=== PATIENT | male | born 1950 | race Caucasian/White ===

== ENCOUNTER 2017-04-09 16:02 | Inpatient (IN) | payer MEDICARE, OTHER, SELFPAY ==
[2017-04-09] VITALS (14 sets, daily range): BP systolic 72–141; BP diastolic 55–97; PULSE 65–137; RESP 14–23; TEMP 36.4–36.8; O2SAT 92–98; BMI 28.5; BMI 28.6; BMI 28.4
--- NOTE | 2017-04-09 16:14 | RAD_ITS ---
STUDY: X-RAY CHEST REASON FOR EXAM: Male, 66 years old. Irregular heart rate and palpitations with shortness of breath. TECHNIQUE: Single AP portable view of the chest. COMPARISON: Prior comparison studies are not available for review at this time. FINDINGS: Cardiac monitoring leads are present. The lungs appear hyperexpanded. There are bilateral perihilar interstitial consolidations and peribronchial cuffing. There is no demonstrated pleural abnormality. There is borderline cardiomegaly. Normal mediastinum and annalise. There is prominence of the pulmonary hilar arteries with peripheral pulmonary vascular congestion. There is atherosclerotic calcification of the aortic arch with tortuosity. There is demineralization of the osseous structures. There is deformity of several bilateral ribs probably related to old rib fractures. There is no demonstrated abnormality of the visualized soft tissue structures of the upper abdomen. RAD/Chest 1 View (Portable) IMPRESSION: Cardiomegaly and mild pulmonary congestion. Electronically Signed: Isabel Admas MD at 16:40 EST , Service support ,
--- NOTE | 2017-04-09 16:14 | EKG12_ITS ---
Test Reason : SOB Blood Pressure : / mmHG Vent. Rate : 136 BPM Atrial Rate : 037 BPM P-R Int : 208 ms QRS Dur : 150 ms QT Int : 374 ms P-R-T Axes : 076 255 065 degrees QTc Int : 562 ms Atrial fibrillation / flutter with aberrancy Right bundle branch block Abnormal ECG Confirmed by JOSE AUGUSTIN, JOSEPH ([id number]), purchasing expeditor ZAC EDWARDS ([id number]) on 04/13/2017 3:18:31 PM Referred By: MISHA Confirmed By:JOSEPH GARCIA MD
[2017-04-09 16:32] LABS: Absolute Lymphocyte Count 2.73 X10^3/ul (0.83-4.51); Absolute Neutrophil Count 4.3 X10^3/uL (2.0-7.7); Basophil# 0.05 X10^3/uL; Basophil% 0.6 % (0-1); Eosinophil# 0.13 X10^3/uL; Eosinophils% 1.6 % (0-5); Hematocrit 44.5 % (40-54); Hemoglobin 15.3 g/dl (13.0-16.5); Lymphocyte # 2.73 X10^3/ul (4.0); Lymphocyte % 34.6 % (19-41); Mean Corp Hgb Conc 34.4 g/gl (32-36); Mean Corpuscular Hgb 31.5 pg (27.0-32.0); Mean Corpuscular Volume 91.8 fL (80-94); Mean Platelet Vol. 10.5 fl (6.2-12.0); Monocyte# 0.72 X10^3/uL; Monocyte% 9.1 % (0-10); Neutrophil # 4.25 X10^3/uL (2.7-7.7); Neutrophil % 53.8 % (47-70); Platelet Count 220 K/mm3 (150-450); RBC Distribution Width CV 14.8 % (11.6-14.6); RBC Distribution Width SD 48.1 fl (35.1-43.9); Red Blood Count 4.85 M/mm3 (4.6-6.2); White Blood Count 7.9 K/mm3 (4.4-11.0)
[2017-04-09 16:36] LABS: POSITIVE COUNT NO; POSITIVE DIFFERENTIAL NO; POSITIVE MORPHOLOGY NO
[2017-04-09 16:45] LABS: International Normalized Ratio 1.3; Prothrombin Time (Protime)PT. 15.2 SECONDS (11.7-14.9)
[2017-04-09 16:51] LABS: Anion Gap 11 (5-15); BUN 29 mg/dL (7-18); BUN/Creat Ratio 21.8 RATIO (10-20); Calcium,Total 9.1 mg/dL (8.5-10.1); Chloride 106 mmol/L (98-107); Creatinine, Serum 1.33 mg/dL (0.70-1.30); EST Glomerular Filtration Rate 57 mL/min (>60); Est Glom Filt Rate - Afr Amer 69 mL/min (>60); Estimated Creatinine Clearance 58.19 ml/min; Glucose 67 mg/dL (70-110); Potassium 4.1 mmol/L (3.5-5.1); Sodium Level 139 mmol/L (136-145)
[2017-04-09] MEDS: dilTIAZem 25 MG/5 ML Vial 10 MG IV BOLUS (16:58)
[2017-04-09] MEDS: 0.9% Normal Saline 1,000 ML 150 ML IV (16:58)
[2017-04-09 17:06] LABS: BNP,B-Type NATRIURETIC PEPTIDE 712.9 pg/mL (0-100)
[2017-04-09] MEDS: Dextrose 50%-Water 25 GM/50 ML DISP.SYRIN IV (17:10)
--- NOTE | 2017-04-09 17:29 | CT_ITS ---
STUDY: CTA CHEST REASON FOR EXAM: Male, 66 years old. Shortness of breath, palpitations and irregular heartbeat. RADIATION DOSAGE (If Supplied By Facility): CTDIvol = ( 22.49 ) mGy, DLP = ( 679.10 ) mGycm TECHNIQUE: The examination was performed with the intravenous administration of 100 ml of Isovue 370 contrast material. Post-processing of the angiographic images was performed, with multiplanar reformation and 3D reconstruction. Individualized dose optimization techniques were used for this CT. COMPARISON: None. FINDINGS: Normal enhancement of the main pulmonary artery and right and left pulmonary arteries. Normal enhancement of the bilateral peripheral pulmonary arteries. There is no demonstrated pulmonary embolism. There is prominence of the main pulmonary arteries and peripheral pulmonary arteries. There is atherosclerotic calcification of the aortic arch with tortuosity. Maximum transverse dimension of ascending thoracic aorta measures approximately 3.8 cm. The aorta is not enhanced enough to exclude dissection. There is cardiomegaly. There is mediastinal lymphadenopathy within the subcarinal, paratracheal and precarinal regions. There are enlarged bilateral hilar lymph nodes. Normal visualized trachea and bronchi. The lungs are hyper expanded, with flattening of the hemidiaphragms. There are multiple lucencies visible within the upper lobes of the possibly related to centrilobular emphysema. There is some thickening of interlobular septa suggesting pulmonary fibrosis. There is heterogeneous groundglass attenuation within the upper lobes that may represent mild airspace disease or atelectasis. There is heterogeneous groundglass attenuation right lower lobe that may represent airspace disease and/or dependent atelectasis. There is a small right-sided pleural effusion. Normal chest wall structures. There is multilevel thoracic spondylosis. There are multilevel degenerative changes of the thoracic spine. There appears to be some reflux of enhanced blood within the liver vasculature suggesting pulmonary congestion. CT/CTA Chest W/WO Contrast IMPRESSION: 1. No CTA demonstrated pulmonary embolism. 2. Mediastinal and hilar lymphadenopathy. 3. Cardiomegaly and mild pulmonary edema with right-sided pleural effusion. 4. Sequela of COPD. 5. Heterogeneous groundglass attenuation in the upper lobes and right lower lobe. This may be the result pulmonary congestion though acute inflammatory or infectious process is possible as well. Electronically Signed: Isabel Adams MD at 18:31 EST , Service support ,
[2017-04-09 17:31] LABS: Bedside Glucose 132 mg/dL (70-110)
--- NOTE | 2017-04-09 17:35 | ED.RN ---
HOLD CARDIZEM AT THIS TIME. HEART RHYTHM BETWEEN AFIB AND NSR
--- NOTE | 2017-04-09 18:34 | EKG12_ITS ---
Test Reason : REPEAT Blood Pressure : / mmHG Vent. Rate : 095 BPM Atrial Rate : 085 BPM P-R Int : 204 ms QRS Dur : 106 ms QT Int : 370 ms P-R-T Axes : 061 044 265 degrees QTc Int : 464 ms Sinus rhythm with frequent and consecutive Premature ventricular complexes ST & T wave abnormality, consider inferolateral ischemia Prolonged QT Abnormal ECG Confirmed by JOSE AUGUSTIN, JOSEPH ([id number]), news assignment editor ZAC EDWARDS ([id number]) on 04/13/2017 3:22:59 PM Referred By: CELIA Confirmed By:JOSEPH GARCIA MD
--- NOTE | 2017-04-09 19:10 | ED.VISSUMM ---
- ER Visit Summary Date of Service: 04/09/17 Chief Complaint: Palpitations, shortness of breath History of Present Illness: The patient is a 66 M sent from the office with progressive shortness of breath for the last 2-3 weeks. He reports feeling occasional palpitations. He denies chest pain. does state that he had somewhat of a cold at the onset of the symptoms. She is noticed his breathing significantly worsened in the last 3-4 days. Patient does report a mild cough with clear sputum. He denies having fever or chills. Past history significant for diabetes, hypertension, high cholesterol. He had a subarachnoid hemorrhage in his brain and 9 years ago. Patient states he had multiple angiograms and no aneurysm was ever found. Patient denies significant cardiac history. He states his last stress test was 5 years ago. Physical Examination: Blood pressure is 141/97, temperature 98.3, heart rate 137, respiratory rate 14, pulse ox 98% on room air. In the room pulse ox was hovering in the low 90s. He was placed on supplemental oxygen. Head and neck examination is unremarkable. Heart is tachycardic and irregular. Lung sounds are grossly clear. There is an occasional crackle in the right base. Patient speaking full sentences without difficulty. Abdomen is soft nontender. Extremity examination reveals no significant edema. Test Results: EKG reveals atrial fibrillation with rate of 136 and a right bundle branch block. Old EKG sent from the clinic from 2013 does not reveal a bundle branch block and was sinus rhythm. Portable chest x-ray reveals mild pulmonary congestion and cardiomegaly. CBC is unremarkable. Chemistry studies reveal glucose of 67, BUN 29, creatinine 1.33. INR is 1.3. Troponin is less than 0.02. BNP is 712. Emergency Department Course and Treatment: Patient was given gentle IV fluids along with 10 mg of IV Cardizem. Heart rate went down to 126 briefly but then back up into the 130s. After a short time heart rate came down to 115 and then progressively down to the low 100s. Patient appears to be trying to convert to sinus rhythm. Patient was given a half amp of D50 for his glucose of 67. I spoke with Dr. Tao, on-call for cardiology. There is certainly concern with anticoagulation secondary to the patient's history of subarachnoid hemorrhage. Dr. Tao requested we get a CTA of the patient's chest to ensure there is no evidence of PE. This is performed and reveals no evidence of PE. There is mediastinal and hilar lymphadenopathy. There is evidence of cardiomegaly. There is mild pulmonary edema. Dr. Tao also asked that we get clearance from either neurology or neurosurgery about anticoagulation. I spoke with Dr. Deleon, on-call for neurology. He advised that with the patient being 9 years out from his insult, there is very little concern if any about anticoagulating him at this time. The patient presently has no headache and no neurologic symptoms. He advised that to be extra cautious a non-contrast head CT could be performed to ensure no evidence of blood at this time. This was ordered, however patient had just undergone CTA of the chest. I was advised that the contrast would remain in the venous system for some time. After speaking with the radiologist, she states that she would not be able to rule out a subarachnoid hemorrhage because of the recent contrast given for the CTA chest. After speaking with him it sounds like without aggressive IV hydration 12 hours would need to be allowed for that contrast to clear before performing a noncontrast head CT. This was discussed again with Dr. Tao. At this point it was felt that if the wait period was 12 hours or less, we would hold the patient's anticoagulation to get this noncontrast head CT. At this time EKG has been repeated. He appears to be fluctuating between sinus rhythm and A. fib. Heart rate on repeat EKG is 95. Patient's findings and course have been discussed with Dr. Mims. Patient will be admitted and plan will be head CT in the morning before starting anticoagulation. Treatment Plan: [] Disposition: Admit Impression: 1. New onset A. fib RVR 2. CHF 3. Mediastinal lymphadenopathy 4. Remote history of subarachnoid hemorrhage This note was generated with [employer] software. It may contain incorrect words, spelling, and punctuation that were not noted in review of the chart prior to signing ED Disposition - Plan for ED Patient: Chief Complaint: Palpitations Referrals: Lindsay Batista MD [Primary Care Provider] -
--- NOTE | 2017-04-09 19:25 | ED.DCSUM_ITS ---
- ER Visit Summary Date of Service: 04/09/17 Duplicate document ED Disposition - Plan for ED Patient: Disposition: Acute Care Hospital [facility] Chief Complaint: Palpitations
[2017-04-09] MEDS: Carvedilol 12.5 MG Tablet PO (20:25)
--- NOTE | 2017-04-09 20:37 | HP.PCM_ITS ---
Problem List (1) Shortness of breath Status: Acute (2) Atrial fibrillation Status: Acute Qualifiers: Atrial fibrillation type: unspecified Qualified Code(s): I48.91 - Unspecified atrial fibrillation History of Present Illness Date of Admission: 04/09/17 Chief Complaint: Shortness of breath, atrial fibrillation The patient is a 66 year old M was seen in the emergency room at [facility] after being sent in for evaluation after going to his physician's office with complaints of shortness of breath. Patient stated that he has not felt well since March when he had a flulike syndrome for 2 weeks. Patient has been short of breath periodically since then but he has noticed that it has increased over the last few days and he sought medical attention. Patient's is in the ER exam room at the time of my examination. Patient denied any chest pain and he denied any edema. EKG was done at the physician's office which showed an irregular rhythm and he was asked to go to the emergency room for evaluation. Patient was noted to be in atrial fibrillation when he reached the emergency room with a pulse of 137, IV Cardizem was given for rate control with lessening of his heart rate. Evaluation included a chest x-ray which showed a megaly and mild pulmonary congestion, CTA of the chest was performed which showed evidence of emphysema, pulmonary fibrosis, and CHF. There was also mediastinal lymphadenopathy noted on the chest CT. Labs were performed were remarkable for a beta natruretic peptide is 712, BUN was 29, creatinine was 1.33, and glucose was 67. EKG showed atrial fibrillation with a right bundle branch block. Cardiology was contacted there was some discussion whether to give the patient anticoagulation but since he had a past history of a subarachnoid hemorrhage, it was recommended that a CT of the brain be obtained before any anticoagulation, patient will get a CT of the brain in the morning since he was given contrast for his CT of his chest. Patient will be admitted to PCU for new onset atrial fib with congestive heart failure, echocardiogram will be obtained, patient will be seen by cardiology, he was placed on Coreg and IV Lasix. Cardiac enzymes will be cycled Past Medical History Allergies bee venom protein (honey bee) Allergy (Verified 04/09/17 16:04) Anaphylaxis Home Medications: Ambulatory Orders Medication Instructions Recorded GlipiZIDE (XL) [Glucotrol Xl] 2.5 mg PO DAILY@0800 04/09/17 Hydrocodone/Acetaminophen [[place] 1 each PO Q4H PRN PRN 04/09/17 5-325 Tablet] Lisinopril/Hydrochlorothiazide 1 each PO DAILY 04/09/17 [Zestoretic 20-12.5 mg Tablet] Metformin HCl [Glucophage] 1,000 mg PO BIDCM 04/09/17 Nabumetone [Relafen] 500 mg PO BID 04/09/17 Surgical History: - - Lithotripsy for kidney stones, lumbar surgery times 2 Psychiatric History: No pertinent psych hx Lives: Spouse/ Significant Other Smoking Status: Current every day smoker Tobacco Use: Cigarettes Alcohol: Rare Drugs: None - *Family History Maternal History Items: Hypertension, Stroke Paternal History Items: Heart Disease Review of Systems Constitutional: Reports: Malaise, Weakness, Fatigue. Denies: Anorexia, Chills, Fever, Night Sweats, Weight Change Eyes: Denies: Blurred vision, Cataracts, Conjunctivae Inflammation, Double vision, Drainage HEENT: Denies: Difficulty Hearing, Difficulty Swallowing, Dysphasia, Ear Pain, Head Aches, Hearing Changes, Nasal bleeding, Nasal Congestion Cardiovascular: Denies: Chest Pain, Claudication, Chest Pressure, Chest Tightness, Edema, Heaviness, Light Headedness, Orthopnea, Palpitations, Paroxysmal Noc. Dyspnea, Syncope Respiratory: Reports: Cough, Shortness of Breath, Shortness of breath upon exertion. Denies: Hemoptysis, Pleuritic Pain, Shortness of breath at rest, Sputum production, Wheezing Gastrointestinal: Denies: Abdominal Pain, Constipation, Diarrhea, Hematemesis, Hematochezia, Nausea, Melena, Vomiting Genitourinary: Denies: Dysuria, Frequency, Hematuria, Hesitancy, Incontinence, Nocturia, Urgency Musculoskeletal: Denies: Back Pain, Foot Pain, Hand Pain, Joint Pain, Joint stiffness, Joint swelling, Joint Tenderness, Leg Pain Skin: Denies: Dryness, Jaundice, Pruritis, Rash Neurological: Denies: Blurred vision, Double vision, Change in Speech, Slurred speech, Difficulty swallowing, Focal weakness, Headaches, Incoordination, Numbness, Tingling Psychiatric: Denies: Anxiety, Depression, Homicidal Ideations, Suicidal Ideations Endocrine: Denies: Change in Body Habitus, Heat/ Cold Intolerance, Polydipsia, Polyuria Hematologic/ Lymphatic: Denies: Adenopathy, Anemia, Easy Bruising, Easy Bleeding , Petechiae, Purpura VTE Information - Inpt Only VTE Present on Admission: No VTE Mechan Device Prophylaxis: None VTE Pharm Prophylaxis ordered?: Yes Patient Problems: Active and Suspected Problems Shortness of breath (Acute) Atrial fibrillation (Acute) - Physical Exam General: Alert, Oriented x3, Cooperative, No apparent distress, Well developed, Well nourished HEENT: Atraumatic, PERRLA, EOMI, Normocephalic Oral: Moist Mucosa Neck: Supple, No JVD, Negative Carotid Bruits, No Nuchal Rigidity, Trachea Midline, Thyroid Normal Size and Texture Lungs: Normal air movement, No rhonchi, No wheeze, No rales - Inspiratory rales over the bases of the lungs Cardiovascular: No murmurs, PMI Normal, Irregular Rate, No rub noted Abdomen: Bowel Sounds Present, Soft, Non Tender, Non-Distended, No hernias noted Extremities: No clubbing, No cyanosis, No edema, Capillary Refill Less than 3 Seconds Skin: No rashes, No breakdown Musculoskeletal: No Tenderness to Palpation of Joints or Extremities Neurological: Cranial nerves II-XII grossly intact, Neuro grossly intact, Muscle tone normal, Sensory exam intact to light touch and pain, Coordination normal Psych/Mental Status: Normal Affect, Appropriate, Alert and oriented to time, place, person, mood and affect Vital Signs Temp Pulse Resp BP Pulse Ox 98.3 F 96 16 108/74 96 04/09/17 19:23 04/09/17 19:23 04/09/17 19:23 04/09/17 19:23 04/09/17 19:23 Assessment/Plan Active and Suspected Problems Shortness of breath (Acute) Atrial fibrillation (Acute) #1 new onset atrial fibrillation with RVR-patient will be admitted to PCU, cardiac enzymes will be cycled, patient will be placed on rate limiting medication, echocardiogram will be performed, he will see cardiology in consultation. #2 congestive heart failure-type unknown-patient will be placed on IV Lasix, echocardiogram will be obtained #3 chronic obstructive pulmonary disease-patient does not have a known diagnosis of COPD, CT of the chest showed evidence of emphysematous changes, patient was cautioned not to smoke #4 pulmonary fibrosis #5 lymphadenopathy in the mediastinum-significance unknown, patient will probably need a contrasted CT of the chest done sometime in the future #6 past history of subarachnoid hemorrhage 1998-between neurology, radiology, and cardiology, it was decided the patient should have a CT of the brain tomorrow morning before starting any full anticoagulation. #7 elevated creatinine-significance unknown, no old creatinine for comparison, patient sees Dr. Batista at the [facility] she probably has old labs, these may need to be obtained #8 type 2 diabetes-patient will be taken off Glucophage, he will he will remain on Glucotrol, NovoLog will be given via sliding scale #9 hypertension-patient will be kept on lisinopril, the lisinopril HCT will be stopped as the patient will be on Lasix #10 degenerative disc disease of the lumbar spine-patient was cautioned not to use any anti-inflammatory should he be placed on full anticoagulation, patient currently takes Relafen, he will not be able to take this medication if he is on full anticoagulation. Code Visit Inpatient E&M: [id number] Init Hosp L3
[2017-04-09] MEDS: Furosemide 40 MG/4 ML Vial IV (21:33)
[2017-04-09] MEDS: Atorvastatin Calcium 20 MG Tablet PO (21:33)
--- NOTE | 2017-04-09 21:35 | PCM.CONS.C ---
Problem List (1) Atrial fibrillation Status: Acute Qualifiers: Atrial fibrillation type: unspecified Qualified Code(s): I48.91 - Unspecified atrial fibrillation (2) CHF (congestive heart failure) Status: Acute Qualifiers: Congestive heart failure type: unspecified Congestive heart failure chronicity: acute Qualified Code(s): I50.9 - Heart failure, unspecified (3) HTN (hypertension) Status: Chronic Qualifiers: Hypertension type: essential hypertension Qualified Code(s): I10 - Essential (primary) hypertension (4) HLD (hyperlipidemia) Status: Chronic Qualifiers: Hyperlipidemia type: unspecified Qualified Code(s): E78.5 - Hyperlipidemia, unspecified (5) Hyperglycemia Status: Chronic (6) Acute spontaneous subarachnoid intracranial hemorrhage Status: Resolved (7) Tobacco abuse Status: Chronic Reason for Consult Date of Consultation: 04/09/17 History of Present Illness: The patient is a 66 year old white male with past medical history which has included hypertension, hyper lipidemia, hyperglycemia, subarachnoid hemorrhage-remote, and tobacco abuse who now presents with concerns of atrial fibrillation and congestive heart failure. He states that for at least the last 2 weeks he has felt as if he may have had a flulike virus . He states he had a cough with sputum production-clear. He does not recall any associated nausea, emesis, or diarrhea. There were no associated myalgias. He notes over the last 3 days he has been progressively short of breath. This is occurred in any position. He states he has felt better sitting up in bed or sitting in a chair as opposed to being supine. He has not demonstrated any obvious lower extremity peripheral pitting edema. There has been no chest discomfort and he denies any near-syncope or syncope. He states he was being evaluated today and subsequently referred to the emergency department based on concerns of a irregular heartbeat . In the emergency department he was evaluated and noted to have what appeared to be atrial fibrillation with rapid ventricular response with occasional PVCs and an underlying right bundle branch block pattern. This was reported as different from a previous ECG available for review from 09/21/2013 which at that time demonstrated normal sinus rhythm with no obvious right bundle branch block pattern. He had a chest x-ray performed which suggested increased pulmonary vascularity. He had a troponin I level performed which was negative. He was treated with IV diltiazem. His ventricular rate slowed and he demonstrated episodes of intermittent sinus rhythm. He was placed in the PCU for further evaluation. He has continued to demonstrate episodes of atrial fibrillation with RVR with intermittent episodes of sinus rhythm. [] Past Medical History Allergies/Adverse Reactions: Allergies bee venom protein (honey bee) Allergy (Verified 04/09/17 16:04) Anaphylaxis Home Medications: Ambulatory Orders Medication Instructions Recorded GlipiZIDE (XL) [Glucotrol Xl] 5 mg PO DAILY@0800 04/09/17 Hydrocodone/Acetaminophen [[place] 1 each PO Q4H PRN PRN 04/09/17 5-325 Tablet] Lisinopril/Hydrochlorothiazide 1 each PO DAILY 04/09/17 [Zestoretic 20-12.5 mg Tablet] Metformin HCl [Glucophage] 500 mg PO BIDCM 04/09/17 Nabumetone [Relafen] 500 mg PO BID 04/09/17 Past Medical History (Chronic Problems): Chronic Problems HTN (hypertension) (Chronic) HLD (hyperlipidemia) (Chronic) Hyperglycemia (Chronic) Tobacco abuse (Chronic) Surgical History: - - Lithotripsy for kidney stones, lumbar surgery times 2 Psychiatric History: No pertinent psych hx - *Family History Maternal History Items: Hypertension, Stroke Paternal History Items: Heart Disease Lives: Spouse/ Significant Other Smoking Status: Current every day smoker Tobacco Use: Cigarettes Alcohol: Rare Drugs: None Review of Systems - Review of Systems General: Denies: Fever, Night Sweats, Fatigue Cardiovascular: Reports: Shortness of Breath, Shortness of Breath at Rest, Orthopnea. Denies: Chest Discomfort, PND, Peripheral Edema, Palpitations, Lightheadedness, Dizziness, Near Syncope, Syncope Respiratory: Reports: Cough, Sputum Production, Shortness of Breath. Denies: Hemoptysis Gastrointestinal: Denies: Hematemesis, Hematochezia, Melena Genitourinary: Denies: Dysuria, Hematuria Skin: Denies: Rash Subjectve: This is a 66-year-old white male who appears to be resting comfortably at the moment in no acute distress. Objective: Vital Signs Temp Pulse Resp BP Pulse Ox 97.8 F 114 H 16 118/70 93 04/09/17 20:46 04/09/17 20:46 04/09/17 20:46 04/09/17 20:51 04/09/17 20:46 Oxygen Flow Rate 2 Oxygen Delivery Method Nasal Cannula Weight: 204 lb 2.369 oz Body Mass Index (BMI) 28.4 General: Awake, Alert, Oriented x 3, Cooperative, No Acute Distress Neck: No JVD Lungs: Rhonchi, Inspiratory Wheezes - Perez, Expiratory Wheezes-Perez Cardiovascular: Regular Rhythm, Premature Ectopic Beats, Normal S1, Normal S2 Vascular: No Carotid Bruits Abdomen: Bowel Sounds Present, Soft, Non Tender Extremities: No Cyanosis, No Clubbing, No edema Neurological: No Focal Motor or Sensory Deficit Rhythm: As noted above EKG: As noted above ECHO: Pending CXR: As noted above Chest CT Scan: Preliminary evaluation: No great vessel or thromboembolic disease reported: Please see official report Assessment/Plan 1. Atrial fibrillation The patient presents with findings compatible with atrial fibrillation with rapid ventricular response. The etiology is uncertain although it could be related to a combination of age, hypertension, undiagnosed cardiovascular disease, pulmonary disease, etc. At the present time the patient has been evaluated. His initial cardiac evaluation with respect to cardiac enzymes were negative. He is pending additional cardiovascular evaluation with a transthoracic echocardiogram to evaluate his atrial size as well as his ventricular size, wall thickness, and systolic function. In the interim he has been treated medically. He was placed on antiplatelet therapy and rate limiting therapy. However he has had intermittent episodes of atrial fibrillation with rapid ventricular response superimposed upon his underlying IVCD pattern. Thus it may be reasonable, as he continues to have episodes of sinus rhythm, to attempt to maintain his rhythm with additional antiarrhythmic therapy. At the moment, without any other knowledge of his cardiovascular disease process, it would be reasonable to consider agent such as IV amiodarone. He is also to be placed on anticoagulant therapy. However this is on hold pending a follow-up brain CT scan to evaluate for any obvious residual events or findings based upon his remote history of subarachnoid hemorrhage. This issue was discussed between Dr. Yu and Dr. Deleon often of neurology while the patient was in the emergency department. 2. Congestive heart failure The patient does have findings compatible with underlying congestive heart failure. Again it is unclear whether this may be secondary to his atrial dysrhythmia or a primary underlying cardiovascular disease that would be contributing to his atrial dysrhythmia. At the present time he will continue to be monitored. His atrial dysrhythmia will be addressed. He will undergo further evaluation of his left ventricular wall motion and systolic function with a transthoracic echocardiogram. Depending upon his clinical course he may need future evaluation care with additional noninvasive and/or invasive studies. In the interim his medical therapy will include agents such as nitrates, beta-blockers, diuretics, and afterload reducing agents as tolerated. 3. Hypertension The patient will continue antihypertensive therapy peer 4. Hyperlipidemia The patient states that he was diagnosed with hyperlipidemia. He states he was due to start lipid-lowering therapy. Lipids will be evaluated. His medications will be adjusted. 5. Hyperglycemia He will continue evaluation care per internal medicine. 6. Subarachnoid hemorrhage: Remote The patient states he was evaluated at [facility]. He states there is no definitive etiology for his subarachnoid hemorrhage. He did not require invasive evaluation or care. He states he had follow-up and then over time required no further follow-up. His believes he was told not to take aspirin therapy in the future. The patient should be considered for not only his upcoming brain CT scan but further input from neurology or neurosurgery with respect to what agents he may or may not be able to tolerate in the future with respect to antiplatelet therapy, anticoagulant therapy, etc. 7. Tobacco abuse The patient states he has been smoking cigarettes, approximately 1 pack per day, for 40 years. He has been counseled on the need to stop his tobacco intake. Comment: The above was discussed with the patient, his spouse, Dr. Yu of the [facility] emergency department staff, and Dr. Mims of the [facility] staff. This note was generated with [employer] Dictation software. Every effort was made to ensure accuracy, however, computerized bag loader mistakes may persist.
--- NOTE | 2017-04-09 21:48 | CON.PCM_ITS ---
Problem List (1) Atrial fibrillation Status: Acute Qualifiers: Atrial fibrillation type: unspecified Qualified Code(s): I48.91 - Unspecified atrial fibrillation (2) CHF (congestive heart failure) Status: Acute Qualifiers: Congestive heart failure type: unspecified Congestive heart failure chronicity: acute Qualified Code(s): I50.9 - Heart failure, unspecified (3) HTN (hypertension) Status: Chronic Qualifiers: Hypertension type: essential hypertension Qualified Code(s): I10 - Essential (primary) hypertension (4) HLD (hyperlipidemia) Status: Chronic Qualifiers: Hyperlipidemia type: unspecified Qualified Code(s): E78.5 - Hyperlipidemia , unspecified (5) Hyperglycemia Status: Chronic (6) Acute spontaneous subarachnoid intracranial hemorrhage Status: Resolved (7) Tobacco abuse Status: Chronic Reason for Consult Date of Consultation: 04/09/17 History of Present Illness: The patient is a 66 year old white male with past medical history which has included hypertension, hyper lipidemia, hyperglycemia, subarachnoid hemorrhage- remote, and tobacco abuse who now presents with concerns of atrial fibrillation and congestive heart failure. He states that for at least the last 2 weeks he has felt as if he may have had a flulike virus . He states he had a cough with sputum production-clear. He does not recall any associated nausea, emesis , or diarrhea. There were no associated myalgias. He notes over the last 3 days he has been progressively short of breath. This is occurred in any position. He states he has felt better sitting up in bed or sitting in a chair as opposed to being supine. He has not demonstrated any obvious lower extremity peripheral pitting edema. There has been no chest discomfort and he denies any near-syncope or syncope. He states he was being evaluated today and subsequently referred to the emergency department based on concerns of a irregular heartbeat . In the emergency department he was evaluated and noted to have what appeared to be atrial fibrillation with rapid ventricular response with occasional PVCs and an underlying right bundle branch block pattern. This was reported as different from a previous ECG available for review from 2013 which at that time demonstrated normal sinus rhythm with no obvious right bundle branch block pattern. He had a chest x-ray performed which suggested increased pulmonary vascularity. He had a troponin I level performed which was negative. He was treated with IV diltiazem. His ventricular rate slowed and he demonstrated episodes of intermittent sinus rhythm. He was placed in the PCU for further evaluation. He has continued to demonstrate episodes of atrial fibrillation with RVR with intermittent episodes of sinus rhythm. [] Past Medical History Allergies/Adverse Reactions: Allergies bee venom protein (honey bee) Allergy (Verified 04/09/17 16:04) Anaphylaxis Home Medications: Ambulatory Orders Medication Instructions Recorded GlipiZIDE (XL) [Glucotrol Xl] 5 mg PO DAILY@0800 04/09/17 Hydrocodone/Acetaminophen [[place] 1 each PO Q4H PRN PRN 04/09/17 5-325 Tablet] Lisinopril/Hydrochlorothiazide 1 each PO DAILY 04/09/17 [Zestoretic 20-12.5 mg Tablet] Metformin HCl [Glucophage] 500 mg PO BIDCM 04/09/17 Nabumetone [Relafen] 500 mg PO BID 04/09/17 Past Medical History (Chronic Problems): Chronic Problems HTN (hypertension) (Chronic) HLD (hyperlipidemia) (Chronic) Hyperglycemia (Chronic) Tobacco abuse (Chronic) Surgical History: - - Lithotripsy for kidney stones, lumbar surgery times 2 Psychiatric History: No pertinent psych hx - *Family History Maternal History Items: Hypertension, Stroke Paternal History Items: Heart Disease Lives: Spouse/ Significant Other Smoking Status: Current every day smoker Tobacco Use: Cigarettes Alcohol: Rare Drugs: None Review of Systems - Review of Systems General: Denies: Fever, Night Sweats, Fatigue Cardiovascular: Reports: Shortness of Breath, Shortness of Breath at Rest, Orthopnea. Denies: Chest Discomfort, PND, Peripheral Edema, Palpitations, Lightheadedness, Dizziness, Near Syncope, Syncope Respiratory: Reports: Cough, Sputum Production, Shortness of Breath. Denies: Hemoptysis Gastrointestinal: Denies: Hematemesis, Hematochezia, Melena Genitourinary: Denies: Dysuria, Hematuria Skin: Denies: Rash Subjectve: This is a 66-year-old white male who appears to be resting comfortably at the moment in no acute distress. Objective: Vital Signs Temp Pulse Resp BP Pulse Ox 97.8 F 114 H 16 118/70 93 04/09/17 20:46 04/09/17 20:46 04/09/17 20:46 04/09/17 20:51 04/09/17 20:46 Oxygen Flow Rate 2 Oxygen Delivery Method Nasal Cannula Weight: 204 lb 2.369 oz Body Mass Index (BMI) 28.4 General: Awake, Alert, Oriented x 3, Cooperative, No Acute Distress Neck: No JVD Lungs: Rhonchi, Inspiratory Wheezes - Perez, Expiratory Wheezes-Perez Cardiovascular: Regular Rhythm, Premature Ectopic Beats, Normal S1, Normal S2 Vascular: No Carotid Bruits Abdomen: Bowel Sounds Present, Soft, Non Tender Extremities: No Cyanosis, No Clubbing, No edema Neurological: No Focal Motor or Sensory Deficit Rhythm: As noted above EKG: As noted above ECHO: Pending CXR: As noted above Chest CT Scan: Preliminary evaluation: No great vessel or thromboembolic disease reported: Please see official report Assessment/Plan 1. Atrial fibrillation The patient presents with findings compatible with atrial fibrillation with rapid ventricular response. The etiology is uncertain although it could be related to a combination of age, hypertension, undiagnosed cardiovascular disease, pulmonary disease, etc. At the present time the patient has been evaluated. His initial cardiac evaluation with respect to cardiac enzymes were negative. He is pending additional cardiovascular evaluation with a transthoracic echocardiogram to evaluate his atrial size as well as his ventricular size, wall thickness, and systolic function. In the interim he has been treated medically. He was placed on antiplatelet therapy and rate limiting therapy. However he has had intermittent episodes of atrial fibrillation with rapid ventricular response superimposed upon his underlying IVCD pattern. Thus it may be reasonable, as he continues to have episodes of sinus rhythm, to attempt to maintain his rhythm with additional antiarrhythmic therapy. At the moment, without any other knowledge of his cardiovascular disease process, it would be reasonable to consider agent such as IV amiodarone. He is also to be placed on anticoagulant therapy. However this is on hold pending a follow-up brain CT scan to evaluate for any obvious residual events or findings based upon his remote history of subarachnoid hemorrhage. This issue was discussed between Dr. Yu and Dr. Deleon often of neurology while the patient was in the emergency department. 2. Congestive heart failure The patient does have findings compatible with underlying congestive heart failure. Again it is unclear whether this may be secondary to his atrial dysrhythmia or a primary underlying cardiovascular disease that would be contributing to his atrial dysrhythmia. At the present time he will continue to be monitored. His atrial dysrhythmia will be addressed. He will undergo further evaluation of his left ventricular wall motion and systolic function with a transthoracic echocardiogram. Depending upon his clinical course he may need future evaluation care with additional noninvasive and/or invasive studies. In the interim his medical therapy will include agents such as nitrates, beta- blockers, diuretics, and afterload reducing agents as tolerated. 3. Hypertension The patient will continue antihypertensive therapy peer 4. Hyperlipidemia The patient states that he was diagnosed with hyperlipidemia. He states he was due to start lipid-lowering therapy. Lipids will be evaluated. His medications will be adjusted. 5. Hyperglycemia He will continue evaluation care per internal medicine. 6. Subarachnoid hemorrhage: Remote The patient states he was evaluated at [facility]. He states there is no definitive etiology for his subarachnoid hemorrhage. He did not require invasive evaluation or care. He states he had follow-up and then over time required no further follow-up. His believes he was told not to take aspirin therapy in the future. The patient should be considered for not only his upcoming brain CT scan but further input from neurology or neurosurgery with respect to what agents he may or may not be able to tolerate in the future with respect to antiplatelet therapy, anticoagulant therapy, etc. 7. Tobacco abuse The patient states he has been smoking cigarettes, approximately 1 pack per day , for 40 years. He has been counseled on the need to stop his tobacco intake. Comment: The above was discussed with the patient, his spouse, Dr. Yu of the [facility] emergency department staff, and Dr. Mims of the [facility] staff. This note was generated with [employer] Dictation software. Every effort was made to ensure accuracy, however, computerized handstitching machine armhole feller mistakes may persist.
[2017-04-09 22:26] LABS: Bedside Glucose 110 mg/dL (70-110)
[2017-04-09] MEDS: 0.9% NaCl Peripheral Flush Adult/Peds IV (22:31)
--- NOTE | 2017-04-09 23:05 | NURSING ---
This RN gave verbal report and handed off care to Nathaniel King RN at this time.
[2017-04-10] VITALS (43 sets, daily range): BP systolic 61–159; BP diastolic 46–135; PULSE 56–97; RESP 13–26; TEMP 35.7–36.9; O2SAT 23–100
--- NOTE | 2017-04-10 05:55 | EKG12_ITS ---
Test Reason : AM EKG Blood Pressure : / mmHG Vent. Rate : 059 BPM Atrial Rate : 059 BPM P-R Int : 216 ms QRS Dur : 106 ms QT Int : 466 ms P-R-T Axes : 010 079 249 degrees QTc Int : 461 ms Sinus bradycardia with 1st degree A-V block T wave abnormality, consider inferolateral ischemia Prolonged QT Abnormal ECG Confirmed by SWAPNA AUGUSTIN, JAMES ([id number]), international editorial producer ZAC EDWARDS ([id number] on 04/15/2017 3:05:49 PM Referred By: SWAPNA Confirmed By:JAMES BARCENAS MD
--- NOTE | 2017-04-10 05:55 | CT_ITS ---
STUDY: CT BRAIN WITHOUT CONTRAST REASON FOR EXAM: Male, 66 years old. Onset of atrial fibrillation. History of prior subarachnoid hemorrhage. RADIATION DOSAGE (If Supplied By Facility): CTDIvol = ( 44.99 ) mGy, DLP = ( 829.85 ) mGycm TECHNIQUE: Transaxial CT imaging of the brain was performed without administration of intravenous contrast material. Individualized dose optimization techniques were used for this CT. COMPARISON: None. FINDINGS: Normal soft tissue structures. Normal calvarium. Normal size ventricles and extra-axial spaces for the patient's age. Normal white matter tracts of the cerebral hemispheres. Normal basal ganglia and thalami. Normal brainstem. Normal cerebellum. There is no intracranial hemorrhage. There are no findings of an acute ischemic infarction. Normal visualized paranasal sinuses. CT/Brain/Head without Contrast IMPRESSION: Normal unenhanced CT scan of the brain. No intracranial hemorrhage. Electronically Signed: Audi Baeza MD at 6:12 EST , Service support ,
--- NOTE | 2017-04-10 05:55 | ECHOD_ITS ---
Version 2 Reason For Study: AFIB Procedure This was a 2D Doppler, Color Flow transthoracic echocardiogram. Contrast injection was performed. Exam performed portable in patient room. Left Ventricle Mildly dilated left ventricle. Severe global left ventricular systolic dysfunction. The estimated ejection fraction is 20 %. There is moderate to severe global hypokinesis of the left ventricle. Right Ventricle Moderately dilated right ventricle. Mild to moderate global right ventricular systolic dysfunction. Atria The left atrium is mildly enlarged. Normal right atrium. Mitral Valve Normal mitral valve. Moderate (2+) eccentric mitral valve insufficiency. Tricuspid Valve Normal tricuspid valve. Mild to moderate (1-2+) tricuspid valve insufficiency. Pulmonary artery systolic pressure is 38 mmHg. Aortic Valve Trisinus/trileaflet aortic valve. Pulmonic Valve Normal pulmonic valve. Mild (1+) pulmonic valve insufficiency. Great Vessels Normal aortic root. The pulmonary artery is normal size. Normal inferior vena cava. Pericardium/Pleural No pericardial effusion. Medication Diluted definity 5ml given slow IV push to enhance endocardial definition. MMode/2D Measurements & Calculations LVIDd: 5.9 cm IVSd: 0.75 cm LVOT diam: 2.0 cm LVIDs: 5.0 cm LVPWd: 0.82 cm LVOT area: 3.2 cm2 RVDd: 4.6 cm FS: 15.4 % Ao root diam: 3.9 cm LAV(MOD-bp): 75.2 ml LA dimension: 4.2 cm LAV(MOD-bp) Indexed: 35.4 ml/m2 LA A4 area: 20.8 cm2 LAV(MOD-sp2): 97.1 ml LAV(MOD-sp4): 57.5 ml RA A4 area: 18.1 cm2 Doppler Measurements & Calculations MV E max madison: 78.2 cm/sec Ao V2 max: 73.1 cm/sec LV V1 max: 57.7 cm/sec Ao max P.1 mmHg LV V1 max P.3 mmHg JACEK(V,D): 2.6 cm2 PA V2 max: 49.0 cm/sec PI end-d madison: 113.2 cm/sec TR max mad[place]: 287.1 cm/sec TR max P.2 mmHg RVSP(TR): 48.2 mmHg Interpretation Summary Mildly dilated left ventricle. Severe global left ventricular systolic dysfunction. There is moderate to severe global hypokinesis of the left ventricle. Moderate (2+) eccentric mitral valve insufficiency. Pulmonary artery systolic pressure is 38 mmHg. The estimated ejection fraction is 20 %. Ordering Physician: Dominic Mims Referring Physician: Lindsay Batista M.D. Performed By: Anca Rodriguez, RDCS, RVT
[2017-04-10 07:00] LABS: Bedside Glucose 184 mg/dL (70-110)
[2017-04-10 08:11] LABS: Anion Gap 8 (5-15); BUN 33 mg/dL (7-18); BUN/Creat Ratio 22.1 RATIO (10-20); Calcium,Total 8.3 mg/dL (8.5-10.1); Chloride 105 mmol/L (98-107); Cholesterol 125 mg/dL (200); Creatinine, Serum 1.49 mg/dL (0.70-1.30); EST Glomerular Filtration Rate 50 mL/min (>60); Est Glom Filt Rate - Afr Amer 61 mL/min (>60); Estimated Creatinine Clearance 51.94 ml/min; Glucose 188 mg/dL (70-110); High Density Lipoprotein 26 mg/dL; Sodium Level 136 mmol/L (136-145); Triglycerides 151 mg/dL; Very Low Density Lipoprotein 30 mg/dL (5-40)
--- NOTE | 2017-04-10 08:41 | PCM.PN.CARD ---
Subjectve: The patient states that he has had no new acute symptoms or events since his admission to the hospital. Objective: Vital Signs Temp Pulse Resp BP Pulse Ox 98.5 F 62 18 84/69 L 96 04/10/17 08:00 04/10/17 08:00 04/10/17 08:00 04/10/17 08:00 04/10/17 08:00 Oxygen Flow Rate 2 Oxygen Delivery Method Nasal Cannula Weight: 204 lb 2.369 oz Body Mass Index (BMI) 28.4 Intake and Output for Last 24 Hours 04/08/17 04/09/17 04/10/17 23:59 23:59 23:59 Intake Total 476 / 476 Output Total 350 / 350 Balance 126 / 126 General: Awake, Alert, Oriented x 3, Cooperative, No Acute Distress Neck: No JVD Lungs: Rhonchi, Inspiratory Wheezes - Perez, Expiratory Wheezes-Perez Cardiovascular: Regular Rhythm, Normal S1, Normal S2 Abdomen: Bowel Sounds Present, Soft, Non Tender Extremities: No edema 04/09/17 21:47: Troponin I < 0.02 04/10/17 00:57: Troponin I < 0.02 04/10/17 06:50: Sodium 136, Potassium 5.0, Chloride 105, Carbon Dioxide 23.0, Anion Gap 8, BUN 33 H, Creatinine 1.49 H, Est GFR (MDRD) Af Amer 61, Est GFR (MDRD) Non-Af 50 L, BUN/Creatinine Ratio 22.1 H, Glucose 188 H, Calcium 8.3 L, Troponin I < 0.02, Triglycerides 151, Cholesterol 125, LDL Cholesterol 69, VLDL Cholesterol 30, HDL Cholesterol 26 L Rhythm: Sinus rhythm EKG: Sinus rhythm; low voltage QRS in the limb leads; T-wave abnormality potentially compatible with inferolateral myocardial ischemia ECHO: Pending Head / Brain CT Scan: Preliminary report: Unremarkable: Please see official report Assessment/Plan 1. Atrial fibrillation The patient presents with findings compatible with atrial fibrillation with rapid ventricular response. The etiology is uncertain although it could be related to a combination of age, hypertension, undiagnosed cardiovascular disease, pulmonary disease, etc. At the present time the patient has been evaluated. His cardiac enzymes have been negative. His ECG is as noted above. He has been treated with a combination of rate control therapy and antiarrhythmic therapy. His rate control therapy with respect to beta-timothy was placed on hold secondary to his hypotension. He has continued his antiarrhythmic therapy with IV amiodarone. His antiplatelet therapy and anticoagulant therapy were placed on hold pending his Brain CT scan. Based upon his previous history, previous comments of not being able to take aspirin therapy, and the potential need for additional cardiovascular care with antiplatelet therapy as well as anticoagulants, it would be reasonable to request neurology input on what medications he may or may not be able to take respect to his history of subarachnoid hemorrhage. 2. Congestive heart failure The patient does have findings compatible with underlying congestive heart failure. Again it is unclear whether this may be secondary to his atrial dysrhythmia or a primary underlying cardiovascular disease that would be contributing to his atrial dysrhythmia. His cardiac enzymes have remained negative. His echocardiogram is pending. 3. Hypertension The patient will continue antihypertensive therapy which may need to be adjusted based upon his blood pressure response. 4. Hyperlipidemia The patient states that he was diagnosed with hyperlipidemia. He states he was due to start lipid-lowering therapy. Lipids will be evaluated. His medications will be adjusted. 5. Hyperglycemia He will continue evaluation care per internal medicine. 6. Subarachnoid hemorrhage: Remote The patient states he was evaluated at [facility]. He states there is no definitive etiology for his subarachnoid hemorrhage. He did not require invasive evaluation or care. He states he had follow-up and then over time required no further follow-up. His believes he was told not to take aspirin therapy in the future. 7. Tobacco abuse The patient states he has been smoking cigarettes, approximately 1 pack per day, for 40 years. He has been counseled on the need to stop his tobacco intake. Overall, there is some concern as to the exact etiology of his cardiopulmonary issues and whether or not above and beyond his dysrhythmia does he have underlying cardiovascular disease such as LV systolic dysfunction contributing to his symptoms and findings as well as the extent of underlying pulmonary disease secondary to his previous tobacco history also contributing to his symptoms and findings. Thus he will continue his evaluation from a cardiac standpoint with a transthoracic echocardiogram. He may need additional noninvasive or invasive diagnostic studies. In the interim it would be reasonable to obtain neurology input with respect to what medications such as antiplatelets and anticoagulants he may or may not be able to take based on his history of subarachnoid hemorrhage. Comment: The above was discussed with the patient and Dr. Mims and he noted that he would consult neurology for further input. This note was generated with [email or web address] Dictation software. Every effort was made to ensure accuracy, however, computerized big data analytics lead mistakes may persist.
--- NOTE | 2017-04-10 08:48 | PN.CARD_ITS ---
Subjectve: The patient states that he has had no new acute symptoms or events since his admission to the hospital. Objective: Vital Signs Temp Pulse Resp BP Pulse Ox 98.5 F 62 18 84/69 L 96 04/10/17 08:00 04/10/17 08:00 04/10/17 08:00 04/10/17 08:00 04/10/17 08:00 Oxygen Flow Rate 2 Oxygen Delivery Method Nasal Cannula Weight: 204 lb 2.369 oz Body Mass Index (BMI) 28.4 Intake and Output for Last 24 Hours 04/08/17 04/09/17 04/10/17 23:59 23:59 23:59 Intake Total 476 / 476 Output Total 350 / 350 Balance 126 / 126 General: Awake, Alert, Oriented x 3, Cooperative, No Acute Distress Neck: No JVD Lungs: Rhonchi, Inspiratory Wheezes - Perez, Expiratory Wheezes-Perez Cardiovascular: Regular Rhythm, Normal S1, Normal S2 Abdomen: Bowel Sounds Present, Soft, Non Tender Extremities: No edema 04/09/17 21:47: Troponin I < 0.02 04/10/17 00:57: Troponin I < 0.02 04/10/17 06:50: Sodium 136, Potassium 5.0, Chloride 105, Carbon Dioxide 23.0, Anion Gap 8, BUN 33 H, Creatinine 1.49 H, Est GFR (MDRD) Af Amer 61, Est GFR ( MDRD) Non-Af 50 L, BUN/Creatinine Ratio 22.1 H, Glucose 188 H, Calcium 8.3 L, Troponin I < 0.02, Triglycerides 151, Cholesterol 125, LDL Cholesterol 69, VLDL Cholesterol 30, HDL Cholesterol 26 L Rhythm: Sinus rhythm EKG: Sinus rhythm; low voltage QRS in the limb leads; T-wave abnormality potentially compatible with inferolateral myocardial ischemia ECHO: Pending Head / Brain CT Scan: Preliminary report: Unremarkable: Please see official report Assessment/Plan 1. Atrial fibrillation The patient presents with findings compatible with atrial fibrillation with rapid ventricular response. The etiology is uncertain although it could be related to a combination of age, hypertension, undiagnosed cardiovascular disease, pulmonary disease, etc. At the present time the patient has been evaluated. His cardiac enzymes have been negative. His ECG is as noted above. He has been treated with a combination of rate control therapy and antiarrhythmic therapy. His rate control therapy with respect to beta-timothy was placed on hold secondary to his hypotension. He has continued his antiarrhythmic therapy with IV amiodarone. His antiplatelet therapy and anticoagulant therapy were placed on hold pending his Brain CT scan. Based upon his previous history, previous comments of not being able to take aspirin therapy, and the potential need for additional cardiovascular care with antiplatelet therapy as well as anticoagulants, it would be reasonable to request neurology input on what medications he may or may not be able to take respect to his history of subarachnoid hemorrhage. 2. Congestive heart failure The patient does have findings compatible with underlying congestive heart failure. Again it is unclear whether this may be secondary to his atrial dysrhythmia or a primary underlying cardiovascular disease that would be contributing to his atrial dysrhythmia. His cardiac enzymes have remained negative. His echocardiogram is pending. 3. Hypertension The patient will continue antihypertensive therapy which may need to be adjusted based upon his blood pressure response. 4. Hyperlipidemia The patient states that he was diagnosed with hyperlipidemia. He states he was due to start lipid-lowering therapy. Lipids will be evaluated. His medications will be adjusted. 5. Hyperglycemia He will continue evaluation care per internal medicine. 6. Subarachnoid hemorrhage: Remote The patient states he was evaluated at [facility]. He states there is no definitive etiology for his subarachnoid hemorrhage. He did not require invasive evaluation or care. He states he had follow-up and then over time required no further follow-up. His believes he was told not to take aspirin therapy in the future. 7. Tobacco abuse The patient states he has been smoking cigarettes, approximately 1 pack per day , for 40 years. He has been counseled on the need to stop his tobacco intake. Overall, there is some concern as to the exact etiology of his cardiopulmonary issues and whether or not above and beyond his dysrhythmia does he have underlying cardiovascular disease such as LV systolic dysfunction contributing to his symptoms and findings as well as the extent of underlying pulmonary disease secondary to his previous tobacco history also contributing to his symptoms and findings. Thus he will continue his evaluation from a cardiac standpoint with a transthoracic echocardiogram. He may need additional noninvasive or invasive diagnostic studies. In the interim it would be reasonable to obtain neurology input with respect to what medications such as antiplatelets and anticoagulants he may or may not be able to take based on his history of subarachnoid hemorrhage. Comment: The above was discussed with the patient and Dr. Mims and he noted that he would consult neurology for further input. This note was generated with [employer] Dictation software. Every effort was made to ensure accuracy, however, computerized provider engagement executive mistakes may persist.
--- NOTE | 2017-04-10 09:12 | MRI_ITS ---
STUDY: MRI BRAIN WITHOUT CONTRAST REASON FOR EXAM: Male, 66 years old. Atrial fibrillation. TECHNIQUE: Standardized multiplanar fat and water weighted pulse sequences were obtained. COMPARISON: CT of the head dated April 10, 2017. FINDINGS: There is mild cerebral atrophy with widening of the extra-axial spaces and ventricular dilatation. There are multiple white matter hyperintensities, distributed throughout the deep white matter tracts of the cerebral hemispheres, consistent with moderate chronic white matter ischemic changes. There is apparent restricted diffusion within bilateral basal ganglia. This is somewhat atypical in configuration for an acute infarct and may be the result of artifact. There is no other evidence to suggest acute infarct. Normal T2* images of the brain without demonstrated susceptibility artifact. There is no demonstrated hemosiderin stain. Normal bilateral basal ganglia. Normal thalami. There is no extra-axial fluid accumulation. Normal flow voids within the major intracranial circulation suggesting patency by spin echo criteria. Normal sella turcica, pituitary gland, infundibular stalk, optic chiasm and hypothalamus. Normal tectal plate and pineal gland. There are chronic white matter ischemic changes of the neftali. The midbrain and medulla are otherwise normal. There is a focal area of encephalomalacia in the right cerebellum probably related to old infarct. Cerebellum has a grossly normal appearance otherwise. There are large basal cisterns. Normal bilateral temporal bones. Normal bilateral internal auditory canals. No demonstrated orbital abnormality, within the constraints of a routine brain study. There is mucoperiosteal inflammatory disease of the paranasal sinuses consistent with mild chronic sinusitis. Normal calvarium and skull base. Normal visualized soft tissue structures. There are degenerative changes of the anterior atlantoaxial articulation. MRI/Brain without Contrast IMPRESSION: 1. Involutional changes of the brain, as described above. 2. No MR evidence for acute infarct. Electronically Signed: Isabel Adams MD at 11:54 EST , Service support ,
[2017-04-10 12:11] LABS: Bedside Glucose 177 mg/dL (70-110)
--- NOTE | 2017-04-10 12:50 | PCM.PROGNOTE ---
Patient Problems: Active and Suspected Problems Shortness of breath (Acute) Atrial fibrillation (Acute) CHF (congestive heart failure) (Acute) Subjective: Patient is a 66-year-old male with a past medical history of diabetes mellitus type 2, nephrolithiasis, tobacco dependence for back pain with a history of 2 lumbar surgeries and hypertension who presented to the emergency department at [facility] on 04/09/2017 from his physician's office with complaints of shortness of breath. He denied any chest pain and also denied any peripheral edema. EKG from his PCPs office showed an irregular rhythm. In the ER the EKG showed fibrillation with a heart rate of 137. He denied any history of atrial fibrillation. Chest x-ray showed cardiomegaly with pulmonary vascular congestion. A CTA of the chest showed emphysema, pulmonary fibrosis and evidence of congestive heart failure. There was no demonstrated pulmonary embolism. There was a small right-sided pleural effusion. There is hilar and mediastinal adenopathy present. He has been hypotensive since 1031 04/09/2017. Current blood pressure is 84/69. Respiratory rate is 18 and he is 96% saturated on a 2 L nasal cannula. Creatinine was 1.33 at admission and today is 1.49. Serial cardiac enzymes are negative. Total cholesterol is 125 with triglycerides of 151. LDL is 69 and the HDL is low at 26. He has been seen in consultation by Dr. Tao. Cardizem and Coreg have been discontinued and he is now on amiodarone. He was seen by Dr. Deleon today who gives his okay to start anticoagulation. Patient has a history of a subarachnoid hemorrhage in the . Brain MRI today shows involutional changes with no MR evidence of acute infarct. Lab was personally reviewed. Potassium is 5.0 today. Echocardiogram shows a mildly dilated left ventricle with severe global left ventricular systolic dysfunction. There is moderately dilated right ventricle mild to moderate global right ventricular systolic dysfunction. There is 2+ MR and 1-2+ TR. The left atrium is mildly enlarged and the right atrium is normal. Telemetry today shows sinus bradycardia with frequent PVCs and an 11 beat run of ventricular tachycardia. He denies chest pain, shortness of breath, palpitations or lightheadedness. He is a smoker and admits to 1 pack per day. There is a family history of heart disease in both his parents and in 2 of his brothers. - Physical Exam General: Alert, Oriented x3, Cooperative, No apparent distress - when lying in bed HEENT: Atraumatic, PERRLA, EOMI, Normocephalic Neck: Supple, Trachea Midline Lungs: No rales, Diminished - Right base especially, Wheezes Cardiovascular: Regular rate, Regular Rhythm, Normal S1, Normal S2, No murmurs, No Gallop Abdomen: Bowel Sounds Present, Soft, Non Tender, Non-Distended Extremities: No edema Skin: No rashes, No breakdown Neurological: Cranial nerves II-XII grossly intact, Neuro grossly intact Psych/Mental Status: Flat Affect Vital Signs Temp Pulse Resp BP Pulse Ox 98.5 F 63 18 84/69 L 96 04/10/17 08:00 04/10/17 12:05 04/10/17 08:00 04/10/17 08:00 04/10/17 08:00 Oxygen Flow Rate 2 Oxygen Delivery Method Nasal Cannula Weight: 204 lb 2.369 oz Body Mass Index (BMI) 28.4 Intake and Output for Last 24 Hours 04/08/17 04/09/17 04/10/17 23:59 23:59 23:59 Intake Total 476 / 476 Output Total 350 / 350 Balance 126 / 126 Laboratory Tests Past 24 Hrs 04/09/17 04/10/17 04/10/17 21:47 00:57 06:50 Sodium 136 Potassium 5.0 Chloride 105 Carbon Dioxide 23.0 Anion Gap 8 BUN 33 H Creatinine 1.49 H Estim Creat Clear Calc 51.94 Est GFR (MDRD) Af Amer 61 Est GFR (MDRD) Non-Af 50 L BUN/Creatinine Ratio 22.1 H Glucose 188 H Calcium 8.3 L Troponin I < 0.02 < 0.02 < 0.02 Triglycerides 151 Cholesterol 125 LDL Cholesterol 69 VLDL Cholesterol 30 HDL Cholesterol 26 L POC Glucose 04/10/17 04/10/17 04/09/17 11:55 06:46 21:37 POC Glucose 177 H 184 H 110 Assessment/Plan Active and Suspected Problems Shortness of breath (Acute) Atrial fibrillation (Acute) CHF (congestive heart failure) (Acute) Impressions 1. New onset atrial fibrillation with rapid ventricular response 2. 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 3. Multiple risk factors for coronary artery disease including smoking history, positive family history of CVD in multiple family members including mother, father and 2 brothers, hypertension 4. Hyperlipidemia 5. Hyperglycemia with no history of diabetes mellitus 6. Remote history of subarachnoid hemorrhage 7. Nicotine dependence 8. Nonsustained ventricular tachycardia 9. PRICILA? will need to get the records from Dr. Batista 10. strong FH of CAD - mother, father, 2 brothers. Start Heparin drip. check a MAG and TSH and HGBA1C Add a potassium restriction to his diet. Will discuss with Dr. Tao - may need a cath to R/O triple vessel disease as contributor to severe CM Recheck the lab in the AM Code Visit Inpatient E&M: [id number] Subs Hosp L3
[2017-04-10 13:43] LABS: Magnesium 2.1 mg/dL (1.6-2.6); Phosphorus 4.5 mg/dL (2.5-4.9)
[2017-04-10 13:45] LABS: Hemoglobin A1c 7.1 % (4.2-6.3)
--- NOTE | 2017-04-10 14:52 | PCM.CONS.GEN ---
Problem List (1) SAH (subarachnoid hemorrhage) Status: Chronic Reason for Consult Date of Consultation: 04/10/17 Reason for Consultation: Anticoagulation clearance for Afib, in patient with remote history of SAH History of Present Illness: The patient is a 66 year old CM with PMH HTN, DM, remote h/o SAH, tobacco abuse, h/o back surgery admitted with SOB, found to have Afib and CHF. Neurology consulted for anticoagulation clearance due to the remote history of SAH. Per patient he had SAH in 1998, per patient the reason was not clear but it was not due to aneurysm. He denies any neurological deficits or symptoms at present. CT head done on admission reported to be normal. MRI brain does not show any acute changes. GRE sequence does not show any cortical microbleeds. [id number] VASc was atleast 4. [] Past Medical History Past Medical History (Chronic Problems): Chronic Problems HTN (hypertension) (Chronic) HLD (hyperlipidemia) (Chronic) Hyperglycemia (Chronic) Tobacco abuse (Chronic) SAH (subarachnoid hemorrhage) (Chronic) Allergies bee venom protein (honey bee) Allergy (Verified 04/09/17 16:04) Anaphylaxis Home Medications: Ambulatory Orders Medication Instructions Recorded GlipiZIDE (XL) [Glucotrol Xl] 5 mg PO DAILY@0800 04/09/17 Hydrocodone/Acetaminophen [Vowinckel 1 each PO Q4H PRN PRN 04/09/17 5-325 Tablet] Lisinopril/Hydrochlorothiazide 1 each PO DAILY 04/09/17 [Zestoretic 20-12.5 mg Tablet] Metformin HCl [Glucophage] 500 mg PO BIDCM 04/09/17 Nabumetone [Relafen] 500 mg PO BID 04/09/17 Surgical History: - - Lithotripsy for kidney stones, lumbar surgery times 2 Psychiatric History: No pertinent psych hx Lives: Spouse/ Significant Other Smoking Status: Current every day smoker Tobacco Use: Cigarettes Alcohol: Rare Drugs: None - *Family History Maternal History Items: Hypertension, Stroke Paternal History Items: Heart Disease Patient Problems: Active and Suspected Problems Shortness of breath (Acute) Atrial fibrillation (Acute) CHF (congestive heart failure) (Acute) - Physical Exam Vital Signs Temp Pulse Resp BP Pulse Ox 98.5 F 63 18 84/69 L 96 04/10/17 08:00 04/10/17 12:05 04/10/17 08:00 04/10/17 08:00 04/10/17 08:00 Oxygen Flow Rate 2 Oxygen Delivery Method Nasal Cannula Weight: 92.6 kg Body Mass Index (BMI) 28.4 Intake and Output for Last 24 Hours 04/08/17 04/09/17 04/10/17 23:59 23:59 23:59 Intake Total 476 / 476 Output Total 350 / 350 Balance 126 / 126 Laboratory Tests Past 24 Hrs 04/09/17 04/10/17 04/10/17 21:47 00:57 06:50 Sodium 136 Potassium 5.0 Chloride 105 Carbon Dioxide 23.0 Anion Gap 8 BUN 33 H Creatinine 1.49 H Estim Creat Clear Calc 51.94 Est GFR (MDRD) Af Amer 61 Est GFR (MDRD) Non-Af 50 L BUN/Creatinine Ratio 22.1 H Glucose 188 H Hemoglobin A1c Calcium 8.3 L Phosphorus Magnesium Troponin I < 0.02 < 0.02 < 0.02 Triglycerides 151 Cholesterol 125 LDL Cholesterol 69 VLDL Cholesterol 30 HDL Cholesterol 26 L TSH 04/10/17 04/10/17 06:50 06:50 Sodium Potassium Chloride Carbon Dioxide Anion Gap BUN Creatinine Estim Creat Clear Calc Est GFR (MDRD) Af Amer Est GFR (MDRD) Non-Af BUN/Creatinine Ratio Glucose Hemoglobin A1c 7.1 H Calcium Phosphorus 4.5 Magnesium 2.1 Troponin I Triglycerides Cholesterol LDL Cholesterol VLDL Cholesterol HDL Cholesterol TSH 2.30 POC Glucose 04/10/17 04/10/17 04/09/17 11:55 06:46 21:37 POC Glucose 177 H 184 H 110 Assessment/Plan Active and Suspected Problems Shortness of breath (Acute) Atrial fibrillation (Acute) CHF (congestive heart failure) (Acute) The patient is a 66 year old CM with PMH HTN, DM, remote h/o SAH, tobacco abuse, h/o back surgery admitted with SOB, found to have Afib and CHF. Neurology consulted for anticoagulation clearance due to the remote history of SAH. Per patient he had SAH in 1998, per patient the reason was not clear but it was not due to aneurysm. He denies any neurological deficits or symptoms at present. CT head done on admission reported to be normal. MRI brain does not show any acute changes. GRE sequence does not show any cortical microbleeds. [id number] VASc was atleast 4. Impression New onset Afib Plan -CT head and MRI brain reviewed. -Patient found to have new onset Afib. [id number] VASc score is atleast 4. Cardiology wants patient to be anticoagulated due to Afib but is requesting neurology clearance for the same since patient has remote history of SAH. Patient is cleared from Neurology stand point at present for AC, given the new onset Afib and increased risk of thromboembolism. SAH was in 1998, following which patient did not have any further episodes and MRI brain does not show any cortical microbleeds at present. Bleeding risks with AC discussed in detail with the patient and family, he understands the same. At present benefit outweighs the risk for AC. -Further medical management per primary team and Cardiology. -GI/DVT prophylaxis -Fall precautions -Please call with questions if any -Thank you for allowing us to participate in patients care and management I spent 60 minutes taking history, doing physical examination, reviewing medical records, coordinating care and counseling the patient and family. Code Visit Inpatient E&M: [id number] Init Hosp L3
--- NOTE | 2017-04-10 14:54 | CASEMGMT ---
Face to Face with patient for initial transition planning/care coordination assessment. [place] DE LEON introduced self and role at [facility], pt voices understanding and consents to assessment at this time. Pt sitting up in bed in no distress at this time. Pt A/O x4 at this time and answers all questions appropriately at this time. Care providers, pharmacy, and demographics verified. See attached link. Pt voices no further concerns/needs at this time. Advised pt to ask for CM if any further questions/concerns/needs arise, voices understanding. PLAN: [place]
--- NOTE | 2017-04-10 15:07 | CON.PCM_ITS ---
Problem List (1) SAH (subarachnoid hemorrhage) Status: Chronic Reason for Consult Date of Consultation: 04/10/17 Reason for Consultation: Anticoagulation clearance for Afib, in patient with remote history of SAH History of Present Illness: The patient is a 66 year old CM with PMH HTN, DM, remote h/o SAH, tobacco abuse , h/o back surgery admitted with SOB, found to have Afib and CHF. Neurology consulted for anticoagulation clearance due to the remote history of SAH. Per patient he had SAH in 1998, per patient the reason was not clear but it was not due to aneurysm. He denies any neurological deficits or symptoms at present. CT head done on admission reported to be normal. MRI brain does not show any acute changes. GRE sequence does not show any cortical microbleeds. [id number] VASc was atleast 4. [] Past Medical History Past Medical History (Chronic Problems): Chronic Problems HTN (hypertension) (Chronic) HLD (hyperlipidemia) (Chronic) Hyperglycemia (Chronic) Tobacco abuse (Chronic) SAH (subarachnoid hemorrhage) (Chronic) Allergies bee venom protein (honey bee) Allergy (Verified 04/09/17 16:04) Anaphylaxis Home Medications: Ambulatory Orders Medication Instructions Recorded GlipiZIDE (XL) [Glucotrol Xl] 5 mg PO DAILY@0800 04/09/17 Hydrocodone/Acetaminophen [[place] 1 each PO Q4H PRN PRN 04/09/17 5-325 Tablet] Lisinopril/Hydrochlorothiazide 1 each PO DAILY 04/09/17 [Zestoretic 20-12.5 mg Tablet] Metformin HCl [Glucophage] 500 mg PO BIDCM 04/09/17 Nabumetone [Relafen] 500 mg PO BID 04/09/17 Surgical History: - - Lithotripsy for kidney stones, lumbar surgery times 2 Psychiatric History: No pertinent psych hx Lives: Spouse/ Significant Other Smoking Status: Current every day smoker Tobacco Use: Cigarettes Alcohol: Rare Drugs: None - *Family History Maternal History Items: Hypertension, Stroke Paternal History Items: Heart Disease Patient Problems: Active and Suspected Problems Shortness of breath (Acute) Atrial fibrillation (Acute) CHF (congestive heart failure) (Acute) - Physical Exam Vital Signs Temp Pulse Resp BP Pulse Ox 98.5 F 63 18 84/69 L 96 04/10/17 08:00 04/10/17 12:05 04/10/17 08:00 04/10/17 08:00 04/10/17 08:00 Oxygen Flow Rate 2 Oxygen Delivery Method Nasal Cannula Weight: 92.6 kg Body Mass Index (BMI) 28.4 Intake and Output for Last 24 Hours 04/08/17 04/09/17 04/10/17 23:59 23:59 23:59 Intake Total 476 / 476 Output Total 350 / 350 Balance 126 / 126 Laboratory Tests Past 24 Hrs 04/09/17 04/10/17 04/10/17 21:47 00:57 06:50 Sodium 136 Potassium 5.0 Chloride 105 Carbon Dioxide 23.0 Anion Gap 8 BUN 33 H Creatinine 1.49 H Estim Creat Clear Calc 51.94 Est GFR (MDRD) Af Amer 61 Est GFR (MDRD) Non-Af 50 L BUN/Creatinine Ratio 22.1 H Glucose 188 H Hemoglobin A1c Calcium 8.3 L Phosphorus Magnesium Troponin I < 0.02 < 0.02 < 0.02 Triglycerides 151 Cholesterol 125 LDL Cholesterol 69 VLDL Cholesterol 30 HDL Cholesterol 26 L TSH 04/10/17 04/10/17 06:50 06:50 Sodium Potassium Chloride Carbon Dioxide Anion Gap BUN Creatinine Estim Creat Clear Calc Est GFR (MDRD) Af Amer Est GFR (MDRD) Non-Af BUN/Creatinine Ratio Glucose Hemoglobin A1c 7.1 H Calcium Phosphorus 4.5 Magnesium 2.1 Troponin I Triglycerides Cholesterol LDL Cholesterol VLDL Cholesterol HDL Cholesterol TSH 2.30 POC Glucose 04/10/17 04/10/17 04/09/17 11:55 06:46 21:37 POC Glucose 177 H 184 H 110 Assessment/Plan Active and Suspected Problems Shortness of breath (Acute) Atrial fibrillation (Acute) CHF (congestive heart failure) (Acute) The patient is a 66 year old CM with PMH HTN, DM, remote h/o SAH, tobacco abuse , h/o back surgery admitted with SOB, found to have Afib and CHF. Neurology consulted for anticoagulation clearance due to the remote history of SAH. Per patient he had SAH in 1998, per patient the reason was not clear but it was not due to aneurysm. He denies any neurological deficits or symptoms at present. CT head done on admission reported to be normal. MRI brain does not show any acute changes. GRE sequence does not show any cortical microbleeds. [id number] VASc was atleast 4. Impression New onset Afib Plan -CT head and MRI brain reviewed. -Patient found to have new onset Afib. [id number] VASc score is atleast 4. Cardiology wants patient to be anticoagulated due to Afib but is requesting neurology clearance for the same since patient has remote history of SAH. Patient is cleared from Neurology stand point at present for AC, given the new onset Afib and increased risk of thromboembolism. SAH was in 1998, following which patient did not have any further episodes and MRI brain does not show any cortical microbleeds at present. Bleeding risks with AC discussed in detail with the patient and family, he understands the same. At present benefit outweighs the risk for AC. -Further medical management per primary team and Cardiology. -GI/DVT prophylaxis -Fall precautions -Please call with questions if any -Thank you for allowing us to participate in patients care and management I spent 60 minutes taking history, doing physical examination, reviewing medical records, coordinating care and counseling the patient and family. Code Visit Inpatient E&M: 19430 Init Hosp L3
[2017-04-10 17:11] LABS: ACT Activated Clotting Time 279 sec (74-137)
[2017-04-10 17:11] LABS: ACT Activated Clotting Time 274 sec (74-137)
--- NOTE | 2017-04-10 17:15 | EKG12_ITS ---
Test Reason : Blood Pressure : / mmHG Vent. Rate : 069 BPM Atrial Rate : 069 BPM P-R Int : 206 ms QRS Dur : 108 ms QT Int : 420 ms P-R-T Axes : 037 088 -56 degrees QTc Int : 450 ms Sinus rhythm with occasional Premature ventricular complexes and Fusion complexes Nonspecific T wave abnormality Poor R wave progression Abnormal ECG Confirmed by SWAPNA AUGUSTIN, JAMES ([id number]), visual effects editor ZAC EDWARDS ([id number]) on 04/15/2017 3:17:40 PM Referred By: TG Confirmed By:JAMES BARCENAS MD
--- NOTE | 2017-04-10 17:23 | CL.I_ITS ---
Patient Name: SANTOS CAMARENA Study Date: 04/10/2017 Performing: Leandro Wise MD Ht: 71 inches 180 cm : 1950 Wt: 205.3 lbs 93 kg Age: 66 Gender: male BSA: 2.13 PROCEDURE(S) PERFORMED [id number] W OR WO PTCA, SINGLE CORONARY ARTERY [id number] W OR WO PTCA, SINGLE CORONARY ARTERY [id number], CORONARY OR GRAFT, INITIAL VESSEL [id number], CORONARY OR GRAFT, EACH ADD'L VESSEL CLINICAL PROFILE AND CO-MORBIDITIES INDICATIONS: Congestive Heart Failure, New onset with suspected CAD CONCLUSIONS 80% Prox LAD 90% Mid RCA, 70% distal RCA Successful TRESSA Prox LAD using Resolute Integrity 3.5x22 mm, stent post-dilated proximally using 4.0 m m balloon Successful TRESSA Mid RCA using Resolute Integrity 3.0x34 mm, post-dilated using 3.5 mm balloon Post IVUS LAD and RCA showed excellent stent apposition Successful TRESSA distal RCA using Resolute Integrity 3.0x15 mm Post IVUS LAD and RCA showed excellent stent apposition RECOMMENDATIONS ASA Indefinitlejocelyn Brilinta for at least 12 months Follow up with Dr. Tao CORONARY ANGIOGRAPHY DOMINANCE: Right Dominant LEFT HEART ASSESSMENT Left Ventricular Ejection Fraction: Not assessed LVEDP: 33 mmHg LEFT MAIN: No angiographically significant disease LEFT ANTERIOR DECENDING ARTERY: 80% proximal CIRCUMFLEX ARTERY: No angiographically significant disease RAMUS: No angiographically significant disease RIGHT CORONARY ARTERY: 90% Mid, 70% distal INTERVENTION INFORMATION LESION SITE: LAD (Proximal) Lesion Complexity: High/C Pre Stenosis: 80 % Pre intervention MELISSA flow: 3 PROCEDURE: Drug Eluting Stent with post dilatation, IVUS for post stent evaluation Post Stenosis: 0 % Post intervention MELISSA flow: 3 Lesion Devices: Cordis 6 Fr XB3.0 100cm Guide Catheter Medtronic Resolute RX TRESSA 3.5x22 Fernando Sci [place] EMERGE MR 4.00x08 BALLOON Terumo .014 Runthrough Extra Floppy 180cm straight LESION SITE: RCA (Mid) Lesion Complexity: High/C Pre Stenosis: 90 % Pre intervention MELISSA flow: 3 PROCEDURE: Drug Eluting Stent with post dilatation IVUS for post stent evaluation Post Stenosis: 0 % Post intervention MELISSA flow: 3 Lesion Devices: [place] Coronary IVUS Catheter Medtronic 6 Fr JR4.0 100cm Guide Catheter Medtronic Resolute RX TRESSA 3.0x34 Fernando Sci [place] EMERGE MR 3.50x20 BALLOON Terumo .014 Runthrough Extra Floppy 180cm straight LESION SITE: RCA (Distal) Lesion Complexity: Non-High/Non-C Pre Stenosis: 70 % Pre intervention MELISSA flow: 3 0 % Post intervention MELISSA flow: 3 Lesion Devices: [place] Coronary IVUS Catheter Medtronic 6 Fr JR4.0 100cm Guide Catheter Medtronic Resolute RX TRESSA 3.0x15 Fernando Sci [place] EMERGE MR 3.00x15 BALLO[place] Terumo .014 Runthrough Extra Floppy 180cm straight COMPLICATIONS No Complications PROCEDURE MEDICATIONS Fentanyl 50 mcg IV Versed 2 mg IV Oxygen: 2 L/min via nasal cannula Aspirin (325mg) 325 Tabs PO 04/10/2017 15:10:27 Brilinta 180 mg PO 04/10/2017 15:36:55 Angiomax 33.3 ml's/hr infusing 04/10/2017 15:48:09 Angiomax Bolus 14.3 ml's @ 04/10/2017 17:05:32 Heparin given IA 04/10/2017 15:23:34 Nitro 50 mcg IC 04/10/2017 15:56:03 Nitro 200 mcg IC 04/10/2017 16:31:15 Verapamil 2.5mg, Ntg 100mcgs, 2000 units of Heparin given IA 04/10/2017 15:23:34 SUMMARY OF HEMODYNAMIC DATA Time AIR REST ECG 15:10:13 AO 92/60 (72) SA 15:47:20 LV 106/15, 32 16:11:23 LVp 117/10, 27 16:11:35 AOp 111/72 (85) 16:11:40 Signed By Leandro Wise MD On 04/10/2017 17:23:13 Leandro Wise MD
[2017-04-10] MEDS: 0.9% Normal Saline 1,000 ML 75 ML IV (17:30)
[2017-04-10 19:06] LABS: Bedside Glucose 159 mg/dL (70-110)
[2017-04-10] MEDS: Furosemide 40 MG/4 ML Vial IV (21:07)
[2017-04-10] MEDS: Carvedilol 3.125 MG TABLET PO (21:08)
[2017-04-10] MEDS: TICAGRELOR 90 MG TABLET PO (21:08)
[2017-04-10 21:11] LABS: Bedside Glucose 188 mg/dL (70-110)
[2017-04-10] MEDS: Amiodarone 200 MG Tablet PO (21:11)
[2017-04-10] MEDS: Atorvastatin Calcium 20 MG Tablet PO (21:11)
[2017-04-11] VITALS (24 sets, daily range): BP systolic 103–139; BP diastolic 52–95; PULSE 49–92; RESP 11–22; TEMP 35.4–37; O2SAT 90–97
[2017-04-11 01:50] LABS: Hemoglobin 14.2 g/dl (13.0-16.5); Mean Corpuscular Hgb 30.5 pg (27.0-32.0); Mean Corpuscular Volume 92.5 fL (80-94); Mean Platelet Vol. 10.2 fl (6.2-12.0); Platelet Count 189 K/mm3 (150-450); RBC Distribution Width CV 14.8 % (11.6-14.6); RBC Distribution Width SD 49.9 fl (35.1-43.9); Red Blood Count 4.65 M/mm3 (4.6-6.2); White Blood Count 10.9 K/mm3 (4.4-11.0)
[2017-04-11 01:53] LABS: Scan Indicated on CBC? Y/N NO
[2017-04-11 02:01] LABS: Anion Gap 10 (5-15); BUN 41 mg/dL (7-18); BUN/Creat Ratio 25.5 RATIO (10-20); Calcium,Total 8.2 mg/dL (8.5-10.1); Chloride 104 mmol/L (98-107); Creatinine, Serum 1.61 mg/dL (0.70-1.30); EST Glomerular Filtration Rate 46 mL/min (>60); Est Glom Filt Rate - Afr Amer 55 mL/min (>60); Estimated Creatinine Clearance 48.07 ml/min; Glucose 181 mg/dL (74-106); Potassium 4.3 mmol/L (3.5-5.1); Sodium Level 136 mmol/L (136-145)
--- NOTE | 2017-04-11 05:55 | EKG12_ITS ---
Test Reason : AM EKG Blood Pressure : / mmHG Vent. Rate : 074 BPM Atrial Rate : 074 BPM P-R Int : 214 ms QRS Dur : 110 ms QT Int : 424 ms P-R-T Axes : 049 071 -67 degrees QTc Int : 470 ms Sinus rhythm with 1st degree A-V block with frequent and consecutive Premature ventricular complexes Incomplete left bundle branch block ST & T wave abnormality, consider inferolateral ischemia Prolonged QT Abnormal ECG Confirmed by SWAPNA AUGUSTIN, JAMES ([id number]), scientific editor ZAC EDWARDS ([id number]) on 04/15/2017 3:12:55 PM Referred By: CHARITO Confirmed By:JAMES BARCENAS MD
[2017-04-11] MEDS: Amiodarone 200 MG Tablet PO ×3 (06:15→21:20)
[2017-04-11 06:56] LABS: Bedside Glucose 168 mg/dL (70-110)
--- NOTE | 2017-04-11 07:53 | PN_ITS ---
Patient Problems: Active and Suspected Problems Shortness of breath (Acute) Atrial fibrillation (Acute) CHF (congestive heart failure) (Acute) Subjective: Patient is a 66-year-old male who was taken for emergent cardiac catheterization yesterday afternoon due to new onset of severe left ventricular dysfunction. Cardiac catheterization revealed an 80% proximal LAD lesion, 90% mid RCA, 70% distal RCA lesions. Drug-eluting stents were placed in the proximal LAD, mid RCA and distal RCA. He was transferred to the cardiac care unit postprocedure. He has been afebrile since admission. Attempted dropped to 95.8 at midnight however it is currently 97.4. Blood pressure has improved significantly since cardiac intervention. Blood pressure currently ranging from 106/74-120 8/80 over the preceding 3 hours. He is 94-96% saturated on a 2 L nasal cannula. All lab was personally reviewed. Creatinine is up to 1.61 from 1.33 at admission, likely secondary to prolonged hypotension on 04/09/2017. Hemoglobin A1c is 7.1 and magnesium and phosphorus were normal on 04/10/17. TSH was normal at 2.3. LDL is 69 with an HDL of 26. Pressure is much improved today and is currently 139/84. He denies chest pain or palpitations. He also denies lightheadedness. He continues to complain of fatigue and also shortness of breath. He had to sleep with his bed propped up last night. Ejection fraction was not given on either the cardiac catheterization or the echo report. Review of the telemetry shows no nonsustained ventricular tachycardia but very frequent PVCs and couplets. He was observed having apneic episodes last night and does desaturate sleeping. - Physical Exam General: Alert, Oriented x3, Cooperative HEENT: Atraumatic, Normocephalic Oral: Dry Mucosa Neck: No JVD, Trachea Midline Lungs: Rales - only in the right base Cardiovascular: Regular rate, Normal S1, Normal S2, No murmurs, No Gallop, - - He is having very frequent PVC's and couplets. No recurrence of the NSVT since cath. Abdomen: Bowel Sounds Present, Soft, Non Tender, Non-Distended Extremities: No edema Neurological: Cranial nerves II-XII grossly intact, Neuro grossly intact Psych/Mental Status: Normal Affect, Appropriate Vital Signs Temp Pulse Resp BP Pulse Ox 97.4 F L 90 22 H 106/74 94 04/11/17 04:00 04/11/17 07:00 04/11/17 07:00 04/11/17 07:00 04/11/17 07:34 Oxygen Flow Rate 2 Oxygen Delivery Method Nasal Cannula Weight: 203 lb 11.314 oz Body Mass Index (BMI) 28.4 Intake and Output for Last 24 Hours 04/09/17 04/10/17 04/11/17 23:59 23:59 23:59 Intake Total 1388 / 1388 480 / 480 Output Total 2049 / 2049 400 / 400 Balance -662 / -662 80 / 80 Laboratory Tests Past 24 Hrs 04/10/17 04/10/17 04/10/17 06:50 06:50 06:50 WBC RBC Hgb Hct MCV MCH MCHC RDW RDW Differential Plt Count MPV Activated Clotting Time Sodium 136 Potassium 5.0 Chloride 105 Carbon Dioxide 23.0 Anion Gap 8 BUN 33 H Creatinine 1.49 H Estim Creat Clear Calc 51.94 Est GFR (MDRD) Af Amer 61 Est GFR (MDRD) Non-Af 50 L BUN/Creatinine Ratio 22.1 H Glucose 188 H Hemoglobin A1c 7.1 H Calcium 8.3 L Phosphorus 4.5 Magnesium 2.1 Troponin I < 0.02 Triglycerides 151 Cholesterol 125 LDL Cholesterol 69 VLDL Cholesterol 30 HDL Cholesterol 26 L TSH 2.30 04/10/17 04/10/17 04/11/17 16:15 16:44 01:35 WBC 10.9 RBC 4.65 Hgb 14.2 Hct 43.0 MCV 92.5 MCH 30.5 MCHC 33.0 RDW 14.8 H RDW Differential 49.9 H Plt Count 189 MPV 10.2 Activated Clotting Time 274 H 279 H Sodium Potassium Chloride Carbon Dioxide Anion Gap BUN Creatinine Estim Creat Clear Calc Est GFR (MDRD) Af Amer Est GFR (MDRD) Non-Af BUN/Creatinine Ratio Glucose Hemoglobin A1c Calcium Phosphorus Magnesium Troponin I Triglycerides Cholesterol LDL Cholesterol VLDL Cholesterol HDL Cholesterol TSH 04/11/17 01:35 WBC RBC Hgb Hct MCV MCH MCHC RDW RDW Differential Plt Count MPV Activated Clotting Time Sodium 136 Potassium 4.3 Chloride 104 Carbon Dioxide 22.0 Anion Gap 10 BUN 41 H Creatinine 1.61 H Estim Creat Clear Calc 48.07 Est GFR (MDRD) Af Amer 55 L Est GFR (MDRD) Non-Af 46 L BUN/Creatinine Ratio 25.5 H Glucose 181 H Hemoglobin A1c Calcium 8.2 L Phosphorus Magnesium Troponin I Triglycerides Cholesterol LDL Cholesterol VLDL Cholesterol HDL Cholesterol TSH POC Glucose 04/11/17 04/10/17 04/10/17 06:53 21:05 19:00 POC Glucose 168 H 188 H 159 H 04/10/17 11:55 POC Glucose 177 H Assessment/Plan Active and Suspected Problems Shortness of breath (Acute) Atrial fibrillation (Acute) CHF (congestive heart failure) (Acute) Impressions 1. New onset atrial fibrillation with rapid ventricular response - has converted to NSR with frequent ventricular ectopy 2. 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 Multiple risk factors for coronary artery disease including smoking history , positive family history of CVD in multiple family members including mother, father and 2 brothers, hypertension, DM II, HLD 4. Hyperlipidemia 5. Hyperglycemia with no history of diabetes mellitus 6. Remote history of subarachnoid hemorrhage 7. Nicotine dependence 8. Nonsustained ventricular tachycardia, frequent ventricular ectopy 9. PRICILA 1.33 at admission and currently 1.69 - likely due to hypotension prior to the catheterization 10. strong FH of CAD - mother, father, 2 brothers. 11. CAD with PCI/TRESSA to the LAD and to the mid and distal RCA 12. acute systolic CHF Transfer to TCU P.o. amiodarone started by Dr. Crowder Continue aspirin and Brilinta, also on lisinopril 2.5 mg daily, atorvastatin 20 mg nightly and carvedilol 3.125 mg twice daily Lasix 40 mg now...has rales in the R base still Recheck BMP in the a.m. If the creat continues to climb will get a nephrology consult. activity as tolerated EF is 20% - if no improvement in the next 6 weeks he may need and AICD DC Glucotrol in light of acute kidney injury and start Amaryl Overnight trending pulse ox tonight PSG as an outpatient..... May need O2 at discharge Code Visit Inpatient E&M: 40269 Subs Hosp L3
[2017-04-11] MEDS: Aspirin E.C. 81 MG Tablet PO (08:16)
[2017-04-11 08:21] LABS: Bedside Glucose 142 mg/dL (70-110)
[2017-04-11 08:25] LABS: AST(SGOT) 139 U/L (15-37); Alanine Aminotransfer ALT/SGPT 139 U/L (16-61); Albumin, Serum 3.6 g/dL (3.2-5.0); Alkaline Phosphatase 87 U/L (45-117); Bilirubin, Direct 0.22 mg/dL (0.00-0.30); Globulin 3.9 g/dL (2.2-4.2); Protein, Total 7.5 g/dL (6.4-8.2)
--- NOTE | 2017-04-11 09:02 | PN.CARD_ITS ---
Subjectve: Patient seen and evaluated. Doing well Objective: Vital Signs Temp Pulse Resp BP Pulse Ox 98.0 F 90 17 139/84 H 95 04/11/17 08:00 04/11/17 08:00 04/11/17 08:00 04/11/17 08:00 04/11/17 08:00 Oxygen Flow Rate 2 Oxygen Delivery Method Nasal Cannula Weight: 203 lb 11.314 oz Body Mass Index (BMI) 28.4 Intake and Output for Last 24 Hours 04/09/17 04/10/17 04/11/17 23:59 23:59 23:59 Intake Total 1388 / 1388 480 / 480 Output Total 2049 / 2049 400 / 400 Balance -662 / -662 80 / 80 General: Awake, Alert, Oriented x 3 HEENT: PERRL, EOMI, Sclera Non Icteric Neck: Supple, Good ROM, No Lymph Node Enlargement Lungs: Clear to auscultation Cardiovascular: Regular Rhythm, Normal S1, Normal S2, No Murmurs, No Rubs, No Gallops Abdomen: Bowel Sounds Present, Soft, Non Tender, No HSM, No Organomegaly Extremities: No Cyanosis, No Clubbing, No edema Neurological: No Focal Motor or Sensory Deficit 04/10/17 06:50: Phosphorus 4.5, Magnesium 2.1 04/10/17 06:50: Hemoglobin A1c 7.1 H 04/11/17 01:35: WBC 10.9, RBC 4.65, Hgb 14.2, Hct 43.0, MCV 92.5, MCH 30.5, MCHC 33.0, RDW 14.8 H, RDW Differential 49.9 H, Plt Count 189, MPV 10.2 04/11/17 01:35: Sodium 136, Potassium 4.3, Chloride 104, Carbon Dioxide 22.0, Anion Gap 10, BUN 41 H, Creatinine 1.61 H, Est GFR (MDRD) Af Amer 55 L, Est GFR (MDRD) Non-Af 46 L, BUN/Creatinine Ratio 25.5 H, Glucose 181 H, Calcium 8.2 L 04/11/17 01:35: Total Bilirubin 0.60, Direct Bilirubin 0.22 Rhythm: NSR with PVCs EKG: ECHO:Global EF of 20 % Assessment/Plan 1. Atrial fibrillation The patient presents with findings compatible with atrial fibrillation with rapid ventricular response. Appears to be in NSR with PVCs. The etiology is uncertain although it could be related to a combination of age, hypertension, undiagnosed cardiovascular disease, pulmonary disease, etc. He has been treated with a combination of rate control therapy and antiarrhythmic therapy. His rate control therapy with respect to beta-timothy was placed on hold secondary to his hypotension. He has continued his antiarrhythmic therapy with po amiodarone. Would hold off on anticoagulation for now 2. Congestive heart failure The patient does have findings compatible with underlying congestive heart failure. Again it is unclear whether this may be secondary to his atrial dysrhythmia or a primary underlying cardiovascular disease that would be contributing to his atrial dysrhythmia. He does have significant left ventricular systolic dysfunction and he will be continued on his beta-timothy and his MICHELL inhibitor. 3. Hypertension The patient will continue antihypertensive therapy which may need to be adjusted based upon his blood pressure response. 4. Hyperlipidemia The patient states that he was diagnosed with hyperlipidemia. He states he was due to start lipid-lowering therapy. Lipids will be evaluated. His medications will be adjusted. 5. Tobacco abuse The patient states he has been smoking cigarettes, approximately 1 pack per day , for 40 years. He has been counseled on the need to stop his tobacco intake. 6. CAD He underwent cardiac cath which demonstrated an 80 percent LAD stenosis and 90 percent RCA and a 70 percent distal RCA. He subsequently underwent angioplasty and drug-eluting stenting to the proximal left anterior descending artery with a drug-eluting stent, the mid right coronary artery with a drug- eluting stent in the distal right coronary artery with a drug-eluting stent. This morning he is feeling much better. His hemoglobin has remained stable. His creatinine is increased slightly but less than 0.3 g. This will be rechecked in the morning. Will be cautiously hydrated for a few hours. He can be transferred to the progressive care unit.
[2017-04-11] MEDS: Carvedilol 3.125 MG TABLET PO ×2 (09:48→21:20)
[2017-04-11] MEDS: Lisinopril 2.5 MG Tablet PO (09:48)
[2017-04-11] MEDS: TICAGRELOR 90 MG TABLET PO ×2 (09:48→21:20)
[2017-04-11] MEDS: 0.9% Normal Saline 1,000 ML 60 ML IV (09:48)
[2017-04-11] MEDS: Furosemide 40 MG Tablet PO (11:38)
[2017-04-11 13:06] LABS: Bedside Glucose 163 mg/dL (70-110)
[2017-04-11 16:31] LABS: Bedside Glucose 115 mg/dL (70-110)
[2017-04-11] MEDS: Atorvastatin Calcium 20 MG Tablet PO (21:21)
[2017-04-11 21:30] LABS: Bedside Glucose 125 mg/dL (70-110)
[2017-04-12] VITALS (9 sets, daily range): BP systolic 105–117; BP diastolic 55–86; PULSE 54–91; RESP 12–18; TEMP 36.4–36.7; O2SAT 92–97
--- NOTE | 2017-04-12 04:00 | CPS ---
per RN, pt placed back on 2L oxygen due to low sats and V-TACH
[2017-04-12] MEDS: Amiodarone 200 MG Tablet PO (05:40)
--- NOTE | 2017-04-12 05:55 | EKG12_ITS ---
Test Reason : MORNING EKG Blood Pressure : / mmHG Vent. Rate : 080 BPM Atrial Rate : 070 BPM P-R Int : 216 ms QRS Dur : 114 ms QT Int : 450 ms P-R-T Axes : 044 048 230 degrees QTc Int : 519 ms Sinus rhythm with 1st degree A-V block with frequent and consecutive Premature ventricular complexes Incomplete left bundle branch block ST & T wave abnormality, consider inferolateral ischemia Prolonged QT Abnormal ECG Confirmed by SWAPNA AUGUSTIN, JAMES ([id number]), greeting card editor ZAC EDWARDS ([id number]) on 04/15/2017 3:03:05 PM Referred By: CHARITO Confirmed By:JAMES BARCENAS MD
[2017-04-12 06:02] LABS: Anion Gap 11 (5-15); BUN 37 mg/dL (7-18); BUN/Creat Ratio 29.6 RATIO (10-20); Calcium,Total 8.4 mg/dL (8.5-10.1); Chloride 103 mmol/L (98-107); Creatinine, Serum 1.25 mg/dL (0.70-1.30); EST Glomerular Filtration Rate 61 mL/min (>60); Est Glom Filt Rate - Afr Amer 74 mL/min (>60); Estimated Creatinine Clearance 61.91 ml/min; Glucose 134 mg/dL (74-106); Sodium Level 138 mmol/L (136-145)
[2017-04-12 06:46] LABS: Bedside Glucose 125 mg/dL (70-110)
[2017-04-12] MEDS: Aspirin E.C. 81 MG Tablet PO (09:26)
[2017-04-12] MEDS: TICAGRELOR 90 MG TABLET PO (09:26)
[2017-04-12] MEDS: Lisinopril 2.5 MG Tablet PO (09:27)
[2017-04-12] MEDS: Carvedilol 3.125 MG TABLET PO (09:27)
[2017-04-12] MEDS: Glimepiride 1 MG Tablet PO (09:40)
--- NOTE | 2017-04-12 10:00 | PCM.PN.CARD ---
Subjectve: Patient seen and evaluated and appears to be doing quite well. Objective: Vital Signs Temp Pulse Resp BP Pulse Ox 97.5 F L 88 12 105/74 92 04/12/17 09:21 04/12/17 09:21 04/12/17 09:21 04/12/17 09:21 04/12/17 09:21 Oxygen Flow Rate 2 Oxygen Delivery Method Room Air Weight: 201 lb 15.095 oz Body Mass Index (BMI) 28.4 Intake and Output for Last 24 Hours 04/10/17 04/11/17 04/12/17 23:59 23:59 23:59 Intake Total 1388 / 1388 1581 / 1581 Output Total 2049 / 2049 2525 / 2525 300 / 300 Balance -662 / -662 -944 / -944 -300 / -300 General: Awake, Alert, Oriented x 3 HEENT: PERRL, EOMI, Sclera Non Icteric Neck: Supple, Good ROM, No Lymph Node Enlargement Lungs: Clear to auscultation Cardiovascular: Regular Rhythm, Normal S1, Normal S2, No Murmurs, No Rubs, No Gallops Vascular: No Carotid Bruits, Normal Femoral Pulses, Normal Radial Pulses, Normal Dorsalis Pedal Pulse, Normal Posterior Tibial Pulses Abdomen: Bowel Sounds Present, Soft, Non Tender, No HSM, No Organomegaly Extremities: No Cyanosis, No Clubbing, No edema Neurological: No Focal Motor or Sensory Deficit 04/12/17 04:33: Sodium 138, Potassium 4.0, Chloride 103, Carbon Dioxide 24.0, Anion Gap 11, BUN 37 H, Creatinine 1.25, Est GFR (MDRD) Af Amer 74, Est GFR (MDRD) Non-Af 61, BUN/Creatinine Ratio 29.6 H, Glucose 134 H, Calcium 8.4 L, Magnesium 2.0 04/12/17 04:33: Magnesium Cancelled Rhythm: EKG: ECHO: Stress Test: Cardiac Cath: PCI: CT Surgery: Holter monitor: EPS: PPM: CXR: Chest CT Scan: Assessment/Plan 1. Atrial fibrillation And had initially presented with atrial fibrillation with rapid ventricular response rate and aberrancy. It appears that he has converted back to sinus rhythm and is maintaining sinus rhythm. The plan will be to continue him on anti-rhythmic therapy with amiodarone 200 mg twice daily for 2 weeks then 200 mg daily. 2. Congestive heart failure The patient does have findings compatible with underlying congestive heart failure. Did have evidence of left ventricular systolic dysfunction with an estimated EF of 20%. I suspect this may improve over time. The etiology was likely a combination of atrial fibrillation as well as coronary artery disease. 3. Hypertension The patient will continue antihypertensive therapy which may need to be adjusted based upon his blood pressure response. 4. Hyperlipidemia The patient states that he was diagnosed with hyperlipidemia. He states he was due to start lipid-lowering therapy. Lipids will be evaluated. His medications will be adjusted. 5. Tobacco abuse The patient states he has been smoking cigarettes, approximately 1 pack per day, for 40 years. He has been counseled on the need to stop his tobacco intake. 6. CAD He underwent cardiac cath which demonstrated an 80 percent LAD stenosis and 90 percent RCA and a 70 percent distal RCA. He subsequently underwent angioplasty and drug-eluting stenting to the proximal left anterior descending artery with a drug-eluting stent, the mid right coronary artery with a drug-eluting stent in the distal right coronary artery with a drug-eluting stent. He is doing much better with a stable hemoglobin with no evidence of fall and his creatinine is actually better than on admission. Can be discharged on his current medications and followed up as an outpatient.
--- NOTE | 2017-04-12 10:06 | PN.CARD_ITS ---
Subjectve: Patient seen and evaluated and appears to be doing quite well. Objective: Vital Signs Temp Pulse Resp BP Pulse Ox 97.5 F L 88 12 105/74 92 04/12/17 09:21 04/12/17 09:21 04/12/17 09:21 04/12/17 09:21 04/12/17 09:21 Oxygen Flow Rate 2 Oxygen Delivery Method Room Air Weight: 201 lb 15.095 oz Body Mass Index (BMI) 28.4 Intake and Output for Last 24 Hours 04/10/17 04/11/17 04/12/17 23:59 23:59 23:59 Intake Total 1388 / 1388 1581 / 1581 Output Total 2049 / 2049 2525 / 2525 300 / 300 Balance -662 / -662 -944 / -944 -300 / -300 General: Awake, Alert, Oriented x 3 HEENT: PERRL, EOMI, Sclera Non Icteric Neck: Supple, Good ROM, No Lymph Node Enlargement Lungs: Clear to auscultation Cardiovascular: Regular Rhythm, Normal S1, Normal S2, No Murmurs, No Rubs, No Gallops Vascular: No Carotid Bruits, Normal Femoral Pulses, Normal Radial Pulses, Normal Dorsalis Pedal Pulse, Normal Posterior Tibial Pulses Abdomen: Bowel Sounds Present, Soft, Non Tender, No HSM, No Organomegaly Extremities: No Cyanosis, No Clubbing, No edema Neurological: No Focal Motor or Sensory Deficit 04/12/17 04:33: Sodium 138, Potassium 4.0, Chloride 103, Carbon Dioxide 24.0, Anion Gap 11, BUN 37 H, Creatinine 1.25, Est GFR (MDRD) Af Amer 74, Est GFR ( MDRD) Non-Af 61, BUN/Creatinine Ratio 29.6 H, Glucose 134 H, Calcium 8.4 L, Magnesium 2.0 04/12/17 04:33: Magnesium Cancelled Rhythm: EKG: ECHO: Stress Test: Cardiac Cath: PCI: CT Surgery: Holter monitor: EPS: PPM: CXR: Chest CT Scan: Assessment/Plan 1. Atrial fibrillation And had initially presented with atrial fibrillation with rapid ventricular response rate and aberrancy. It appears that he has converted back to sinus rhythm and is maintaining sinus rhythm. The plan will be to continue him on anti-rhythmic therapy with amiodarone 200 mg twice daily for 2 weeks then 200 mg daily. 2. Congestive heart failure The patient does have findings compatible with underlying congestive heart failure. Did have evidence of left ventricular systolic dysfunction with an estimated EF of 20%. I suspect this may improve over time. The etiology was likely a combination of atrial fibrillation as well as coronary artery disease. 3. Hypertension The patient will continue antihypertensive therapy which may need to be adjusted based upon his blood pressure response. 4. Hyperlipidemia The patient states that he was diagnosed with hyperlipidemia. He states he was due to start lipid-lowering therapy. Lipids will be evaluated. His medications will be adjusted. 5. Tobacco abuse The patient states he has been smoking cigarettes, approximately 1 pack per day , for 40 years. He has been counseled on the need to stop his tobacco intake. 6. CAD He underwent cardiac cath which demonstrated an 80 percent LAD stenosis and 90 percent RCA and a 70 percent distal RCA. He subsequently underwent angioplasty and drug-eluting stenting to the proximal left anterior descending artery with a drug-eluting stent, the mid right coronary artery with a drug- eluting stent in the distal right coronary artery with a drug-eluting stent. He is doing much better with a stable hemoglobin with no evidence of fall and his creatinine is actually better than on admission. Can be discharged on his current medications and followed up as an outpatient.
[2017-04-12 11:46] LABS: Bedside Glucose 204 mg/dL (70-110)
--- NOTE | 2017-04-12 14:08 | PCM.DC ---
- Discharge Diagnoses Current Active Problems: Current Active and Chronic Problems Shortness of breath (Acute) Atrial fibrillation (Acute) CHF (congestive heart failure) (Acute) HTN (hypertension) (Chronic) HLD (hyperlipidemia) (Chronic) Hyperglycemia (Chronic) Tobacco abuse (Chronic) SAH (subarachnoid hemorrhage) (Chronic) You will use the following diet at home:: Calorie/Carbohydrate Controlled (specify 1200, 1400, etc) - 1800 calorie, Cardiac, Fluid restricted (specify 2000 mls, 1500 mls) - no more than 1800 cc daily Your food should be the consistency of: Regular Your liquids should be the consistency of: Regular/Thin Discharge Activity: - - Start a waling program. No hills, only on flat ground. Work up to 30 minutes a day. You will get short of breath and tired more easily than you used to. If you get tired or short of breath sit down. You may need to start with 5 minutes twice a day. May shower in (days): 1 May resume sexual activity in: 10-14 days Call your doctor if your incision/area has: Continuous Slow Oozing, Increased Pain/ Swelling, Increased Redness, Foul Smelling Discharge Call your doctor if you observe: Fever of 101 or Higher, Shortness of breath, Dizziness, Fainting spells, Swelling in the ankles, Chest pain, - - stomach pain, nausea and vomiting, any black tarry stool Instructions: MyPlate Worksheet: 1,800 Calories, Eating Heart-Healthy Food: Using the DASH Plan, What Is Dilated Cardiomyopathy?, Living with Cardiomyopathy, Medications for Cardiomyopathy Additional Instructions: 1. Get a good scale and weigh yourself every morning after urinating and keep a record of it. If your weight increases by more than 5 lbs in a week you are either drinking too much ro eating too much salt. Try taking an extra Lasix in the afternoon until the weight is back to baseline and cut back on salt and water. You should keep your salt intake to 1500 mg a day. This is very hard to do, nida if you go out to eat. Get in the habit of reading lables. You should follow up with Dr. Tao in 2-6 weeks so call the office on Thursday to schedule an appt. Do not be surprised if you experience erectile dysfunction. Your heart is weak and not able to pump the same amount of blood. Do NOT stop your medications if this happens. Discuss this with Dr. Tao because there is treatment for erectile dysfunction and he will let you know when it is safe to resume intercourse. I am pretty sure you have sleep apnea. You will need a sleep study to confirm this BUT, I have watched you sleep and you definitely stop breathing. the oxygen level drops when you sleep and this contributes to all the early beats you have on the heart monitor. I am going to have you follow up with the pulmonary dept in 2 weeks to arrange a sleep study.....you will see Dr. Kapoor. Wear the oxygen anytime you are sleeping, even naps. Allergies/Adverse Reactions: Allergies bee venom protein (honey bee) Allergy (Verified 04/09/17 16:04) Anaphylaxis Medications to take at Discharge Hydrocodone/Acetaminophen [[place] 5-325 Tablet] 1 each PO Q4H PRN PRN 04/09/17 Amiodarone HCl [Cordarone] 200 mg PO BID #60 tab 04/12/17 Aspirin E.C. [Ecotrin] 81 mg PO DAILY@0800 #90 tab 04/12/17 Atorvastatin Calcium [Lipitor] 20 mg PO QHS #30 tab 04/12/17 Carvedilol [Coreg (Beta Romero)] 3.125 mg PO BID #60 tab 04/12/17 Furosemide [Lasix] 40 mg PO DAILY #30 tab 04/12/17 Glimepiride [Amaryl] 2 mg PO DAILY #30 tab 04/12/17 Lisinopril [Zestril] 2.5 mg PO DAILY #30 tab 04/12/17 Oxygen, Home [Home Oxygen] 2 lpm NASAL UD #1 unit 04/12/17 Ticagrelor [Brilinta] 90 mg PO BID #30 tab 04/12/17 The following prescriptions were given: Aspirin E.C. [Ecotrin] 81 mg PO DAILY@0800 #90 tab Atorvastatin Calcium [Lipitor] 20 mg PO QHS #30 tab Furosemide [Lasix] 40 mg PO DAILY #30 tab Glimepiride [Amaryl] 2 mg PO DAILY #30 tab Lisinopril [Zestril] 2.5 mg PO DAILY #30 tab Oxygen, Home [Home Oxygen] 2 lpm NASAL UD #1 unit Amiodarone HCl [Cordarone] 200 mg PO BID #60 tab Carvedilol [Coreg (Beta Romero)] 3.125 mg PO BID #60 tab Ticagrelor [Brilinta] 90 mg PO BID #30 tab Primary Care Physician: Lindsay Batista MD [Primary Care Provider] - Please follow up with your Primary Care Physician in: 1-2 weeks Please Follow Up With: Isaiah Tao MD When: 2-6 weeks Please Follow Up With: Olvin Kapoor DO When: 2 weeks for sleep disordered breathing and nocturnal hypoxemia Proposed Discharge Date: 04/12/17
--- NOTE | 2017-04-12 14:24 | DCINST_ITS ---
- Discharge Diagnoses Current Active Problems: Current Active and Chronic Problems Shortness of breath (Acute) Atrial fibrillation (Acute) CHF (congestive heart failure) (Acute) HTN (hypertension) (Chronic) HLD (hyperlipidemia) (Chronic) Hyperglycemia (Chronic) Tobacco abuse (Chronic) SAH (subarachnoid hemorrhage) (Chronic) You will use the following diet at home:: Calorie/Carbohydrate Controlled ( specify 1200, 1400, etc) - 1800 calorie, Cardiac, Fluid restricted (specify 2000 mls, 1500 mls) - no more than 1800 cc daily Your food should be the consistency of: Regular Your liquids should be the consistency of: Regular/Thin Discharge Activity: - - Start a waling program. No hills, only on flat ground. Work up to 30 minutes a day. You will get short of breath and tired more easily than you used to. If you get tired or short of breath sit down. You may need to start with 5 minutes twice a day. May shower in (days): 1 May resume sexual activity in: 10-14 days Call your doctor if your incision/area has: Continuous Slow Oozing, Increased Pain/ Swelling, Increased Redness, Foul Smelling Discharge Call your doctor if you observe: Fever of 101 or Higher, Shortness of breath, Dizziness, Fainting spells, Swelling in the ankles, Chest pain, - - stomach pain , nausea and vomiting, any black tarry stool Instructions: MyPlate Worksheet: 1,800 Calories, Eating Heart-Healthy Food: Using the DASH Plan, What Is Dilated Cardiomyopathy?, Living with Cardiomyopathy , Medications for Cardiomyopathy Additional Instructions: 1. Get a good scale and weigh yourself every morning after urinating and keep a record of it. If your weight increases by more than 5 lbs in a week you are either drinking too much ro eating too much salt. Try taking an extra Lasix in the afternoon until the weight is back to baseline and cut back on salt and water. You should keep your salt intake to 1500 mg a day. This is very hard to do, nida if you go out to eat. Get in the habit of reading lables. You should follow up with Dr. Tao in 2-6 weeks so call the office on Thursday to schedule an appt. Do not be surprised if you experience erectile dysfunction. Your heart is weak and not able to pump the same amount of blood. Do NOT stop your medications if this happens. Discuss this with Dr. Tao because there is treatment for erectile dysfunction and he will let you know when it is safe to resume intercourse. I am pretty sure you have sleep apnea. You will need a sleep study to confirm this BUT, I have watched you sleep and you definitely stop breathing. the oxygen level drops when you sleep and this contributes to all the early beats you have on the heart monitor. I am going to have you follow up with the pulmonary dept in 2 weeks to arrange a sleep study.....you will see Dr. Kapoor. Wear the oxygen anytime you are sleeping, even naps. Allergies/Adverse Reactions: Allergies bee venom protein (honey bee) Allergy (Verified 04/09/17 16:04) Anaphylaxis Medications to take at Discharge Hydrocodone/Acetaminophen [[place] 5-325 Tablet] 1 each PO Q4H PRN PRN 04/09/17 Amiodarone HCl [Cordarone] 200 mg PO BID #60 tab 04/12/17 Aspirin E.C. [Ecotrin] 81 mg PO DAILY@0800 #90 tab 04/12/17 Atorvastatin Calcium [Lipitor] 20 mg PO QHS #30 tab 04/12/17 Carvedilol [Coreg (Beta Romero)] 3.125 mg PO BID #60 tab 04/12/17 Furosemide [Lasix] 40 mg PO DAILY #30 tab 04/12/17 Glimepiride [Amaryl] 2 mg PO DAILY #30 tab 04/12/17 Lisinopril [Zestril] 2.5 mg PO DAILY #30 tab 04/12/17 Oxygen, Home [Home Oxygen] 2 lpm NASAL UD #1 unit 04/12/17 Ticagrelor [Brilinta] 90 mg PO BID #30 tab 04/12/17 The following prescriptions were given: Aspirin E.C. [Ecotrin] 81 mg PO DAILY@0800 #90 tab Atorvastatin Calcium [Lipitor] 20 mg PO QHS #30 tab Furosemide [Lasix] 40 mg PO DAILY #30 tab Glimepiride [Amaryl] 2 mg PO DAILY #30 tab Lisinopril [Zestril] 2.5 mg PO DAILY #30 tab Oxygen, Home [Home Oxygen] 2 lpm NASAL UD #1 unit Amiodarone HCl [Cordarone] 200 mg PO BID #60 tab Carvedilol [Coreg (Beta Romero)] 3.125 mg PO BID #60 tab Ticagrelor [Brilinta] 90 mg PO BID #30 tab Primary Care Physician: Lindsay Batista MD [Primary Care Provider] - Please follow up with your Primary Care Physician in: 1-2 weeks Please Follow Up With: Isaiah Tao MD When: 2-6 weeks Please Follow Up With: Olvin Kapoor DO When: 2 weeks for sleep disordered breathing and nocturnal hypoxemia Proposed Discharge Date: 04/12/17
--- NOTE | 2017-04-12 15:05 | PCM.DC.SUM ---
Discharge Date and Diagnosis Date of Admission: 04/09/17 Date of Discharge: 04/12/17 - Primary Discharge Diagnosis Active and Suspected Problems Atrial fibrillation with RVR (Acute) converted to NSR Coronary artery disease (Acute) Systolic CHF (congestive heart failure) (Acute) Status post percutaneous transluminal coronary angioplasty (Acute) 2 stents to the RCA and 1 stent LAD Severe cardiomyopathy with a 20% ejection fraction Nocturnal hypoxemia (Acute) Sleep disordered breathing - Secondary Discharge Diagnosis Chronic Problems Sleep-disordered breathing (Chronic) HTN (hypertension) (Chronic) HLD (hyperlipidemia) (Chronic) Tobacco abuse (Chronic) Strong family history of cardiovascular disease in multiple family members Hospital Course and Treatment Imaging Results: Clinical Impression(s) from Imaging Studies Chest X-Ray 04/09/17 16:14 IMPRESSION: Cardiomegaly and mild pulmonary congestion. Electronically Signed: Isabel Adams MD at 16:40 EST , Service support , Chest CTA 04/09/17 17:29 IMPRESSION: 1. No CTA demonstrated pulmonary embolism. 2. Mediastinal and hilar lymphadenopathy. 3. Cardiomegaly and mild pulmonary edema with right-sided pleural effusion. 4. Sequela of COPD. 5. Heterogeneous groundglass attenuation in the upper lobes and right lower lobe. This may be the result pulmonary congestion though acute inflammatory or infectious process is possible as well. Electronically Signed: Isabel Adams MD at 18:31 EST , Service support , Brain CT 04/10/17 05:55 IMPRESSION: Normal unenhanced CT scan of the brain. No intracranial hemorrhage. Electronically Signed: Audi Baeza MD at 6:12 EST , Service support , Brain MRI 04/10/17 09:12 IMPRESSION: 1. Involutional changes of the brain, as described above. 2. No MR evidence for acute infarct. Electronically Signed: Isabel Adams MD at 11:54 EST , Service support , Dr. Isaiah Tao-[facility] Dr. Wise-compensation expert Operations: None Procedures: 2-D Echocardiogram - Severe global left ventricular systolic dysfunction with an estimated EF of 20% Moderate eccentric mitral valve insufficiency Mild pulmonary hypertension with a PA systolic estimated at 38-possibly secondary to acute systolic congestive heart failure, Cardiac catheterization - Cardiac catheterization 04/10/17 with 80% proximal LAD lesion, 90% mid RCA lesion and 70% distal RCA lesion. Successful drug-eluting stents to proximal LAD, mid RCA and distal RCA. Summary of Care Provided: Patient is a 66-year-old male with a past medical history of diabetes mellitus type 2, nephrolithiasis, tobacco dependence, chronic back pain with a history of 2 lumbar surgeries and hypertension who presented to the emergency department at [facility] on 04/09/2017 from his physician's office with complaints of shortness of breath. He denied any chest pain and also denied any peripheral edema. EKG from his PCPs office showed an irregular rhythm. In the ER the EKG showed fibrillation with a heart rate of 137. He denied any history of atrial fibrillation. Chest x-ray showed cardiomegaly with pulmonary vascular congestion. A CTA of the chest showed emphysema, pulmonary fibrosis and evidence of congestive heart failure. There was no demonstrated pulmonary embolism. There was a small right-sided pleural effusion. There was hilar and mediastinal adenopathy present. He was treated with Cardizem and a beta romero and then became hypotensive with systolic BP in the 70's and low 80's. He was seen in consultation by dr. Tao and the Cardizem and beta romero were stopped and he was started on Amiodarone. He converted to NSR with frequent ventricular ectopy including couplets and NSVT. The ECHO showed severe global LV function with a 20% EF. He was taken to the microbiology laboratory manager by Dr. Wise and had PCI with TRESSA to the LAD and 2 stents to the RCA. He was transferred to the cardiac ICU post procedure and the BP improved significantly. He was started on Coreg and Lisinopril and tolerated the medication without any recurrence of hypotension. He was transferred to PCU on 04/11/17. He continued to have frequent ventricular ectopy but no recurrence of NSVT. On 04/12 he was stable for DC. Orthopnea had improved somewhat with Lasix added to his drug regimen. He was discharged on Coreg, Lisinopril, ASA, Brilinta, Amiodarone, atorvastatin and Lasix. Metformin was discontinued to the increased risk for lactic acidosis in patients with severe CM. Glipizide was discontinued due to increased Cret in a pt with very poor CO and the risk for prolonged duration of activity and hypoglycemia in pt with poor renal function. He was discharged on Amaryl which is excreted through the liver and not the kidneys. He is going to follow up with Dr. Batista in 5-[address] Tao in 2-6 weeks. He was given a coupon for Brilinta at the time of DC. the etiology of the severe CM is still unclear at the time of DC. It is likely multifactorial and due to AF with RVR and a tachycardia induced CM, severe CAD requiring stents to the LAD and the RCA and possibly due to recent viral infection with a viral induced cardiomyopathy. Going forward he will need follow up ECHO after 6-8 weeks to look at the LV function now that the coronary arteries have been stented. He was not discharged on an anti-coagulant because he had converted to NSR and he was on 2 antiplatelet agents. If the EF remains at 20 % for the next 3 months he will likely need an AICD. Discharge Activity: - - Start a waling program. No hills, only on flat ground. Work up to 30 minutes a day. You will get short of breath and tired more easily than you used to. If you get tired or short of breath sit down. You may need to start with 5 minutes twice a day. May shower in (days): 1 May resume sexual activity in: 10-14 days Call your doctor if your incision/area has: Continuous Slow Oozing, Increased Pain/ Swelling, Increased Redness, Foul Smelling Discharge Call your doctor if you observe: Fever of 101 or Higher, Shortness of breath, Dizziness, Fainting spells, Swelling in the ankles, Chest pain, - - stomach pain, nausea and vomiting, any black tarry stool Home Medications: Medications to take at Discharge Hydrocodone/Acetaminophen [[place] 5-325 Tablet] 1 each PO Q4H PRN PRN 04/09/17 Amiodarone HCl [Cordarone] 200 mg PO BID #60 tab 04/12/17 Aspirin E.C. [Ecotrin] 81 mg PO DAILY@0800 #90 tab 04/12/17 Atorvastatin Calcium [Lipitor] 20 mg PO QHS #30 tab 04/12/17 Carvedilol [Coreg (Beta Romero)] 3.125 mg PO BID #60 tab 04/12/17 Furosemide [Lasix] 40 mg PO DAILY #30 tab 04/12/17 Glimepiride [Amaryl] 2 mg PO DAILY #30 tab 04/12/17 Lisinopril [Zestril] 2.5 mg PO DAILY #30 tab 04/12/17 Oxygen, Home [Home Oxygen] 2 lpm NASAL UD #1 unit 04/12/17 Ticagrelor [Brilinta] 90 mg PO BID #30 tab 04/12/17 Following Prescrptions Were Given to Patient: Aspirin E.C. [Ecotrin] 81 mg PO DAILY@0800 #90 tab Atorvastatin Calcium [Lipitor] 20 mg PO QHS #30 tab Furosemide [Lasix] 40 mg PO DAILY #30 tab Glimepiride [Amaryl] 2 mg PO DAILY #30 tab Lisinopril [Zestril] 2.5 mg PO DAILY #30 tab Oxygen, Home [Home Oxygen] 2 lpm NASAL UD #1 unit Amiodarone HCl [Cordarone] 200 mg PO BID #60 tab Carvedilol [Coreg (Beta Romero)] 3.125 mg PO BID #60 tab Ticagrelor [Brilinta] 90 mg PO BID #30 tab Primary Care Physician: Lindsay Batista MD [Primary Care Provider] - Please follow up with your Primary Care Physician in: 1-2 weeks Please Follow Up With: Isaiah Tao MD When: 2-6 weeks Please Follow Up With: Olvin Kapoor DO When: 2 weeks for sleep disordered breathing and nocturnal hypoxemia Patient Instructions: What Is Dilated Cardiomyopathy?, Living with Cardiomyopathy, Medications for Cardiomyopathy, Eating Heart-Healthy Food: Using the DASH Plan, MyPlate Worksheet: 1,800 Calories Disposition: Home Minutes spent on discharge:: 40 Patient Condition:: Stable Meaningful Use Info Meaningful Use Diagnoses (Choose all that apply): CHF - CHF MICHELL/ARB ordered at discharge?: Yes Documented LVEF (%): 20 Code Visit Inpatient E&M: 84380 Disch Hosp
--- NOTE | 2017-04-12 15:11 | DS.PCM_ITS ---
Discharge Date and Diagnosis Date of Admission: 04/09/17 Date of Discharge: 04/12/17 - Primary Discharge Diagnosis Active and Suspected Problems Atrial fibrillation with RVR (Acute) converted to NSR Coronary artery disease (Acute) Systolic CHF (congestive heart failure) (Acute) Status post percutaneous transluminal coronary angioplasty (Acute) 2 stents to the RCA and 1 stent LAD Severe cardiomyopathy with a 20% ejection fraction Nocturnal hypoxemia (Acute) Sleep disordered breathing - Secondary Discharge Diagnosis Chronic Problems Sleep-disordered breathing (Chronic) HTN (hypertension) (Chronic) HLD (hyperlipidemia) (Chronic) Tobacco abuse (Chronic) Strong family history of cardiovascular disease in multiple family members Hospital Course and Treatment Imaging Results: Clinical Impression(s) from Imaging Studies Chest X-Ray 04/09/17 16:14 IMPRESSION: Cardiomegaly and mild pulmonary congestion. Electronically Signed: Isabel Adams MD at 16:40 EST , Service support , Chest CTA 04/09/17 17:29 IMPRESSION: 1. No CTA demonstrated pulmonary embolism. 2. Mediastinal and hilar lymphadenopathy. 3. Cardiomegaly and mild pulmonary edema with right-sided pleural effusion. 4. Sequela of COPD. 5. Heterogeneous groundglass attenuation in the upper lobes and right lower lobe. This may be the result pulmonary congestion though acute inflammatory or infectious process is possible as well. Electronically Signed: Isabel Adams MD at 18:31 EST , Service support , Brain CT 04/10/17 05:55 IMPRESSION: Normal unenhanced CT scan of the brain. No intracranial hemorrhage. Electronically Signed: Audi Baeza MD at 6:12 EST , Service support , Brain MRI 04/10/17 09:12 IMPRESSION: 1. Involutional changes of the brain, as described above. 2. No MR evidence for acute infarct. Electronically Signed: Isabel Adams MD at 11:54 EST , Service support , Dr. Isaiah Tao-[facility] Dr. Wise-plum packer Operations: None Procedures: 2-D Echocardiogram - Severe global left ventricular systolic dysfunction with an estimated EF of 20% Moderate eccentric mitral valve insufficiency Mild pulmonary hypertension with a PA systolic estimated at 38- possibly secondary to acute systolic congestive heart failure, Cardiac catheterization - Cardiac catheterization 04/10/17 with 80% proximal LAD lesion, 90% mid RCA lesion and 70% distal RCA lesion. Successful drug-eluting stents to proximal LAD, mid RCA and distal RCA. Summary of Care Provided: Patient is a 66-year-old male with a past medical history of diabetes mellitus type 2, nephrolithiasis, tobacco dependence, chronic back pain with a history of 2 lumbar surgeries and hypertension who presented to the emergency department at [facility] on 04/09/2017 from his physician's office with complaints of shortness of breath. He denied any chest pain and also denied any peripheral edema. EKG from his PCPs office showed an irregular rhythm. In the ER the EKG showed fibrillation with a heart rate of 137. He denied any history of atrial fibrillation. Chest x-ray showed cardiomegaly with pulmonary vascular congestion. A CTA of the chest showed emphysema, pulmonary fibrosis and evidence of congestive heart failure. There was no demonstrated pulmonary embolism. There was a small right-sided pleural effusion. There was hilar and mediastinal adenopathy present. He was treated with Cardizem and a beta romero and then became hypotensive with systolic BP in the 70's and low 80's. He was seen in consultation by dr. Tao and the Cardizem and beta romero were stopped and he was started on Amiodarone. He converted to NSR with frequent ventricular ectopy including couplets and NSVT. The ECHO showed severe global LV function with a 20% EF. He was taken to the photofinishing laboratory worker by Dr. Wise and had PCI with TRESSA to the LAD and 2 stents to the RCA. He was transferred to the cardiac ICU post procedure and the BP improved significantly. He was started on Coreg and Lisinopril and tolerated the medication without any recurrence of hypotension. He was transferred to PCU on 04/11/17. He continued to have frequent ventricular ectopy but no recurrence of NSVT. On 04/12 he was stable for DC. Orthopnea had improved somewhat with Lasix added to his drug regimen. He was discharged on Coreg, Lisinopril, ASA, Brilinta, Amiodarone, atorvastatin and Lasix. Metformin was discontinued to the increased risk for lactic acidosis in patients with severe CM. Glipizide was discontinued due to increased Cret in a pt with very poor CO and the risk for prolonged duration of activity and hypoglycemia in pt with poor renal function. He was discharged on Amaryl which is excreted through the liver and not the kidneys. He is going to follow up with Dr. Batista in 5-[address] Tao in 2-6 weeks. He was given a coupon for Brilinta at the time of DC. the etiology of the severe CM is still unclear at the time of DC. It is likely multifactorial and due to AF with RVR and a tachycardia induced CM, severe CAD requiring stents to the LAD and the RCA and possibly due to recent viral infection with a viral induced cardiomyopathy. Going forward he will need follow up ECHO after 6-8 weeks to look at the LV function now that the coronary arteries have been stented. He was not discharged on an anti-coagulant because he had converted to NSR and he was on 2 antiplatelet agents. If the EF remains at 20 % for the next 3 months he will likely need an AICD. Discharge Activity: - - Start a waling program. No hills, only on flat ground. Work up to 30 minutes a day. You will get short of breath and tired more easily than you used to. If you get tired or short of breath sit down. You may need to start with 5 minutes twice a day. May shower in (days): 1 May resume sexual activity in: 10-14 days Call your doctor if your incision/area has: Continuous Slow Oozing, Increased Pain/ Swelling, Increased Redness, Foul Smelling Discharge Call your doctor if you observe: Fever of 101 or Higher, Shortness of breath, Dizziness, Fainting spells, Swelling in the ankles, Chest pain, - - stomach pain , nausea and vomiting, any black tarry stool Home Medications: Medications to take at Discharge Hydrocodone/Acetaminophen [[place] 5-325 Tablet] 1 each PO Q4H PRN PRN 04/09/17 Amiodarone HCl [Cordarone] 200 mg PO BID #60 tab 04/12/17 Aspirin E.C. [Ecotrin] 81 mg PO DAILY@0800 #90 tab 04/12/17 Atorvastatin Calcium [Lipitor] 20 mg PO QHS #30 tab 04/12/17 Carvedilol [Coreg (Beta Romero)] 3.125 mg PO BID #60 tab 04/12/17 Furosemide [Lasix] 40 mg PO DAILY #30 tab 04/12/17 Glimepiride [Amaryl] 2 mg PO DAILY #30 tab 04/12/17 Lisinopril [Zestril] 2.5 mg PO DAILY #30 tab 04/12/17 Oxygen, Home [Home Oxygen] 2 lpm NASAL UD #1 unit 04/12/17 Ticagrelor [Brilinta] 90 mg PO BID #30 tab 04/12/17 Following Prescrptions Were Given to Patient: Aspirin E.C. [Ecotrin] 81 mg PO DAILY@0800 #90 tab Atorvastatin Calcium [Lipitor] 20 mg PO QHS #30 tab Furosemide [Lasix] 40 mg PO DAILY #30 tab Glimepiride [Amaryl] 2 mg PO DAILY #30 tab Lisinopril [Zestril] 2.5 mg PO DAILY #30 tab Oxygen, Home [Home Oxygen] 2 lpm NASAL UD #1 unit Amiodarone HCl [Cordarone] 200 mg PO BID #60 tab Carvedilol [Coreg (Beta Romero)] 3.125 mg PO BID #60 tab Ticagrelor [Brilinta] 90 mg PO BID #30 tab Primary Care Physician: Lindsay Batista MD [Primary Care Provider] - Please follow up with your Primary Care Physician in: 1-2 weeks Please Follow Up With: Isaiah Tao MD When: 2-6 weeks Please Follow Up With: Olvin Kapoor DO When: 2 weeks for sleep disordered breathing and nocturnal hypoxemia Patient Instructions: What Is Dilated Cardiomyopathy?, Living with Cardiomyopathy, Medications for Cardiomyopathy, Eating Heart-Healthy Food: Using the DASH Plan, MyPlate Worksheet: 1,800 Calories Disposition: Home Minutes spent on discharge:: 40 Patient Condition:: Stable Meaningful Use Info Meaningful Use Diagnoses (Choose all that apply): CHF - CHF MICHELL/ARB ordered at discharge?: Yes Documented LVEF (%): 20 Code Visit Inpatient E&M: [id number] Disch Hosp
--- NOTE | 2017-04-13 08:46 | CRPHASE1 ---
Patient Data/Charges Phase II Referral:: [facility] Start Phase II:: FOLLOWING OFFICE VISIT WITH IVF EMBRYOLOGIST Risk Factors/Lifestyle Smoking Status: Current every day smoker Packs Smoked per Day: 1 Hx Hypertension: Yes FBS:: 188 Hx Metabolic Disorders: Yes Hx Dyslipidemia: Yes Height: 5 ft 11 in - WT 205# Stress: Home/Family ETOH: Yes Risk Factor for Sedentary Lifestyle: Highest Risk Past Cardiac Illness: Arrhythmias, CHF, Coronary Artery Disease - PATIENT DISCHARGED. CR BOOKLET WITH RISK FACTOR IDENTIFICATION MAILED TO PT. Laboratory Values: Cardiac Rehab Phase I Labs Hemoglobin A1c 7.1 % (4.2-6.3) H 04/10/17 06:50 Triglycerides 151 mg/dL (-199) 04/10/17 06:50 Cholesterol 125 mg/dL (200) 04/10/17 06:50 LDL Cholesterol 69 mg/dL (0-130) 04/10/17 06:50 HDL Cholesterol 26 mg/dL (40-) L 04/10/17 06:50 Medical/Surgical History [place]:: No CAD:: Yes Hypertension:: Yes Dyslipidemia:: Yes Arrhythmias:: Yes - ATRIAL FIB Discharge/Home/Social Eval Discharge Disposition: Home
--- NOTE | 2017-04-13 08:51 | CRPHASE1_ITS ---
Patient Data/Charges Phase II Referral:: [facility] Start Phase II:: FOLLOWING OFFICE VISIT WITH ANTIQUE CLOCKS REPAIRER Risk Factors/Lifestyle Smoking Status: Current every day smoker Packs Smoked per Day: 1 Hx Hypertension: Yes FBS:: 188 Hx Metabolic Disorders: Yes Hx Dyslipidemia: Yes Height: 5 ft 11 in - WT 205# Stress: Home/Family ETOH: Yes Risk Factor for Sedentary Lifestyle: Highest Risk Past Cardiac Illness: Arrhythmias, CHF, Coronary Artery Disease - PATIENT DISCHARGED. CR BOOKLET WITH RISK FACTOR IDENTIFICATION MAILED TO PT. Laboratory Values: Cardiac Rehab Phase I Labs Hemoglobin A1c 7.1 % (4.2-6.3) H 04/10/17 06:50 Triglycerides 151 mg/dL (-199) 04/10/17 06:50 Cholesterol 125 mg/dL (200) 04/10/17 06:50 LDL Cholesterol 69 mg/dL (0-130) 04/10/17 06:50 HDL Cholesterol 26 mg/dL (40-) L 04/10/17 06:50 Medical/Surgical History [place]:: No CAD:: Yes Hypertension:: Yes Dyslipidemia:: Yes Arrhythmias:: Yes - ATRIAL FIB Discharge/Home/Social Eval Discharge Disposition: Home
--- NOTE | 2017-04-13 08:54 | CRPH1.INST_ITS ---
General Education CAD and cardiac anatomy and function:: Not instructed Explanation of diagnoses and procedures:: Not instructed Sign/Symptoms of HI:: Not instructed Antiplatelet therapy: Not instructed Proper use of NTG-SL: Not instructed Emergency procedures and activation of EMS: Not instructed Compliance of all prescribed medications: Not instructed - PT DISCHARGED. CR BOOKLET WITH RISK FACTOR IDENTIFICATION WAS MAILED TO PT. Smoking Patient Nicotine/Smoking Risk Factors Are:: Cigarettes Recommendations Include:: Participation in a smoking cessation program Nicotine/Smoking Response Code:: Not instructed Dyslipidemia Recommendations Include:: Lipid profile provided Dyslipidemia Response Code:: Not instructed Overweight/Obesity Patient Overweight/Obesity Risk Factors Are:: Overweight = 26-29 Recommendations Include:: Weight loss of 5-10%, Reduced calorie diet, Exercise 5 -7 times/week Overweight/Obesity:: Not instructed Hypertension Recommendations Include:: BP <130/80 if diabetic, DASH dietary guidelines, Decrease/maintain normal body weight, Moderation of ETOH Hypertension:: Not instructed Heart Disease Heart Disease Response Code:: Not instructed Diabetes Patient Diabetes Risk Factors Are:: Elevated blood sugars Recommendations Include:: Maintain fasting blood sugars 70-110 md/dL, Maintain HgbA1c of 6% or less, Monitor blood sugar as prescribed, Diabetic dietary guidelines, Decrease/maintain body weight Diabetes:: Not instructed Metabolic Syndrome Patient Metabolic Syndrome Risk Factors Are [3 of 5]:: Fasting blood sugar > 100 mg/dL, Hypertension, Low HDL <40 [male] or < 50 [female] Recommendations Include:: Reinforce compliance to risk factor modifications, Encouraged follow-up with Primary Care Physician Metabolic Syndrome Response Code:: Not instructed Sedentary Patient Sedentary Risk Factors Are:: Lack of regular exercise Recommendations Include:: Aerobic exercise 5-7 times/week for 20-30 minutes continuously, Benefits of regular exercise, Discussed home walking program, Monitored Outpatient Cardiac Rehab Sedentary Response Code:: Not instructed Stress Recommendations Include:: Identification of stressors, and assessment of coping skills, Stress management techniques Stress Response Code:: Not instructed
== END 2017-04-12 15:51 | disposition home or self-care (01) | DRG 246 ==
LOC: ED 17:39 → PCU 20:22 → ICU 04-14 10:05 → PCU 04-14 10:05
PROVIDERS: Internal Medicine Cardiovascular Disease; Admitting Provider Internal Medicine; Emergency Provider Emergency Medicine; Family Provider Internal Medicine; PCP Internal Medicine; Visit Provider Internal Medicine
DX: I48.91 Unspecified atrial fibrillation (principal); I50.21 Acute systolic (congestive) heart failure; I47.2 Ventricular tachycardia; N17.9 Acute kidney failure, unspecified; I11.0 Hypertensive heart disease with heart failure; E78.5 Hyperlipidemia, unspecified; F17.210 Nicotine dependence, cigarettes, uncomplicated; Z86.79 Personal history of other diseases of the circulatory system; Z82.49 Family history of ischemic heart disease and other diseases of the circulatory system; I25.10 Atherosclerotic heart disease of native coronary artery without angina pectoris; I42.9 Cardiomyopathy, unspecified; Z87.442 Personal history of urinary calculi; G89.29 Other chronic pain; M54.9 Dorsalgia, unspecified; G47.30 Sleep apnea, unspecified; R09.02 Hypoxemia; E11.9 Type 2 diabetes mellitus without complications; Z79.84 Long term (current) use of oral hypoglycemic drugs
CPT/HCPCS: 36415; 70450; 70551; 71045; 71275; 80048; 80061; 80076; 82962; 83036; 83735; 83880; 84100; 84443; 84484; 85025; 85027; 85347; 85610; 85730; 92928; 92978; 92979; 93005; 93306; 93454; 99152; 99153; 99285; 99406; J7030; J7050; Q9957; Q9967; A4216; C1725; C1753; C1769; C1874; C1887; C1894; C8929; C9600; J0583; J1940; J2310

== ENCOUNTER → 2017-04-20 15:16 | Outpatient (CLI) | payer MEDICARE, OTHER, SELFPAY ==
[2017-04-20 18:41] LABS: BUN 19 mg/dL (7-18); Calcium,Total 8.2 mg/dL (8.5-10.1); Chloride 100 mmol/L (98-107); Creatinine, Serum 1.27 mg/dL (0.70-1.30); EST Glomerular Filtration Rate 60 mL/min (>60); Est Glom Filt Rate - Afr Amer 73 mL/min (>60); Glucose 165 mg/dL (74-106); Potassium 3.9 mmol/L (3.5-5.1); Sodium Level 138 mmol/L (136-145)
[2017-04-20 18:42] LABS: Anion Gap 8 (5-15)
[2017-04-20 19:02] LABS: BNP,B-Type NATRIURETIC PEPTIDE 455.8 pg/mL (0-100)
== END ==
PROVIDERS: Family Provider Internal Medicine; PCP Internal Medicine; Visit Provider Internal Medicine
DX: E83.42 Hypomagnesemia (principal); Z79.899 Other long term (current) drug therapy; I42.9 Cardiomyopathy, unspecified; I50.9 Heart failure, unspecified; N17.9 Acute kidney failure, unspecified
CPT/HCPCS: 36415; 80048; 83735; 83880

== ENCOUNTER → 2017-04-24 13:02 | Outpatient (CLI) | payer MEDICARE, OTHER, SELFPAY ==
[2017-04-09 20:53] VITALS: BMI 28.4
[2017-04-11 10:00] VITALS: BP 114/66
[2017-04-12 13:06] VITALS: BP 111/86
--- NOTE | 2017-04-24 13:05 | PCM.CR.HP2 ---
CR - History & Physical - General Arrival date:: 04/24/17 Arrival time:: 13:06 Referring Physician: Dr. Isaiah Tao Primary Diagnosis: Z98.61 04/10/2017 - History of Present Cardiac Event Onset Date: Enter Onset Date of cardiac illnesses in Comment field below Type of Symptoms:: SOB Interventions with present event:: Z.61 - Medications Home Medications: Ambulatory Orders Medication Instructions Recorded Hydrocodone/Acetaminophen [[place] 1 ea PO Q4H PRN PRN 04/09/17 5-325 Tablet] Amiodarone HCl [Cordarone] 200 mg PO BID #60 tab 04/12/17 Aspirin E.C. [Ecotrin] 81 mg PO DAILY@0800 #90 tab 04/12/17 Atorvastatin Calcium [Lipitor] 20 mg PO QHS #30 tab 04/12/17 Carvedilol [Coreg (Beta Romero)] 3.125 mg PO BID #60 tab 04/12/17 Furosemide [Lasix] 40 mg PO DAILY #30 tab 04/12/17 Glimepiride [Amaryl] 2 mg PO DAILY #30 tab 04/12/17 Lisinopril [Zestril] 2.5 mg PO DAILY #30 tab 04/12/17 Oxygen, Home [Home Oxygen] 2 lpm NASAL UD #1 unit 04/12/17 ticagrelor 90 mg tablet 90 mg PO BID #60 tab 04/23/17 - Allergies Allergies/Adverse Reactions: Allergies bee venom protein (honey bee) Allergy (Verified 04/09/17 16:04) Anaphylaxis - Sleep Disorder Evaluation Hx of Sleep Apnea: No Do you snore loudly (louder than talking or can be heard through closed doors)?: Yes Do you often feel tired/ fatigued/ sleepy during daytime?: Yes Has anyone observed you stop breathing during sleep?: Yes History of Hypertension (for STOP score): Yes STOP Results: Positive, sheduled Advanced Directives - Advanced Directives Power of Geotechnical Department Manager: No Living Will: No Advance Directives Information Provided: Yes Advance Directives on File: No DNR Order?:: No Past Medical History - Problems and Co-Morbidities Problems & Co-Morbidities: Smoking - stopped 2 weeks ago, Dyslipidemia, Diabetes, Hypertension, Sedentary Lifestyle - Past Medical Illness Past Medical Illness: Lung or Breathing Problems - Past Cardiac Illness Past Cardiac Illness: Arrhythmias - A-Fib, CHF, Other - COPD, pulmonary fibrosis, stroke - Other Other: Vision/Eye Problems - glasses - Cardiology Procedures/Interventions Cardiology Procedures/Interventions: PCI w/Stenting, Heart Catheterization - Past Surgical History Surgical History: - - Lithotripsy for kidney stones, lumbar surgery times 2 - Family History Summary Family History: Stroke: Maternal, Hypertension: Maternal Review of Systems - Review of Systems Hints: Right click = Denies (Slash). Left click = Reports (Robinson) Review of Present Symptoms: Reports: Shortness of Breath at Rest, Shortness of Breath with Exertion, Fatigue, Heart Arrhythmia/Irregularities, Appetite - Normal. Denies: PVD, Operative Discomfort, Angina, Wound Healing, Dizziness/Lightheadedness, Appetite - Special Diet, Sleep - Normal, Sexual Changes Risk Factor Assessment - Chief Complaint Chief Complaint: SOB - Pulse Pulse Rate: 93 Pulse Rhythm: Regular - Hypertension Blood Pressure Sitting - Right Arm: 120/72 - Diabetes Diabetic History: Type II Nutrition Referral for Diabetes: No - Obesity Weight:: 92.079 kg Weight in Pounds: 203.0 lbs Nutritional Referral for Obesity: No - Physical Inactivity Physical Inactivity: None - walking - Risk Stratification Risk Guidelines: Moderate Risk: Risk Factor for Dyslipidemia, Risk Factor for Obesity, Risk Factor for Sedentary Lifestyle, Risk Factor for Depression, Highest Risk: Risk Factor for Smoking, Risk Factor for Diabetes, Risk Factor for Hypertension - For Smoking Smoking Risk Guidelines: Smoking Low Risk: None or quit greater than 6 months ago. Smoking Moderate Risk: Smoker or quit 6 months or less ago. Smoking High Risk: Smoker - For Dyslipidemia Dyslipidemia Risk Guidelines: Low Risk: Moderate Risk: High Risk: 15-25% fat 25.1-29% fat >/= 30% fat. <7% sat fat 7-9% sat fat >9% sat fat. <150 mg chol 150-299 mg chol >/= 300 mg chol. LDL <100 LDL 100-129 LDL >/= 130. Chol/HDL ratio <5.0 Chol/HDL ratio 5.0-6.0 Chol/HDL ratio >6.0. Triglycerides <100 Triglycerides 100-149 Triglycerides >/= 150 - For Diabetes Mellitus Diabetes Risk Guidelines: Diabetes Low Risk: HgA1c <6.5% and/or FBG <120. Diabetes Moderate Risk: HgA1c 6.6-7.9% and/or FBG 120-180. Diabetes High Risk: HgA1c >/= 8% and/or FBG >180 - For Obesity/Overweight Obesity/Overweight Risk Guidelines: Obesity Low Risk: BMI <25.0. Obesity Moderate Risk: BMI 25-29.9. Obesity High Risk: BMI >/= 30.0 - For Hypertension Hypertension Risk Guidelines: Hypertension Low Risk: Systolic <120 and Diastolic <80. Hypertension Moderate Risk: Systolic 120-139 and Diastolic 80-89. Hypertension High Risk: Systolic >/= 140 and Diastolic >/= 90 - For Sedentary Lifestyle Sedentary Lifestyle Risk Guidelines: Sedentary Lifestyle Low Risk: >/= 1,500 kcal/week. Sedentary Lifestyle Moderate Risk: 700-1,499 kcal/week. Sedentary Lifestyle High Risk: < 700 kcal/week - For Depression Depression Risk Guidelines: Depression Low Risk: Not clinically depressed. Depression Moderate Risk: Mildly depressed. Depression High Risk: Clinically depressed - Family History Family History: Family History (Last Updated 04/16/17 @ 14:26 by Gladys Benitez) Father Heart disease Myocardial infarction Enlarged heart Hypertension Mother CVA (cerebral vascular accident) Hypertension Brother Myocardial infarction Hypertension Sister Diabetes Hypertension Social History - Smoking History Smoking Status: Former smoker - stopped 2 weeks ago Years Smokin Packs Smoked per Day: 1 Hx Tobacco Use: Yes Hx Smoking Exposure: Yes - Alcohol Use Alcohol Usage: No - Substance Abuse Hx Substance Use: No - - Occupation Occupation (List type of work in comments):: Retired - Hobbies, Recreation, Social Activities Hobbies: Walking Recreational Activities: I am able to engage in most, but not all activities Marital Status - Status Marital Status: - Current Living Arrangements Living Environment:: Spouse - Children How many children do you have?: 3 Do any of your children live nearby?: Yes - Safety Do you feel safe in your surroundings?: Yes - Assistance Do you need any assistance at home?: none
--- NOTE | 2017-04-24 13:16 | CR.HP_ITS ---
CR - History & Physical - General Arrival date:: 04/24/17 Arrival time:: 13:06 Referring Physician: Dr. Isaiah Tao Primary Diagnosis: Z98.61 04/10/2017 - History of Present Cardiac Event Onset Date: Enter Onset Date of cardiac illnesses in Comment field below Type of Symptoms:: SOB Interventions with present event:: Z.61 - Medications Home Medications: Ambulatory Orders Medication Instructions Recorded Hydrocodone/Acetaminophen [[place] 1 ea PO Q4H PRN PRN 04/09/17 5-325 Tablet] Amiodarone HCl [Cordarone] 200 mg PO BID #60 tab 04/12/17 Aspirin E.C. [Ecotrin] 81 mg PO DAILY@0800 #90 tab 04/12/17 Atorvastatin Calcium [Lipitor] 20 mg PO QHS #30 tab 04/12/17 Carvedilol [Coreg (Beta Romero)] 3.125 mg PO BID #60 tab 04/12/17 Furosemide [Lasix] 40 mg PO DAILY #30 tab 04/12/17 Glimepiride [Amaryl] 2 mg PO DAILY #30 tab 04/12/17 Lisinopril [Zestril] 2.5 mg PO DAILY #30 tab 04/12/17 Oxygen, Home [Home Oxygen] 2 lpm NASAL UD #1 unit 04/12/17 ticagrelor 90 mg tablet 90 mg PO BID #60 tab 04/23/17 - Allergies Allergies/Adverse Reactions: Allergies bee venom protein (honey bee) Allergy (Verified 04/09/17 16:04) Anaphylaxis - Sleep Disorder Evaluation Hx of Sleep Apnea: No Do you snore loudly (louder than talking or can be heard through closed doors)? : Yes Do you often feel tired/ fatigued/ sleepy during daytime?: Yes Has anyone observed you stop breathing during sleep?: Yes History of Hypertension (for STOP score): Yes STOP Results: Positive, sheduled Advanced Directives - Advanced Directives Power of Sleeping Car Service Attendant: No Living Will: No Advance Directives Information Provided: Yes Advance Directives on File: No DNR Order?:: No Past Medical History - Problems and Co-Morbidities Problems & Co-Morbidities: Smoking - stopped 2 weeks ago, Dyslipidemia, Diabetes , Hypertension, Sedentary Lifestyle - Past Medical Illness Past Medical Illness: Lung or Breathing Problems - Past Cardiac Illness Past Cardiac Illness: Arrhythmias - A-Fib, CHF, Other - COPD, pulmonary fibrosis , stroke - Other Other: Vision/Eye Problems - glasses - Cardiology Procedures/Interventions Cardiology Procedures/Interventions: PCI w/Stenting, Heart Catheterization - Past Surgical History Surgical History: - - Lithotripsy for kidney stones, lumbar surgery times 2 - Family History Summary Family History: Stroke: Maternal, Hypertension: Maternal Review of Systems - Review of Systems Hints: Right click = Denies ([place]ash). Left click = Reports ([place]) Review of Present Symptoms: Reports: Shortness of Breath at Rest, Shortness of Breath with Exertion, Fatigue, Heart Arrhythmia/Irregularities, Appetite - Normal. Denies: PVD, Operative Discomfort, Angina, Wound Healing, Dizziness/ Lightheadedness, Appetite - Special Diet, Sleep - Normal, Sexual Changes Risk Factor Assessment - Chief Complaint Chief Complaint: SOB - Pulse Pulse Rate: 93 Pulse Rhythm: Regular - Hypertension Blood Pressure Sitting - Right Arm: 120/72 - Diabetes Diabetic History: Type II Nutrition Referral for Diabetes: No - Obesity Weight:: 92.079 kg Weight in Pounds: 203.0 lbs Nutritional Referral for Obesity: No - Physical Inactivity Physical Inactivity: None - walking - Risk Stratification Risk Guidelines: Moderate Risk: Risk Factor for Dyslipidemia, Risk Factor for Obesity, Risk Factor for Sedentary Lifestyle, Risk Factor for Depression, Highest Risk: Risk Factor for Smoking, Risk Factor for Diabetes, Risk Factor for Hypertension - For Smoking Smoking Risk Guidelines: Smoking Low Risk: None or quit greater than 6 months ago. Smoking Moderate Risk: Smoker or quit 6 months or less ago. Smoking High Risk: Smoker - For Dyslipidemia Dyslipidemia Risk Guidelines: Low Risk: Moderate Risk: High Risk: 15-25% fat 25.1-29% fat >/= 30% fat. <7% sat fat 7-9% sat fat >9% sat fat. <150 mg chol 150-299 mg chol >/= 300 mg chol. LDL <100 LDL 100-129 LDL >/= 130. Chol/HDL ratio <5.0 Chol/HDL ratio 5.0-6.0 Chol/HDL ratio >6.0. Triglycerides <100 Triglycerides 100-149 Triglycerides >/= 150 - For Diabetes Mellitus Diabetes Risk Guidelines: Diabetes Low Risk: HgA1c <6.5% and/or FBG <120. Diabetes Moderate Risk: HgA1c 6.6-7.9% and/or FBG 120-180. Diabetes High Risk: HgA1c >/= 8% and/or FBG >180 - For Obesity/Overweight Obesity/Overweight Risk Guidelines: Obesity Low Risk: BMI <25.0. Obesity Moderate Risk: BMI 25-29.9. Obesity High Risk: BMI >/= 30.0 - For Hypertension Hypertension Risk Guidelines: Hypertension Low Risk: Systolic <120 and Diastolic <80. Hypertension Moderate Risk: Systolic 120-139 and Diastolic 80-89. Hypertension High Risk: Systolic >/= 140 and Diastolic >/= 90 - For Sedentary Lifestyle Sedentary Lifestyle Risk Guidelines: Sedentary Lifestyle Low Risk: >/= 1 ,500 kcal/week. Sedentary Lifestyle Moderate Risk: 700-1,499 kcal/week. Sedentary Lifestyle High Risk: < 700 kcal/week - For Depression Depression Risk Guidelines: Depression Low Risk: Not clinically depressed. Depression Moderate Risk: Mildly depressed. Depression High Risk: Clinically depressed - Family History Family History: Family History (Last Updated 04/16/17 @ 14:26 by Gladys Benitez) Father Heart disease Myocardial infarction Enlarged heart Hypertension Mother CVA (cerebral vascular accident) Hypertension Brother Myocardial infarction Hypertension Sister Diabetes Hypertension Social History - Smoking History Smoking Status: Former smoker - stopped 2 weeks ago Years Smokin Packs Smoked per Day: 1 Hx Tobacco Use: Yes Hx Smoking Exposure: Yes - Alcohol Use Alcohol Usage: No - Substance Abuse Hx Substance Use: No - - Occupation Occupation (List type of work in comments):: Retired - Hobbies, Recreation, Social Activities Hobbies: Walking Recreational Activities: I am able to engage in most, but not all activities Marital Status - Status Marital Status: - Current Living Arrangements Living Environment:: Spouse - Children How many children do you have?: 3 Do any of your children live nearby?: Yes - Safety Do you feel safe in your surroundings?: Yes - Assistance Do you need any assistance at home?: none
--- NOTE | 2017-04-24 13:21 | CR.ITP_ITS ---
Exercise - Initial Assessment - Visit Date of Eval: 04/24/17 - Stages of Change Stages of Change:: Contemplate - Exercise Prescription Mode:: Treadmill, Biodyne, Rower, Airdyne, NuStep, Arm Ergometer Angina with exercise?: No - Hypertension Do any of the following apply?: Yes Resting Blood Pressure:: 120/72 - Intervention Home Exercise/Activity Goal:: Sitting Time <3 hrs/day - Education Goals:: Warm-up, RPE YANIQUE Scale, S/S, Safe Exercise, Self-Monitoring - Exercise Program Goals Exercise Program Goals: Aerobic Activity >30 min, B/P <140/90 Nutrition - Initial Assessment - Program Goals Nutrition Program Goals: LDL <70. Total Cholesterol <200. HDL >45. Triglycerides <150. HgbA1C <7%. BMI <25 - Visit Date of Assessment:: 04/24/17 - Stages of Change Stages of Change:: Contemplate - Diabetes Diabetes:: Yes - Weight Management Weight:: 92.079 kg Total Score:: 3 - Intervention Referral to dietitian:: No Referral to Diabetic Clinic:: No Will attend diet classes:: Yes - Education Gave educational materials for:: Signs & symptoms of hypoglycemia, Signs & symptoms of hyperglycemia, Relate diabetes to coronary artery disease, Healthy eating Nutrition - 30-Day Assessment - Program Goals Nutrition Program Goals: LDL <70. Total Cholesterol <200. HDL >45. Triglycerides <150. HgbA1C <7%. BMI <25 - Diabetes Diabetes:: No Nutrition - 60-Day Assessment - Program Goals Nutrition Program Goals: LDL <70. Total Cholesterol <200. HDL >45. Triglycerides <150. HgbA1C <7%. BMI <25 - Diabetes Diabetes:: No Nutrition - 90-Day Assessment - Program Goals Nutrition Program Goals: LDL <70. Total Cholesterol <200. HDL >45. Triglycerides <150. HgbA1C <7%. BMI <25 - Diabetes Diabetes:: No Nutrition - Final Assessment - Program Goals Nutrition Program Goals: LDL <70. Total Cholesterol <200. HDL >45. Triglycerides <150. HgbA1C <7%. BMI <25 - Diabetes Diabetes:: No Tobacco - Initial Assessment - Program Goals Tobacco Program Goals: Complete smoking cessation. Attend education classes. Improve Knowledge Test score - Stage of Change Stages of Change:: Contemplate - Learning Barriers Total Score:: 9 - Family Support Do you have family support?: Yes - Tobacco Use Tobacco Use: Non-smoker How long ago did you quit using tobacco products?: Less than 6 months ago Do you use smokeless tobacco?: No - Intervention Smoking Cessation Referral:: No Individual Education/Counseling:: No Education Schedule Given:: Yes - Education Gave educational material for:: Tobacco triggers, Coronary artery disease, Risk factors, Sexuality, Medical compliance, Cardiac A&P, Angina signs & symptoms Psychosocial - Initial Assess - Target Goals Target Goals: Assess presence or absence of depression. Using a valid screening tool, maximizes coping skills. Positive support system - Stages of Change Stages of Change:: Contemplate - Psychosocial Test Tool Used:: HANDS Depression Questionnaire Tests Completed: SF - 36 survey completed, Mood Scale Test Total Mood Screening Score:: 2 Self-Efficacy Score:: 8 - Intervention PS - Interventions: Yes Attend Stress Management Classes, Yes Uses Stress Management Skills, No Referral to Mental Health, No Referral to [facility] Case Management, No Referral to Physician - Education Gave educational materials for:: Coping techniques, Signs & symptoms of depression, Stress management, Relaxation techniques - Assistive Devices Assistive Devices:: None Fall Risk Assessed:: Yes Patient Health Questionnaire Initial Assessment 1. Little interest or pleasure in doing things: Not at all 2. Feeling down, depressed, or hopeless: Not at all 3. Trouble falling or staying asleep, or sleeping too much: Not at all 4. Feeling tired or having little energy: More than half the days 5. Poor appetite or overeating: Not at all 6. Feeling bad about yourself -- or that you are a failure or have let yourself or your family down: Not at all 7. Trouble concentrating on things, such as reading the newspaper or watching television: Not at all 8. Moving or speaking so slowly that other people could have noticed. Or the opposite - being so fidgety or restless that you have been moving around a lot more than usual: Not at all 9. Thoughts that you would be better off , or of hurting yourself in some way: Not at all How difficult have these problems made it for you to do your work, take care of things at home, or get along with other people?: Not difficult at all Total Score: 2 Knowledge Test - Check your knowledge Initial The #1 cause of in the [place] each year is:: Heart disease Which of the following is a common treatment for heart disease?: All of the above The arteries that feed the heart are called:: Coronary arteries HDL cholesterol is known as the good cholesterol.: True What disease increases your risk for heart disease?: Diabetes What food product raises blood cholesterol level the most?: Saturated fat The bad cholesterol in the blood is called:: LDL Hypertension is another word for:: High blood pressure A blood pressure reading of 148/88 is considered normal.: True Exercise will only benefit your health when your heart rate reaches a target level.: False Total Score:: 9 Self-Efficacy Initial Assessment We would like to know how confident you are in doing certain activities. Please select your confidence level for:: Select your confidence level for the following using the scale 1-10 where 1 is not at all confident and 10 is totally confident. Your score is the average of all 6 responses. Fatigue: How confident are you that you can keep the fatigue caused by your disease from interfering with the things you want to do? Select Number: 9 Physical Discomfort or Pain: How confident are you that you can keep the physical discomfort or pain of your disease from interfering with the things you want to do? Select Number: 8 Emotional Distress: How confident are you that you can keep the emotional distress caused by your disease from interfering with the things you want to do? Select Number: 9 Other Symptoms or Health Problems: How confident are you that you can keep other symptoms or health problems from interfering with the things you want to do? Select Number: 9 Different Tasks and Activities: How confident are you that you can do the different tasks and activities needed to manage your health condition so as to reduce your need to see a doctor? Select Number: 9 Medication: How confident are you that you can do things other than just taking medication to reduce how much your illness affects your everyday life? Select Number: 8 Total Score:: 8 Nutrition Survey - Nutrition Survey Instructions Scoring Instructions: Scoring is as follows: Yes = 1 points. No = 0 point. Patient score that is >/=12 is considered to be at potential nutritional risk and could benefit from a referral to a registered dietitian. - Nutrition Survey Initial Have you lost >10 lbs over the past 2 months without trying?: No Are you following a special diet at home for diabetes, low fat, or low salt?: Yes Are you interested in meeting with a dietitian for help understanding your diet? : No Do you eat less than 3 meals a day?: Yes Do you eat fatty meats (mello, sausage, ribs, etc), fried foods, desserts, large amounts of salad dressings, margarine, butter, or cheese most days?: No Do you have food allergies? [Enter types in comment field]: No Do you eat in restaurants more than 3 times a week?: No Do you season food with salt, seasoning salt, or garlic salt?: No Do you used canned, boxed, frozen meals, or soups, seasoning packets?: Yes Total Score:: 3 Cardiac Rehabilitation Goals - Cardiac Rehab Goals Cardiac Rehabilitation Goals: 1. Maintain the individual as the primary focus of care. 2. To improve the patient's quality of life. 3. Identification of cardiac risk factors and provide cardiac risk factor management. 4. Enhance the psychosocial status of the patient. 5. Reconditioning enough to allow the patient to resume customary activities. 6. Control symptoms of cardiac disease - Scale Scale for measuring improvement of personal goals: Enter appropriate number in Comments. 2 = Unchanged. 3 = Slightly Better. 4 = Moderate Improvement. 5 = Met my Goal Initial Assessment Personal Goals: 30-day Re-assessment: Improve muscle strength and endurance, Control risk factors (learn risk factor modification)
[2017-04-24 14:05] VITALS: BP 120/72; PULSE 93
== END ==
PROVIDERS: Family Provider Internal Medicine; PCP Internal Medicine; Visit Provider Internal Medicine Cardiovascular Disease
DX: Z98.61 Coronary angioplasty status (principal); R06.00 Dyspnea, unspecified; E78.5 Hyperlipidemia, unspecified; E11.9 Type 2 diabetes mellitus without complications; I10 Essential (primary) hypertension; I48.91 Unspecified atrial fibrillation; I50.9 Heart failure, unspecified; J44.9 Chronic obstructive pulmonary disease, unspecified; J84.10 Pulmonary fibrosis, unspecified; Z86.73 Personal history of transient ischemic attack (TIA), and cerebral infarction without residual deficits; Z87.442 Personal history of urinary calculi; Z87.891 Personal history of nicotine dependence; Z79.82 Long term (current) use of aspirin; Z79.84 Long term (current) use of oral hypoglycemic drugs; Z79.899 Other long term (current) drug therapy

== ENCOUNTER → 2017-04-30 12:23 | Outpatient (CLI) | payer MEDICARE, OTHER, SELFPAY ==
[2017-04-11 10:00] VITALS: BP 114/66
[2017-04-12 13:06] VITALS: BP 111/86
[2017-04-16 14:30] VITALS: BMI 28.4
[2017-04-30 12:35] VITALS: PULSE 100; PULSE 101; PULSE 109; PULSE 77; PULSE 80; PULSE 92; PULSE 97; PULSE 98; O2SAT 87; O2SAT 89; O2SAT 91; O2SAT 92; O2SAT 93
--- NOTE | 2017-04-30 12:35 | CPS ---
PT CURRENTLY WEARS 2L HS AND USES [employer] HIS DME. DURING PTS SIMPLE EXERCISE TEST AT MINUTE 4 HIS SPO2 WAS 87% ON ROOM AIR. PT DECLINED WANTING TO USE OXYGEN DURING THE DAY/ALL THE TIME. PT STATES HE DOESN'T WANT TO BE SADDLED DOWN AND FEELS FINE. EXPLAINED IMPORTANCE TO PT IN WHICH HE CONTINUES TO DECLINE AT THIS TIME.
--- NOTE | 2017-04-30 15:53 | PCM.PSN.6M ---
PSN 6 Minute Walk Test - 6 Minute Walk Test 6 Minute Walk Test: 6 Minute Walk Test PSN:6-Minute Walk Test Start: 04/30/17 12:57 Freq: Status: Active Protocol: [id number] Document 04/30/17 12:35 [facility] (Rec: 04/30/17 13:09 [facility] [id number]) 6 Minute Walk Test Date Performed 04/30/17 Time Performed 12:35 Height 5 ft 11 in Weight: 92.986 kg Weight in Pounds 205.[address]: Olvin Kapoor Assistive device used: None Pre-test Oxygen Delivery Method Room Air Pulse Ox (%) 92 Pulse Rate (60-100 beats/min) 77 Dyspnea Tawnya Scale (0-10) 0 Exertion Tawnya Scale (6-20) 6 1st minute Oxygen Delivery Method Room Air Pulse Ox (%) 91 Pulse Rate (60-100 beats/min) 92 Number of Rests Taken 0 2nd minute Oxygen Delivery Method Room Air Pulse Ox (%) 92 Pulse Rate (60-100 beats/min) 98 Number of Rests Taken 0 3rd minute Oxygen Delivery Method Room Air Pulse Ox (%) 89 Pulse Rate (60-100 beats/min) 101 H Number of Rests Taken 0 4th minute Oxygen Delivery Method Room Air Pulse Ox (%) 87 Pulse Rate (60-100 beats/min) 109 H Number of Rests Taken 0 5th minute Oxygen Delivery Method Room Air Pulse Ox (%) 93 Pulse Rate (60-100 beats/min) 97 Number of Rests Taken 0 6th minute Oxygen Delivery Method Room Air Pulse Ox (%) 91 Pulse Rate (60-100 beats/min) 100 Number of Rests Taken 0 Post-test Oxygen Delivery Method Room Air Pulse Ox (%) 93 Pulse Rate (60-100 beats/min) 80 Dyspnea Tawnya Scale (0-10) 2 Exertion Tawnya Scale (6-20) 12 Number of Rests Taken 0 Full Laps Walked 17 Partial Lap, Number of Tiles Walked 40 Total Distance Walked (ft) 1043 04/30/17 12:35 (created 04/30/17 13:01) Cardiopulmonary Services by Beckie Hernandez PT CURRENTLY WEARS 2L HS AND USES [employer] HIS DME. DURING PTS SIMPLE EXERCISE TEST AT MINUTE 4 HIS SPO2 WAS 87% ON ROOM AIR. PT DECLINED WANTING TO USE OXYGEN DURING THE DAY/ALL THE TIME. PT STATES HE DOESN'T WANT TO BE SADDLED DOWN AND FEELS FINE. EXPLAINED IMPORTANCE TO PT IN WHICH HE CONTINUES TO DECLINE AT THIS TIME. Initialized on 04/30/17 13:01 - END OF NOTE - Interpretation Interpretation: Patient was able to ambulate 1043 feet over the course of 6 minutes on room air with no assistive devices and one break. Patient did desaturate to 87% in the fourth minute, but refused supplemental oxygen. Reflexive tachycardia was noted. These findings are consistent with a respiratory limitation to exercise tolerance. - Recommendations Recommendations: No supplemental oxygen is indicated at rest. However, patient should be using 2 L nasal cannula with exertion.
== END ==
PROVIDERS: Family Provider Internal Medicine; PCP Internal Medicine; Visit Provider Internal Medicine Critical Care Medicine
DX: R06.02 Shortness of breath (principal); F17.201 Nicotine dependence, unspecified, in remission
CPT/HCPCS: 94618

== ENCOUNTER → 2017-05-04 20:00 | Outpatient (CLI) | payer MEDICARE, OTHER, SELFPAY ==
[2017-04-11 10:00] VITALS: BP 114/66
[2017-04-12 13:06] VITALS: BP 111/86
[2017-04-16 14:30] VITALS: BMI 28.4
== END ==
PROVIDERS: Family Provider Internal Medicine; PCP Internal Medicine; Visit Provider Internal Medicine Critical Care Medicine
DX: I25.10 Atherosclerotic heart disease of native coronary artery without angina pectoris (principal); Z98.61 Coronary angioplasty status; G47.34 Idiopathic sleep related nonobstructive alveolar hypoventilation
CPT/HCPCS: 93798; 95810

== ENCOUNTER 2017-05-06 09:15 | Outpatient (RCR) | payer MEDICARE, OTHER, SELFPAY ==
[2017-05-05 08:52] VITALS: BP 110/80; BP 120/82
--- NOTE | 2017-05-05 08:52 | CR.ITP_ITS ---
Exercise - Initial Assessment - Stages of Change Stages of Change:: Contemplate - Exercise Prescription Mode:: Treadmill, Biodyne, Rower, Airdyne, NuStep, Arm Ergometer Angina with exercise?: No - Hypertension Do any of the following apply?: Yes - Intervention Home Exercise/Activity Goal:: Sitting Time <3 hrs/day - Education Goals:: Warm-up, RPE YANIQUE Scale, S/S, Safe Exercise, Self-Monitoring - Exercise Program Goals Exercise Program Goals: Aerobic Activity >30 min, B/P <140/90 Exercise - 30-day Assessment - Visit Date of Eval: 05/05/17 Session #:: 3 - Stages of Change Stages of Change:: Action - Exercise Prescription Mode:: Treadmill, Rower, Airdyne, NuStep Frequency (x/week): 3 Duration:: 30 METs - Progression: 0.5-1 MET as tolerated: 2.5 Target Heart Rate:: 107-115 w/ max HR 106 - Hypertension Resting Blood Pressure:: 110/80 Peak Exercise Blood Pressure:: 120/82 Medication Changes:: No - Intervention Home Exercise/Activity Goal:: Sitting Time <3 hrs/day - Education Goals:: Warm-up, RPE YANIQUE Scale, S/S, Safe Exercise, Self-Monitoring - Exercise Program Goals Exercise Program Goals: Aerobic Activity >30 min Exercise - Final/Discharge - Hypertension Do any of the following apply?: Yes Nutrition - Initial Assessment - Program Goals Nutrition Program Goals: LDL <70. Total Cholesterol <200. HDL >45. Triglycerides <150. HgbA1C <7%. BMI <25 - Stages of Change Stages of Change:: Contemplate - Diabetes Diabetes:: No - Weight Management Total Score:: 3 - Intervention Referral to dietitian:: No Referral to Diabetic Clinic:: No Will attend diet classes:: Yes - Education Gave educational materials for:: Signs & symptoms of hypoglycemia, Signs & symptoms of hyperglycemia, Relate diabetes to coronary artery disease, Healthy eating Nutrition - 30-Day Assessment - Program Goals Nutrition Program Goals: LDL <70. Total Cholesterol <200. HDL >45. Triglycerides <150. HgbA1C <7%. BMI <25 - Visit Date of Eval: 05/05/17 - Stages of Change Stages of Change:: Action - Lipids Has the patient seen the dietitian?: No - Diabetes Diabetes:: No - Weight Management Weight:: 92.986 kg - Intervention Referral to dietitian:: No Referral to Diabetic Clinic:: No Will attend diet classes:: Yes - Education Attended class for:: Signs & symptoms of hypoglycemia, Signs & symptoms of hyperglycemia, Relate diabetes to coronary artery disease, Healthy eating Nutrition - 60-Day Assessment - Program Goals Nutrition Program Goals: LDL <70. Total Cholesterol <200. HDL >45. Triglycerides <150. HgbA1C <7%. BMI <25 - Diabetes Diabetes:: No - Intervention Referral to dietitian:: No Referral to Diabetic Clinic:: No Will attend diet classes:: Yes - Education Attended class for:: Signs & symptoms of hypoglycemia, Signs & symptoms of hyperglycemia, Relate diabetes to coronary artery disease, Healthy eating Nutrition - 90-Day Assessment - Program Goals Nutrition Program Goals: LDL <70. Total Cholesterol <200. HDL >45. Triglycerides <150. HgbA1C <7%. BMI <25 - Diabetes Diabetes:: No - Intervention Referral to dietitian:: No Referral to Diabetic Clinic:: No Will attend diet classes:: Yes - Education Attended class for:: Signs & symptoms of hypoglycemia, Signs & symptoms of hyperglycemia, Relate diabetes to coronary artery disease, Healthy eating Nutrition - Final Assessment - Program Goals Nutrition Program Goals: LDL <70. Total Cholesterol <200. HDL >45. Triglycerides <150. HgbA1C <7%. BMI <25 - Diabetes Diabetes:: No - Weight Management Total Score:: 3 - Intervention Referral to dietitian:: No Referral to Diabetic Clinic:: No Will attend diet classes:: Yes Tobacco - Initial Assessment - Program Goals Tobacco Program Goals: Complete smoking cessation. Attend education classes. Improve Knowledge Test score - Stage of Change Stages of Change:: Contemplate - Learning Barriers Total Score:: 9 - Family Support Do you have family support?: Yes - Tobacco Use Tobacco Use: Non-smoker How long ago did you quit using tobacco products?: Less than 6 months ago Do you use smokeless tobacco?: No - Intervention Smoking Cessation Referral:: No Individual Education/Counseling:: No Education Schedule Given:: Yes - Education Gave educational material for:: Tobacco triggers, Coronary artery disease, Risk factors, Sexuality, Medical compliance, Cardiac A&P, Angina signs & symptoms Tobacco - 30-Day Assessment - Program Goals Tobacco Program Goals: Complete smoking cessation. Attend education classes. Improve Knowledge Test score - Stage of Change Stages of Change:: Action - Learning Barriers Learning Barriers: Participates in education - Family Support Do you have family support?: Yes - Tobacco Use Tobacco Use: Non-smoker Do you use smokeless tobacco?: No - Intervention Smoking Cessation Referral:: No Individual Education/Counseling:: No Education Schedule Given:: Yes - Education Attended class for:: Tobacco triggers, Coronary artery disease, Risk factors, Sexuality, Medical compliance, Cardiac A&P, Angina signs & symptoms Tobacco - 60-Day Assessment - Program Goals Tobacco Program Goals: Complete smoking cessation. Attend education classes. Improve Knowledge Test score - Family Support Do you have family support?: Yes - Tobacco Use Do you use smokeless tobacco?: No - Intervention Smoking Cessation Referral:: No Individual Education/Counseling:: No Education Schedule Given:: Yes - Education Attended class for:: Tobacco triggers, Coronary artery disease, Risk factors, Sexuality, Medical compliance, Cardiac A&P, Angina signs & symptoms Tobacco - 90-Day Assessment - Program Goals Tobacco Program Goals: Complete smoking cessation. Attend education classes. Improve Knowledge Test score - Family Support Do you have family support?: Yes - Tobacco Use Do you use smokeless tobacco?: No - Intervention Smoking Cessation Referral:: No Individual Education/Counseling:: No Education Schedule Given:: Yes - Education Attended class for:: Tobacco triggers, Coronary artery disease, Risk factors, Sexuality, Medical compliance, Cardiac A&P, Angina signs & symptoms Tobacco - Final Assessment - Program Goals Tobacco Program Goals: Complete smoking cessation. Attend education classes. Improve Knowledge Test score - Learning Barriers Cardiac Knowledge Test Score:: 9 - Family Support Do you have family support?: Yes - Tobacco Use Do you use smokeless tobacco?: No - Intervention Smoking Cessation Referral:: No Individual Education/Counseling:: No Education Schedule Given:: Yes Psychosocial - Initial Assess - Target Goals Target Goals: Assess presence or absence of depression. Using a valid screening tool, maximizes coping skills. Positive support system - Stages of Change Stages of Change:: Contemplate - Psychosocial Test Tool Used:: HANDS Depression Questionnaire Tests Completed: SF - 36 survey completed, Mood Scale Test Total Mood Screening Score:: 2 Self-Efficacy Score:: 8 - Intervention PS - Interventions: Yes Attend Stress Management Classes, Yes Uses Stress Management Skills, No Referral to Mental Health, No Referral to [facility] Case Management, No Referral to Physician - Education Gave educational materials for:: Coping techniques, Signs & symptoms of depression, Stress management, Relaxation techniques - Assistive Devices Assistive Devices:: None Fall Risk Assessed:: Yes Psychosocial - 30-Day Assess - Target Goals Target Goals: Assess presence or absence of depression. Using a valid screening tool, maximizes coping skills. Positive support system - Stages of Change Stages of Change:: Action - Psychosocial Test Tool Used:: HANDS Depression Questionnaire Total Mood Screening Score:: 2 Self-Efficacy Score:: 8 - Intervention PS - Interventions: Yes Attend Stress Management Classes, Yes Uses Stress Management Skills, No Referral to Mental Health, No Referral to [facility] Case Management, No Referral to Physician - Education Attended classes for:: Coping techniques, Signs & symptoms of depression, Stress management, Relaxation techniques - Patient/Program Goal Preventative Medication(s):: Aspirin, Clopidogrel - Assistive Devices Assistive Devices:: None Fall Risk Assessed:: Yes Psychosocial - 60-Day Assess - Target Goals Target Goals: Assess presence or absence of depression. Using a valid screening tool, maximizes coping skills. Positive support system - Psychosocial Test Tool Used:: HANDS Depression Questionnaire Total Mood Screening Score:: 2 Self-Efficacy Score:: 8 - Education Attended classes for:: Coping techniques, Signs & symptoms of depression, Stress management, Relaxation techniques - Assistive Devices Assistive Devices:: None Fall Risk Assessed:: Yes Psychosocial - 90-Day Assess - Target Goals Target Goals: Assess presence or absence of depression. Using a valid screening tool, maximizes coping skills. Positive support system - Psychosocial Test Tool Used:: HANDS Depression Questionnaire Total Mood Screening Score:: 2 Self-Efficacy Score:: 8 - Education Attended classes for:: Coping techniques, Signs & symptoms of depression, Stress management, Relaxation techniques - Assistive Devices Assistive Devices:: None Fall Risk Assessed:: Yes Psychosocial - Final Assessmen - Target Goals Target Goals: Assess presence or absence of depression. Using a valid screening tool, maximizes coping skills. Positive support system - Psychosocial Test Tool Used:: HANDS Depression Questionnaire Tests Completed: SF - 36 survey completed, Mood Scale Test Total Mood Screening Score:: 2 Self-Efficacy Score:: 8 - Assistive Devices Assistive Devices:: None Fall Risk Assessed:: Yes Patient Health Questionnaire 30-Day Re-eval Assessment 1. Little interest or pleasure in doing things: Not at all 2. Feeling down, depressed, or hopeless: Not at all 3. Trouble falling or staying asleep, or sleeping too much: Not at all 4. Feeling tired or having little energy: More than half the days 5. Poor appetite or overeating: Not at all 6. Feeling bad about yourself -- or that you are a failure or have let yourself or your family down: Not at all 7. Trouble concentrating on things, such as reading the newspaper or watching television: Not at all 8. Moving or speaking so slowly that other people could have noticed. Or the opposite - being so fidgety or restless that you have been moving around a lot more than usual: Not at all 9. Thoughts that you would be better off , or of hurting yourself in some way: Not at all Total Score: 2 Self-Efficacy 30-Day Re-eval Assessment We would like to know how confident you are in doing certain activities. Please select your confidence level for:: Select your confidence level for the following using the scale 1-10 where 1 is not at all confident and 10 is totally confident. Your score is the average of all 6 responses. Fatigue: How confident are you that you can keep the fatigue caused by your disease from interfering with the things you want to do? Select Number: 9 Physical Discomfort or Pain: How confident are you that you can keep the physical discomfort or pain of your disease from interfering with the things you want to do? Select Number: 8 Emotional Distress: How confident are you that you can keep the emotional distress caused by your disease from interfering with the things you want to do? Select Number: 9 Other Symptoms or Health Problems: How confident are you that you can keep other symptoms or health problems from interfering with the things you want to do? Select Number: 9 Different Tasks and Activities: How confident are you that you can do the different tasks and activities needed to manage your health condition so as to reduce your need to see a doctor? Select Number: 9 Medication: How confident are you that you can do things other than just taking medication to reduce how much your illness affects your everyday life? Select Number: 8 Total Score:: 8
== END 2017-05-06 23:59 ==
LOC: CR 09:15
PROVIDERS: Family Provider Internal Medicine; PCP Internal Medicine; Visit Provider Internal Medicine Cardiovascular Disease
DX: I25.10 Atherosclerotic heart disease of native coronary artery without angina pectoris (principal); Z98.61 Coronary angioplasty status
CPT/HCPCS: 93798

== ENCOUNTER → 2017-05-18 20:37 | Outpatient (CLI) | payer MEDICARE, OTHER, SELFPAY ==
[2017-04-11 10:00] VITALS: BP 114/66
[2017-04-12 13:06] VITALS: BP 111/86
[2017-04-16 14:30] VITALS: BMI 28.4
== END ==
PROVIDERS: Family Provider Internal Medicine; PCP Internal Medicine; Visit Provider Internal Medicine Critical Care Medicine
DX: G47.33 Obstructive sleep apnea (adult) (pediatric) (principal)
CPT/HCPCS: 95811

== ENCOUNTER → 2017-05-19 12:25 | Outpatient (CLI) | payer MEDICARE, OTHER, SELFPAY ==
[2017-05-19 12:35] VITALS: PULSE 101; PULSE 66; PULSE 68; PULSE 76; PULSE 80; PULSE 87; PULSE 97; PULSE 99; O2SAT 86; O2SAT 88; O2SAT 89; O2SAT 90; O2SAT 91; O2SAT 92; O2SAT 98
--- NOTE | 2017-05-20 08:40 | WT_ITS ---
PSN 6 Minute Walk Test - 6 Minute Walk Test 6 Minute Walk Test: 6 Minute Walk Test PSN:6-Minute Walk Test Start: 05/19/17 13: 04 Freq: Status: Active Protocol: [id number] Document 05/19/17 12:35 [facility] [place] (Rec: 05/19/17 13:10 [facility] [place] [id number]) 6 Minute Walk Test Date Performed 05/19/17 Time Performed 12:35 Height 5 ft 11 in Weight: 204 lb 3.274 oz Weight in Pounds 204.[address]: Sarthak Esparza Assistive device used: None Pre-test Oxygen Delivery Method Room Air Pulse Ox (%) 90 Pulse Rate (60-100 beats/min) 66 Dyspnea Tawnya Scale (0-10) 0 Exertion Tawnya Scale (6-20) 6 1st minute Oxygen Delivery Method Room Air Pulse Ox (%) 89 Pulse Rate (60-100 beats/min) 76 Number of Rests Taken 0 2nd minute Oxygen Delivery Method Room Air Pulse Ox (%) 86 Pulse Rate (60-100 beats/min) 80 Number of Rests Taken 0 Reported Symptoms Increased Work of Breathing 3rd minute Oxygen Flow Rate (L/min) (L/min) 2 Oxygen Delivery Method Nasal Cannula Pulse Ox (%) 92 Pulse Rate (60-100 beats/min) 87 Number of Rests Taken 0 Reported Symptoms Increased Work of Breathing 4th minute Oxygen Flow Rate (L/min) (L/min) 2 Oxygen Delivery Method Nasal Cannula Pulse Ox (%) 90 Pulse Rate (60-100 beats/min) 99 Number of Rests Taken 0 5th minute Oxygen Flow Rate (L/min) (L/min) 3 Oxygen Delivery Method Nasal Cannula Pulse Ox (%) 88 Pulse Rate (60-100 beats/min) 97 Number of Rests Taken 0 Reported Symptoms Increased Work of Breathing 6th minute Oxygen Flow Rate (L/min) (L/min) 3 Oxygen Delivery Method Nasal Cannula Pulse Ox (%) 91 Pulse Rate (60-100 beats/min) 101 H Number of Rests Taken 0 Reported Symptoms Increased Work of Breathing Post-test Oxygen Flow Rate (L/min) (L/min) 3 Oxygen Delivery Method Nasal Cannula Pulse Ox (%) 98 Pulse Rate (60-100 beats/min) 68 Dyspnea Tawnya Scale (0-10) 5 Exertion Tawnya Scale (6-20) 12 Full Laps Walked 19 Partial Lap, Number of Tiles Walked 22 Total Distance Walked (ft) 1143 - Interpretation Interpretation: The patient ambulated 1143 feet over the course of 6 minutes beginning on room air without assistive devices or breaks. Pretesting oxygen saturation was noted to be 90% on room air. With ambulation, the patient had desaturated to 86 % by minute 2 of testing. 2 L of oxygen was applied. The test was continued. However, the patient again desaturated to 88% at minute 5. The supplemental oxygen flow rate was increased to 3 L/min. The patient was able to complete the remainder of the test while maintaining oxygen saturations at or above 88%. This test did represent significant exertional oxygen desaturation. - Recommendations Recommendations: 3 L/min of supplemental oxygen should be utilized with exertion.
== END ==
PROVIDERS: Family Provider Internal Medicine; PCP Internal Medicine; Visit Provider Internal Medicine Critical Care Medicine
DX: R06.02 Shortness of breath (principal)
CPT/HCPCS: 94618

== ENCOUNTER → 2017-05-22 12:56 | Outpatient (CLI) | payer MEDICARE, OTHER, SELFPAY ==
[2017-04-11 10:00] VITALS: BP 114/66
[2017-04-12 13:06] VITALS: BP 111/86
[2017-04-16 14:30] VITALS: BMI 28.4
--- NOTE | 2017-05-23 08:53 | PFT ---
INTRODUCTION: The patient is a 66-year-old male currently under the care of myself the presents for pulmonary function testing secondary to a diagnosis of dyspnea. Respiratory therapy reports good patient effort reports no other concerns. Bronchodilators were used during testing. INTERPRETATION: Forced expiration spirometry demonstrates the presence of a mild large airways obstructive ventilatory defect. There was no significant response to aerosolized bronchodilators. Spirograms are of good quality and do not plateau indicating slow emptying of the lungs. Body plethysmography was performed and reveals a decreased TLC to 5.76 L, 85% of predicted, indicative of a mild restrictive ventilatory defect. The remainder of the lung volumes are symmetrically reduced. Diffusing capacity by single breath CO is moderately reduced at 46% of predicted. 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 There are no previous pulmonary function studies available for comparison.
== END ==
PROVIDERS: Family Provider Internal Medicine; PCP Internal Medicine; Visit Provider Internal Medicine Critical Care Medicine
DX: F17.201 Nicotine dependence, unspecified, in remission (principal); R06.02 Shortness of breath
CPT/HCPCS: 94060; 94726; 94729

== ENCOUNTER 2017-06-05 09:15 | Outpatient (RCR) | payer MEDICARE, OTHER, SELFPAY ==
[2017-05-07 01:12] VITALS: BP 110/80; BP 120/82
--- NOTE | 2017-06-01 13:57 | PCM.CR.ITP ---
Exercise - Initial Assessment - Stages of Change Stages of Change:: Contemplate - Exercise Prescription Mode:: Treadmill, Biodyne, Rower, Airdyne, NuStep, Arm Ergometer Angina with exercise?: No - Hypertension Do any of the following apply?: Yes - Intervention Home Exercise/Activity Goal:: Sitting Time <3 hrs/day - Education Goals:: Warm-up, RPE YANIQUE Scale, S/S, Safe Exercise, Self-Monitoring - Exercise Program Goals Exercise Program Goals: Aerobic Activity >30 min, B/P <140/90 Exercise - 30-day Assessment - Visit Date of Eval: 05/05/17 - Stages of Change Stages of Change:: Action - Exercise Prescription Mode:: Treadmill, Rower, Airdyne, NuStep Frequency (x/week): 3 Duration:: 30 METs - Progression: 0.5-1 MET as tolerated: 2.5 Target Heart Rate:: 107-115 w/ max HR 106 - Intervention Home Exercise/Activity Goal:: Sitting Time <3 hrs/day - Education Goals:: Warm-up, RPE YANIQUE Scale, S/S, Safe Exercise, Self-Monitoring - Exercise Program Goals Exercise Program Goals: Aerobic Activity >30 min Exercise - 60-Day Assessment - Visit Date of Eval: 06/01/17 - 05/04/2017-05/29/2017 Session #:: 14 - Stages of Change Stages of Change:: Action - Exercise Prescription Mode:: Treadmill, Airdyne, NuStep Frequency (x/week): 3 Duration:: 30 METs: 3 Target Heart Rate:: 107-115 - Hypertension Resting Blood Pressure:: 100/74 Peak Exercise Blood Pressure:: 180/82 Medication Changes:: Yes - increased Coreg to 6.[address] Crowder - Intervention Home Exercise/Activity Goal:: Sitting Time <3 hrs/day - Education Goals:: Warm-up, RPE YANIQUE Scale, S/S, Safe Exercise, Self-Monitoring - Exercise Program Goals Exercise Program Goals: Aerobic Activity >30 min, B/P <140/90 Exercise - Final/Discharge - Hypertension Do any of the following apply?: Yes Nutrition - Initial Assessment - Program Goals Nutrition Program Goals: LDL <70. Total Cholesterol <200. HDL >45. Triglycerides <150. HgbA1C <7%. BMI <25 - Stages of Change Stages of Change:: Contemplate - Diabetes Diabetes:: No - Weight Management Total Score:: 3 - Intervention Referral to dietitian:: No Referral to Diabetic Clinic:: No Will attend diet classes:: Yes - Education Gave educational materials for:: Signs & symptoms of hypoglycemia, Signs & symptoms of hyperglycemia, Relate diabetes to coronary artery disease, Healthy eating Nutrition - 30-Day Assessment - Program Goals Nutrition Program Goals: LDL <70. Total Cholesterol <200. HDL >45. Triglycerides <150. HgbA1C <7%. BMI <25 - Stages of Change Stages of Change:: Action - Lipids Has the patient seen the dietitian?: No - Diabetes Diabetes:: No - Intervention Referral to dietitian:: No Referral to Diabetic Clinic:: No Will attend diet classes:: Yes - Education Attended class for:: Signs & symptoms of hypoglycemia, Signs & symptoms of hyperglycemia, Relate diabetes to coronary artery disease, Healthy eating Nutrition - 60-Day Assessment - Program Goals Nutrition Program Goals: LDL <70. Total Cholesterol <200. HDL >45. Triglycerides <150. HgbA1C <7%. BMI <25 - Visit Date of Eval: 06/01/17 - 05/04/2017-05/29/2017 - Stages of Change Stages of Change:: Action - Lipids Has the patient seen the dietitian?: No - Diabetes Diabetes:: No - Weight Management Weight:: 94.574 kg - Intervention Referral to dietitian:: No Referral to Diabetic Clinic:: No Will attend diet classes:: Yes - Education Attended class for:: Signs & symptoms of hypoglycemia, Signs & symptoms of hyperglycemia, Relate diabetes to coronary artery disease, Healthy eating Nutrition - 90-Day Assessment - Program Goals Nutrition Program Goals: LDL <70. Total Cholesterol <200. HDL >45. Triglycerides <150. HgbA1C <7%. BMI <25 - Lipids Has the patient seen the dietitian?: No - Diabetes Diabetes:: No - Intervention Referral to dietitian:: No Referral to Diabetic Clinic:: No Will attend diet classes:: Yes - Education Attended class for:: Signs & symptoms of hypoglycemia, Signs & symptoms of hyperglycemia, Relate diabetes to coronary artery disease, Healthy eating Nutrition - Final Assessment - Program Goals Nutrition Program Goals: LDL <70. Total Cholesterol <200. HDL >45. Triglycerides <150. HgbA1C <7%. BMI <25 - Diabetes Diabetes:: No - Weight Management Total Score:: 3 - Intervention Referral to dietitian:: No Referral to Diabetic Clinic:: No Will attend diet classes:: Yes Tobacco - Initial Assessment - Program Goals Tobacco Program Goals: Complete smoking cessation. Attend education classes. Improve Knowledge Test score - Stage of Change Stages of Change:: Contemplate - Learning Barriers Total Score:: 9 - Family Support Do you have family support?: Yes - Tobacco Use Tobacco Use: Non-smoker How long ago did you quit using tobacco products?: Less than 6 months ago Do you use smokeless tobacco?: No - Intervention Smoking Cessation Referral:: No Individual Education/Counseling:: No Education Schedule Given:: Yes - Education Gave educational material for:: Tobacco triggers, Coronary artery disease, Risk factors, Sexuality, Medical compliance, Cardiac A&P, Angina signs & symptoms Tobacco - 30-Day Assessment - Program Goals Tobacco Program Goals: Complete smoking cessation. Attend education classes. Improve Knowledge Test score - Stage of Change Stages of Change:: Action - Learning Barriers Learning Barriers: Participates in education - Family Support Do you have family support?: Yes - Tobacco Use Tobacco Use: Non-smoker Do you use smokeless tobacco?: No - Intervention Smoking Cessation Referral:: No Individual Education/Counseling:: No Education Schedule Given:: Yes - Education Attended class for:: Tobacco triggers, Coronary artery disease, Risk factors, Sexuality, Medical compliance, Cardiac A&P, Angina signs & symptoms Tobacco - 60-Day Assessment - Program Goals Tobacco Program Goals: Complete smoking cessation. Attend education classes. Improve Knowledge Test score - Stage of Change Stages of Change:: Action - Learning Barriers Learning Barriers: Participates in education - Family Support Do you have family support?: Yes - Tobacco Use Tobacco Use: Non-smoker Do you use smokeless tobacco?: No - Intervention Smoking Cessation Referral:: No Individual Education/Counseling:: No Education Schedule Given:: Yes - Education Attended class for:: Tobacco triggers, Coronary artery disease, Risk factors, Sexuality, Medical compliance, Cardiac A&P, Angina signs & symptoms Tobacco - 90-Day Assessment - Program Goals Tobacco Program Goals: Complete smoking cessation. Attend education classes. Improve Knowledge Test score - Family Support Do you have family support?: Yes - Tobacco Use Tobacco Use: Non-smoker Do you use smokeless tobacco?: No - Intervention Smoking Cessation Referral:: No Individual Education/Counseling:: No Education Schedule Given:: Yes - Education Attended class for:: Tobacco triggers, Coronary artery disease, Risk factors, Sexuality, Medical compliance, Cardiac A&P, Angina signs & symptoms Tobacco - Final Assessment - Program Goals Tobacco Program Goals: Complete smoking cessation. Attend education classes. Improve Knowledge Test score - Learning Barriers Cardiac Knowledge Test Score:: 9 - Family Support Do you have family support?: Yes - Tobacco Use Tobacco Use: Non-smoker Do you use smokeless tobacco?: No - Intervention Smoking Cessation Referral:: No Individual Education/Counseling:: No Education Schedule Given:: Yes Psychosocial - Initial Assess - Target Goals Target Goals: Assess presence or absence of depression. Using a valid screening tool, maximizes coping skills. Positive support system - Stages of Change Stages of Change:: Contemplate - Psychosocial Test Tool Used:: HANDS Depression Questionnaire Tests Completed: SF - 36 survey completed, Mood Scale Test Total Mood Screening Score:: 2 Self-Efficacy Score:: 8 - Education Gave educational materials for:: Coping techniques, Signs & symptoms of depression, Stress management, Relaxation techniques - Patient/Program Goal Preventative Medication(s):: Aspirin, Clopidogrel - Assistive Devices Assistive Devices:: None Fall Risk Assessed:: Yes Psychosocial - 30-Day Assess - Target Goals Target Goals: Assess presence or absence of depression. Using a valid screening tool, maximizes coping skills. Positive support system - Stages of Change Stages of Change:: Action - Psychosocial Test Tool Used:: HANDS Depression Questionnaire Total Mood Screening Score:: 2 Self-Efficacy Score:: 8 - Patient/Program Goal Preventative Medication(s):: Aspirin, Clopidogrel - Assistive Devices Assistive Devices:: None Fall Risk Assessed:: Yes Psychosocial - 60-Day Assess - Target Goals Target Goals: Assess presence or absence of depression. Using a valid screening tool, maximizes coping skills. Positive support system - Stages of Change Stages of Change:: Action - Psychosocial Test Tool Used:: HANDS Depression Questionnaire Total Mood Screening Score:: 2 Self-Efficacy Score:: 8 - Intervention PS - Interventions: Yes Attend Stress Management Classes, Yes Uses Stress Management Skills, No Referral to Mental Health, No Referral to [facility] Case Management, No Referral to Physician - Education Attended classes for:: Coping techniques, Signs & symptoms of depression, Stress management, Relaxation techniques - Patient/Program Goal Preventative Medication(s):: Aspirin, Clopidogrel - Assistive Devices Assistive Devices:: None Fall Risk Assessed:: Yes Psychosocial - 90-Day Assess - Target Goals Target Goals: Assess presence or absence of depression. Using a valid screening tool, maximizes coping skills. Positive support system - Psychosocial Test Tool Used:: HANDS Depression Questionnaire Total Mood Screening Score:: 2 Self-Efficacy Score:: 8 - Education Attended classes for:: Coping techniques, Signs & symptoms of depression, Stress management, Relaxation techniques - Patient/Program Goal Preventative Medication(s):: Aspirin, Clopidogrel - Assistive Devices Assistive Devices:: None Fall Risk Assessed:: Yes Psychosocial - Final Assessmen - Target Goals Target Goals: Assess presence or absence of depression. Using a valid screening tool, maximizes coping skills. Positive support system - Psychosocial Test Tool Used:: HANDS Depression Questionnaire Tests Completed: SF - 36 survey completed, Mood Scale Test Total Mood Screening Score:: 2 Self-Efficacy Score:: 8 - Patient/Program Goal Preventative Medication(s):: Aspirin, Clopidogrel - Assistive Devices Assistive Devices:: None Fall Risk Assessed:: Yes Patient Health Questionnaire 60-Day Re-eval Assessment 1. Little interest or pleasure in doing things: Not at all 2. Feeling down, depressed, or hopeless: Not at all 3. Trouble falling or staying asleep, or sleeping too much: Not at all 4. Feeling tired or having little energy: Several days 5. Poor appetite or overeating: Not at all 6. Feeling bad about yourself -- or that you are a failure or have let yourself or your family down: Not at all 7. Trouble concentrating on things, such as reading the newspaper or watching television: Not at all 8. Moving or speaking so slowly that other people could have noticed. Or the opposite - being so fidgety or restless that you have been moving around a lot more than usual: Not at all 9. Thoughts that you would be better off , or of hurting yourself in some way: Not at all How difficult have these problems made it for you to do your work, take care of things at home, or get along with other people?: Not difficult at all Total Score: 1 Self-Efficacy 60-Day Re-eval Assessment We would like to know how confident you are in doing certain activities. Please select your confidence level for:: Select your confidence level for the following using the scale 1-10 where 1 is not at all confident and 10 is totally confident. Your score is the average of all 6 responses. Fatigue: How confident are you that you can keep the fatigue caused by your disease from interfering with the things you want to do? Select Number: 9 Physical Discomfort or Pain: How confident are you that you can keep the physical discomfort or pain of your disease from interfering with the things you want to do? Select Number: 9 Emotional Distress: How confident are you that you can keep the emotional distress caused by your disease from interfering with the things you want to do? Select Number: 9 Other Symptoms or Health Problems: How confident are you that you can keep other symptoms or health problems from interfering with the things you want to do? Select Number: 9 Different Tasks and Activities: How confident are you that you can do the different tasks and activities needed to manage your health condition so as to reduce your need to see a doctor? Select Number: 9 Medication: How confident are you that you can do things other than just taking medication to reduce how much your illness affects your everyday life? Select Number: 9 Total Score:: 9 Cardiac Rehabilitation Goals - Cardiac Rehab Goals Cardiac Rehabilitation Goals: 1. Maintain the individual as the primary focus of care. 2. To improve the patient's quality of life. 3. Identification of cardiac risk factors and provide cardiac risk factor management. 4. Enhance the psychosocial status of the patient. 5. Reconditioning enough to allow the patient to resume customary activities. 6. Control symptoms of cardiac disease - Scale Scale for measuring improvement of personal goals: Enter appropriate number in Comments. 2 = Unchanged. 3 = Slightly Better. 4 = Moderate Improvement. 5 = Met my Goal 60-Day Re-eval Assessment Personal Goals: Discharge Reassessment: Improve energy level, Participate in home exercise program, Control risk factors (learn risk factor modification)
[2017-06-01 14:01] VITALS: BP 100/74; BP 180/82
== END 2017-06-06 23:59 ==
LOC: CR 09:15
PROVIDERS: Family Provider Internal Medicine; PCP Internal Medicine; Visit Provider Internal Medicine Cardiovascular Disease
DX: I25.10 Atherosclerotic heart disease of native coronary artery without angina pectoris (principal); Z98.61 Coronary angioplasty status; G47.33 Obstructive sleep apnea (adult) (pediatric)
CPT/HCPCS: 93798; 95811

== ENCOUNTER 2017-07-06 09:15 | Outpatient (RCR) | payer MEDICARE, OTHER, SELFPAY ==
[2017-06-07 00:59] VITALS: BP 100/74; BP 180/82
[2017-06-29 09:04] VITALS: BP 104/68; BP 190/90
--- NOTE | 2017-06-29 09:05 | CR.ITP_ITS ---
General Information - General Information Admitting Diagnosis: PTCA w coronary stenting - Education/Goals Barriers to Learning: Vision Impairment Individual Counselin-Day Assessment: High Blood Pressure, Overweight/ Obesity, Diabetes Cardiac Rehabilitation Goals: 1. Maintain the individual as the primary focus of care. 2. To improve the patient's quality of life. 3. Identification of cardiac risk factors and provide cardiac risk factor management. 4. Enhance the psychosocial status of the patient. 5. Reconditioning enough to allow the patient to resume customary activities. 6. Control symptoms of cardiac disease Scale for measuring improvement of personal goals: Enter appropriate number in Comments. 2 = Unchanged. 3 = Slightly Better. 4 = Moderate Improvement. 5 = Met my Goal Personal Goals: 60-day Re-assessment: Improve energy level, Participate in home exercise program, Improve knowledge of cardiac disease, Improve muscle strength and endurance Exercise - 60-Day Assessment - Stages of Change Stages of Change:: Action - Exercise Prescription Mode:: Treadmill, Airdyne, NuStep Frequency (x/week): 3 Duration:: 30 Target Heart Rate:: 107-115 - Hypertension Resting Blood Pressure:: 104/68 Peak Exercise Blood Pressure:: 190/90 Medication Changes:: No - Intervention Home Exercise/Activity Goal:: Sitting Time <3 hrs/day - Education Goals:: Warm-up, RPE YANIQUE Scale, S/S, Safe Exercise, Self-Monitoring - Exercise Program Goals Exercise Program Goals: Aerobic Activity >30 min, B/P <140/90 Exercise - 90-Day Assessment - Visit Date of Karie: 06/29/17 Session #:: 26 - Stages of Change Stages of Change:: Action - Exercise Prescription Mode:: Treadmill, Airdyne, NuStep Frequency (x/week): 3 Duration:: 30 METs: 4.5 Target Heart Rate:: 107-116 - Hypertension Resting Blood Pressure:: 104/68 Peak Exercise Blood Pressure:: 190/90 Medication Changes:: No - Intervention Home Exercise/Activity Goal:: Sitting Time <3 hrs/day - Education Goals:: Warm-up, RPE YANIQUE Scale, S/S, Safe Exercise, Self-Monitoring - Exercise Program Goals Exercise Program Goals: Aerobic Activity >30 min, B/P <140/90 Nutrition - 90-Day Assessment - Program Goals Nutrition Program Goals: LDL <70. Total Cholesterol <200. HDL >45. Triglycerides <150. HgbA1C <7%. BMI <25 - Visit Date of Eval: 06/29/17 - Stages of Change Stages of Change:: Action - Lipids Has the patient seen the dietitian?: No - Diabetes Diabetes:: Yes - Weight Management Weight:: 209 kg - Intervention Referral to dietitian:: No Referral to Diabetic Clinic:: No Will attend diet classes:: Yes - Education Attended class for:: Signs & symptoms of hypoglycemia, Signs & symptoms of hyperglycemia, Relate diabetes to coronary artery disease, Healthy eating Tobacco - 90-Day Assessment - Program Goals Tobacco Program Goals: Complete smoking cessation. Attend education classes. Improve Knowledge Test score - Stage of Change Stages of Change:: Action - Learning Barriers Learning Barriers: Participates in education, Declined education, Change in behavior - Family Support Do you have family support?: Yes - Tobacco Use Tobacco Use: Non-smoker Do you use smokeless tobacco?: No - Intervention Smoking Cessation Referral:: No Individual Education/Counseling:: No Education Schedule Given:: Yes - Education Attended class for:: Tobacco triggers, Coronary artery disease, Risk factors, Sexuality, Medical compliance, Cardiac A&P, Angina signs & symptoms Psychosocial - Initial Assess - Target Goals Target Goals: Assess presence or absence of depression. Using a valid screening tool, maximizes coping skills. Positive support system - Psychosocial Test Tool Used:: HANDS Depression Questionnaire - Assistive Devices Fall Risk Assessed:: Yes Psychosocial - 90-Day Assess - Target Goals Target Goals: Assess presence or absence of depression. Using a valid screening tool, maximizes coping skills. Positive support system - Stages of Change Stages of Change:: Action - Psychosocial Test Tool Used:: HANDS Depression Questionnaire - Intervention PS - Interventions: Yes Attend Stress Management Classes, Yes Uses Stress Management Skills, No Referral to Mental Health, No Referral to [facility] Case Management, No Referral to Physician - Education Attended classes for:: Coping techniques, Signs & symptoms of depression, Stress management, Relaxation techniques - Assistive Devices Assistive Devices:: None Fall Risk Assessed:: Yes Patient Health Questionnaire 90-Day Re-eval Assessment 1. Little interest or pleasure in doing things: Not at all 2. Feeling down, depressed, or hopeless: Not at all 3. Trouble falling or staying asleep, or sleeping too much: Not at all 4. Feeling tired or having little energy: Several days 5. Poor appetite or overeating: Not at all 6. Feeling bad about yourself -- or that you are a failure or have let yourself or your family down: Not at all 7. Trouble concentrating on things, such as reading the newspaper or watching television: Not at all 8. Moving or speaking so slowly that other people could have noticed. Or the opposite - being so fidgety or restless that you have been moving around a lot more than usual: Not at all 9. Thoughts that you would be better off , or of hurting yourself in some way: Not at all How difficult have these problems made it for you to do your work, take care of things at home, or get along with other people?: Not difficult at all Total Score: 1 Self-Efficacy 90-Day Re-eval Assessment We would like to know how confident you are in doing certain activities. Please select your confidence level for:: Select your confidence level for the following using the scale 1-10 where 1 is not at all confident and 10 is totally confident. Your score is the average of all 6 responses. Fatigue: How confident are you that you can keep the fatigue caused by your disease from interfering with the things you want to do? Select Number: 8 Physical Discomfort or Pain: How confident are you that you can keep the physical discomfort or pain of your disease from interfering with the things you want to do? Select Number: 8 Emotional Distress: How confident are you that you can keep the emotional distress caused by your disease from interfering with the things you want to do? Select Number: 8 Other Symptoms or Health Problems: How confident are you that you can keep other symptoms or health problems from interfering with the things you want to do? Select Number: 8 Different Tasks and Activities: How confident are you that you can do the different tasks and activities needed to manage your health condition so as to reduce your need to see a doctor? Select Number: 8 Medication: How confident are you that you can do things other than just taking medication to reduce how much your illness affects your everyday life? Select Number: 8 Total Score:: 8
== END 2017-07-06 23:59 ==
LOC: CR 09:15
PROVIDERS: Family Provider Internal Medicine; PCP Internal Medicine; Visit Provider Internal Medicine Cardiovascular Disease
DX: I25.10 Atherosclerotic heart disease of native coronary artery without angina pectoris (principal); Z98.61 Coronary angioplasty status; G47.33 Obstructive sleep apnea (adult) (pediatric)
CPT/HCPCS: 93798

== ENCOUNTER 2017-07-20 09:15 | Outpatient (RCR) | payer MEDICARE, OTHER, SELFPAY ==
[2017-07-07 00:48] VITALS: BP 104/68; BP 190/90
--- NOTE | 2017-07-30 11:57 | PCM.CR.ITP ---
Exercise - Final/Discharge - Visit Date of Eval: 07/30/17 - Graduated 07/22/2017 Session #:: 36 - completed CR - Exercise Prescription Mode:: Treadmill, Airdyne, NuStep Frequency (x/week): 3 Duration:: 30 METs: 5.2 increased 108% over 12 week program Target Heart Rate:: 107-115 max HR 112 w/exer - Hypertension Do any of the following apply?: Yes, Medication Resting Blood Pressure:: 144/80 - slightly above optimal B/P control 130/80 Peak Exercise Blood Pressure:: 168/90 - Intervention Home Exercise/Activity Goal:: Moderate Exercise 30 min/day x 5 days/wk - Education Goal Progress: Goal Met - Exercise Program Goals Exercise Program Goals: Aerobic Activity >30 min Nutrition - Final Assessment - Program Goals Nutrition Program Goals: LDL <70. Total Cholesterol <200. HDL >45. Triglycerides <150. HgbA1C <7%. BMI <25 - Visit Date of Eval: 07/30/17 - Stages of Change Stages of Change:: Action - Diabetes Diabetes:: No - Weight Management Height: 5 ft 10 in Weight:: 224 lb - Education Education Goal Reached?: Yes Tobacco - Final Assessment - Program Goals Tobacco Program Goals: Complete smoking cessation. Attend education classes. Improve Knowledge Test score - Stage of Change Stages of Change:: Action - Family Support Do you have family support?: Yes - Tobacco Use Do you use smokeless tobacco?: No - Education Education Goal Reached?: Yes Psychosocial - Final Assessmen - Target Goals Target Goals: Assess presence or absence of depression. Using a valid screening tool, maximizes coping skills. Positive support system - Stages of Change Stages of Change:: Action - Psychosocial Test Tool Used:: HANDS Depression Questionnaire - Intervention PS - Interventions: Yes Attend Stress Management Classes, Yes Uses Stress Management Skills, No Referral to Mental Health, No Referral to [facility] Case Management, No Referral to Physician - Education Education Goal Reached?: Yes - Patient/Program Goal Preventative Medication(s):: Aspirin, Clopidogrel, Beta timothy, Statin/lipid - Assistive Devices Assistive Devices:: None Fall Risk Assessed:: Yes Patient Health Questionnaire Discharge Assessment 1. Little interest or pleasure in doing things: Not at all 2. Feeling down, depressed, or hopeless: Not at all 3. Trouble falling or staying asleep, or sleeping too much: Not at all 4. Feeling tired or having little energy: Not at all 5. Poor appetite or overeating: Not at all 6. Feeling bad about yourself -- or that you are a failure or have let yourself or your family down: Not at all 7. Trouble concentrating on things, such as reading the newspaper or watching television: Not at all 8. Moving or speaking so slowly that other people could have noticed. Or the opposite - being so fidgety or restless that you have been moving around a lot more than usual: Not at all 9. Thoughts that you would be better off , or of hurting yourself in some way: Not at all How difficult have these problems made it for you to do your work, take care of things at home, or get along with other people?: Not difficult at all Total Score: 0 LORI-Q SV Test - Statements CAD is a disease of the arteries in the heart: False Examples of risk factors for heart disease: True Angina is chest pain or discomfort: True The benefits of resistance training include: True Eating more meat and dairy products: False Anti-platelet medications such as aspirin are important: True The only effective way to manage stress: False An exercise warm-up slowly increases heart rate: True Prepared, processed foods usually have high sodium: True Depression is common after a heart attack: True The statin medications lower cholesterol: False To control blood pressure, lower the amount of sodium: True If someone gets chest discomfort during walking: False Transfats are partially hydrogenated vegetable oils: True Sleep apnea that is not treated increases the risk: False To control cholesterol, one should become a vegetarian: False Someone knows if he/she is exercising at the right level: True Diabetes cannot be prevented with exercise & health eating: False Stress is a large risk for heart attack: True A diet that can help lower blood pressure is rich in: True - Total Score Total Correct Responses: 19 Self-Efficacy Discharge Assessment We would like to know how confident you are in doing certain activities. Please select your confidence level for:: Select your confidence level for the following using the scale 1-10 where 1 is not at all confident and 10 is totally confident. Your score is the average of all 6 responses. Fatigue: How confident are you that you can keep the fatigue caused by your disease from interfering with the things you want to do? Select Number: 10 Physical Discomfort or Pain: How confident are you that you can keep the physical discomfort or pain of your disease from interfering with the things you want to do? Select Number: 10 Emotional Distress: How confident are you that you can keep the emotional distress caused by your disease from interfering with the things you want to do? Select Number: 10 Other Symptoms or Health Problems: How confident are you that you can keep other symptoms or health problems from interfering with the things you want to do? Select Number: 10 Different Tasks and Activities: How confident are you that you can do the different tasks and activities needed to manage your health condition so as to reduce your need to see a doctor? Select Number: 10 Medication: How confident are you that you can do things other than just taking medication to reduce how much your illness affects your everyday life? Select Number: 10 Total Score:: 10 Nutrition Survey - Nutrition Survey Instructions Scoring Instructions: Scoring is as follows: Yes = 1 points. No = 0 point. Patient score that is >/=12 is considered to be at potential nutritional risk and could benefit from a referral to a registered dietitian. - Nutrition Survey Discharge Have you lost >10 lbs over the past 2 months without trying?: No Are you following a special diet at home for diabetes, low fat, or low salt?: Yes - cardiac diet; low fat, low sodium Are you interested in meeting with a dietitian for help understanding your diet?: No Do you eat less than 3 meals a day?: No Do you eat fatty meats (mello, sausage, ribs, etc), fried foods, desserts, large amounts of salad dressings, margarine, butter, or cheese most days?: No Do you have food allergies? [Enter types in comment field]: No Do you eat in restaurants more than 3 times a week?: No Do you season food with salt, seasoning salt, or garlic salt?: No Do you used canned, boxed, frozen meals, or soups, seasoning packets?: No Total Score:: 1
[2017-07-30 12:03] VITALS: BP 144/80; BP 168/90
== END 2017-07-22 11:00 | disposition home or self-care (01) ==
LOC: CR 09:15
PROVIDERS: Family Provider Internal Medicine; PCP Internal Medicine; Visit Provider Internal Medicine Cardiovascular Disease
DX: I25.10 Atherosclerotic heart disease of native coronary artery without angina pectoris (principal); Z98.61 Coronary angioplasty status; G47.33 Obstructive sleep apnea (adult) (pediatric)
CPT/HCPCS: 93798

== ENCOUNTER → 2017-07-28 09:25 | Outpatient (CLI) | payer MEDICARE, OTHER, SELFPAY ==
--- NOTE | 2017-07-28 09:27 | ECHOCS_ITS ---
Reason For Study: CAD/ASHD Procedure This was a 2D Doppler, Color Flow transthoracic echocardiogram. The study was technically difficult. Contrast injection was performed. Exam performed in department. Left Ventricle Mildly dilated left ventricle. Severe global left ventricular systolic dysfunction. The estimated ejection fraction is 20 %. Unable to assess diastolic dysfunction. Right Ventricle Mildly dilated right ventricle. Mild global right ventricular systolic dysfunction. Atria The left atrium is mildly enlarged. Normal right atrium. No doppler evidence for ASD. Mitral Valve There is no mitral annular calcification. Normal mitral valve. Trivial mitral valve insufficiency. Tricuspid Valve Normal tricuspid valve. Trivial tricuspid valve insufficiency. Unable to estimate RV systolic pressure/pulmonary artery pressure due to technically difficult study. Aortic Valve Trisinus/trileaflet aortic valve. Mild focal aortic valve thickening. Pulmonic Valve The pulmonic valve is not well visualized. Great Vessels Normal sized aortic root. Pericardium/Pleural No pericardial effusion. Medication 22 gauge I.V. with prn adaptor inserted into right arm. Diluted definity 4.0ml given slow IV push to enhance endocardial definition. MMode/2D Measurements & Calculations LVIDd: 5.4 cm IVSd: 1.1 cm Ao root diam: 3.4 cm LVIDs: 4.3 cm LVPWd: 1.1 cm LA dimension: 4.3 cm RVDd: 4.2 cm FS: 20.0 % LAV(MOD-bp): 64.3 ml LA A4 area: 20.6 cm2 RA A4 area: 14.5 cm2 LAV(MOD-bp) Indexed: 29.7 ml/m2 LAV(MOD-sp2): 62.6 ml LAV(MOD-sp4): 59.6 ml Doppler Measurements & Calculations MV E max [place]: 37.2 cm/sec Ao V2 max: 114.6 cm/sec LV V1 max: 75.9 cm/sec MV A max [place]: 101.7 cm/sec Ao max P.3 mmHg LV V1 max P.3 mmHg MV E/A: 0.37 PA V2 max: 67.9 cm/sec Interpretation Summary The study was technically difficult. Contrast injection was performed. Mildly dilated left ventricle. Severe global left ventricular systolic dysfunction. The estimated ejection fraction is 20 %. Mildly dilated right ventricle. Mild global right ventricular systolic dysfunction. The left atrium is mildly enlarged. Trivial mitral valve insufficiency. Trivial tricuspid valve insufficiency. Mild focal aortic valve thickening. Unable to estimate RV systolic pressure/pulmonary artery pressure due to technically difficult study. Unable to assess diastolic dysfunction. Ordering Physician: Alistair Wyman Referring Physician: Lindsay Batista M.D. Performed By: Leanna Pena RDCS, RVT
== END ==
PROVIDERS: Family Provider Internal Medicine; PCP Internal Medicine; Visit Provider Nurse Practitioner Family
DX: I25.10 Atherosclerotic heart disease of native coronary artery without angina pectoris (principal)
CPT/HCPCS: 93306; Q9957; A4216; C8929

== ENCOUNTER → 2017-07-29 11:38 | Outpatient (CLI) | payer MEDICARE, OTHER, SELFPAY ==
[2017-07-29 14:03] LABS: Anion Gap 7 (5-15); BUN 32 mg/dL (7-18); BUN/Creat Ratio 20.5 RATIO (10-20); Calcium,Total 9.2 mg/dL (8.5-10.1); Chloride 97 mmol/L (98-107); Creatinine, Serum 1.56 mg/dL (0.70-1.30); EST Glomerular Filtration Rate 47 mL/min (>60); Est Glom Filt Rate - Afr Amer 57 mL/min (>60); Glucose 251 mg/dL (74-106); Potassium 3.8 mmol/L (3.5-5.1); Sodium Level 133 mmol/L (136-145)
== END ==
PROVIDERS: Family Provider Internal Medicine; PCP Internal Medicine; Visit Provider Nurse Practitioner Family
DX: I25.5 Ischemic cardiomyopathy (principal); I50.9 Heart failure, unspecified
CPT/HCPCS: 36415; 80048

== ENCOUNTER → 2017-08-04 10:45 | Outpatient (CLI) | payer MEDICARE, OTHER, SELFPAY | PROVIDERS: Family Provider Internal Medicine; PCP Internal Medicine; Visit Provider Internal Medicine Cardiovascular Disease | DX: I25.10 Atherosclerotic heart disease of native coronary artery without angina pectoris (principal); I25.5 Ischemic cardiomyopathy; Z95.5 Presence of coronary angioplasty implant and graft; I48.0 Paroxysmal atrial fibrillation | CPT/HCPCS: 93225; 93226 ==

== ENCOUNTER → 2017-08-14 09:00 | Outpatient (CLI) | payer MEDICARE, OTHER, SELFPAY ==
--- NOTE | 2017-08-14 09:00 | DT_ITS ---
This patient was seen during an EMR downtime August 10, 2017 - August 17, 2017. This patient may have a combination of paper and electronic documentation or all paper documentation. All documentation is viewable within the e-chart portion of [facility] for each patient visit.
== END ==
PROVIDERS: Family Provider Internal Medicine; PCP Internal Medicine; Visit Provider Internal Medicine Critical Care Medicine
DX: G47.33 Obstructive sleep apnea (adult) (pediatric) (principal)
CPT/HCPCS: 98960; G0463

== ENCOUNTER → 2017-08-20 08:43 | Outpatient (CLI) | payer MEDICARE, OTHER, SELFPAY ==
[2017-08-20 09:25] LABS: Anion Gap 10 (5-15); BUN 23 mg/dL (7-18); BUN/Creat Ratio 16.1 RATIO (10-20); Chloride 102 mmol/L (98-107); Creatinine, Serum 1.43 mg/dL (0.70-1.30); EST Glomerular Filtration Rate 52 mL/min (>60); Est Glom Filt Rate - Afr Amer 64 mL/min (>60); Glucose 184 mg/dL (74-106); Sodium Level 141 mmol/L (136-145)
== END ==
PROVIDERS: Physician Assistant Medical; Family Provider Internal Medicine; PCP Internal Medicine; Visit Provider Internal Medicine Cardiovascular Disease
DX: I50.9 Heart failure, unspecified (principal); I25.5 Ischemic cardiomyopathy
CPT/HCPCS: 36415; 80048

== ENCOUNTER → 2017-09-01 11:00 | Outpatient (CLI) | payer MEDICARE, OTHER, SELFPAY ==
--- NOTE | 2017-09-02 11:41 | LEAS ---
Arterial Study - Arterial Study Arterial Study: Date of scan 09/01/[address] Mchugh History: Patient with claudication Interpretation: Right lower extremity peers pulsatile flow but an abnormal waveform or poor waveform from the low thigh to the calf ankle but maintained out through the digits PVRs shows depressed throughout with 0.7 to the low thigh down to 0.6 of the PT 0.51 at the DP and 0.37 in the digit. Moderate monophasic flow is noted at the ankle. Left lower extremity improved waveform but from the thigh down to the calf ankle out through the digits but peaked waveforms noted throughout. Duplex shows triphasic flow of both vessels at the ankle with an FRANCISCO 1.12 the PT was 0.97 of the DP 0.77 of the digit. Next Impression: 1. 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 This is suggestive of iliofemoral occlusive disease. Further evaluation as clinically warranted. 2. No evidence of significant arterial occlusive disease at rest on the left lower extremity with an FRANCISCO 1.12.
== END ==
PROVIDERS: Family Provider Internal Medicine; PCP Internal Medicine; Visit Provider Nurse Practitioner Family
DX: I73.9 Peripheral vascular disease, unspecified (principal); I25.10 Atherosclerotic heart disease of native coronary artery without angina pectoris; I25.5 Ischemic cardiomyopathy; F17.210 Nicotine dependence, cigarettes, uncomplicated; I10 Essential (primary) hypertension; E78.5 Hyperlipidemia, unspecified
CPT/HCPCS: 93923

== ENCOUNTER 2017-10-01 09:00 | Day surgery (SDC) | payer MEDICARE, OTHER, SELFPAY ==
--- NOTE | 2017-09-24 15:11 | RAD_ITS ---
STUDY: X-RAY CHEST REASON FOR EXAM: Male, 66 years old. ICD implant TECHNIQUE: PA and lateral views of the chest. COMPARISON: Previous study of April 09, 2017 FINDINGS: There is a fine interstitial pattern of the lungs. There is no demonstrated pleural abnormality. Normal size heart. Normal mediastinum and annalise. Normal visualized pulmonary arteries. Normal visualized aortic arch and descending thoracic aorta. Normal visualized thoracic spine. Normal visualized ribs, clavicles, and shoulders. There is no demonstrated abnormality of the visualized soft tissue structures of the upper abdomen. RAD/Chest PA and Lateral IMPRESSION: Fine interstitial pattern of the lungs. There has been slight interval improvement from the previous study. No acute cardiopulmonary disease process is seen. Electronically Signed: Jag Higginbotham MD at 19:57 EDT , Service support ,
[2017-09-24 15:16] LABS: Bacteria 0 SEEN /hpf (None Seen); White Blood Cells 0 SEEN /hpf (0-5)
[2017-09-24 15:49] LABS: Color, Urine Yellow (Yellow); Glucose, Dipstick Normal (Normal); Ketone-Dipstick Negative (Negative); Leukocyte Esterase-Dipstick Negative /ul (Negative); Nitrite-Dipstick Negative (Negative); Occult Blood-Urine 10 /ul (Negative); Protein-Dipstick 30 mg/dl (Negative); Urine Bilirubin Dipstick Negative (Negative); Urine Clarity Sl. Cloudy (Clear); Urine Urobilinogen Normal (Normal)
[2017-09-24 15:50] LABS: Hematocrit 41.8 % (40-54); Hemoglobin 14.2 g/dl (13.0-16.5); Mean Corpuscular Hgb 31.2 pg (27.0-32.0); Mean Corpuscular Volume 91.9 fL (80-94); Mean Platelet Vol. 9.7 fl (6.2-12.0); Platelet Count 219 K/mm3 (150-450); RBC Distribution Width CV 13.6 % (11.6-14.6); RBC Distribution Width SD 44.2 fl (35.1-43.9); Red Blood Count 4.55 M/mm3 (4.6-6.2); Scan Indicated on CBC? Y/N NO; White Blood Count 8.6 K/mm3 (4.4-11.0)
[2017-09-24 15:53] LABS: International Normalized Ratio 1.1; Prothrombin Time (Protime)PT. 13.9 SECONDS (11.7-14.9)
[2017-09-24 15:56] LABS: Mucous, Urine 1+ /hpf (<or=2+); Red Blood Cells-Urine 0-5 SEEN /hpf (0-5); Squamous Epithelial Cells - UA 0-5 SEEN /hpf (0-5)
[2017-09-24 16:24] LABS: Anion Gap 9 (5-15); BUN 27 mg/dL (7-18); BUN/Creat Ratio 18.1 RATIO (10-20); Calcium,Total 8.8 mg/dL (8.5-10.1); Chloride 101 mmol/L (98-107); Creatinine, Serum 1.49 mg/dL (0.70-1.30); EST Glomerular Filtration Rate 50 mL/min (>60); Est Glom Filt Rate - Afr Amer 61 mL/min (>60); Glucose 248 mg/dL (74-106); Sodium Level 138 mmol/L (136-145)
[2017-09-30 08:48] VITALS: BMI 31.8
[2017-09-30 12:00] VITALS: BP 121/80; PULSE 59; RESP 16; O2SAT 96
[2017-10-01] VITALS (13 sets, daily range): BP systolic 112–154; BP diastolic 56–86; PULSE 58–68; RESP 16–18; TEMP 36.6; O2SAT 95–98
--- NOTE | 2017-10-01 11:52 | PCM.OP.BLANK ---
Operative Report Date of Procedure: 10/01/17 Preoperative diagnosis implantation of single chamber ICD as primary prevention; Ischemic CM EF 20% NYHA Class III Postoperative diagnosis same as above After informed consent and IV antibiotics the patient was brought to the [facility] catheterization laboratory. The left side of the chest was prepped and draped in the usual sterile manner. The patient was sedated with intermittent boluses of IV Versed fentanyl and propofol as well as subcutaneous 1% lidocaine. An incision was made inferior to the clavicle to accommodate the size of the hardware device. The pocket was created using blunt and Bovie dissection. Hemostasis was obtained. Using the Seldinger technique the axillary vein was cannulated once and a guidewire was advanced under fluoroscopic guidance. Over the guidewire a sheath was advanced. Through this sheath, the electrode was positioned under fluoroscopic guidance into the right ventricle and was actively fixated. Once actively fixated, the lead was tested to check for proper sensing, capture threshold, impedance and to exclude diaphragmatic stimulation. Once the lead was implanted and all electrical parameters were confirmed to be functioning normally with appropriate values, the leads was then sutured to the pectoralis muscle with 2-0 silk on the Silastic collar ?2. The sponge and needle count were correct. Hemostasis was obtained. Antibiotic solution was used to flush the pocket. The new device was brought to the field. The lead was placed in the appropriate position of the header of the device and were secured by the setscrews and confirmed by the tug test. The device and the leads were then placed in the pocket. Pocket was closed with a deep layer of running 2-0 Vicryl, superficial layer of running 4-0 Vicryl and skin with Steri-Strips that were covered with a rolled 4 x 4's and Tegaderm. The patient left the lab with the device programmed to chronic parameters. There were no complications. Lead and device serial and model numbers are available in the chart documents provided by the device company liability claims representative procedure summary.
--- NOTE | 2017-10-01 12:05 | OP.PCM_ITS ---
Operative Report Date of Procedure: 10/01/17 Preoperative diagnosis implantation of single chamber ICD as primary prevention ; Ischemic CM EF 20% NYHA Class III Postoperative diagnosis same as above After informed consent and IV antibiotics the patient was brought to the [facility] catheterization laboratory. The left side of the chest was prepped and draped in the usual sterile manner. The patient was sedated with intermittent boluses of IV Versed fentanyl and propofol as well as subcutaneous 1% lidocaine. An incision was made inferior to the clavicle to accommodate the size of the hardware device. The pocket was created using blunt and Bovie dissection. Hemostasis was obtained. Using the Seldinger technique the axillary vein was cannulated once and a guidewire was advanced under fluoroscopic guidance. Over the guidewire a sheath was advanced. Through this sheath, the electrode was positioned under fluoroscopic guidance into the right ventricle and was actively fixated. Once actively fixated, the lead was tested to check for proper sensing, capture threshold, impedance and to exclude diaphragmatic stimulation. Once the lead was implanted and all electrical parameters were confirmed to be functioning normally with appropriate values, the leads was then sutured to the pectoralis muscle with 2-0 silk on the Silastic collar ?2. The sponge and needle count were correct. Hemostasis was obtained. Antibiotic solution was used to flush the pocket. The new device was brought to the field. The lead was placed in the appropriate position of the header of the device and were secured by the setscrews and confirmed by the tug test. The device and the leads were then placed in the pocket. Pocket was closed with a deep layer of running 2-0 Vicryl, superficial layer of running 4-0 Vicryl and skin with Steri- Strips that were covered with a rolled 4 x 4's and Tegaderm. The patient left the lab with the device programmed to chronic parameters. There were no complications. Lead and device serial and model numbers are available in the chart documents provided by the device company healthcare representative procedure summary.
--- NOTE | 2017-10-01 13:55 | RAD_ITS ---
STUDY: X-RAY CHEST REASON FOR EXAM: Male, 66 years old. ICD placement TECHNIQUE: Single AP portable view of the chest. COMPARISON: 09/24/2017 FINDINGS: Since the previous study, there has been placement of a left subclavian ICD. Lead is in satisfactory position Lungs are expanded, development of interstitial edema since the previous study. No organized infiltrate or effusion. Normal size heart. Normal mediastinum and annalise. Normal visualized pulmonary arteries. Normal visualized aortic arch and descending thoracic aorta. There are diffuse degenerative changes of the visualized thoracic spine. Normal visualized ribs, clavicles, and shoulders. There is no demonstrated abnormality of the visualized soft tissue structures of the upper abdomen. RAD/Chest 1 View (Portable) IMPRESSION: Left subclavian ICD is in place, leads in good position, no pneumothorax or complication noted. Diffuse interstitial edema, follow-up recommended to assure resolution Electronically Signed: Merlin Villafuerte MD at 14:17 EDT , Service support ,
[2017-10-01] MEDS: HYDROcodone Bitartrate/Apap 5/325 Tablet PO (18:32)
[2017-10-01] MEDS: Carvedilol 12.5 MG Tablet PO (21:01)
[2017-10-01] MEDS: TICAGRELOR 90 MG TABLET PO (21:01)
[2017-10-01] MEDS: Atorvastatin Calcium 20 MG Tablet PO (21:01)
[2017-10-01] MEDS: Acetaminophen 325 MG Tablet PO (21:01)
[2017-10-01] MEDS: Zolpidem Tartrate 5 MG Tablet PO (21:01)
[2017-10-02 00:20] VITALS: BP 126/76; PULSE 61; RESP 16; TEMP 36.6; O2SAT 98
[2017-10-02 03:00] VITALS: PULSE 59
[2017-10-02 05:03] VITALS: BP 142/86; PULSE 63; RESP 16; TEMP 36.5; O2SAT 98
[2017-10-02 06:23] LABS: Hematocrit 40.6 % (40-54); Hemoglobin 13.8 g/dl (13.0-16.5)
--- NOTE | 2017-10-02 06:30 | RAD_ITS ---
STUDY: X-RAY CHEST REASON FOR EXAM: Male, 67 years old. Recent ICD surgery, exclude pneumothorax TECHNIQUE: Frontal and lateral views of the chest. COMPARISON: 10/01/2017 FINDINGS: Single lead defibrillator on the left. Improving pulmonary edema. No pneumothorax is seen. There is no demonstrated pleural abnormality. Normal size heart. Normal mediastinum and annalise. Normal visualized pulmonary arteries. Normal visualized aortic arch and descending thoracic aorta. Normal visualized thoracic spine. Remote right rib trauma. There is no demonstrated abnormality of the visualized soft tissue structures of the upper abdomen. RAD/Chest PA and Lateral IMPRESSION: Improving pulmonary edema. No pneumothorax is seen. Electronically Signed: Esdras Reyna MD at 7:05 EDT Tel , Service support ,
[2017-10-02 06:45] LABS: Anion Gap 8 (5-15); BUN 23 mg/dL (7-18); BUN/Creat Ratio 19.7 RATIO (10-20); Calcium,Total 8.7 mg/dL (8.5-10.1); Chloride 106 mmol/L (98-107); Creatinine, Serum 1.17 mg/dL (0.70-1.30); EST Glomerular Filtration Rate 66 mL/min (>60); Est Glom Filt Rate - Afr Amer 80 mL/min (>60); Estimated Creatinine Clearance 65.25 ml/min; Glucose 214 mg/dL (74-106); Potassium 4.4 mmol/L (3.5-5.1); Sodium Level 141 mmol/L (136-145)
[2017-10-02 07:17] VITALS: PULSE 57
[2017-10-02 07:36] VITALS: BP 144/78; PULSE 60; RESP 18; TEMP 37.2; O2SAT 95
[2017-10-02] MEDS: Furosemide 20 MG Tablet PO (08:55)
[2017-10-02] MEDS: Aspirin E.C. 81 MG Tablet PO (08:55)
[2017-10-02] MEDS: TICAGRELOR 90 MG TABLET PO (08:55)
[2017-10-02] MEDS: Glimepiride 4 MG Tablet PO (08:55)
[2017-10-02] MEDS: Lisinopril 2.5 MG Tablet PO (08:56)
[2017-10-02] MEDS: Carvedilol 12.5 MG Tablet PO (08:56)
[2017-10-02] MEDS: Amiodarone 200 MG Tablet PO (08:56)
--- NOTE | 2017-10-02 08:57 | PCM.PN.CARD ---
Subjectve: The patient is status post primary prevention ICD placement. He has no post procedure adverse events. Objective: Vital Signs Temp Pulse Resp BP Pulse Ox 98.9 F 60 18 144/78 H 95 10/02/17 07:36 10/02/17 07:36 10/02/17 07:36 10/02/17 07:36 10/02/17 07:36 Oxygen Flow Rate (L/min) 3 Oxygen Delivery Method Nasal Cannula Weight: 228 lb Body Mass Index (BMI) 31.8 Finger Stick Blood Glucose 132 Intake and Output for Last 24 Hours 09/30/17 10/01/17 10/02/17 23:59 23:59 23:59 Intake Total 480 / 480 240 / 240 Balance 480 / 480 240 / 240 General: Healthy Appearing, Awake, Alert, Oriented x 3, Cooperative, No Acute Distress HEENT: Atraumatic, Normocephalic, PERRL, EOMI, Sclera Non Icteric Oral: Moist Mucosa Neck: Supple, Good ROM, No JVD Chest Wall: Left Pectoral Incision - Surgical dressing: Clean and dry Lungs: Clear to auscultation Cardiovascular: Regular Rhythm, Normal S1, Normal S2 Vascular: No Carotid Bruits Abdomen: Bowel Sounds Present, Soft, Non Tender Extremities: No edema Neurological: No Focal Motor or Sensory Deficit Psych/Mental Status: Appropriate, Normal Affect 10/02/17 05:25: Hgb 13.8, Hct 40.6 10/02/17 05:25: Sodium 141, Potassium 4.4, Chloride 106, Carbon Dioxide 27.0, Anion Gap 8, BUN 23 H, Creatinine 1.17, Est GFR (MDRD) Af Amer 80, Est GFR (MDRD) Non-Af 66, BUN/Creatinine Ratio 19.7, Glucose 214 H, Calcium 8.7 Rhythm: Sinus rhythm ICD: Preliminary interrogation report: ICD functioning appropriately CXR: Per radiology: No postoperative adverse events-pneumothorax Medical Necessity - Tobacco Use Smoking Status: Former smoker Assessment/Plan 1. Primary prevention ICD placement The patient has undergone primary prevention ICD placement based upon a history of an underlying CAD status post PCI ischemic mediated cardiomyopathy. At the present time the patient appears to be doing well with no post procedure related complications. The tentative plan will be for the patient to be released home for continued outpatient cardiovascular follow-up. 2. CAD status post PCI (LAD and RCA) with ischemic mediated cardiomyopathy The patient will need to continue appropriate medical management for his underlying CAD and ischemic mediated cardiomyopathy. He will need continued outpatient cardiovascular follow-up. 3. Paroxysmal atrial fibrillation The patient remains in sinus rhythm at the present time. He will continue his antiplatelet therapy and his rate control therapy and his antiarrhythmic therapy. With respect to his antiarrhythmic therapy consideration will be given, per Dr. Gonzales's mentation, to decrease his amiodarone to 100 mg per day and continue to follow the patient. With respect to anticoagulant therapy, as he is in sinus rhythm at this time, and on dual antiplatelet therapy, this will be continued. Over time, depending upon his rate and rhythm and when he is able to not be on dual platelet therapy he can be changed to single antiplatelet therapy with low-dose aspirin and started on anticoagulant therapy. 4. Hyperlipidemia The patient will continue lipid-lowering therapy. 5. Hypertension The patient will continue antihypertensive therapy as deemed appropriate. This note was generated with [employer] software. It may contain incorrect words, spelling, and punctuation that were not noted in checking the note before signing.
[2017-10-02 10:05] VITALS: BP 161/89; PULSE 70; RESP 18; TEMP 36.6; O2SAT 93
== END 2017-10-02 08:56 | disposition home or self-care (01) ==
LOC: CLSP 09:01 → PCU 12:10
PROVIDERS: Internal Medicine Cardiovascular Disease; Family Provider Internal Medicine; PCP Internal Medicine; Visit Provider Internal Medicine Cardiovascular Disease
DX: I25.10 Atherosclerotic heart disease of native coronary artery without angina pectoris (principal); I25.5 Ischemic cardiomyopathy; I48.0 Paroxysmal atrial fibrillation; I11.0 Hypertensive heart disease with heart failure; I50.22 Chronic systolic (congestive) heart failure; G47.33 Obstructive sleep apnea (adult) (pediatric); I73.9 Peripheral vascular disease, unspecified; E11.9 Type 2 diabetes mellitus without complications; M54.9 Dorsalgia, unspecified; G89.29 Other chronic pain; I27.21 Secondary pulmonary arterial hypertension; E78.5 Hyperlipidemia, unspecified; Z87.448 Personal history of other diseases of urinary system; Z95.5 Presence of coronary angioplasty implant and graft; Z79.84 Long term (current) use of oral hypoglycemic drugs; Z79.82 Long term (current) use of aspirin; Z79.899 Other long term (current) drug therapy; F17.200 Nicotine dependence, unspecified, uncomplicated; Z00.6 Encounter for examination for normal comparison and control in clinical research program
CPT/HCPCS: 33249; 36415; 71045; 71046; 80048; 81001; 85014; 85018; 85027; 85610; 93641; 99152; 99153; J7040; J7050; C1894

== ENCOUNTER 2017-10-06 06:00 | Outpatient (RCR) | payer MEDICARE, OTHER, SELFPAY | END 2017-10-06 23:59 | LOC: CR 06:00 | PROVIDERS: Family Provider Internal Medicine; PCP Internal Medicine; Visit Provider Internal Medicine Cardiovascular Disease | DX: Z00.00 Encounter for general adult medical examination without abnormal findings (principal) ==

== ENCOUNTER 2017-10-25 10:00 | Emergency (ER) | payer MEDICARE, OTHER, SELFPAY ==
[2017-10-25 10:01] VITALS: BP 165/91; PULSE 72; RESP 18; TEMP 36.4; O2SAT 96; BMI 31.1
[2017-10-25 10:38] LABS: Absolute Lymphocyte Count 2.81 X10^3/ul (0.83-4.51); Absolute Neutrophil Count 6.1 X10^3/uL (2.0-7.7); Basophil# 0.06 X10^3/uL; Basophil% 0.6 % (0-1); Eosinophil# 0.33 X10^3/uL; Eosinophils% 3.3 % (0-5); Hematocrit 41.6 % (40-54); Hemoglobin 14.2 g/dl (13.0-16.5); Lymphocyte # 2.81 X10^3/ul (4.0); Lymphocyte % 27.8 % (19-41); Mean Corp Hgb Conc 34.1 g/gl (32-36); Mean Corpuscular Hgb 30.9 pg (27.0-32.0); Mean Corpuscular Volume 90.4 fL (80-94); Mean Platelet Vol. 9.8 fl (6.2-12.0); Monocyte% 7.9 % (0-10); Neutrophil # 6.09 X10^3/uL (2.7-7.7); Neutrophil % 60.2 % (47-70); POSITIVE COUNT NO; POSITIVE DIFFERENTIAL NO; POSITIVE MORPHOLOGY NO; Platelet Count 193 K/mm3 (150-450); RBC Distribution Width CV 13.5 % (11.6-14.6); RBC Distribution Width SD 44.3 fl (35.1-43.9); White Blood Count 10.1 K/mm3 (4.4-11.0)
[2017-10-25 10:44] LABS: Anion Gap 8 (5-15); BUN 20 mg/dL (7-18); BUN/Creat Ratio 14.9 RATIO (10-20); Calcium,Total 8.8 mg/dL (8.5-10.1); Chloride 104 mmol/L (98-107); Creatinine, Serum 1.34 mg/dL (0.70-1.30); EST Glomerular Filtration Rate 57 mL/min (>60); Est Glom Filt Rate - Afr Amer 68 mL/min (>60); Estimated Creatinine Clearance 56.97 ml/min; Glucose 295 mg/dL (74-106); Potassium 4.2 mmol/L (3.5-5.1); Sodium Level 137 mmol/L (136-145)
--- NOTE | 2017-10-25 10:45 | ED.VISSUMM ---
- ER Visit Summary Date of Service: 10/25/17 Chief Complaint: Left foot pain History of Present Illness: The patient is a 67 M presenting with left foot pain. Patient states this started 2 days ago. He has pain to the left foot around the left great toe. He denies injury. He has not had these symptoms in the past. He denies fever. Denies history of gout. He did eat red meat more than usual this week. Denies chest pain or shortness of breath. Denies other complaints. Physical Examination: Vitals are stable. Patient is afebrile. Alert no acute distress. HEENT exam is unremarkable. Lungs are clear and equal bilaterally. Heart is regular rate and rhythm. Abdomen is soft nontender nondistended. Extremities erythema, tenderness 1st MTP, normal pulse Skin is warm and dry. No focal neurologic deficit. Remainder of exam is unremarkable. Emergency Department Course and Treatment: CBC shows a normal white count. Chemistries show BUN 20, creatinine 1.34, glucose 295. X-ray left foot shows no acute fracture or dislocation. Degenerative change with spur at the first metatarsophalangeal joint with some subjacent soft tissue swelling. Patient's physical exam is suggestive of gout. He is given prednisone and short course of Dickey. He is advised to follow-up with his primary care physician. He is advised to return to ED for any worsening complaints. Disposition: Discharge home Impression: Gouty arthritis, left foot This note was generated with [employer] dictation software. It may contain incorrect words, spelling, and punctuation that were not noted in review of the chart prior to signing ED Disposition - Plan for ED Patient: Chief Complaint: Lower Extremity Injury Instructions: ED Arthritis Gout Prescriptions: Hydrocodone Bitart/Apap 5-325 [Dickey 5MG-325MG] 1 tablet PO Q6H PRN PRN 3 Days #10 tablet PRN Reason: Pain Prednisone 20 mg PO DAILY #5 tablet Referrals: Lindsay Batista MD [Primary Care Provider] -
--- NOTE | 2017-10-25 11:19 | ED.DEP ---
ED Disposition - Plan for ED Patient: Chief Complaint: Lower Extremity Injury Instructions: ED Arthritis Gout Prescriptions: Hydrocodone Bitart/Apap 5-325 [[place] 5MG-325MG] 1 tablet PO Q6H PRN PRN 3 Days #10 tablet PRN Reason: Pain Prednisone 20 mg PO DAILY #5 tablet Referrals: Lindsay Batista MD [Primary Care Provider] -
[2017-10-25] MEDS: HYDROcodone Bitartrate/Apap 5/325 Tablet PO (12:00)
[2017-10-25] MEDS: predniSONE 20 MG Tablet PO (12:00)
[2017-10-25 12:06] VITALS: BP 143/83; PULSE 59; RESP 16; O2SAT 97
== END 2017-10-25 12:07 | disposition home or self-care (01) ==
LOC: ED 11:27
PROVIDERS: Emergency Provider Emergency Medicine; Family Provider Internal Medicine; PCP Internal Medicine
DX: M10.9 Gout, unspecified (principal); I25.10 Atherosclerotic heart disease of native coronary artery without angina pectoris; I25.2 Old myocardial infarction; E11.9 Type 2 diabetes mellitus without complications; I10 Essential (primary) hypertension; E78.00 Pure hypercholesterolemia, unspecified; Z79.82 Long term (current) use of aspirin; Z79.84 Long term (current) use of oral hypoglycemic drugs; Z79.899 Other long term (current) drug therapy; Z87.891 Personal history of nicotine dependence
CPT/HCPCS: 73630; 80048; 85025; 99283; A4216

== ENCOUNTER 2017-10-27 06:00 | Outpatient (RCR) | payer MEDICARE, OTHER, SELFPAY | END 2017-11-06 23:59 | LOC: CR 06:00 | PROVIDERS: Family Provider Internal Medicine; PCP Internal Medicine; Visit Provider Internal Medicine Cardiovascular Disease | DX: Z00.00 Encounter for general adult medical examination without abnormal findings (principal) ==

== ENCOUNTER → 2017-11-11 07:43 | Outpatient (CLI) | payer MEDICARE, OTHER, SELFPAY | PROVIDERS: Family Provider Internal Medicine; PCP Internal Medicine; Visit Provider Surgery Vascular Surgery | DX: I70.90 Unspecified atherosclerosis (principal); I73.9 Peripheral vascular disease, unspecified | CPT/HCPCS: 75635; Q9967 ==

== ENCOUNTER 2018-01-07 07:28 | Outpatient (RCR) | payer MEDICARE, OTHER, SELFPAY | END 2018-02-05 23:59 | LOC: CR 07:28 | PROVIDERS: Family Provider Internal Medicine; PCP Internal Medicine; Visit Provider Internal Medicine Cardiovascular Disease | DX: Z00.00 Encounter for general adult medical examination without abnormal findings (principal) ==

== ENCOUNTER 2018-02-09 06:49 | Outpatient (RCR) | payer SELFPAY ==
[2018-02-06 00:12] VITALS: BMI 28.4
== END 2018-03-08 23:59 ==
LOC: CR 06:49
PROVIDERS: Family Provider Internal Medicine; PCP Internal Medicine; Referring Provider Internal Medicine Cardiovascular Disease; Visit Provider Internal Medicine Cardiovascular Disease
DX: Z00.00 Encounter for general adult medical examination without abnormal findings (principal)

== ENCOUNTER → 2018-03-08 10:44 | Outpatient (CLI) | payer MEDICARE, OTHER, SELFPAY ==
[2018-03-08 09:26] VITALS: BMI 32.2
[2018-03-08 12:01] LABS: Microalbumin,Random Urine 7.1 mg/L (NO RANGE EST.); Microalbumin:Creatinine Ratio 29.8 mg/g CRE (<30 mg/g CRE)
[2018-03-08 12:13] LABS: ALB/GLOB Ratio 0.9 RATIO (0.9-2.4); AST(SGOT) 27 U/L (15-37); Alanine Aminotransfer ALT/SGPT 54 U/L (16-61); Albumin, Serum 3.7 g/dL (3.2-5.0); Alkaline Phosphatase 63 U/L (45-117); Anion Gap 13 (5-15); BUN 17 mg/dL (7-18); BUN/Creat Ratio 13.9 RATIO (10-20); Calcium,Total 8.5 mg/dL (8.5-10.1); Chloride 98 mmol/L (98-107); Cholesterol 123 mg/dL (200); Creatinine, Serum 1.22 mg/dL (0.70-1.30); EST Glomerular Filtration Rate 63 mL/min (>60); Est Glom Filt Rate - Afr Amer 76 mL/min (>60); Globulin 4.1 g/dL (2.2-4.2); Glucose 311 mg/dL (74-106); High Density Lipoprotein 38 mg/dL; Potassium 3.7 mmol/L (3.5-5.1); Protein, Total 7.8 g/dL (6.4-8.2); Sodium Level 134 mmol/L (136-145); Triglycerides 453 mg/dL
[2018-03-08 12:26] LABS: AST(SGOT) 28 U/L (15-37); Alanine Aminotransfer ALT/SGPT 53 U/L (16-61); Albumin, Serum 3.9 g/dL (3.2-5.0); Alkaline Phosphatase 65 U/L (45-117); Bilirubin, Direct 0.18 mg/dL (0.00-0.30); Protein, Total 7.9 g/dL (6.4-8.2); T4 Free Direct 1.24 ng/dL (0.76-1.46); Thyroid Stim Hormone (TSH) 2.95 uIU/mL (0.358-3.74)
== END ==
PROVIDERS: Nurse Practitioner Family; Family Provider Internal Medicine; PCP Internal Medicine; Referring Provider Nurse Practitioner; Visit Provider Nurse Practitioner
DX: E11.65 Type 2 diabetes mellitus with hyperglycemia (principal); E78.5 Hyperlipidemia, unspecified; Z79.899 Other long term (current) drug therapy
CPT/HCPCS: 36415; 80053; 80061; 80076; 82043; 82570; 83036; 84439; 84443

== ENCOUNTER 2018-03-11 07:20 | Outpatient (RCR) | payer SELFPAY ==
[2018-03-09 00:23] VITALS: BMI 28.4
== END 2018-04-08 23:59 ==
LOC: CR 07:20
PROVIDERS: Family Provider Internal Medicine; PCP Internal Medicine; Referring Provider Internal Medicine Cardiovascular Disease; Visit Provider Internal Medicine Cardiovascular Disease
DX: Z00.00 Encounter for general adult medical examination without abnormal findings (principal)

== ENCOUNTER 2018-05-15 10:39 | Emergency (ER) | payer MEDICARE, OTHER, SELFPAY ==
[2018-03-22 16:32] VITALS: BMI 32.2
[2018-05-15 10:39] VITALS: BP 149/89; PULSE 55; RESP 20; TEMP 36.6; O2SAT 97; BMI 28.5
--- NOTE | 2018-05-15 11:06 | RAD_ITS ---
STUDY: X-RAY - LEFT FOOT CLINICAL: Male, 67 years old. Injury of the left foot, pain TECHNIQUE: 3 view(s) of the foot. COMPARISON: 10/25/2017 FINDINGS: There is a plantar calcaneal spur. Normal visualized subtalar, talonavicular, calcaneocuboid, tarsal and tarsometatarsal articulations. Normal metatarsi. There is degenerative arthrosis of the metatarsophalangeal joint of the hallux . Normal tibial and fibular sesamoid bones. Normal interphalangeal joint of the great toe. Normal phalanges of the great toe. Normal second through fifth metatarsophalangeal joints. Normal interphalangeal joints and phalanges of the lesser toes. The soft tissue structures are unremarkable. RAD/Foot min 3 Views IMPRESSION: No acute fracture. Stable exam. Chronic changes, as above. Electronically Signed: Jarvis Cleary MD at 11:36 EST , Service support ,
--- NOTE | 2018-05-15 11:08 | ED.VISSUMM ---
- ER Visit Summary Date of Service: 05/15/18 Chief Complaint: Foot pain History of Present Illness: The patient is a 67 M increasing left foot pain after working the yard 4 days ago. States there were a lot of holes in the yard there is no acute event causing injury. Similar symptoms 10 years ago diagnosed with a fracture in his foot non-surgical intervention. Followed orthopedist in [place] with Dr. Vale. Has hydrocodone that he takes, took one this morning. No other injuries. No paresthesias. Physical Examination: General: Alert and oriented ?3, no acute distress HEENT: Normocephalic, atraumatic. Moist mucosa membranes Neck: supple, nontender. Cardiovascular: Regular rate and rhythm, no murmurs Respiratory: Normal breath sounds, symmetric, no distress Abdomen: Soft, nontender, nondistended Extremities: Left lower extremity no ankle tenderness, foot tenderness at the proximal fifth base. No midfoot tenderness. Skin intact. No deformities. No edema, pulses intact ?4. Neuro: no focal neurological deficits. Test Results: Left foot x-ray: No acute fracture Emergency Department Course and Treatment: Declining additional medications. X-ray negative. Postop shoe provided. Denies history of gastric ulcers or kidney injury. Discussed with his hydrocodone can add NSAIDs short-term. Follow-up with his PCP. All questions were answered. Treatment Plan: [] Disposition: Discharge Impression: Left foot sprain This note was generated with [employer] dictation software. It may contain incorrect words, spelling, and punctuation that were not noted in review of the chart prior to signing ED Disposition - Plan for ED Patient: Disposition: Home or Assisted Living Diagnosis: Sprain of left foot Instructions: ED Sprain Foot Referrals: Lindsay Batista MD [Primary Care Provider] - 5-7 Days
[2018-05-15 12:29] VITALS: BP 141/78; PULSE 62; RESP 17; O2SAT 92
== END 2018-05-15 12:35 | disposition home or self-care (01) ==
PROVIDERS: Emergency Provider Emergency Medicine; Family Provider Internal Medicine; PCP Internal Medicine
DX: S93.602A Unspecified sprain of left foot, initial encounter (principal); I25.2 Old myocardial infarction; I10 Essential (primary) hypertension; E78.00 Pure hypercholesterolemia, unspecified; Z87.891 Personal history of nicotine dependence; Z79.82 Long term (current) use of aspirin; Z79.891 Long term (current) use of opiate analgesic; Z79.4 Long term (current) use of insulin; Z99.81 Dependence on supplemental oxygen; Z79.52 Long term (current) use of systemic steroids; Z79.899 Other long term (current) drug therapy; X58.XXXA Exposure to other specified factors, initial encounter; Y93.01 Activity, walking, marching and hiking; Y92.007 Garden or yard of unspecified non-institutional (private) residence as the place of occurrence of the external cause; Y99.8 Other external cause status
CPT/HCPCS: 73630; 99283

== ENCOUNTER → 2018-05-21 09:48 | Outpatient (CLI) | payer MEDICARE, OTHER, SELFPAY ==
[2018-03-22 16:32] VITALS: BMI 32.2
[2018-05-15 10:39] VITALS: BMI 28.5
--- NOTE | 2018-05-21 09:53 | ART_ITS ---
Reason For Study: Atherosclerosis Procedure A bilateral lower extremity continuous wave Doppler with analog waveform analysis and ankle brachial indexes. Left Segmental Pressures Left brachial= 132mmHg. Left posterior tibial artery = 135mmHg. Left dorsalis pedis artery = 155mmHg. Left digit = 78 mmHg. Right Segmental Pressures Right brachial= 119mmHg. Right posterior tibial artery = 97mmHg. Right dorsalis pedis artery = 100mmHg. Right digit = 50 mmHg. Indices The right ankle brachial index by the posterior tibial artery is 0.73. The right ankle brachial index by the dorsalis pedis is 0.76. The right digital-brachial index is 0.38. The left ankle brachial index by the posterior tibial artery is 1.02. The left ankle brachial index by the dorsalis pedis is 1.17. The left digital-brachial index is 0.59. Interpretation Summary 1. right with moderate occlussive disease and monophasic flow and gómez 0.76 2. Left wiht triphasic flow nd gómez 1.17 3. Bilateral small vessel disease with dbi 0.38/0.59. Ordering Physician: Pierre Mchugh Referring Physician: Pierre Mchugh Performed By: Kerri Wyman RDCS/RVT
== END ==
PROVIDERS: Family Provider Internal Medicine; PCP Internal Medicine; Referring Provider Surgery Vascular Surgery; Visit Provider Surgery Vascular Surgery
DX: I70.213 Atherosclerosis of native arteries of extremities with intermittent claudication, bilateral legs (principal); I10 Essential (primary) hypertension; M10.9 Gout, unspecified; E78.00 Pure hypercholesterolemia, unspecified; I51.9 Heart disease, unspecified; Z95.810 Presence of automatic (implantable) cardiac defibrillator; Z99.81 Dependence on supplemental oxygen; Z87.891 Personal history of nicotine dependence
CPT/HCPCS: 93922

== ENCOUNTER → 2018-06-18 08:14 | Outpatient (CLI) | payer MEDICARE, OTHER, SELFPAY ==
[2018-06-09 09:50] VITALS: BMI 28.5
--- NOTE | 2018-06-18 08:16 | CT_ITS ---
STUDY: CT CHEST WITH CONTRAST REASON FOR EXAM: Male, 67 years old. RADIATION DOSAGE (If Supplied By Facility): CTDIvol = ( 0835 ) mGy, DLP = ( 687.72 ) mGycm TECHNIQUE: Transaxial imaging was performed following intravenous administration of 100 IV Isovue 300. Multiplanar coronal and sagittal images were reformatted. Individualized dose optimization techniques were used for this CT. COMPARISON: April 09, 2017 CT scan chest FINDINGS: There is a pattern of emphysematous change and areas of fibrosis within the lungs especially the upper lung zones. Within the right middle lobe there is a 4.3 mm nodular density stable since prior study image #62. There is a stable nodular density within the right lung base measuring 4.4 mm image #76. There is no demonstrated pleural abnormality. There is a visualized left anterior coronary artery stent. There is a atypical appearing lymph node measuring 3.6 x 1.8 cm, in the precarinal space. There is a left-sided pacemaker redemonstrated with leads overlying the heart. There is a right side precarinal lymph node measuring 1.5 cm. There are multiple borderline atypical AP window lymph nodes measuring 1.3 x 1.2 and an 1.7 x 1.0 these are smaller than prior study when they measured 2.2 x 1.7 cm and 1.4 x 1.3 cm. There is a thickened appearance of the right hilum. There is a right hilar lymph node measuring 1.4 cm on prior study it measured 2.2 cm. There is a right hilar lymph node measuring 1.5 cm when on prior study it measured 2.1 cm. Normal enhanced pulmonary arteries. There is atherosclerotic tortuosity of the aortic arch and descending thoracic aorta. There are multi-level degenerative changes of the thoracic spine. The liver is enlarged and fatty infiltrated. Partially visualized moderate stool in the colon. There are one or 2 nonspecific lymph nodes in the upper abdomen near the lesser curvature of the stomach. CT/Chest WITH Contrast IMPRESSION: There is a pattern of pulmonary emphysema and areas of fibrosis especially within the upper lung zones. The lymph nodes are similar if not slightly smaller than the prior study although remaining atypical in appearance. Stable small benign-appearing pulmonary nodules. Recommend continued follow-up in 6-12 months to ensure stability and/or consider follow-up PET scan. Coronary artery stent Hepatic steatosis Electronically Signed: Emy Adams MD at 17:07 EDT Tel , Service support ,
[2018-06-18 08:46] LABS: CREATININE FINGERSTICK 1.7 mg/dL (0.70-1.30)
== END ==
PROVIDERS: Family Provider Internal Medicine; PCP Internal Medicine; Referring Provider Internal Medicine Critical Care Medicine; Visit Provider Internal Medicine Critical Care Medicine
DX: R59.0 Localized enlarged lymph nodes (principal); F17.211 Nicotine dependence, cigarettes, in remission
CPT/HCPCS: 71260; Q9967

== ENCOUNTER → 2018-06-28 10:43 | Outpatient (CLI) | payer MEDICARE, OTHER, SELFPAY ==
[2018-06-24 10:23] VITALS: BMI 32.2
--- NOTE | 2018-06-28 11:15 | PET_ITS ---
EXAMINATION: FDG PET CT INDICATIONS: A 67-year-old male with reported history of pulmonary nodularity. COMPARISON EXAMINATION: CT of the chest report dated 06/18/18. TECHNIQUE: Following the intravenous administration of 17.57 mCi of F-18 deoxyglucose via the left wrist, multiplanar image acquisitions of the neck, chest, abdomen and pelvis to level of mid thigh, obtained at one hour post radiopharmaceutical administration contemporaneously interpreted with the current CT of the neck, chest, abdomen and pelvis to level of mid thigh, dated 06/28/[address] of the chest report dated 06/18/18 reveal: SERUM GLUCOSE LEVEL: 186 mg/dl. HEIGHT: 71 inches. WEIGHT: 230 lbs. FINDINGS: 1. There is no quantitative scintigraphic evidence of abnormal increased glucose metabolism on meticulous review of the bilateral hemithorax pulmonary parenchyma to correlate with structural changes noted on review of CT of the thorax dated 06/28/18. 2. Normal physiologic distribution of the radiopharmaceutical is apparent in the hepatic and splenic parenchyma, both renal units, bladder and visualized intestinal tract. There is uniform distribution of the radiopharmaceutical concentration defined in the visualized cerebellar hemispheres and cerebral cortical structures.? Diffuse intestinal tract activity is noted throughout all four quadrants of the abdominal-pelvic retroperitoneum, mesentery consistent with normal physiologic distribution of the radiopharmaceutical. Prominent skeletal muscle distribution of radiopharmaceutical is defined, relatively symmetric in presentation. Pertinent CT findings are as follows. CHEST: Interstitial changes defined in the bilateral upper lung zones demonstrate no evidence of quantitatively significant increased glucose metabolism. Emphysematous change is noted in the right-left upper lung ley. Ventricular pacemaker placement is noted. Atherosclerotic calcification is defined in the thoracic aorta without evidence of dilatation, aneurysm formation. Coronary arterial calcification is observed. Right-left axillary and scattered mediastinal soft tissue is non-glucose avid. ABDOMEN AND PELVIS: There is fatty metamorphosis involving the hepatic parenchyma. Atherosclerotic calcification is defined in the abdominal aorta without evidence of dilatation, aneurysm formation. Abdominal-pelvic arterial calcification is observed. Calculus formation is noted in the bilateral kidneys. Fat-containing right-left inguinal hernias are noted. Right-left inguinal soft tissue densities with fatty hilus formation are non-glucose avid. Dystrophic calcification is manifest within the prostate gland. SKELETAL: Degenerative changes defined in the cervical, thoracic and lumbar spine demonstrate no evidence for glucose hypermetabolism. PET/PET/CT Tumor Base -Thigh Init IMPRESSION: 1. NEGATIVE EXAMINATION. There is no quantitative scintigraphic evidence of abnormal increased glucose metabolism on meticulous review of the bilateral hemithorax pulmonary parenchyma to correlate with structural changes noted on review of CT of the thorax dated 06/28/18. 2. Anatomic stability may be ensured in the bilateral hemithorax pulmonary parenchyma with repeat CT of the thorax in three months. (Florencia, Seminars in Thoracic and Cardiovascular Surgery 14:292, 2002). Electronic Signature Jose Escoto D.O. Electronically Signed: Jose Escoto DO at 22:44 EDT Tel , Service support ,
== END ==
PROVIDERS: Family Provider Internal Medicine; PCP Internal Medicine; Referring Provider Internal Medicine Critical Care Medicine; Visit Provider Internal Medicine Critical Care Medicine
DX: R91.1 Solitary pulmonary nodule (principal)
CPT/HCPCS: 78815; A9552

== ENCOUNTER → 2018-06-29 | Outpatient (CLI) | payer MEDICARE, OTHER, SELFPAY ==
[2018-06-09 09:50] VITALS: BMI 28.5
[2018-06-24 10:23] VITALS: BMI 32.2
--- NOTE | 2018-06-30 10:04 | PFT ---
INTRODUCTION: The patient is a 67-year-old male that presents for pulmonary function studies secondary to a diagnosis of high risk medication use. Respiratory therapy reports good patient effort. Bronchodilators were used during testing. Forced expiration spirometry INTERPRETATION: Forced expiration spirometry demonstrates the presence of a mild large airways obstructive ventilatory defect. There was no significant response to aerosolized bronchodilators. Spirograms are of good quality and do not plateau indicating slow emptying of the lungs. Body plethysmography was performed and reveals a decreased TLC to 5.5 L, 82% of predicted, indicative of a mild restrictive ventilatory defect. The remainder of the lung volumes are symmetrically reduced. Diffusing capacity by single breath CO is moderately reduced at 45% of predicted. When compared to previous pulmonary function studies dated May 2017, there has been an 11% reduction in FEV1. IMPRESSION: Irreversible mild mixed ventilatory defect with asymmetric reduction in diffusing capacity.
== END | disposition home or self-care (01) ==
LOC: PSN 09:57
PROVIDERS: Family Provider Internal Medicine; PCP Internal Medicine; Referring Provider Internal Medicine Critical Care Medicine; Visit Provider Internal Medicine Critical Care Medicine
DX: J98.4 Other disorders of lung (principal); F17.211 Nicotine dependence, cigarettes, in remission
CPT/HCPCS: 94060; 94726; 94729

== ENCOUNTER → 2018-10-01 | Outpatient (CLI) | payer MEDICARE, OTHER, SELFPAY ==
[2018-09-15 09:37] VITALS: BMI 32.8
--- NOTE | 2018-10-01 10:56 | ECHOD_ITS ---
Reason For Study: DYSPNEA Procedure This was a 2D Doppler, Color Flow transthoracic echocardiogram. The study was technically difficult. Contrast injection was performed. Exam performed in department. Left Ventricle Normal LV size. Concentric left ventricular hypertrophy. The estimated ejection fraction is 35-40 %. Stage 1 diastolic dysfunction. There is moderate global hypokinesis of the left ventricle. Right Ventricle Normal RV size. Pacemaker/ AICD wire seen in RV and RA. Normal systolic function. Atria Normal left atrium. Normal right atrium. No doppler evidence for ASD. Mitral Valve There is no mitral valve stenosis. No mitral valve insufficiency. Tricuspid Valve There is no tricuspid stenosis. Unable to estimate RV systolic pressure due to insufficient tricuspid regurgitant envelope. Trivial eccentric tricuspid valve insufficiency. Aortic Valve Trisinus/trileaflet aortic valve. There is no aortic stenosis. No aortic valve insufficiency. Pulmonic Valve There is no pulmonic valvular stenosis. No pulmonic valve insufficiency. Great Vessels Normal aortic root. Pericardium/Pleural No pericardial effusion. Medication 22 gauge I.V. with prn adaptor inserted into right arm. Diluted definity 4ml given slow IV push to enhance endocardial definition. MMode/2D Measurements & Calculations LVIDd: 5.7 cm IVSd: 1.2 cm Ao root diam: 3.7 cm LVIDs: 4.6 cm LVPWd: 1.3 cm RVDd: 3.7 cm FS: 19.8 % LAV(MOD-bp): 63.7 ml EDV(MOD-sp4): 166.2 ml EDV(MOD-sp2): 154.0 ml LAV(MOD-bp) Indexed: 28.4 ml/m2 ESV(MOD-sp4): 100.0 ml EF(MOD-sp2): 48.0 % LAV(MOD-sp2): 59.8 ml EF(MOD-sp4): 39.8 % LAV(MOD-sp4): 68.8 ml SV(MOD-sp4): 66.1 ml SV(MOD-sp2): 73.9 ml LA A4 area: 21.6 cm2 LA dimension(2D): 3.7 cm RA A4 area: 18.8 cm2 Time Measurements MV dec time: 0.29 sec Doppler Measurements & Calculations MV E max mejia: 35.9 cm/sec Lat Peak E' Mejia: 3.6 cm/sec Med Peak E' Mejia: 3.2 cm/sec MV A max mejia: 87.6 cm/sec E/E' lat: 9.9 E/E' med: 11.1 MV E/A: 0.41 PA V2 max: 72.3 cm/sec TR max mejia: 229.5 cm/sec TR max P.1 mmHg Interpretation Summary The study was technically difficult. Diluted definity 4ml given slow IV push to enhance endocardial definition. The estimated ejection fraction is 35-40 %. Stage 1 diastolic dysfunction. The study was technically difficult. Ordering Physician: Olvin Kapoor Referring Physician: IMAN CORREIA Performed By: Anca Rodriguez, SENAIT, RVT
== END | disposition home or self-care (01) ==
LOC: CVS 10:56
PROVIDERS: Family Provider Internal Medicine; PCP Internal Medicine; Referring Provider Internal Medicine Critical Care Medicine; Visit Provider Internal Medicine Critical Care Medicine
DX: R06.02 Shortness of breath (principal); J96.11 Chronic respiratory failure with hypoxia
CPT/HCPCS: 93306; Q9957; A4216; C8929

== ENCOUNTER → 2018-10-29 | Outpatient (CLI) | payer MEDICARE, OTHER, SELFPAY ==
[2018-09-15 09:37] VITALS: BMI 32.8
[2018-10-29 12:50] VITALS: PULSE 103; PULSE 68; PULSE 72; PULSE 78; PULSE 91; PULSE 94; PULSE 95; O2SAT 89; O2SAT 90; O2SAT 94; O2SAT 95; O2SAT 96
--- NOTE | 2018-10-29 12:53 | CPS ---
Patient came in on own Inogene machine at 3lpm. SpO2 88% on room air. Did testing on patient's own device at 3 lpm O2.
--- NOTE | 2018-10-29 14:17 | PCM.PSN.6M ---
PSN 6 Minute Walk Test - 6 Minute Walk Test 6 Minute Walk Test: 6 Minute Walk Test PSN:6-Minute Walk Test Start: 10/29/18 12:49 Freq: Status: Active Protocol: RESP.6MINW Document 10/29/18 12:50 OWENCHRIS (Rec: 10/29/18 12:54 OWENON [id number]) 6 Minute Walk Test Date Performed 10/29/18 Time Performed 12:30 Height 5 ft 11 in Weight: 105.233 kg Weight in Pounds 232.[address]: Olvin Kapoor Assistive device used: None Pre-test Oxygen Flow Rate (L/min) (L/min) 3 Oxygen Delivery Method Nasal Cannula Pulse Ox (%) 95 Pulse Rate (60-100 beats/min) 68 Dyspnea Tawnya Scale (0-10) 0 Exertion Tawnya Scale (6-20) 6 1st minute Oxygen Flow Rate (L/min) (L/min) 3 Oxygen Delivery Method Nasal Cannula Pulse Ox (%) 94 Pulse Rate (60-100 beats/min) 78 2nd minute Oxygen Flow Rate (L/min) (L/min) 3 Oxygen Delivery Method Nasal Cannula Pulse Ox (%) 89 Pulse Rate (60-100 beats/min) 91 3rd minute Oxygen Flow Rate (L/min) (L/min) 3 Oxygen Delivery Method Nasal Cannula Pulse Ox (%) 90 Pulse Rate (60-100 beats/min) 94 4th minute Oxygen Flow Rate (L/min) (L/min) 3 Oxygen Delivery Method Nasal Cannula Pulse Ox (%) 90 Pulse Rate (60-100 beats/min) 94 Number of Rests Taken 1 5th minute Oxygen Flow Rate (L/min) (L/min) 3 Oxygen Delivery Method Nasal Cannula Pulse Ox (%) 90 Pulse Rate (60-100 beats/min) 95 6th minute Oxygen Flow Rate (L/min) (L/min) 3 Oxygen Delivery Method Nasal Cannula Pulse Ox (%) 89 Pulse Rate (60-100 beats/min) 103 H Dyspnea Tawnya Scale (0-10) 3 Exertion Tawnya Scale (6-20) 14 Post-test Oxygen Flow Rate (L/min) (L/min) 3 Oxygen Delivery Method Nasal Cannula Pulse Ox (%) 96 Pulse Rate (60-100 beats/min) 72 Full Laps Walked 13 Partial Lap, Number of Tiles Walked 15 Total Distance Walked (ft) 782 08/23/19 12:53 Cardiopulmonary Services by Zee Hilton Patient came in on own Inogene machine at 3lpm. SpO2 88% on room air. Did testing on patient's own device at 3 lpm O2. Initialized on 10/29/18 12:53 - END OF NOTE - Interpretation Interpretation: The patient was noted to be 80% on room air. The patient was then placed on 3 L nasal cannula with improvement to saturations to 95%. The patient then ambulated 782 feet over the course of 6 minutes with one break and no assistive devices. The patient did desaturate as low as 89%, but experienced no significant tachycardia. These finds are consistent with a respiratory limitation to exercise tolerance. - Recommendations Recommendations: 3 L nasal cannula oxygen should be worn at all times.
== END | disposition home or self-care (01) ==
LOC: PSN 12:22
PROVIDERS: Family Provider Internal Medicine; PCP Internal Medicine; Referring Provider Internal Medicine Critical Care Medicine; Visit Provider Internal Medicine Critical Care Medicine
DX: J96.11 Chronic respiratory failure with hypoxia (principal)
CPT/HCPCS: 94618

== ENCOUNTER → 2019-09-23 10:22 | Outpatient (CLI) | payer MEDICARE, OTHER, SELFPAY ==
[2018-12-23 10:42] VITALS: BMI 33.5
[2019-09-16 10:58] VITALS: BMI 32.3
--- NOTE | 2019-09-23 10:22 | CT_ITS ---
STUDY: LOW DOSE CT LUNG CANCER SCREENING REASON FOR EXAM: Male, 68 years old. TOBACCO DEPENDENCY/45YR 1PPD SMOKER/QUIT 2 YR AGO. Hx of defibrillator, diabetes and HTN-both rx controlled. RADIATION DOSAGE (If Supplied By Facility): CTDIvol = ( 3.40 ) mGy, DLP = ( 114.43 ) mGycm TECHNIQUE: No contrast was administered. Low dose technique was utilized (average mAS-38 and kVp 120). 1.25 mm axial source images with a slice interval of 1.25-mm were reconstructed in lung windows. 2.5 mm axial source images with a slice interval of 2.5-mm were reconstructed in lung windows. 5.0 mm axial source images with a slice interval of 5.0-mm were reconstructed in soft tissue windows. Nodule measured using lung windows on PACS and/or independent workstation with automated measurement of minimum and maximum diameter. Nodule measurement reported as average diameter rounded to the nearest whole number. Growth is defined as an increase ins size of greater than 1.5 mm. COMPARISON: Comparison is made with prior study dated June 18, 2018. A left-sided dual-chamber pacemaker is seen. NODULES: Stable 4.5 mm nodule in the anterior right middle lobe as seen on axial image number 1:15. Emphysema: Diffuse mild emphysematous changes in both lungs. This is worse in the upper lobes where small blebs are seen. Aorta: Atherosclerotic calcification. Coronary arteries: Coronary artery calcification and stenting. Mediastinal nodes: 2.7 mm lymph node in the precarinal space. Stable mediastinal lymph nodes. Other chest and abdominal findings: Degenerative changes of the thoracic vertebrae. CT/Low Dose CT Lung Screening IMPRESSION: Lung-RADS category 2 - Continue annual screening with LDCT in 12 months. IMPORTANT NOTES FOR USE: ACR Lung-RADS Version 1.0 Assessment Categories Release Date: July 04, 2013 Category: Coded 0-4 bases on nodule(s) with highest degree of suspicion. Negative screen is defined as categories 1 and 2; a positive screen is defined as categories 3 and 4. Category 3 and 4A nodules that are unchanged on interval CT should be coded as category 2, and individuals returned to screening in 12 months. Category 4X: Category 3 or 4 nodules with additional imaging findings that increase the suspicion of lung cancer, such as spiculation, GGN that doubles in size in 1 year, enlarged lymph notes, etc. Category Modifiers: S (significant finding unrelated to lung cancer) and C (prior history of treated lung cancer) may be added to the 0-4 Lung-RADS Electronically Signed: Everette Medina, at 12:40 EDT , Service support ,
--- NOTE | 2019-09-23 10:38 | ECHOCS_ITS ---
Reason For Study: CHF Procedure This was a 2D Doppler, Color Flow transthoracic echocardiogram. The study was technically difficult. Contrast injection was performed. Exam performed in department. Left Ventricle Based upon the 2D echocardiographic and contrast enhanced images obtained there appears to be normal left ventricular size with moderate global left ventricular systolic dysfunction. The estimated ejection fraction is 35 %. Diastolic function is indeterminate. Right Ventricle Normal RV size. ICD or pacer leads identified within the right ventricle. Normal systolic function. Atria Normal left atrium. Normal right atrium. ICD or pacer leads identified within the right atrium. No doppler evidence for ASD. Mitral Valve There is mild mitral annular calcification. Normal mitral valve. Tricuspid Valve Normal tricuspid valve. Trivial tricuspid valve insufficiency. Unable to estimate RV systolic pressure/pulmonary artery pressure due to technically difficult study. Aortic Valve Trisinus/trileaflet aortic valve. Normal aortic valve. Pulmonic Valve The pulmonic valve is not well visualized. Great Vessels The aortic root is not well visualized. Pericardium/Pleural No pericardial effusion. Medication 22 gauge I.V. with prn adaptor inserted into right arm. Diluted definity 2ml given slow IV push to enhance endocardial definition. MMode/2D Measurements & Calculations LVIDd: 5.5 cm IVSd: 1.1 cm LA dimension: 3.4 cm LVIDs: 4.0 cm LVPWd: 1.3 cm FS: 27.6 % LAV(MOD-bp): 43.1 ml LVAd ap4: 38.7 cm2 SV(MOD-sp4): 45.4 ml LAV(MOD-bp) Indexed: 19.2 ml/m2 EDV(MOD-sp4): 136.6 ml LAV(MOD-sp2): 41.7 ml EDV(sp4-el): 138.7 ml LAV(MOD-sp4): 39.3 ml LVAs ap4: 30.0 cm2 ESV(MOD-sp4): 91.2 ml ESV(sp4-el): 92.9 ml EF(MOD-sp4): 33.2 % EF(sp4-el): 33.0 % SV(sp4-el): 45.9 ml LA A4 area: 16.0 cm2 RA A4 area: 10.6 cm2 Time Measurements MV dec time: 0.29 sec Doppler Measurements & Calculations MV E max mejia: 41.1 cm/sec Lat Peak E' Mejia: 6.7 cm/sec Med Peak E' Mejia: 3.5 cm/sec MV A max mejia: 75.1 cm/sec E/E' lat: 6.1 E/E' med: 11.8 MV E/A: 0.55 MV V2 max: 76.6 cm/sec MV P1/2t max mejia: 31.3 cm/sec Ao V2 max: 98.4 cm/sec MV max P.3 mmHg MV P1/2t: 127.8 msec Ao max P.9 mmHg MV V2 mean: 34.9 cm/sec MV mean P.62 mmHg MV dec slope: 71.7 cm/sec2 MV V2 VTI: 16.6 cm MVA(P1/2t): 1.7 cm2 LV V1 max: 78.9 cm/sec PA V2 max: 70.3 cm/sec LV V1 max P.5 mmHg Interpretation Summary The study was technically difficult. Contrast injection was performed. Based upon the 2D echocardiographic and contrast enhanced images obtained there appears to be normal left ventricular size with moderate global left ventricular systolic dysfunction. The estimated ejection fraction is 35 %. Trivial tricuspid valve insufficiency. Unable to estimate RV systolic pressure/pulmonary artery pressure due to technically difficult study. Diastolic function is indeterminate. ICD or pacer leads identified within the right atrium ICD or pacer leads identified within the right ventricle. Ordering Physician: Isaiah Tao Referring Physician: Lindsay Batista M.D. Performed By: Damon Grijalva RCS
[2019-09-23 11:28] LABS: AST(SGOT) 37 U/L (15-37); Alanine Aminotransfer ALT/SGPT 51 U/L (16-61); Albumin, Serum 3.8 g/dL (3.2-5.0); Alkaline Phosphatase 74 U/L (45-117); Bilirubin, Direct 0.15 mg/dL (0.00-0.30); Cholesterol 115 mg/dL (200); Globulin 4.3 g/dL (2.2-4.2); High Density Lipoprotein 28 mg/dL; Protein, Total 8.1 g/dL (6.4-8.2); T4 Free Direct 1.19 ng/dL (0.76-1.46); Thyroid Stim Hormone (TSH) 2.87 uIU/mL (0.358-3.74); Triglycerides 289 mg/dL; Very Low Density Lipoprotein 58 mg/dL (5-40)
== END ==
PROVIDERS: Internal Medicine Cardiovascular Disease; PCP Internal Medicine; Referring Provider Internal Medicine Critical Care Medicine; Visit Provider Internal Medicine Critical Care Medicine
DX: E78.00 Pure hypercholesterolemia, unspecified (principal); I25.10 Atherosclerotic heart disease of native coronary artery without angina pectoris; I25.5 Ischemic cardiomyopathy; I48.0 Paroxysmal atrial fibrillation; E78.5 Hyperlipidemia, unspecified; I10 Essential (primary) hypertension; I27.21 Secondary pulmonary arterial hypertension; J96.11 Chronic respiratory failure with hypoxia; F17.211 Nicotine dependence, cigarettes, in remission; Z95.810 Presence of automatic (implantable) cardiac defibrillator
CPT/HCPCS: 36415; 80061; 80076; 84439; 84443; 93306; G0297; Q9957; A4216; C8929

== ENCOUNTER → 2020-01-03 11:11 | Outpatient (CLI) | payer MEDICARE, OTHER, SELFPAY ==
[2019-12-21 12:40] VITALS: BMI 32.8
[2020-01-03 11:15] VITALS: PULSE 103; PULSE 76; PULSE 84; PULSE 88; PULSE 92; PULSE 96; PULSE 98; O2SAT 88; O2SAT 89; O2SAT 91; O2SAT 92; O2SAT 93; O2SAT 96
--- NOTE | 2020-01-03 11:46 | CPS ---
Pt was placed on his 3 lpm continuous at the 3min. time check.
--- NOTE | 2020-01-03 15:09 | WT_ITS ---
PSN 6 Minute Walk Test - 6 Minute Walk Test 6 Minute Walk Test: 6 Minute Walk Test PSN:6-Minute Walk Test Start: 01/03/20 11:40 Freq: Status: Active Protocol: RESP.6MINW Document 01/03/20 11:15 AE (Rec: 01/03/20 11:[address] [facility] [id number]) 6 Minute Walk Test Date Performed 01/03/20 Time Performed 11:15 Height 5 ft 10 in Weight: 103.419 kg Weight in Pounds 228.[address]: Dr Kapoor Assistive device used: None Pre-test Oxygen Delivery Method Room Air Pulse Ox (%) 96 Pulse Rate (60-100 beats/min) 76 Dyspnea Tawnya Scale (0-10) 0 Exertion Tawnya Scale (6-20) 6 1st minute Oxygen Delivery Method Room Air Pulse Ox (%) 92 Pulse Rate (60-100 beats/min) 88 2nd minute Oxygen Delivery Method Room Air Pulse Ox (%) 89 Pulse Rate (60-100 beats/min) 96 3rd minute Oxygen Delivery Method Room Air Pulse Ox (%) 88 Pulse Rate (60-100 beats/min) 98 Dyspnea Tawnya Scale (0-10) 3 Exertion Tawnya Scale (6-20) 11 4th minute Oxygen Flow Rate (L/min) (L/min) 3 Oxygen Delivery Method Nasal Cannula Pulse Ox (%) 93 Pulse Rate (60-100 beats/min) 92 5th minute Oxygen Flow Rate (L/min) (L/min) 3 Oxygen Delivery Method Nasal Cannula Pulse Ox (%) 92 Pulse Rate (60-100 beats/min) 96 6th minute Oxygen Flow Rate (L/min) (L/min) 3 Oxygen Delivery Method Nasal Cannula Pulse Ox (%) 91 Pulse Rate (60-100 beats/min) 103 H Dyspnea Tawnya Scale (0-10) 5 Exertion Tawnya Scale (6-20) 13 Post-test Oxygen Flow Rate (L/min) (L/min) 3 Oxygen Delivery Method Nasal Cannula Pulse Ox (%) 96 Pulse Rate (60-100 beats/min) 84 Full Laps Walked 13 Partial Lap, Number of Tiles Walked 16 Total Distance Walked (ft) 783 01/03/20 11:46 Cardiopulmonary Services by Teresita Bridges Pt was placed on his 3 lpm continuous at the 3min. time check. Initialized on 01/03/20 11:46 - END OF NOTE - Interpretation Interpretation: The patient was noted to be 96% on room air at rest. The patient was able to ambulate 783 feet over the course of 6 minutes. The patient did desaturate to 88% in the third minute and was placed on 3 L nasal cannula with improvement to 93%. These findings are consistent with a respiratory limitation exercise tolerance. - Recommendations Recommendations: The patient requires no supplemental oxygen at rest, but should be using 3 L nasal cannula with any exertion.
== END ==
PROVIDERS: PCP Internal Medicine; Referring Provider Internal Medicine Critical Care Medicine; Visit Provider Internal Medicine Critical Care Medicine
DX: J96.11 Chronic respiratory failure with hypoxia (principal)
CPT/HCPCS: 94618

== ENCOUNTER → 2020-10-18 14:24 | Outpatient (CLI) | payer MEDICARE, OTHER, SELFPAY ==
[2020-06-19 12:38] VITALS: BMI 33.0
--- NOTE | 2020-10-18 14:37 | CT_ITS ---
STUDY: CT CHEST WITHOUT CONTRAST REASON FOR EXAM: Male, 70 years old. Lung Nodule RADIATION DOSAGE (If Supplied By Facility): CTDIvol = ( 17.95 ) mGy, DLP = ( 668.27 ) mGycm TECHNIQUE: Transaxial imaging was performed without the administration of intravenous contrast material. Multiplanar coronal and sagittal images were reformatted. Individualized dose optimization techniques were used for this CT. COMPARISON: Comparison is made with prior study dated 09/23/2019. FINDINGS: Stable 4.5 mm noncalcified nodule in the anterior aspect of the right middle lobe as seen on axial image #63. Stable diffuse increased interstitial markings in both lungs suggestive of a chronic interstitial fibrosis. There is no demonstrated pleural abnormality. A left-sided dual-chamber pacemaker is seen. Normal mediastinum. Normal hilar regions. Normal unenhanced pulmonary arteries. There is atherosclerotic calcification of the aortic arch with tortuosity and elongation of the aortic arch and descending thoracic aorta. There are multi-level degenerative changes of the thoracic spine. There is no demonstrated abnormality of the visualized upper abdomen. CT/Chest without Contrast IMPRESSION: Stable examination. Electronically Signed: Everette Medina MD at 19:57 EDT , Service support ,
== END ==
PROVIDERS: PCP Internal Medicine; Referring Provider Internal Medicine Critical Care Medicine; Visit Provider Internal Medicine Critical Care Medicine
DX: R91.1 Solitary pulmonary nodule (principal)
CPT/HCPCS: 71250

== ENCOUNTER → 2020-11-23 14:19 | Outpatient (CLI) | payer MEDICARE, OTHER, SELFPAY ==
--- NOTE | 2020-11-23 14:25 | RAD_ITS ---
STUDY: X-RAY CHEST REASON FOR EXAM: Male, 70 years old. amiodarone therapy TECHNIQUE: Frontal and lateral views of the chest. COMPARISON: 10/18/2020 FINDINGS: Pacemaker is seen on the left side. Stable diffuse increased interstitial markings in both lungs suggestive of a chronic interstitial fibrosis. There is no demonstrated pleural abnormality. Normal size heart. Normal mediastinum and annalise. Normal visualized pulmonary arteries. Normal visualized aortic arch and descending thoracic aorta. Normal visualized thoracic spine. There is degenerative osteoarthritis of the bilateral shoulders. There is no demonstrated abnormality of the visualized soft tissue structures of the upper abdomen. RAD/Chest PA and Lateral IMPRESSION: Stable diffuse increased interstitial markings in both lungs suggestive of a chronic interstitial fibrosis. Electronically Signed: Ilene Kaur MD at 4:56 EDT Tel , Service support ,
== END ==
PROVIDERS: PCP Internal Medicine; Visit Provider Internal Medicine Cardiovascular Disease
DX: I25.10 Atherosclerotic heart disease of native coronary artery without angina pectoris (principal); I25.5 Ischemic cardiomyopathy; I48.0 Paroxysmal atrial fibrillation; Z79.899 Other long term (current) drug therapy; Z95.5 Presence of coronary angioplasty implant and graft; Z95.810 Presence of automatic (implantable) cardiac defibrillator
CPT/HCPCS: 71046

== ENCOUNTER → 2021-01-23 | Outpatient (CLI) | payer MEDICARE, OTHER, SELFPAY | END | disposition home or self-care (01) | LOC: LABSPEC 11:14 | PROVIDERS: PCP Internal Medicine; Referring Provider Physician Assistant; Visit Provider Physician Assistant | DX: U07.1 COVID-19 (principal) | CPT/HCPCS: 87635; U0005; U0003 ==

== ENCOUNTER 2021-01-24 17:09 | Inpatient (IN) | payer MEDICARE, OTHER, SELFPAY ==
[2021-01-24] VITALS (7 sets, daily range): BP systolic 95–113; BP diastolic 52–60; PULSE 18–64; RESP 15–24; TEMP 36.7–38.8; O2SAT 89–95; BMI 32.8; BMI 31.7
--- NOTE | 2021-01-24 17:40 | CT_ITS ---
STUDY: CT BRAIN WITHOUT CONTRAST REASON FOR EXAM: Male, 70 years old. Altered mental status RADIATION DOSAGE (If Supplied By Facility): CTDIvol = ( 44.99 ) mGy, DLP = ( 2894.51 ) mGycm TECHNIQUE: Transaxial CT imaging of the brain was performed without administration of intravenous contrast material. Individualized dose optimization techniques were used for this CT. COMPARISON: Head CT dated April 10, 2017 FINDINGS: Normal soft tissue structures. Normal calvarium. There is mild cerebral atrophy with widening of the extra-axial spaces and ventricular dilatation. There are areas of decreased attenuation within the white matter tracts of the supratentorial brain, consistent with microvascular disease changes. Normal basal ganglia and thalami. Normal brainstem. Normal cerebellum. There is no intracranial hemorrhage. There are no findings of an acute ischemic infarction. Normal visualized paranasal sinuses. CT/Brain/Head without Contrast IMPRESSION: Chronic involutional changes of the brain. Electronically Signed: Kevyn Schmidt MD at 18:51 EST , Service support ,
--- NOTE | 2021-01-24 17:42 | EKG12_ITS ---
Test Reason : ALT LOC Blood Pressure : / mmHG Vent. Rate : 063 BPM Atrial Rate : 063 BPM P-R Int : 248 ms QRS Dur : 112 ms QT Int : 410 ms P-R-T Axes : 029 005 013 degrees QTc Int : 419 ms Sinus rhythm with 1st degree A-V block Incomplete left bundle branch block Borderline ECG Confirmed by WM AUGUSTIN, ROSAMARIA ([id number]), photo editor JACK CHILDS ([id number]) on 01/25/2021 1:59:06 P M Referred By: ROSY Confirmed By:MILENA BURK MD
[2021-01-24] MEDS: Acetaminophen 500 MG Tablet 1000 MG PO (17:49)
--- NOTE | 2021-01-24 18:14 | RAD_ITS ---
STUDY: X-RAY CHEST REASON FOR EXAM: Male, 70 years old. cough TECHNIQUE: Single AP portable view of the chest. COMPARISON: November 23, 2020 FINDINGS: Stable left chest cardiac device and lead. Mild mild patchy infiltrates are seen in the left upper and lower lobes. Cystic emphysematous changes reidentified as well as interstitial scarring in the right lung. There is no demonstrated pleural abnormality. Normal size heart. Normal mediastinum and annalise. Normal visualized pulmonary arteries. Normal visualized aortic arch and descending thoracic aorta. There are diffuse degenerative changes of the visualized thoracic spine. Normal visualized ribs, clavicles, and shoulders. There is no demonstrated abnormality of the visualized soft tissue structures of the upper abdomen. RAD/Chest 1 View (Portable) IMPRESSION: 1. Mild mild patchy infiltrates are seen in the left upper and lower lobes. 2. Cystic emphysematous changes reidentified as well as interstitial scarring in the right lung. Electronically Signed: Kevyn Schmidt MD at 18:49 EST , Service support ,
[2021-01-24 18:37] LABS: Alcohol, Blood (Medical)-Serum < 3.0 mg/dL
--- NOTE | 2021-01-24 18:51 | EX.ED.DYSGE1 ---
HPI History of Present Illness Chief Complaint: Alt LOC Narrative Narrative: Patient is a 70-year-old male with history of COPD who wears 3 L of nasal cannula oxygen 29/09. EMS was called secondary to a low pulse ox at home and change in mental status. EMS states when they arrived he was satting in the mid to high 80s. They state he was awake but confused and therefore brought him in for evaluation. The patient's is the one who called EMS. Upon arrival to the ER the patient is awake alert and oriented to person place and time. There is no focal neurologic deficit. He is slightly slow to respond but otherwise has a normal neurologic exam and patient has no complaints at this time [facility] Medical History Acute kidney injury Acute spontaneous subarachnoid intracranial hemorrhage Atherosclerotic heart disease of [place] coronary artery without angina pectoris Chronic respiratory failure with hypoxia Chronic systolic (congestive) heart failure Claudication Coronary artery disease Essential hypertension Family history of cardiovascular disease HLD (hyperlipidemia) Ischemic cardiomyopathy Mediastinal lymphadenopathy Mixed obstructive and restrictive ventilatory defect Nicotine dependence Nicotine dependence, cigarettes, in remission Nocturnal hypoxemia On amiodarone therapy BIANCA (obstructive sleep apnea) Paroxysmal atrial fibrillation Pulmonary nodule seen on imaging study Restless legs syndrome (RLS) Secondary pulmonary arterial hypertension Sleep-disordered breathing Tobacco abuse Tobacco dependence in remission Type 2 diabetes mellitus without complication Uncontrolled type 2 diabetes mellitus, without long-term current use of insulin Home Medications aspirin 81 mg PO DAILY@0800 #90 tab 04/12/17 [Rx Last Taken Unknown] Oxygen, Home [Home Oxygen] 3 l INHALATION DIRECTED unit 09/24/17 [History Last Taken Unknown] hydrocodone-acetaminophen 1 tab PO Q6H PRN PRN 3 Days #10 tab 10/25/17 [Rx Last Taken Unknown] glimepiride 4 mg tablet 4 mg PO BID #180 tab 03/29/18 [Rx Last Taken Unknown] prednisone 20 mg PO DAILY PRN 05/15/18 [History Last Taken Unknown] Accu-Chek Guide test strips #100 ea NS 05/17/18 [Rx Last Taken Unknown] azelastine 137 mcg (0.1 %) nasal spray aerosol 1 spray INTRANASAL BID 09/15/18 [History Last Taken Unknown] albuterol sulfate 90 mcg/actuation aerosol inhaler 2 puff INHALATION Q4H PRN #1 device 10/11/18 [Rx Last Taken Unknown] lisinopril 2.5 mg tablet 2.5 mg PO DAILY #90 tab 05/09/19 [Rx Last Taken Unknown] fluticasone propionate 50 mcg/actuation nasal spray,suspension 2 spray INTRANASAL DAILY 06/08/19 [History Last Taken Unknown] dulaglutide 1.5 mg/0.5 mL subcutaneous pen injector 1.5 mg SC QWEEK 09/16/19 [History Last Taken Unknown] loratadine 10 mg tablet 10 mg PO DAILY 09/16/19 [History Last Taken Unknown] allopurinol 100 mg tablet 100 mg PO BID tab 12/21/19 [History Last Taken Unknown] clopidogrel 75 mg tablet 75 mg PO DAILY #90 tab 04/13/20 [Rx Last Taken Unknown] empagliflozin 25 mg tablet 25 mg PO DAILY 04/16/20 [History Last Taken Unknown] furosemide 40 mg tablet See Rx Instructions .ROUTE .COMPLEX #90 tab 08/01/20 [Rx Last Taken Unknown] amiodarone 200 mg tablet 100 mg PO QDAY #45 tab 08/13/20 [Rx Last Taken Unknown] atorvastatin 10 mg tablet 10 mg PO QHS #90 tab 09/12/20 [Rx Last Taken Unknown] carvedilol 25 mg tablet 25 mg PO BID #180 tab 09/12/20 [Rx Last Taken Unknown] insulin glargine 100 unit/mL (3 mL) subcutaneous pen 44 unit SC BID ml 11/23/20 [History Last Taken Unknown] magnesium 250 mg tablet 250 mg PO BID tab 11/23/20 [History Last Taken Unknown] Allergy/AdvReac Type Severity Reaction Status Date / Time bee venom protein (honey bee) Allergy Anaphylaxis Verified 01/24/21 17:13 Family History (Reviewed 12/19/20 @ 14:06 by Minerva France [employer]OMOTIVE ACCESSORY INSTALLER, AUTOMOTIVE ACCESSORY INSTALLER-C) Father Heart disease Myocardial infarction Enlarged heart Hypertension Mother CVA (cerebral vascular accident) Hypertension Brother Myocardial infarction One at 65, other brother still living, early CA at 60 Hypertension Sister Diabetes Hypertension Surgical History (Reviewed 12/19/20 @ 14:06 by Minerva France AUTOMOTIVE ACCESSORY INSTALLER, AUTOMOTIVE ACCESSORY INSTALLER-C) History of back surgery Presence of implantable cardioverter-defibrillator (ICD) Presence of stent in coronary artery (~04/10/17) Social History (Reviewed 12/19/20 @ 14:06 by Minerva France AUTOMOTIVE ACCESSORY INSTALLER, AUTOMOTIVE ACCESSORY INSTALLER-C) Smoking Status: Unknown if ever smoked how long ago did patient quit smokin second hand exposure: No alcohol intake: never substance use type: does not use caffeine: Yes Type: coffee Number of servings: 5 what type of physical activity do you participate in: none seatbelt use: always do you feel safe at home: Yes ROS ROS ED Constitutional Constitutional ED: Denies chills or fever(s) ENT ENT ED: Denies sore throat Cardiovascular Cardiovascular: Denies chest pain Respiratory/Chest Respiratory/Chest: Denies cough or dyspnea Gastrointestinal Gastrointestinal: Denies abdominal pain, diarrhea, nausea or vomiting Genitourinary Genitourinary ED: Denies dysuria Musculoskeletal Musculoskeletal: Denies myalgias Integumentary Denies rash Neurologic Neurologic: Denies headache(s) Hematologic/Lymphatic Hematologic/Lymphatic: Reports easy bleeding and easy bruising EXAM Physical Exam Const Vital Signs: 01/24/21 17:10 01/24/21 18:55 01/24/21 19:52 Temperature 101.9 F H 99.8 F H Temperature Source Oral Temporal Pulse Rate 64 61 60 Respiratory Rate 23 H 15 23 H Blood Pressure 101/55 L 95/54 L 102/55 L Blood Pressure Mean 70 67 70 Pulse Ox 89 91 93 Oxygen Delivery Method Nasal Cannula Room Air Nasal Cannula Oxygen Flow Rate (L/min) 6 4 Positive well nourished, well developed and obese General Appearance ED: well developed Nutritional Appearance: obese HEENT Reports moist mucous membranes HEENT Narrative: No tongue or lip swelling no oral lesions no airway edema or compromise Eyes PERRL and EOMs intact bilaterally Neck supple Neck Narrative: No meningeal signs Resp normal respiratory effort Resp Narrative: Breath sounds are diminished throughout with diffuse expiratory wheeze but no signs of respiratory distress Cardio regular rate and regular rhythm Rate: other Other Details: Radial pulses are plus 2 out of 4 bilaterally are equal and symmetric GI normal to inspection, nondistended, normoactive bowel sounds, non-tender and non-distended GI Narrative: There is a large ventral hernia noted that is reducible in nature without voluntary guarding rigidity or pulsatile mass Auscultation: normoactive bowel sounds Palpation: soft Extremity normal to inspection Neuro oriented x3 and CN's II-XII intact bilaterally Neuro Narrative: Cranial nerves II through XII are grossly intact there are no focal neurologic deficits. NIH stroke scale score of 0 and GCS of 15. Sensorium / Orientation: alert Motor Exam: strength 5/5 throughout Psych mental status grossly normal Skin no rashes or lesions noted MDM MDM MDM Narrative Medical decision making narrative: Patient presented to the ER awake alert and oriented x3 without any obvious focal neurologic deficit. He reported that he tested positive for Covid yesterday and did develop a fever today of 102 on arrival. I do feel that his reported change in mental status at home was secondary to the fever and Covid. A basic work-up was obtained which showed no clinically significant findings to the labs and his head CT was without any acute finding either. Chest x-ray showed pneumonia consistent with fever and his mild increased need for supplemental oxygen. At this time his blood pressure has been soft and with his fever reported change in mental status per EMS and his increased need for oxygen I do not feel it is safe for discharge and he will be admitted to the hospital for further care Lab Data Attestation: I reviewed the patient's lab results. Labs: Laboratory Results - last 24 hr 01/24/21 01/24/21 01/24/21 17:30 17:30 17:30 WBC RBC Hgb Hct MCV MCH MCHC RDW Std Deviation RDW Coeff of Dayne Plt Count MPV Immature Gran % (Auto) Neut % (Auto) Lymph % (Auto) Lee % (Auto) Eos % (Auto) Baso % (Auto) Absolute Neuts (auto) Absolute Lymphs (auto) Nucleated RBC % PT 13.7 INR 1.1 APTT 42.2 H Sodium 133 L Potassium 4.4 Chloride 101 Carbon Dioxide 25.0 Anion Gap 7 BUN 24 H Creatinine 1.49 H Estim Creat Clear Calc 49.13 Est GFR (MDRD) Af Amer 60 Est GFR (MDRD) Non-Af 50 L BUN/Creatinine Ratio 16.1 Glucose 130 H Lactic Acid 1.4 Calcium 7.3 L Total Bilirubin 0.40 Direct Bilirubin 0.20 AST 63 H ALT 50 Alkaline Phosphatase 51 Ammonia Troponin I High Sens 38 Total Protein 6.9 Albumin 2.8 L Globulin 4.1 Ethyl Alcohol 01/24/21 01/24/21 01/24/21 17:45 18:15 18:50 WBC 5.4 RBC 4.69 Hgb 13.6 Hct 41.4 MCV 88.3 MCH 29.0 MCHC 32.9 RDW Std Deviation 50.4 H RDW Coeff of Dayne 15.6 H Plt Count 109 L MPV 9.6 Immature Gran % (Auto) 0.400 Neut % (Auto) 82.5 H Lymph % (Auto) 11.5 L Lee % (Auto) 5.0 Eos % (Auto) 0.2 Baso % (Auto) 0.4 Absolute Neuts (auto) 4.5 Absolute Lymphs (auto) 0.62 L Nucleated RBC % 0 PT INR APTT Sodium Potassium Chloride Carbon Dioxide Anion Gap BUN Creatinine Estim Creat Clear Calc Est GFR (MDRD) Af Amer Est GFR (MDRD) Non-Af BUN/Creatinine Ratio Glucose Lactic Acid Calcium Total Bilirubin Direct Bilirubin AST ALT Alkaline Phosphatase Ammonia < 10.0 L Troponin I High Sens Total Protein Albumin Globulin Ethyl Alcohol < 3.0 Radiography Diagnostic Testing: Clinical Impression(s) from Imaging Studies Brain CT 01/24/21 17:40 IMPRESSION: Chronic involutional changes of the brain. Electronically Signed: Kevyn Schmidt MD at 18:51 EST , Service support , Chest X-Ray 01/24/21 18:14 IMPRESSION: 1. Mild mild patchy infiltrates are seen in the left upper and lower lobes. 2. Cystic emphysematous changes reidentified as well as interstitial scarring in the right lung. Electronically Signed: Kevyn Schmidt MD at 18:49 EST , Service support , Discharge Plan Triage Chief Complaint: Alt LOC ED Provider: Dakota Young Dx/Rx/DC Orders Clinical Impression: Pneumonia due to 2019 novel coronavirus, Pyrexia Prescriptions: No Action allopurinol 100 mg tablet 100 mg PO BID RF: 0 Oxygen, Home [Home Oxygen] 3 l INHALATION DIRECTED RF: 0 magnesium 250 mg tablet 250 mg PO BID RF: 0 azelastine 137 mcg (0.1 %) aerosol,spray 1 spray INTRANASAL BID RF: 0 dulaglutide 1.5 mg/0.5 mL pen injector 1.5 mg SC QWEEK RF: 0 loratadine 10 mg tablet 10 mg PO DAILY RF: 0 fluticasone propionate [Allergy Relief (fluticasone)] 50 mcg/actuation spray,suspension 2 spray INTRANASAL DAILY RF: 0 Jardiance 25 mg tablet 25 mg PO DAILY RF: 0 aspirin 81 MG tablet 81 mg PO DAILY@0800 Qty: 90 RF: 0 hydrocodone-acetaminophen 1 TABLET tablet 1 tab PO Q6H PRN PRN (Reason: Pain) 3 Days Qty: 10 RF: 0 prednisone 20 MG tablet 20 mg PO DAILY PRN (Reason: GOUT) RF: 0 insulin glargine 100 unit/mL (3 mL) insulin pen 44 unit SC BID RF: 0 glimepiride 4 mg tablet 4 mg PO BID Qty: 180 RF: 3 (DME) Accu-Chek Guide test strips strip See Dose Instructions .ROUTE .MEDSUPPLY Qty: 100 RF: 11 albuterol sulfate 90 mcg/actuation HFA aerosol inhaler 2 puff Inhalation Q4H PRN (Reason: shortness of breath or wheezing) Qty: 1 RF: 3 lisinopril 2.5 mg tablet 2.5 mg PO DAILY Qty: 90 RF: 4 clopidogrel [Plavix] 75 mg tablet 75 mg PO DAILY Qty: 90 RF: 3 furosemide 40 mg tablet See Rx Instructions .ROUTE .COMPLEX Qty: 90 RF: 4 amiodarone 200 mg tablet 100 mg PO QDAY Qty: 45 RF: 3 atorvastatin 10 mg tablet 10 mg PO QHS Qty: 90 RF: 3 carvedilol 25 mg tablet 25 mg PO BID Qty: 180 RF: 3 Primary Care Provider: Lindsay Batista Referrals: Lindsay Batista MD [Primary Care Provider] - Disposition Disposition: Acute Care Hospital [facility]
[2021-01-24 18:52] LABS: Ammonia < 10.0 umol/L (11-32)
[2021-01-24 18:57] LABS: Absolute Lymphocyte Count 0.62 X10^3/uL (0.83-4.51); Absolute Neutrophil Count 4.5 X10^3/uL (2.0-7.7); Basophil# 0.02 X10^3/uL; Basophil% 0.4 % (0-1); Eosinophil# 0.01 X10^3/uL; Eosinophils% 0.2 % (0-5); Hematocrit 41.4 % (40-54); Hemoglobin 13.6 g/dL (13.0-16.5); Lymphocyte # 0.62 X10^3/ul (0.83-4.51); Lymphocyte % 11.5 % (19-41); Mean Corp Hgb Conc 32.9 g/dL (32-36); Mean Corpuscular Volume 88.3 fL (80-94); Mean Platelet Vol. 9.6 fl (6.2-12.0); Monocyte# 0.27 X10^3/uL; NRBC Flagged by Analyzer 0 % (0-5); Neutrophil # 4.46 X10^3/uL (2.7-7.7); Neutrophil % 82.5 % (47-70); Platelet Count 109 K/mm3 (150-450); RBC Distribution Width CV 15.6 % (11.6-14.6); RBC Distribution Width SD 50.4 fl (35.1-43.9); Red Blood Count 4.69 M/mm3 (4.6-6.2); White Blood Count 5.4 K/mm3 (4.4-11.0)
[2021-01-24 19:03] LABS: International Normalized Ratio 1.1; Prothrombin Time (Protime)PT. 13.7 SECONDS (11.7-14.9)
[2021-01-24 19:04] LABS: Partial Thromboplast Time 42.2 Seconds (24.1-36.2)
[2021-01-24 19:07] LABS: AST(SGOT) 63 U/L (15-37); Alanine Aminotransfer ALT/SGPT 50 U/L (16-61); Albumin, Serum 2.8 g/dL (3.2-5.0); Alkaline Phosphatase 51 U/L (45-117); Anion Gap 7 (5-15); BUN 24 mg/dL (7-18); BUN/Creat Ratio 16.1 RATIO (10-20); Calcium,Total 7.3 mg/dL (8.5-10.1); Chloride 101 mmol/L (98-107); Creatinine, Serum 1.49 mg/dL (0.70-1.30); EST Glomerular Filtration Rate 50 mL/min (>60); Est Glom Filt Rate - Afr Amer 60 mL/min (>60); Estimated Creatinine Clearance 49.13 ml/min; Globulin 4.1 g/dL (2.2-4.2); Glucose 130 mg/dL (74-106); Potassium 4.4 mmol/L (3.5-5.1); Protein, Total 6.9 g/dL (6.4-8.2); Sodium Level 133 mmol/L (136-145); Troponin-I HS 38 pg/mL (3.0-78.0)
[2021-01-24 19:08] LABS: Lactic Acid 1.4 mmol/L (0.4-1.9)
[2021-01-24] MEDS: 0.9% Normal Saline 1,000 ML 999 ML IV (19:46)
[2021-01-24] MEDS: dexAMETHasone 10 MG/ML Vial IV (19:50)
--- NOTE | 2021-01-24 20:06 | HP.PCM.HOS_ITS ---
HPI - General General Date of Admission: 01/24/21 Date of Service: 01/24/21 Chief Complaint: COVID positive, worsening symptoms. HPI Narrative The patient is a 70 y/o M w/ PMHx: Chronic COPD w/ Chronic Hypoxic Respiratory Failure (3L NC) following w/ Dr. Kapoor, PAF, Former tobacco use, HTN, HLD, BIANCA on CPAP q HS, CAD s/p PCI LAD and RCA, Ischemic cardiomyopathy, CKD stage III unclear subtype, Diabetes mellitus type II who presents to the [facility] ED on 01/24/21 with history of onset of Covid type symptoms over the last 3 to 4 days with fever, chills, frontal headache, decreased and altered sense of taste and smell, diarrhea as well as cough and dyspnea progressively worsening with planned monoclonal antibody administration on day of ED presentation however he had worsened hypoxia above his baseline requiring an increase in his suppl ementation up to 4 L from his baseline 3 L, worsening dyspnea especially with exertion prompting ED evaluation. Patient noted that both him and his tested positive the day prior to current presentation. Patient's is also ill however she is not requiring oxygen and he noted was currently getting her monoclonal antibody treatment. Both he and his did get Covid vaccination, specifically J&J vaccine which was the only thing offered to them at the time. He denies having any recent booster. Work-up in the ED included T101.9, heart rate 64, BP 101/55 however it did decrease to 95/54 while in the ED, respiratory rate 23, initially 89% on 6 L however following ED interventions did improve to 93% on 4 L nasal cannula, CBC with WBCs 5.4, hemoglobin 13.6, platelet 109 with lymphopenia, coags with PTT 42.2 otherwise not marked appearing, CMP with sodium 133, BUN/creatinine 24/1.49, glucose 130, lactic acid 1.4, AST/ALT 63/50, ammonia less than 10, troponin 38, unremarkable hepatic profile otherwise, confirmatory rapid Covid positive testing in the ED, chest x-ray with mild pat adrianna infiltrates in the left upper and lower lobes, cystic emphysematous changes as well as interstitial scarring right lung, CT brain with chronic involutional changes. [facility] Medical History Acute kidney injury Acute spontaneous subarachnoid intracranial hemorrhage Atherosclerotic heart disease of [place] coronary artery without angina pectoris Chronic respiratory failure with hypoxia Chronic systolic (congestive) heart failure Claudication Coronary artery disease Essential hypertension Family history of cardiovascular disease HLD (hyperlipidemia) Ischemic cardiomyopathy Mediastinal lymphadenopathy Mixed obstructive and restrictive ventilatory defect Nicotine dependence Nicotine dependence, cigarettes, in remission Nocturnal hypoxemia On amiodarone therapy BIANCA (obstructive sleep apnea) Paroxysmal atrial fibrillation Pulmonary nodule seen on imaging study Restless legs syndrome (RLS) Secondary pulmonary arterial hypertension Sleep-disordered breathing Tobacco abuse Tobacco dependence in remission Type 2 diabetes mellitus without complication Uncontrolled type 2 diabetes mellitus, without long-term current use of insulin Home Medications hydrocodone-acetaminophen 1 tab PO Q6H PRN PRN 3 Days #10 tab 10/25/17 [Rx Last Taken Unknown] azelastine 137 mcg (0.1 %) nasal spray aerosol 1 spray INTRANASAL BID 09/15/18 [History Last Taken 01/24/21] albuterol sulfate 90 mcg/actuation aerosol inhaler 2 puff INHALATION Q4H PRN #1 device 10/11/18 [Rx Last Taken 01/23/21] fluticasone propionate 50 mcg/actuation nasal spray,suspension 2 spray INTRANASAL DAILY 06/08/19 [History Last Taken 01/24/21] dulaglutide 1.5 mg/0.5 mL subcutaneous pen injector 1.5 mg SC MO 09/16/19 [History Last Taken 01/22/21] loratadine 10 mg tablet 10 mg PO DAILY 09/16/19 [History Last Taken 01/24/21] allopurinol 100 mg tablet 100 mg PO BID tab 12/21/19 [History Last Taken 01/24/21 \] empagliflozin 25 mg tablet 25 mg PO DAILY 04/16/20 [History Last Taken 01/24/21] insulin glargine 100 unit/mL (3 mL) subcutaneous pen 44 unit SC BID ml 11/23/20 [History Last Taken 01/24/21] magnesium 250 mg tablet 250 mg PO BID tab 11/23/20 [History Last Taken 01/24] amiodarone 100 mg PO DAILY 01/24/21 [History Last Taken 01/24/21] aspirin 81 mg PO DAILY@0800 01/24/21 [History Last Taken 01/24/21] atorvastatin 10 mg PO QHS 01/24/21 [History Last Taken 01/23/21] carvedilol 25 mg PO BID 01/24/21 [History Last Taken 01/24/21] clopidogrel [Plavix] 75 mg PO DAILY 01/24/21 [History Last Taken 01/24/21] furosemide 20 mg PO DAILY 01/24/21 [History Last Taken 01/24/21] glimepiride 4 mg PO BID 01/24/21 [History Last Taken 01/24/21] lisinopril 2.5 mg PO DAILY 01/24/21 [History Last Taken 01/24/21] Allergy/AdvReac Type Severity Reaction Status Date / Time bee venom protein (honey bee) Allergy Anaphylaxis Verified 01/24/21 21:07 Family History (Reviewed 12/19/20 @ 14:06 by Minerva France DIRECTOR BUSINESS DEVELOPMENT, DIRECTOR BUSINESS DEVELOPMENT-C) Father Heart disease Myocardial infarction Enlarged heart Hypertension Mother CVA (cerebral vascular accident) Hypertension Brother Myocardial infarction One at 65, other brother still living, early [place] at 60 Hypertension Sister Diabetes Hypertension Surgical History (Reviewed 12/19/20 @ 14:06 by Minerva France DIRECTOR BUSINESS DEVELOPMENT, DIRECTOR BUSINESS DEVELOPMENT-C) History of back surgery Presence of implantable cardioverter-defibrillator (ICD) Presence of stent in coronary artery (~04/10/17) Social History (Updated 01/24/21 @ 20:[address] Coby López MD) household members: spouse Smoking Status: Former smoker quit date: 03/09/17 pack-years: 45 how long ago did patient quit smokin, smoked 1 ppd x 45 years. second hand exposure: No alcohol intake: never substance use type: does not use caffeine: Yes Type: coffee Number of servings: 5 what type of physical activity do you participate in: none seatbelt use: always do you feel safe at home: Yes ROS ROS Narrative Admission Review of Systems: CONSTITUTIONAL: No weight loss, + fever, chills, weakness or fatigue. HEENT: + Headache, altered taste and smell. Eyes: No visual loss, blurred vision, double vision or yellow sclerae. Ears, Nose, Throat: No hearing loss, sneezing. SKIN: No rash or itching, lesions, wounds. CARDIOVASCULAR: No chest pain, chest pressure or chest discomfort, palpitations, edema, orthopnea, syncopal events. RESPIRATORY: + shortness of breath, cough without marked sputum, No wheezing, hemoptysis. GASTROINTESTINAL: + anorexia, diarrhea, No nausea, vomiting, abdominal pain, melena, BRBPR. GENITOURINARY: No dysuria, frequency, urgency or retention. NEUROLOGICAL: + headache, No dizziness, syncope, paralysis, ataxia, numbness or tingling in the extremities, focal weakness, change in bowel or bladder control, seizure. MUSCULOSKELETAL: + muscle, back pain, joint pain or stiffness. HEMATOLOGIC: No anemia, bleeding or bruising. LYMPHATICS: No enlarged nodes. No history of splenectomy. PSYCHIATRIC: No history of depression or anxiety. ENDOCRINOLOGIC: No reports of sweating, cold or heat intolerance. No polyuria or polydipsia. ALLERGIES: + history of asthma, hives, eczema or rhinitis. Vital Signs Vital Signs Vital Signs: 01/24/21 17:10 01/24/21 18:55 01/24/21 19:52 Temperature 101.9 F H 99.8 F H Temperature Source Oral Temporal Pulse Rate 64 61 60 Respiratory Rate 23 H 15 23 H Blood Pressure 101/55 L 95/54 L 102/55 L Blood Pressure Mean 70 67 70 Pulse Ox 89 91 93 Oxygen Delivery Method Nasal Cannula Room Air Nasal Cannula Oxygen Flow Rate (L/min) 6 4 Weight Weight: 235 lb 7.259 oz Body Mass Index (BMI) 32.8 Physical Exam Narrative Physical Examination: General: Awake, alert, oriented to self, place and recent events, patient is slow to respond but do suspect some hearing impairment, remains cooperative, following commands, ill and fatigued appearing. Skin: Normal color, normal turgor, no icterus, no cyanosis. HEENT: AT/NC, EOMI, PERRLA, moderately dry MM, no carotid bruits or JVD noted. Lungs: Diffusely diminished, greater bases, mildly increased respiratory rate but no evidence of any distress, rales, ronchi or wheezing. Heart: Regular rate and rhythm; no gallop, rub audible. Abdomen: Soft, obese, NTTP, mildly distended, hyperactive distant bowel sounds, no obvious HSM. Extremities: No cyanosis, clubbing, or edema. Neurological: Patient awake, alert, oriented as noted, cognitive function suspect near baseline however he is slow to respond but giving appropriate orientation answers; pupils equally reactive to light and accommodation, cranial nerves II-XII grossly normal, moving all 4 extremities, no focal deficits, strength severely global decrease secondary to acute presentation. Psychiatric: Affect appears flat, fatigued, ill-appearing, no acute evidence of depressive or anxiety feelings. Results Lab / Micro Data Result Diagrams: 01/24/21 18:50 01/24/21 17:30 Labs: Laboratory Results - last 24 hr 01/24/21 17:30: PT 13.7, INR 1.1, APTT 42.2 H 01/24/21 17:30: Sodium 133 L, Potassium 4.4, Chloride 101, Carbon Dioxide 25.0, Anion Gap 7, BUN 24 H, Creatinine 1.49 H, Estim Creat Clear Calc 49.13, Est GFR (MDRD) Af Amer 60, Est GFR (MDRD) Non-Af 50 L, BUN/Creatinine Ratio 16.1, Glucose 130 H, Calcium 7.3 L, Total Bilirubin 0.40, Direct Bilirubin 0.20, AST 63 H, ALT 50, Alkaline Phosphatase 51, Troponin I High Sens 38, Total Protein 6.9, Albumin 2.8 L, Globulin 4.1 01/24/21 17:30: Lactic Acid 1.4 01/24/21 17:45: Ethyl Alcohol < 3.0 01/24/21 18:15: Ammonia < 10.0 L 01/24/21 18:50: WBC 5.4, RBC 4.69, Hgb 13.6, Hct 41.4, MCV 88.3, MCH 29.0, MCHC 32.9, RDW Std Deviation 50.4 H, RDW Coeff of Dayne 15.6 H, Plt Count 109 L, MPV 9.6, Immature Gran % (Auto) 0.400, Neut % (Auto) 82.5 H, Lymph % (Auto) 11.5 L, [place] % (Auto) 5.0, Eos % (Auto) 0.2, Baso % (Auto) 0.4, Absolute Neuts (auto) 4.5, Absolute Lymphs (auto) 0.62 L, Nucleated RBC % [address] 01/24/21 17:40 IMPRESSION: Chronic involutional changes of the brain. Electronically Signed: Kevny Schmidt MD at 18:51 EST , Service support , Chest X-Ray 01/24/21 18:14 IMPRESSION: 1. Mild mild patchy infiltrates are seen in the left upper and lower lobes. 2. Cystic emphysematous changes reidentified as well as interstitial scarring in the right lung. Electronically Signed: Kevyn Schmidt MD at 18:49 EST , Service support , Assessment & Plan Assessment/Plan (1) Pneumonia due to 2019 novel coronavirus: (2) Acute on chronic respiratory failure with hypoxia: PLAN: The patient is a 70 y/o M w/ PMHx: Chronic COPD w/ Chronic Hypoxic Respiratory Failure (3L NC) following w/ Dr. Kapoor, PAF, Former tobacco use, HTN, HLD, BIANCA on CPAP q HS, CAD s/p PCI LAD and RCA, Ischemic cardiomyopathy, CKD stage III unclear subtype, Diabetes mellitus type II who presents to the [facility] ED on 01/24/21 with history of onset of Covid type symptoms over the last 3 to 4 days with fever, chills, frontal headache, decreased and altered sense of taste and smell, diarrhea as well as cough and dyspnea progressively worsening with planned monoclonal antibody administration on day of ED presentation however he had worsened hypoxia above his baseline requiring an increase in his supplementation up to 4 L from his baseline 3 L, worsening dyspnea especially with exertion prompting ED evaluation. 1. Acute on Chronic Hypoxic Respiratory Failure secondary to L sided (Suspect BL) Pneumonia secondary to Acute Viral Syndrome, COVID-19: Will admit to PCU given low BPs in the ED initially, will maintain on oxygen with wean as tolerated to home chronic 3L usage, PRN albuterol, ATC duoneb therapies, HOB, IS parameters w/ pending sputum cultures, respiratory viral panel and urine antigens, will obtain D-dimer, procalcitonin, CRP, CPK, Ferritin, LDH, trop and BNP, continue supportive care including q 2 hour turning including prone given no prone bed availability and judicious hydration, closely monitor for worsening status for ARDS and multiorgan failure, will initiate and continue IV decadron x 10 doses, given presentation will also initiate IV remdesivir but defer to discretion of Infectious disease with continued close renal function and liver function monitoring. 2. Chronic COPD with chronic hypoxic respiratory failure as noted above: Will maintain on oxygen with wean as tolerated to home oxygen supplementation, hold home inhalers, maintain on ATC duonebs, PRN albuterol, HOB, IS parameters. 3. CAD: Status post PCI LAD and RCA, will continue patient aspirin, Plavix, Coreg, lisinopril, statin therapy. 4. Hypertension: We will cautiously continue patient home lisinopril, Lasix, Coreg regimen given low BP in the ED, as needed IV hydralazine. 5. Hyperlipidemia: We will continue patient on statin therapy. 6. Ischemic cardiomyopathy: Status post AICD placement, we will continue patient home aspirin, Plavix, lisinopril, Coreg, Lasix therapy cautiously given low BPs in the ED. 7. Chronic Kidney Disease Stage III, unclear subtype: Admission BUN/Cr 24/1.49, baseline renal function 1.2-1.4 primarily, repeat BMP in AM. 8. Diabetes mellitus type II: Hold oral home regimen, continue home insulin regimen, ADA diet, accu checks w/ ISS. 9. Former tobacco use: Encourage continued tobacco cessation. 10. PAF: Not anticoagulated, will continue patient home Coreg regimen. 11. BIANCA: We will continue CPAP nightly. 12. DVT prophylaxis: SCDs, Lovenox. 13. CODE status: Patient DAMARIS is his and living will is currently in place. Discussed CODE status at length including difference between FULL code, DNR-CCA and DNR-CC status. Following discussions about the differences in these status, requested Full Code status. Patient amenable to airvo and BIPAP if necessary also. Advanced Care Planning Face to Face Time: 16 minutes. Charges/Coding Visit Charges Inpatient E&M: 21658 Init Hosp L3 Procedures Hospitalists Procedures: 66090 Advncd Care Plan 30 Min
[2021-01-24 20:58] LABS: D-Dimer Quantitative (DVT/PE) 1.39 FEU/ug/m (0.27-0.49)
--- NOTE | 2021-01-24 21:08 | CT_ITS ---
STUDY: CTA CHEST REASON FOR EXAM: Male, 70 years old. + COVID HX:HTN,HLD,DIABETES,CAD,A-FIB,CKD STAGE 3 HZS DEFIBRILLATOR suspected PE RADIATION DOSAGE (If Supplied By Facility): CTDIvol = ( 13.59 ) mGy, DLP = ( 517.47 ) mGycm TECHNIQUE: The examination was performed with the intravenous administration of IV 100mL Isovue-370. Post-processing of the angiographic images was performed, with multiplanar reformation and 3D reconstruction. Individualized dose optimization techniques were used for this CT. COMPARISON: CT of the chest dated January 24, 2021. FINDINGS: Mild consolidation is present in the bilateral lower lobes, right greater than left with superimposed groundglass edema. Mild to moderate groundglass edema and developing consolidation is also present in the bilateral upper lobes and to a lesser extent the right middle lobe. Diffuse cystic emphysematous changes are present. Interstitial scarring is also seen in both lungs. No pleural effusion is present. Normal enhancement of the main pulmonary artery and right and left pulmonary arteries. Normal enhancement of the bilateral peripheral pulmonary arteries. There is no demonstrated pulmonary embolism. There is atherosclerotic calcification of the aortic arch with tortuosity. There is no demonstrated aortic dissection. Normal heart size and pericardium. Diffuse mediastinal and hilar subcentimeter lymphadenopathy is present. Normal visualized trachea and bronchi. The lungs are well expanded. Normal pleura. Normal chest wall structures. Left chest cardiac device and right heart leads noted. There are degenerative changes of thoracic spine. Normal visualized upper abdomen. CT/CTA Chest W/WO Contrast IMPRESSION: 1. Mild bilateral multifocal pneumonia with groundglass edema suggesting Covid 19. 2. No demonstrated pulmonary embolism or arterial dissection. 3. Cystic emphysematous changes Electronically Signed: Kevyn Schmidt MD at 22:50 EST , Service support ,
[2021-01-24 21:18] LABS: BNP,B-Type NATRIURETIC PEPTIDE 97.6 pg/mL (0-100)
--- NOTE | 2021-01-24 21:21 | PCS.PANDOC ---
PANDEMIC DOCUMENTATION INITIATED: Date: 10/22/2020 Time: 190
[2021-01-24 21:24] LABS: Ferritin 1577 ng/mL (26-388); LDH 399 U/L (87-241); Magnesium 2.2 mg/dL (1.6-2.6)
[2021-01-24] MEDS: Enoxaparin 30 MG/0.3 ML Syringe SC (21:57)
[2021-01-24] MEDS: Insulin Lispro 100 UNIT/ML INSULN.PEN SC (21:57)
[2021-01-24] MEDS: Allopurinol 100 MG Tablet PO (22:03)
[2021-01-24] MEDS: Carvedilol 25 MG Tablet PO (22:03)
[2021-01-24] MEDS: 0.9% Saline Lock 10 ML Syringe IV (22:03)
[2021-01-24] MEDS: Atorvastatin Calcium 10 MG Tablet PO (22:03)
[2021-01-24] MEDS: 0.9% Normal Saline 1,000 ML 100 ML IV (22:03)
[2021-01-24 22:30] LABS: Bedside Glucose 153 mg/dL (70-110)
[2021-01-24] MEDS: Ipratropium/Albuterol Sulfate 3 ML AMPUL.NEB INHALATION (23:46)
[2021-01-25] VITALS (15 sets, daily range): BP systolic 121–146; BP diastolic 64–71; PULSE 55–65; RESP 18–20; TEMP 36.4–37.1; O2SAT 86–96
[2021-01-25] MEDS: Insulin Lispro 100 UNIT/ML INSULN.PEN SC ×4 (06:41→22:40)
[2021-01-25 07:01] LABS: Bedside Glucose 296 mg/dL (70-110)
[2021-01-25] MEDS: Ipratropium/Albuterol Sulfate 3 ML AMPUL.NEB INHALATION ×3 (07:23→19:58)
[2021-01-25 07:35] LABS: Absolute Lymphocyte Count 0.67 X10^3/uL (0.83-4.51); Basophil# 0.01 X10^3/uL; Basophil% 0.2 % (0-1); Hematocrit 44.2 % (40-54); Hemoglobin 14.3 g/dL (13.0-16.5); Lymphocyte # 0.67 X10^3/ul (0.83-4.51); Lymphocyte % 13.6 % (19-41); Mean Corp Hgb Conc 32.4 g/dL (32-36); Mean Corpuscular Hgb 28.9 pg (27.0-32.0); Mean Corpuscular Volume 89.3 fL (80-94); Mean Platelet Vol. 9.3 fl (6.2-12.0); Monocyte% 4.1 % (0-10); NRBC Flagged by Analyzer 0 % (0-5); Neutrophil # 4.01 X10^3/uL (2.7-7.7); Neutrophil % 81.5 % (47-70); POSITIVE MORPHOLOGY YES; Platelet Count 111 K/mm3 (150-450); RBC Distribution Width CV 15.9 % (11.6-14.6); RBC Distribution Width SD 52.1 fl (35.1-43.9); Red Blood Count 4.95 M/mm3 (4.6-6.2); White Blood Count 4.9 K/mm3 (4.4-11.0)
[2021-01-25 07:36] LABS: Differential Indicated SCAN CRITERIA MET
[2021-01-25 07:53] LABS: Bacteria 0 SEEN /hpf (None Seen); Mucous, Urine 0 SEEN /hpf (<or=2+); Squamous Epithelial Cells - UA 0 SEEN /hpf (0-5); White Blood Cells 0 SEEN /hpf (0-5)
[2021-01-25 07:55] LABS: Color, Urine Yellow (Yellow); Glucose, Dipstick 1000 mg/dl (Normal); Ketone-Dipstick 5 mg/dl (Negative); Leukocyte Esterase-Dipstick Negative /ul (Negative); Nitrite-Dipstick Negative (Negative); Occult Blood-Urine 50 /ul (Negative); Protein-Dipstick Negative (Negative); Urine Bilirubin Dipstick Negative (Negative); Urine Clarity Sl. Cloudy (Clear); Urine Urobilinogen Normal (Normal)
[2021-01-25 08:02] LABS: Red Blood Cells-Urine 0-5 SEEN /hpf (0-5)
[2021-01-25 08:04] LABS: ALB/GLOB Ratio 0.6 RATIO (0.9-2.4); AST(SGOT) 75 U/L (15-37); Alanine Aminotransfer ALT/SGPT 56 U/L (16-61); Albumin, Serum 2.7 g/dL (3.2-5.0); Alkaline Phosphatase 54 U/L (45-117); Anion Gap 8 (5-15); BUN 29 mg/dL (7-18); BUN/Creat Ratio 21.5 RATIO (10-20); Calcium,Total 7.6 mg/dL (8.5-10.1); Chloride 104 mmol/L (98-107); Creatinine, Serum 1.35 mg/dL (0.70-1.30); EST Glomerular Filtration Rate 56 mL/min (>60); Est Glom Filt Rate - Afr Amer 67 mL/min (>60); Estimated Creatinine Clearance 54.23 ml/min; Globulin 4.4 g/dL (2.2-4.2); Glucose 265 mg/dL (74-106); Potassium 4.7 mmol/L (3.5-5.1); Protein, Total 7.1 g/dL (6.4-8.2); Sodium Level 133 mmol/L (136-145)
[2021-01-25] MEDS: Aspirin E.C. 81 MG Tablet PO (08:52)
[2021-01-25] MEDS: Azelastine HCl NASAL.SRY 1 SPRAY NASAL (08:52)
[2021-01-25] MEDS: Carvedilol 25 MG Tablet PO ×2 (08:53→22:39)
[2021-01-25] MEDS: Amiodarone 200 MG Tablet 100 MG PO (08:53)
[2021-01-25] MEDS: Lisinopril 2.5 MG Tablet PO (08:53)
[2021-01-25] MEDS: Fluticasone 0.05% 1 SPRAY NASAL.SRY 2 SPRAY NASAL (08:53)
[2021-01-25] MEDS: Furosemide 20 MG Tablet PO (08:53)
[2021-01-25] MEDS: Clopidogrel Bisulfate 75 MG Tablet PO (08:53)
[2021-01-25] MEDS: Loratadine 10 MG Tablet PO (08:53)
[2021-01-25] MEDS: dexAMETHasone 4 MG/ML Vial 6 MG IV (08:54)
[2021-01-25] MEDS: Enoxaparin 30 MG/0.3 ML Syringe SC ×2 (08:54→22:39)
[2021-01-25] MEDS: Allopurinol 100 MG Tablet PO ×2 (12:16→22:38)
[2021-01-25 13:31] LABS: Bedside Glucose 303 mg/dL (70-110)
--- NOTE | 2021-01-25 14:36 | CASEMGMT ---
Patient has a Healthcare Power of Dairy Farmer and a Healthcare Living Will on file at [facility]. His Coni is his Healthcare POA. Teresa Beth MSW JAVIER
--- NOTE | 2021-01-25 14:37 | PN.HOSP_ITS ---
Subjective Subjective Breathing better. Was confused yesterday when he was brought in. Objective Data Objective Data Vital Signs: Vital Signs Temp Pulse Resp BP Pulse Ox 36.6 C 55 L 18 127/64 H 96 01/25/21 08:48 01/25/21 13:27 01/25/21 13:27 01/25/21 08:48 01/25/21 08:48 Oxygen Flow Rate (L/min) 5 Oxygen Delivery Method Nasal Cannula Weight: 102.7 kg Body Mass Index (BMI) 31.7 Intake & Output: Intake and Output for Last 24 Hours 01/23/21 01/24/21 01/25/21 23:59 23:59 23:59 Intake Total 1193.33 / 1193.33 1636.67 / 1636.67 Output Total 400 / 400 Balance 1193.33 / 1193.33 1236.67 / 1236.67 Lab / Micro Data Result Diagrams: 01/25/21 06:56 01/25/21 06:56 Labs: Laboratory Results - last 24 hr 01/24/21 17:30: PT 13.7, INR 1.1, APTT 42.2 H 01/24/21 17:30: Sodium 133 L, Potassium 4.4, Chloride 101, Carbon Dioxide 25.0, Anion Gap 7, BUN 24 H, Creatinine 1.49 H, Estim Creat Clear Calc 49.13, Est GFR (MDRD) Af Amer 60, Est GFR (MDRD) Non-Af 50 L, BUN/Creatinine Ratio 16.1, Glucose 130 H, Calcium 7.3 L, Total Bilirubin 0.40, Direct Bilirubin 0.20, AST 63 H, ALT 50, Alkaline Phosphatase 51, Troponin I High Sens 38, Total Protein 6.9, Albumin 2.8 L, Globulin 4.1 01/24/21 17:30: Lactic Acid 1.4 01/24/21 17:30: D-Dimer Quant (PE/DVT) 1.39 H* 01/24/21 17:30: Magnesium 2.2, Ferritin 1577 H, Lactate Dehydrogenase 399 H, C- React Prot Ext Range 103.00 H 01/24/21 17:45: Ethyl Alcohol < 3.0 01/24/21 17:45: Procalcitonin 0.30 H 01/24/21 18:15: Ammonia < 10.0 L 01/24/21 18:50: WBC 5.4, RBC 4.69, Hgb 13.6, Hct 41.4, MCV 88.3, MCH 29.0, MCHC 32.9, RDW Std Deviation 50.4 H, RDW Coeff of Dayne 15.6 H, Plt Count 109 L, MPV 9.6, Immature Gran % (Auto) 0.400, Neut % (Auto) 82.5 H, Lymph % (Auto) 11.5 L, [place] % (Auto) 5.0, Eos % (Auto) 0.2, Baso % (Auto) 0.4, Absolute Neuts (auto) 4.5, Absolute Lymphs (auto) 0.62 L, Nucleated RBC % 0 01/24/21 18:50: B-Natriuretic Peptide 97.6 01/24/21 21:56: POC Glucose 153 H 01/24/21 22:30: Urine Color Yellow, Urine Clarity Sl. Cloudy, Urine pH 6.0, Ur Specific [place] 1.010, Urine Protein Negative, Urine Glucose (UA) 1000 H, Urine Ketones 5 H, Urine Occult Blood 50 H, Urine Nitrite Negative, Urine Bilirubin Negative, Urine Urobilinogen Normal, Ur Leukocyte Esterase Negative, Urine RBC 0-5 SEEN, Urine WBC 0 SEEN, Ur Squamous Epith Cells 0 SEEN, Urine Bacteria 0 SEEN, Urine Mucus 0 SEEN 01/25/21 06:37: POC Glucose 296 H 01/25/21 06:56: WBC 4.9, RBC 4.95, Hgb 14.3, Hct 44.2, MCV 89.3, MCH 28.9, MCHC 32.4, RDW Std Deviation 52.1 H, RDW Coeff of Dayne 15.9 H, Plt Count 111 L, MPV 9.3, Immature Gran % (Auto) 0.600, Neut % (Auto) 81.5 H, Lymph % (Auto) 13.6 L, [place] % (Auto) 4.1, Eos % (Auto) 0.0, Baso % (Auto) 0.2, Absolute Neuts (auto) 4.0, Absolute Lymphs (auto) 0.67 L, Nucleated RBC % 0 01/25/21 06:56: Sodium 133 L, Potassium 4.7, Chloride 104, Carbon Dioxide 21.0, Anion Gap 8, BUN 29 H, Creatinine 1.35 H, Estim Creat Clear Calc 54.23, Est GFR (MDRD) Af Amer 67, Est GFR (MDRD) Non-Af 56 L, BUN/Creatinine Ratio 21.5 H, Glucose 265 H, Calcium 7.6 L, Total Bilirubin 0.40, AST 75 H, ALT 56, Alkaline Phosphatase 54, Total Protein 7.1, Albumin 2.7 L, Globulin 4.4 H, Albumin/Globulin Ratio 0.6 L 01/25/21 12:14: POC Glucose 303 H Micro: Microbiology 01/24/21 23:37 Mucosa - Nasopharyngeal Respiratory Panel (PCR) - Final 01/24/21 22:30 Urine, Clean Catch Legionella Antigen - Final 01/24/21 22:30 Urine, Clean Catch Streptococcus pneumoniae Antigen (M - Final 01/24/21 20:20 Nasal Secretion SARS-CoV-2 Antigen (Rapid) - Final SARS-CoV-2 (COVID 19) Radiography Diagnostic Testing: Radiology Impression Brain CT 01/24/21 17:40 IMPRESSION: Chronic involutional changes of the brain. Electronically Signed: Kevyn Schmidt MD at 18:51 EST , Service support , Chest X-Ray 01/24/21 18:14 IMPRESSION: 1. Mild mild patchy infiltrates are seen in the left upper and lower lobes. 2. Cystic emphysematous changes reidentified as well as interstitial scarring in the right lung. Electronically Signed: Kevyn Schmidt MD at 18:49 EST , Service support , Chest CTA 01/24/21 21:08 IMPRESSION: 1. Mild bilateral multifocal pneumonia with groundglass edema suggesting Covid 19. 2. No demonstrated pulmonary embolism or arterial dissection. 3. Cystic emphysematous changes Electronically Signed: Kevyn Schmidt MD at 22:50 EST , Service support , Physical Exam Const alert and no apparent distress Resp normal respiratory effort, no retractions, no use of accessory muscles and clear to auscultation bilaterally Cardio regular rate, regular rhythm, S1 normal heart sound and S2 normal heart sound GI normal to inspection, nondistended, normoactive bowel sounds, soft to palpation, non-tender and non-distended Extremity normal to inspection Assessment & Plan Assessment/Plan (1) Acute on chronic respiratory failure with hypoxia: (2) Pneumonia due to 2019 novel coronavirus: PLAN: 1. acute on chronic respiratory failure * on 3l/m chronically at home and was in the 80s at home when EMS arrived. * subsequently improved. * 2/2 COVID 19 2. Acute COVID 19 * onset 01/20 * vaccinated with J+J * GGO and mild consoidations on CT * on Dexa and Rem-d * not a candidate for baricitinib 3. Metabolic encephalopathy * resolved * 2/2 hypoxia * no additional work up 4. VTE prophylaxis: LMWH Charges/Coding Visit Charges Inpatient E&M: 82147 Subs Hosp L2
--- NOTE | 2021-01-25 15:10 | CASEMGMT ---
RN CM KNOCKUP WORKER MOISES spoke w/pt for initial transition planning/care coordination assessment. MI DE LEON introduced self and role at [facility]. Pt voices understanding and consents to assessment at this time. Pt is A/O at this time and answers all questions appropriately. Care providers, pharmacy, and demographics verified/updated at this time. COVID testing completed @ [facility] PCP:Dr Batista Specialists: Dr Kapoor-pulmonology. Preferred Pharmacy: [facility] Insurance: FERNANDO, [employer] Prescription Benefit: Yes LNOK: Coni Living Arrangements: Lives w/ in bi-level home. Front entrance w/one step. Independent prior. ill w/COVID. Son staying w/ to help her as needed while ill. He just bought groceries to stock them up. Transportation: Pt states drives self and states no transportation concerns at this time. also drives. DME: States has the following DME: O2 thru [employer] @ 3 L/M and does bleed into CPAP @ HS. (confirmed w/[facility] @ [employer]). Has concentrator and portable tank that family can bring in @ d/c to go home on. Has functioning glucometer. Uses no DME to ambulate. Pt states no need for further DME at this time. HHC/SNF: No hx of either. Denies need for HHC Pt wishes to return home and states has no concerns with going home at time of discharge. Follow for any increase in home oxygen needs and any further discharge planning/needs. Pt voices no further concerns/needs at this time. Advised pt to ask for CM if any further questions/concerns/needs arise. Voices understanding. PLAN: Home w/family support and discharge plans in place. Will need home O2 testing completed @ d/c to see if pt qualifies for more than 3 L/M O2. Green sheet on chart w/instructions. Julieth FRANCO RN, CM
[2021-01-25 17:15] LABS: Bedside Glucose 310 mg/dL (70-110)
--- NOTE | 2021-01-25 20:01 | CPS ---
pt declined cpap tonite
[2021-01-25] MEDS: Atorvastatin Calcium 10 MG Tablet PO (22:39)
[2021-01-25 23:01] LABS: Bedside Glucose 344 mg/dL (70-110)
[2021-01-26] VITALS (7 sets, daily range): BP systolic 134–141; BP diastolic 67–75; PULSE 58–82; RESP 18–22; TEMP 36.4–36.8; O2SAT 87–95
[2021-01-26 06:12] LABS: Absolute Lymphocyte Count 0.83 X10^3/uL (0.83-4.51); Absolute Neutrophil Count 6.7 X10^3/uL (2.0-7.7); Basophil# 0.01 X10^3/uL; Basophil% 0.1 % (0-1); Hemoglobin 14.1 g/dL (13.0-16.5); Lymphocyte # 0.83 X10^3/ul (0.83-4.51); Lymphocyte % 10.3 % (19-41); Mean Corp Hgb Conc 32.8 g/dL (32-36); Mean Corpuscular Hgb 29.1 pg (27.0-32.0); Mean Corpuscular Volume 88.8 fL (80-94); Mean Platelet Vol. 9.6 fl (6.2-12.0); Monocyte# 0.47 X10^3/uL; Monocyte% 5.9 % (0-10); NRBC Flagged by Analyzer 0 % (0-5); Neutrophil # 6.67 X10^3/uL (2.7-7.7); Neutrophil % 83.2 % (47-70); Platelet Count 164 K/mm3 (150-450); RBC Distribution Width CV 15.8 % (11.6-14.6); RBC Distribution Width SD 51.8 fl (35.1-43.9); Red Blood Count 4.84 M/mm3 (4.6-6.2)
[2021-01-26 06:42] LABS: ALB/GLOB Ratio 0.6 RATIO (0.9-2.4); AST(SGOT) 69 U/L (15-37); Alanine Aminotransfer ALT/SGPT 53 U/L (16-61); Albumin, Serum 2.8 g/dL (3.2-5.0); Alkaline Phosphatase 58 U/L (45-117); Anion Gap 7 (5-15); BUN 44 mg/dL (7-18); BUN/Creat Ratio 31.7 RATIO (10-20); Chloride 105 mmol/L (98-107); Creatinine, Serum 1.39 mg/dL (0.70-1.30); EST Glomerular Filtration Rate 54 mL/min (>60); Est Glom Filt Rate - Afr Amer 65 mL/min (>60); Estimated Creatinine Clearance 52.67 ml/min; Globulin 4.5 g/dL (2.2-4.2); Glucose 292 mg/dL (74-106); Potassium 4.8 mmol/L (3.5-5.1); Protein, Total 7.3 g/dL (6.4-8.2); Sodium Level 136 mmol/L (136-145)
[2021-01-26] MEDS: Insulin Lispro 100 UNIT/ML INSULN.PEN SC ×2 (06:50→12:26)
[2021-01-26 07:01] LABS: Bedside Glucose 316 mg/dL (70-110)
[2021-01-26] MEDS: Ipratropium/Albuterol Sulfate 3 ML AMPUL.NEB INHALATION (07:19)
[2021-01-26] MEDS: Loratadine 10 MG Tablet PO (09:12)
[2021-01-26] MEDS: Aspirin E.C. 81 MG Tablet PO (09:12)
[2021-01-26] MEDS: Azelastine HCl NASAL.SRY 1 SPRAY NASAL (09:12)
[2021-01-26] MEDS: Fluticasone 0.05% 1 SPRAY NASAL.SRY 2 SPRAY NASAL (09:13)
[2021-01-26] MEDS: Carvedilol 25 MG Tablet PO (09:13)
[2021-01-26] MEDS: dexAMETHasone 4 MG/ML Vial 6 MG IV (09:13)
[2021-01-26] MEDS: Amiodarone 200 MG Tablet 100 MG PO (09:13)
[2021-01-26] MEDS: Lisinopril 2.5 MG Tablet PO (09:13)
[2021-01-26] MEDS: 0.9% Saline Lock 10 ML Syringe IV (09:13)
[2021-01-26] MEDS: Clopidogrel Bisulfate 75 MG Tablet PO (09:13)
[2021-01-26] MEDS: Allopurinol 100 MG Tablet PO (09:14)
[2021-01-26] MEDS: Enoxaparin 30 MG/0.3 ML Syringe SC (09:14)
[2021-01-26] MEDS: Furosemide 20 MG Tablet PO (09:14)
[2021-01-26 12:35] LABS: Bedside Glucose 309 mg/dL (70-110)
--- NOTE | 2021-01-26 12:45 | PCM.DC ---
Discharge Instructions Diet Discharge Diet: 1999 Calorie Control Diet Activity Discharge Activity: Return to Normal Activity Additional Activity Instructions:: Self isolate for at least 20 days since symptoms began 01/20-02/09 AND at least one day (24 hours) have passed since resolution of fever without the use of fever-reducing agents AND improvement of symptoms (e.g., cough, shortness of breath) When around people in the same room, wear a face mask. Individuals also in the room should wear a mask. If possible, use a different bathroom and bedroom. Perform adequate hand hygiene. Avoid sharing dishes, glasses, etc. Dressing / Incision Call your doctor if you observe: Fever of 101 or Higher and Shortness of breath Follow Up Care Test Results: Test results from this visit will be discussed in further detail at your follow-up appointment, if applicable. Discharge Plan Admission Admit Date/Time: 01/24/21 20:12 Primary Reason for Your Visit: OCTAVIO 19 Attending Provider: Ferny Thomas Primary Care Provider: Lindsay Batista Discharge Orders/Prescriptions Prescriptions: New dexamethasone 6 mg tablet 6 mg PO DAILY Qty: 8 RF: 0 Continued allopurinol 100 mg tablet 100 mg PO BID RF: 0 magnesium 250 mg tablet 250 mg PO BID RF: 0 azelastine 137 mcg (0.1 %) aerosol,spray 1 spray INTRANASAL BID RF: 0 dulaglutide 1.5 mg/0.5 mL pen injector 1.5 mg SC MO RF: 0 loratadine 10 mg tablet 10 mg PO DAILY RF: 0 fluticasone propionate [Allergy Relief (fluticasone)] 50 mcg/actuation spray,suspension 2 spray INTRANASAL DAILY RF: 0 Jardiance 25 mg tablet 25 mg PO DAILY RF: 0 hydrocodone-acetaminophen 1 TABLET tablet 1 tab PO Q6H PRN PRN (Reason: Pain) 3 Days Qty: 10 RF: 0 Basaglar KwikPen U-100 Insulin 100 unit/mL (3 mL) insulin pen 44 unit SC BID RF: 0 furosemide 40 mg tablet 20 mg PO DAILY RF: 0 carvedilol 25 mg tablet 25 mg PO BID RF: 0 atorvastatin 10 mg tablet 10 mg PO QHS RF: 0 amiodarone 200 mg tablet 100 mg PO DAILY RF: 0 clopidogrel [Plavix] 75 mg tablet 75 mg PO DAILY RF: 0 aspirin 81 MG tablet,delayed release (DR/EC) 81 mg PO DAILY@0800 RF: 0 glimepiride 4 mg tablet 4 mg PO BID RF: 0 lisinopril 2.5 mg tablet 2.5 mg PO DAILY RF: 0 albuterol sulfate 90 mcg/actuation HFA aerosol inhaler 2 puff Inhalation Q4H PRN (Reason: shortness of breath or wheezing) Qty: 1 RF: 3 Referrals / Follow Up: Lindsay Batista MD [Primary Care Provider] - Within 2 Weeks Disposition Disposition (needs filled in before D/C Order can be placed): Home, Self Care
--- NOTE | 2021-01-26 14:45 | PCM.DC.SUM ---
Providers Date of Admission: 01/24/21 Primary Care Physician: Dr. Lindsay Batista MD Reason For Visit: COVID PNA, ACUTE ON CHRONIC HYPOXIA, HYPOTENSION Diagnosis Discharge Diagnosis (1) Acute on chronic respiratory failure with hypoxia: Status: Chronic Code(s): J96.21 - Acute and chronic respiratory failure with hypoxia (2) Pneumonia due to 2019 novel coronavirus: Status: Acute Code(s): U07.1 - COVID-19; J12.82 - Pneumonia due to coronavirus disease 2019 Medications at Discharge Home Medications hydrocodone-acetaminophen 1 tab PO Q6H PRN PRN 3 Days #10 tab 10/25/17 azelastine 137 mcg (0.1 %) nasal spray aerosol 1 spray INTRANASAL BID 09/15/18 albuterol sulfate 90 mcg/actuation aerosol inhaler 2 puff INHALATION Q4H PRN #1 device 10/11/18 fluticasone propionate 50 mcg/actuation nasal spray,suspension 2 spray INTRANASAL DAILY 06/08/19 dulaglutide 1.5 mg/0.5 mL subcutaneous pen injector 1.5 mg SC MO 09/16/19 loratadine 10 mg tablet 10 mg PO DAILY 09/16/19 allopurinol 100 mg tablet 100 mg PO BID tab 12/21/19 empagliflozin 25 mg tablet 25 mg PO DAILY 04/16/20 insulin glargine 100 unit/mL (3 mL) subcutaneous pen 44 unit SC BID ml 11/23/20 magnesium 250 mg tablet 250 mg PO BID tab 11/23/20 amiodarone 100 mg PO DAILY 01/24/21 aspirin 81 mg PO DAILY@0800 01/24/21 atorvastatin 10 mg PO QHS 01/24/21 carvedilol 25 mg PO BID 01/24/21 clopidogrel [Plavix] 75 mg PO DAILY 01/24/21 furosemide 20 mg PO DAILY 01/24/21 glimepiride 4 mg PO BID 01/24/21 lisinopril 2.5 mg PO DAILY 01/24/21 dexamethasone 6 mg PO DAILY #8 tab 01/26/21 Hospital Course Operations None Procedures None Summary of Care Provided Minutes Spent on Discharge: 28 Hospital Course: 1. acute on chronic respiratory failure on 3l/m chronically at home and was in the 80s at home when EMS arrived. subsequently improved. 2/2 COVID 19 continue 3l/m at rest and 5l/m with activity 2. Acute COVID 19 onset 01/20 vaccinated with J+J GGO and mild consoidations on CT on Dexa 3. Metabolic encephalopathy resolved 2/2 hypoxia no additional work up Physical Exam Const alert Resp normal respiratory effort, no retractions, no use of accessory muscles and clear to auscultation bilaterally Cardio regular rate, regular rhythm, S1 normal heart sound and S2 normal heart sound Weight / BMI Weight Weight: 102.1 kg Body Mass Index (BMI) 31.7 ABG / Lab / Microbiology Data Result Diagrams: 01/26/21 06:02 01/26/21 06:02 Laboratory: Laboratory Results - last 24 hr 01/25/21 17:04: POC Glucose 310 H 01/25/21 22:24: POC Glucose 344 H 01/26/21 06:02: WBC 8.0, RBC 4.84, Hgb 14.1, Hct 43.0, MCV 88.8, MCH 29.1, MCHC 32.8, RDW Std Deviation 51.8 H, RDW Coeff of Dayne 15.8 H, Plt Count 164, MPV 9.6, Immature Gran % (Auto) 0.500, Neut % (Auto) 83.2 H, Lymph % (Auto) 10.3 L, [place] % (Auto) 5.9, Eos % (Auto) 0.0, Baso % (Auto) 0.1, Absolute Neuts (auto) 6.7, Absolute Lymphs (auto) 0.83, Nucleated RBC % 0 01/26/21 06:02: Sodium 136, Potassium 4.8, Chloride 105, Carbon Dioxide 24.0, Anion Gap 7, BUN 44 H, Creatinine 1.39 H, Estim Creat Clear Calc 52.67, Est GFR (MDRD) Af Amer 65, Est GFR (MDRD) Non-Af 54 L, BUN/Creatinine Ratio 31.7 H, Glucose 292 H, Calcium 8.0 L, Total Bilirubin 0.50, AST 69 H, ALT 53, Alkaline Phosphatase 58, Total Protein 7.3, Albumin 2.8 L, Globulin 4.5 H, Albumin/Globulin Ratio 0.6 L 01/26/21 06:45: POC Glucose 316 H 01/26/21 12:25: POC Glucose 309 H Microbiology: Microbiology 01/24/21 20:20 Nasal Secretion SARS-CoV-2 Antigen (Rapid) - Final SARS-CoV-2 (COVID 19) 01/24/21 23:37 Mucosa - Nasopharyngeal Respiratory Panel (PCR) - Final 01/24/21 22:30 Urine, Clean Catch Legionella Antigen - Final 01/24/21 22:30 Urine, Clean Catch Streptococcus pneumoniae Antigen (M - Final D/C Instructions Discharge Diet: 2000 Calorie Control Diet Additional Activity Instructions: Self isolate for at least 20 days since symptoms began 01/20-02/09 AND at least one day (24 hours) have passed since resolution of fever without the use of fever-reducing agents AND improvement of symptoms (e.g., cough, shortness of breath) When around people in the same room, wear a face mask. Individuals also in the room should wear a mask. If possible, use a different bathroom and bedroom. Perform adequate hand hygiene. Avoid sharing dishes, glasses, etc. Call your doctor if you observe: Fever of 101 or Higher and Shortness of breath Meaningful Use Info Meaningful Use Diagnoses (Choose all that apply): None applicable Discharge Plan Admission Admit Date/Time: 01/24/21 20:12 Primary Reason for Your Visit: COVID 19 Attending Provider: Ferny Thomas Primary Care Provider: Lindsay Batista Discharge Orders/Prescriptions Prescriptions: New dexamethasone 6 mg tablet 6 mg PO DAILY Qty: 8 RF: 0 Continued allopurinol 100 mg tablet 100 mg PO BID RF: 0 magnesium 250 mg tablet 250 mg PO BID RF: 0 azelastine 137 mcg (0.1 %) aerosol,spray 1 spray INTRANASAL BID RF: 0 dulaglutide 1.5 mg/0.5 mL pen injector 1.5 mg SC MO RF: 0 loratadine 10 mg tablet 10 mg PO DAILY RF: 0 fluticasone propionate [Allergy Relief (fluticasone)] 50 mcg/actuation spray,suspension 2 spray INTRANASAL DAILY RF: 0 Jardiance 25 mg tablet 25 mg PO DAILY RF: 0 hydrocodone-acetaminophen 1 TABLET tablet 1 tab PO Q6H PRN PRN (Reason: Pain) 3 Days Qty: 10 RF: 0 Basaglar KwikPen U-100 Insulin 100 unit/mL (3 mL) insulin pen 44 unit SC BID RF: 0 furosemide 40 mg tablet 20 mg PO DAILY RF: 0 carvedilol 25 mg tablet 25 mg PO BID RF: 0 atorvastatin 10 mg tablet 10 mg PO QHS RF: 0 amiodarone 200 mg tablet 100 mg PO DAILY RF: 0 clopidogrel [Plavix] 75 mg tablet 75 mg PO DAILY RF: 0 aspirin 81 MG tablet,delayed release (DR/EC) 81 mg PO DAILY@0800 RF: 0 glimepiride 4 mg tablet 4 mg PO BID RF: 0 lisinopril 2.5 mg tablet 2.5 mg PO DAILY RF: 0 albuterol sulfate 90 mcg/actuation HFA aerosol inhaler 2 puff Inhalation Q4H PRN (Reason: shortness of breath or wheezing) Qty: 1 RF: 3 Referrals / Follow Up: Lindsay Batista MD [Primary Care Provider] - Within 2 Weeks Disposition Disposition (needs filled in before D/C Order can be placed): Home, Self Care Charges/Coding Visit Charges Inpatient E&M: 24354 Disch Hosp
== END 2021-01-26 14:46 | disposition home or self-care (01) | DRG 177 ==
LOC: ED 20:05 → PCU 22:10
PROVIDERS: Admitting Provider Family Medicine; Emergency Provider Emergency Medicine; PCP Internal Medicine
DX: U07.1 COVID-19 (principal); J12.82 Pneumonia due to coronavirus disease 2019; J96.21 Acute and chronic respiratory failure with hypoxia; G93.41 Metabolic encephalopathy; J44.0 Chronic obstructive pulmonary disease with (acute) lower respiratory infection; N17.9 Acute kidney failure, unspecified; I13.0 Hypertensive heart and chronic kidney disease with heart failure and stage 1 through stage 4 chronic kidney disease, or unspecified chronic kidney disease; I50.22 Chronic systolic (congestive) heart failure; M10.9 Gout, unspecified; E66.9 Obesity, unspecified; Z68.32 Body mass index [BMI] 32.0-32.9, adult; E11.22 Type 2 diabetes mellitus with diabetic chronic kidney disease; E11.51 Type 2 diabetes mellitus with diabetic peripheral angiopathy without gangrene; E11.65 Type 2 diabetes mellitus with hyperglycemia; N18.31 Chronic kidney disease, stage 3a; E78.5 Hyperlipidemia, unspecified; G25.81 Restless legs syndrome; G47.33 Obstructive sleep apnea (adult) (pediatric); I25.10 Atherosclerotic heart disease of native coronary artery without angina pectoris; I25.2 Old myocardial infarction; I25.5 Ischemic cardiomyopathy; I27.21 Secondary pulmonary arterial hypertension; I48.0 Paroxysmal atrial fibrillation; Z95.5 Presence of coronary angioplasty implant and graft; Z79.02 Long term (current) use of antithrombotics/antiplatelets; Z79.4 Long term (current) use of insulin; Z79.82 Long term (current) use of aspirin; Z79.899 Other long term (current) drug therapy; Z23 Encounter for immunization
CPT/HCPCS: 36415; 70450; 71045; 71275; 80048; 80053; 80076; 81001; 82077; 82140; 82728; 82962; 83605; 83615; 83735; 83880; 84145; 84484; 85025; 85379; 85610; 85730; 86140; 87426; 87449; 87633; 87635; 93005; 94002; 94640; 97162; 99251; 99285; J7030; J7050; Q9967; U0005; A4216; G0463; U0003

== ENCOUNTER 2021-02-26 13:51 | Emergency (ER) | payer MEDICARE, OTHER, SELFPAY ==
[2021-02-26 13:52] VITALS: BP 101/72; PULSE 77; RESP 16; TEMP 36.1; O2SAT 86; BMI 29.7
--- NOTE | 2021-02-26 14:06 | EKG12_ITS ---
Test Reason : Blood Pressure : / mmHG Vent. Rate : 072 BPM Atrial Rate : 072 BPM P-R Int : 232 ms QRS Dur : 114 ms QT Int : 408 ms P-R-T Axes : 035 -05 -27 degrees QTc Int : 446 ms Sinus rhythm with 1st degree A-V block with frequent Premature ventricular complexes Incomplete left bundle branch block Nonspecific ST and T wave abnormality Abnormal ECG Confirmed by SWAPNA AUGUSTIN, JAMES ([id number]), video news editor JACK CHILDS ([id number]) on 03/04/2021 8:29:48 AM Referred By: LUIS Confirmed By:JAMES BARCENAS MD
--- NOTE | 2021-02-26 14:07 | EX.ED.DYSGE1 ---
HPI History of Present Illness Chief Complaint: Fatigue Narrative Narrative: Patient presents with complaint of fatigue and bradycardia. He has past medical history of COPD and CHF. He was hospitalized with COVID-19 and released approximately 1 month ago. He had been doing well until yesterday, when his states that he did not look good. He complains of fatigue and shortness of breath with occasional cough but no fever. He has not had any nausea or vomiting or any other symptoms. They noticed that his heart rate was in the 30s and 40s yesterday, and he had blood pressure in the 90s to low 100s. This morning when he awoke, he felt very tired and fatigued. He denies any other symptoms. No dysuria or hematuria. He has past medical history of atrial fibrillation but not on a blood thinner besides Plavix. [facility] Medical History Acute kidney injury Acute spontaneous subarachnoid intracranial hemorrhage Atherosclerotic heart disease of [place] coronary artery without angina pectoris Chronic respiratory failure with hypoxia Chronic systolic (congestive) heart failure Claudication Coronary artery disease Essential hypertension Family history of cardiovascular disease HLD (hyperlipidemia) Ischemic cardiomyopathy Mediastinal lymphadenopathy Mixed obstructive and restrictive ventilatory defect Nicotine dependence Nicotine dependence, cigarettes, in remission Nocturnal hypoxemia On amiodarone therapy BIANCA (obstructive sleep apnea) Paroxysmal atrial fibrillation Pulmonary nodule seen on imaging study Restless legs syndrome (RLS) Secondary pulmonary arterial hypertension Sleep-disordered breathing Tobacco abuse Tobacco dependence in remission Type 2 diabetes mellitus without complication Uncontrolled type 2 diabetes mellitus, without long-term current use of insulin Home Medications hydrocodone-acetaminophen 1 tab PO Q6H PRN PRN 3 Days #10 tab 10/25/17 [Rx Last Taken Unknown] azelastine 137 mcg (0.1 %) nasal spray aerosol 1 spray INTRANASAL BID 09/15/18 [History Last Taken 01/24/21] albuterol sulfate 90 mcg/actuation aerosol inhaler 2 puff INHALATION Q4H PRN #1 device 10/11/18 [Rx Last Taken 01/23/21] fluticasone propionate 50 mcg/actuation nasal spray,suspension 2 spray INTRANASAL DAILY 06/08/19 [History Last Taken 01/24/21] dulaglutide 1.5 mg/0.5 mL subcutaneous pen injector 1.5 mg SC MO 09/16/19 [History Last Taken 01/22/21] loratadine 10 mg tablet 10 mg PO DAILY 09/16/19 [History Last Taken 01/24/21] allopurinol 100 mg tablet 100 mg PO BID tab 12/21/19 [History Last Taken 01/24/21 \] empagliflozin 25 mg tablet 25 mg PO DAILY 04/16/20 [History Last Taken 01/24/21] insulin glargine 100 unit/mL (3 mL) subcutaneous pen 44 unit SC BID ml 11/23/20 [History Last Taken 01/24/21] magnesium 250 mg tablet 250 mg PO BID tab 11/23/20 [History Last Taken 01/24/21] amiodarone 100 mg PO DAILY 01/24/21 [History Last Taken 01/24/21] aspirin 81 mg PO DAILY@0800 01/24/21 [History Last Taken 01/24/21] atorvastatin 10 mg PO QHS 01/24/21 [History Last Taken 01/23/21] carvedilol 25 mg PO BID 01/24/21 [History Last Taken 01/24/21] clopidogrel [Plavix] 75 mg PO DAILY 01/24/21 [History Last Taken 01/24/21] furosemide 20 mg PO DAILY 01/24/21 [History Last Taken 01/24/21] glimepiride 4 mg PO BID 01/24/21 [History Last Taken 01/24/21] lisinopril 2.5 mg PO DAILY 01/24/21 [History Last Taken 01/24/21] dexamethasone 6 mg PO DAILY #8 tab 01/26/21 [Rx Last Taken Unknown] doxycycline hyclate 100 mg PO BID #14 cap 02/26/21 [Rx Last Taken Unknown] Allergy/AdvReac Type Severity Reaction Status Date / Time bee venom protein (honey bee) Allergy Anaphylaxis Verified 02/26/21 13:54 Family History Father Heart disease Myocardial infarction Enlarged heart Hypertension Mother CVA (cerebral vascular accident) Hypertension Brother Myocardial infarction One at 65, other brother still living, early [place] at 60 Hypertension Sister Diabetes Hypertension Surgical History History of back surgery Presence of implantable cardioverter-defibrillator (ICD) Presence of stent in coronary artery (~04/10/17) Social History household members: spouse Smoking Status: Former smoker quit date: 03/09/17 pack-years: 45 how long ago did patient quit smokin, smoked 1 ppd x 45 years. second hand exposure: No alcohol intake: never substance use type: does not use caffeine: Yes Type: coffee Number of servings: 5 what type of physical activity do you participate in: none seatbelt use: always do you feel safe at home: Yes ROS ROS ED ROS Narrative Constitutional: No fever, no chills. Malaise and fatigue. HEENT: No sore throat. No neck pain. No loss of vision. No rhinorrhea. Cardiovascular: No chest pain. No palpitations. No pedal edema. Bradycardia. Respiratory: Occasional cough, no new shortness of breath. Abdominal: No abdominal pain. No nausea. No vomiting. Genitourinary: No dysuria. No hematuria. Musculoskeletal: No myalgias. No arthralgias. Neurologic: No headaches. No dizziness. No lightheadedness. Skin: No rash. No change in color. Psychiatric: No depression. No anxiety. EXAM Physical Exam Narrative Exam Narrative: Afebrile. Vital signs noted. HEENT: Normocephalic. Atraumatic. PERRL, EOMI. Neck soft and supple. No point tenderness or step off. Cardiovascular: Regular rate and rhythm. No murmurs, rubs, or gallops appreciated. Respiratory: No tachypnea. Lungs clear to auscultation bilaterally. Gastrointestinal: Abdomen soft, nontender, with normoactive bowel sounds. No rebound or guarding. Neurological: Awake. Alert. Nonfocal, nonlateralizing. Skin: No rash. Normal color. No pallor. Musculoskeletal: No pedal edema. Full range of motion extremities. Const Vital Signs: 02/26/21 13:52 02/26/21 14:24 Temperature 97 F L 97 F L Temperature Source Temporal Temporal Pulse Rate 77 76 Respiratory Rate 16 22 H Respiratory Effort Short of Breath Respiratory Pattern Tachypnea Blood Pressure 101/72 101/72 Blood Pressure Mean 81 81 Pulse Ox 86 92 Oxygen Delivery Method Nasal Cannula Nasal Cannula Oxygen Flow Rate (L/min) 4 4 MDM MDM MDM Narrative Medical decision making narrative: Patient has a normal heart rate currently. Comprehensive work-up was pursued. His EKG demonstrates normal sinus rhythm at 72 bpm with PVCs, but no acute ST changes. CBC is grossly normal with a normal white count of 10.5, hemoglobin stable at 13.0. Platelet count normal at 419. His CMP shows glucose appropriately elevated 152 with a normal anion gap of 6. Lactic acid normal at 1.5. His troponin is negative at 59. BNP is slightly elevated at 300. Chest x-ray shows what the radiologist calls the beginning of the left upper lobe pneumonia, however he recently had bilateral upper lobe pneumonia. I am unsure if this is residual, but given his past medical history of COPD, I wrote him a prescription for doxycycline to take for a week. I discussed patient with Dr. Tao. His bradycardia may be a miscount of the ectopy from his PVCs. He has not been bradycardic here in the emergency department. I feel he can be discharged safely home with follow-up. Return instructions to the emergency department were reviewed. Disposition is discharged home in stable condition. Lab Data Attestation: I reviewed the patient's lab results. Labs: Laboratory Results - last 24 hr 02/26/21 02/26/21 02/26/21 14:34 14:34 14:34 WBC 10.5 RBC 4.60 Hgb 13.0 Hct 41.2 MCV 89.6 MCH 28.3 MCHC 31.6 L RDW Std Deviation 52.3 H RDW Coeff of Dayne 15.9 H Plt Count 419 MPV 8.6 Immature Gran % (Auto) 0.900 Neut % (Auto) 68.3 Lymph % (Auto) 18.2 L [place] % (Auto) 8.9 Eos % (Auto) 3.0 Baso % (Auto) 0.7 Absolute Neuts (auto) 7.2 Absolute Lymphs (auto) 1.92 Nucleated RBC % 0 Sodium 137 Potassium 4.3 Chloride 104 Carbon Dioxide 27.0 Anion Gap 6 BUN 16 Creatinine 1.15 Estim Creat Clear Calc 63.66 Est GFR (MDRD) Af Amer 81 Est GFR (MDRD) Non-Af 67 BUN/Creatinine Ratio 13.9 Glucose 152 H Lactic Acid 1.5 Calcium 8.7 Total Bilirubin 0.60 AST 24 ALT 60 Alkaline Phosphatase 72 Troponin I High Sens 59 B-Natriuretic Peptide Total Protein 8.3 H Albumin 2.5 L Globulin 5.8 H Albumin/Globulin Ratio 0.4 L 02/26/21 14:34 WBC RBC Hgb Hct MCV MCH MCHC RDW Std Deviation RDW Coeff of Dayne Plt Count MPV Immature Gran % (Auto) Neut % (Auto) Lymph % (Auto) [place] % (Auto) Eos % (Auto) Baso % (Auto) Absolute Neuts (auto) Absolute Lymphs (auto) Nucleated RBC % Sodium Potassium Chloride Carbon Dioxide Anion Gap BUN Creatinine Estim Creat Clear Calc Est GFR (MDRD) Af Amer Est GFR (MDRD) Non-Af BUN/Creatinine Ratio Glucose Lactic Acid Calcium Total Bilirubin AST ALT Alkaline Phosphatase Troponin I High Sens B-Natriuretic Peptide 361.0 H Total Protein Albumin Globulin Albumin/Globulin Ratio Radiography Diagnostic Testing: Clinical Impression(s) from Imaging Studies Chest X-Ray 02/26/21 14:43 IMPRESSION: Findings suggestive of early left upper lobe infiltrate. Electronically Signed: Everette Medina MD at 15:05 EST , Service support , Discharge Plan Triage Chief Complaint: Fatigue ED Provider: Camilo Paz Dx/Rx/DC Orders Clinical Impression: Fatigue, Bradycardia, Pneumonia Instructions: ED Bradycardia, ED Pneumonia (Adult) Prescriptions: New doxycycline hyclate 100 mg capsule 100 mg PO BID Qty: 14 RF: 0 No Action allopurinol 100 mg tablet 100 mg PO BID RF: 0 magnesium 250 mg tablet 250 mg PO BID RF: 0 azelastine 137 mcg (0.1 %) aerosol,spray 1 spray INTRANASAL BID RF: 0 dulaglutide 1.5 mg/0.5 mL pen injector 1.5 mg SC MO RF: 0 loratadine 10 mg tablet 10 mg PO DAILY RF: 0 fluticasone propionate [Allergy Relief (fluticasone)] 50 mcg/actuation spray,suspension 2 spray INTRANASAL DAILY RF: 0 Jardiance 25 mg tablet 25 mg PO DAILY RF: 0 hydrocodone-acetaminophen 1 TABLET tablet 1 tab PO Q6H PRN PRN (Reason: Pain) 3 Days Qty: 10 RF: 0 Basaglar KwikPen U-100 Insulin 100 unit/mL (3 mL) insulin pen 44 unit SC BID RF: 0 furosemide 40 mg tablet 20 mg PO DAILY RF: 0 carvedilol 25 mg tablet 25 mg PO BID RF: 0 atorvastatin 10 mg tablet 10 mg PO QHS RF: 0 amiodarone 200 mg tablet 100 mg PO DAILY RF: 0 clopidogrel [Plavix] 75 mg tablet 75 mg PO DAILY RF: 0 aspirin 81 MG tablet,delayed release (DR/EC) 81 mg PO DAILY@0800 RF: 0 glimepiride 4 mg tablet 4 mg PO BID RF: 0 lisinopril 2.5 mg tablet 2.5 mg PO DAILY RF: 0 dexamethasone 6 mg tablet 6 mg PO DAILY Qty: 8 RF: 0 albuterol sulfate 90 mcg/actuation HFA aerosol inhaler 2 puff Inhalation Q4H PRN (Reason: shortness of breath or wheezing) Qty: 1 RF: 3 Primary Care Provider: Lindsay Batista Referrals: Lindsay Batista MD [Primary Care Provider] - 03/05/21 Disposition Disposition: Home, Self Care
[2021-02-26 14:24] VITALS: BP 101/72; PULSE 76; RESP 22; TEMP 36.1; O2SAT 92
--- NOTE | 2021-02-26 14:43 | RAD_ITS ---
STUDY: X-RAY CHEST REASON FOR EXAM: Male, 70 years old. Shortness of Breath TECHNIQUE: Single AP portable view of the chest. COMPARISON: Comparison is made with prior study dated 01/24/2021. FINDINGS: EKG electrodes are seen. Findings suggestive of early infiltrate in the left upper lobe. There is no demonstrated pleural abnormality. Normal size heart. A left-sided unipolar pacemaker seen. Normal mediastinum and annalise. Normal visualized pulmonary arteries. There is atherosclerotic calcification of the aortic arch with tortuosity. Normal visualized thoracic spine. There is degenerative osteoarthritis of the bilateral shoulders. There is no demonstrated abnormality of the visualized soft tissue structures of the upper abdomen. RAD/Chest 1 View (Portable) IMPRESSION: Findings suggestive of early left upper lobe infiltrate. Electronically Signed: Everette Medina MD at 15:05 EST , Service support ,
[2021-02-26 14:51] LABS: Absolute Lymphocyte Count 1.92 X10^3/uL (0.83-4.51); Absolute Neutrophil Count 7.2 X10^3/uL (2.0-7.7); Basophil# 0.07 X10^3/uL; Basophil% 0.7 % (0-1); Eosinophil# 0.32 X10^3/uL; Hematocrit 41.2 % (40-54); Lymphocyte # 1.92 X10^3/ul (0.83-4.51); Lymphocyte % 18.2 % (19-41); Mean Corp Hgb Conc 31.6 g/dL (32-36); Mean Corpuscular Hgb 28.3 pg (27.0-32.0); Mean Corpuscular Volume 89.6 fL (80-94); Mean Platelet Vol. 8.6 fl (6.2-12.0); Monocyte# 0.94 X10^3/uL; Monocyte% 8.9 % (0-10); NRBC Flagged by Analyzer 0 % (0-5); Neutrophil % 68.3 % (47-70); Platelet Count 419 K/mm3 (150-450); RBC Distribution Width CV 15.9 % (11.6-14.6); RBC Distribution Width SD 52.3 fl (35.1-43.9); White Blood Count 10.5 K/mm3 (4.4-11.0)
[2021-02-26 15:09] LABS: ALB/GLOB Ratio 0.4 RATIO (0.9-2.4); AST(SGOT) 24 U/L (15-37); Alanine Aminotransfer ALT/SGPT 60 U/L (16-61); Albumin, Serum 2.5 g/dL (3.2-5.0); Alkaline Phosphatase 72 U/L (45-117); Anion Gap 6 (5-15); BUN 16 mg/dL (7-18); BUN/Creat Ratio 13.9 RATIO (10-20); Calcium,Total 8.7 mg/dL (8.5-10.1); Chloride 104 mmol/L (98-107); Creatinine, Serum 1.15 mg/dL (0.70-1.30); EST Glomerular Filtration Rate 67 mL/min (>60); Est Glom Filt Rate - Afr Amer 81 mL/min (>60); Estimated Creatinine Clearance 63.66 ml/min; Globulin 5.8 g/dL (2.2-4.2); Glucose 152 mg/dL (74-106); Potassium 4.3 mmol/L (3.5-5.1); Protein, Total 8.3 g/dL (6.4-8.2); Sodium Level 137 mmol/L (136-145); Troponin-I HS 59 pg/mL (3.0-78.0)
[2021-02-26 15:20] LABS: Lactic Acid 1.5 mmol/L (0.4-1.9)
[2021-02-26 16:31] VITALS: O2SAT 95
== END 2021-02-26 16:31 | disposition home or self-care (01) ==
PROVIDERS: Emergency Provider Emergency Medicine; PCP Internal Medicine
DX: J44.0 Chronic obstructive pulmonary disease with (acute) lower respiratory infection (principal); R53.83 Other fatigue; R00.1 Bradycardia, unspecified; J18.9 Pneumonia, unspecified organism; E11.51 Type 2 diabetes mellitus with diabetic peripheral angiopathy without gangrene; E78.5 Hyperlipidemia, unspecified; G47.33 Obstructive sleep apnea (adult) (pediatric); I11.0 Hypertensive heart disease with heart failure; I25.10 Atherosclerotic heart disease of native coronary artery without angina pectoris; I25.5 Ischemic cardiomyopathy; I27.21 Secondary pulmonary arterial hypertension; I48.0 Paroxysmal atrial fibrillation; G25.81 Restless legs syndrome; I50.22 Chronic systolic (congestive) heart failure; Z95.810 Presence of automatic (implantable) cardiac defibrillator; Z79.4 Long term (current) use of insulin; Z79.02 Long term (current) use of antithrombotics/antiplatelets; Z79.82 Long term (current) use of aspirin; Z79.899 Other long term (current) drug therapy; Z87.891 Personal history of nicotine dependence
CPT/HCPCS: 71045; 80053; 83605; 83880; 84484; 85025; 93005; 99283; A4216

== ENCOUNTER 2021-06-04 14:58 | Outpatient (CLI) | payer MEDICARE, OTHER, SELFPAY ==
[2021-06-04 16:13] LABS: BNP,B-Type NATRIURETIC PEPTIDE 268.9 pg/mL (0-100)
[2021-06-04 16:25] LABS: Anion Gap 5 (5-15); BUN 31 mg/dL (7-18); BUN/Creat Ratio 20.9 RATIO (10-20); Calcium,Total 8.9 mg/dL (8.5-10.1); Chloride 103 mmol/L (98-107); Creatinine, Serum 1.48 mg/dL (0.70-1.30); EST Glomerular Filtration Rate 50 mL/min (>60); Est Glom Filt Rate - Afr Amer 60 mL/min (>60); Glucose 136 mg/dL (74-106); Magnesium 2.6 mg/dL (1.6-2.6); Potassium 4.3 mmol/L (3.5-5.1); Sodium Level 139 mmol/L (136-145); T4 Free Direct 1.04 ng/dL (0.76-1.46); Thyroid Stim Hormone (TSH) 4.81 uIU/mL (0.358-3.74)
== END 2021-06-04 23:59 | disposition home or self-care (01) ==
LOC: LAB 15:02
PROVIDERS: PCP Internal Medicine; Visit Provider Nurse Practitioner Family
DX: R06.00 Dyspnea, unspecified (principal); I48.0 Paroxysmal atrial fibrillation; R00.1 Bradycardia, unspecified; I10 Essential (primary) hypertension; I25.5 Ischemic cardiomyopathy; E78.5 Hyperlipidemia, unspecified; Z79.899 Other long term (current) drug therapy; Z95.810 Presence of automatic (implantable) cardiac defibrillator
CPT/HCPCS: 36415; 80048; 83735; 83880; 84439; 84443

== ENCOUNTER → 2021-06-24 | Outpatient (CLI) | payer MEDICARE, OTHER, SELFPAY ==
--- NOTE | 2021-06-24 13:47 | ECHOCS_ITS ---
Reason For Study: Arrhythmia, Evaluate EF Procedure This was a 2D Doppler, Color Flow transthoracic echocardiogram. Technically difficult study due to arrhythmia and patient body habitus. Contrast injection performed. The study was technically difficult. Contrast injection was performed. Exam performed in department. Left Ventricle Based upon the 2D echocardiographic images obtained there appears to be normal left ventricular size with global left ventricular systolic dysfunction. The estimated ejection fraction is 35 %. Unable to assess diastolic dysfunction. Right Ventricle Normal RV size. ICD or pacer leads identified within the right ventricle. Normal systolic function. Atria The left atrium is mildly enlarged. Normal right atrium. ICD or pacer leads identified within the right atrium. No doppler evidence for ASD. Mitral Valve There is mild mitral annular calcification. Extension of the mitral annular calcification onto the base of the posterior mitral valve leaflet. Mild (1+) mitral valve insufficiency. Tricuspid Valve Normal tricuspid valve. Trivial tricuspid valve insufficiency. Right ventricular systolic pressure estimated to be 25 mmHg. Aortic Valve The aortic valve is not well visualized. Trivial aortic valve insufficiency. Pulmonic Valve The pulmonic valve is not well visualized. Great Vessels The aortic root is not well visualized. Pericardium/Pleural No pericardial effusion. Medication 22 gauge I.V. with prn adaptor inserted into right arm. Diluted definity 3ml given slow IV push to enhance endocardial definition. MMode/2D Measurements & Calculations LVIDd: 5.1 cm IVSd: 1.3 cm LA dimension: 4.6 cm LVIDs: 4.9 cm LVPWd: 1.4 cm FS: 3.5 % LAV(MOD-bp): 76.6 ml LA A4 area: 24.8 cm2 RA A4 area: 16.8 cm2 LAV(MOD-bp) Indexed: 34.9 ml/m2 LAV(MOD-sp2): 73.3 ml LAV(MOD-sp4): 80.6 ml Doppler Measurements & Calculations MV E max [place]: 66.8 cm/sec Ao V2 max: 103.1 cm/sec LV V1 max: 59.7 cm/sec Ao max P.3 mmHg LV V1 max P.5 mmHg TR max [place]: 227.7 cm/sec TR max P.7 mmHg ECHO/Echo Complete W/ Contrast Interpretation Summary The study was technically difficult. Contrast injection was performed. Based upon the 2D echocardiographic images obtained there appears to be normal left ventricular size with global left ventricular systolic dysfunction. The estimated ejection fraction is 35 %. The left atrium is mildly enlarged. There is mild mitral annular calcification. Extension of the mitral annular calcification onto the base of the posterior mi tral valve leaflet. Mild (1+) mitral valve insufficiency. Trivial tricuspid valve insufficiency. Trivial aortic valve insufficiency. Right ventricular systolic pressure estimated to be 25 mmHg. Unable to assess diastolic dysfunction. ICD or pacer leads identified within the right atrium ICD or pacer leads identified within the right ventricle. Ordering Physician: Alistair Wyman Referring Physician: Lindsay Batista M.D. Performed By: Damon Grijalva RCS
== END | disposition home or self-care (01) ==
LOC: CVS 13:47
PROVIDERS: PCP Internal Medicine; Visit Provider Nurse Practitioner Family
DX: I34.0 Nonrheumatic mitral (valve) insufficiency (principal)
CPT/HCPCS: 93306; Q9957; A4216; C8929

== ENCOUNTER → 2021-10-10 | Outpatient (CLI) | payer MEDICARE, OTHER, SELFPAY ==
--- NOTE | 2021-10-10 14:07 | CT_ITS ---
EXAM: CT CHEST, LUNG CANCER SCREENING WITHOUT INTRAVENOUS CONTRAST CLINICAL INDICATION: smoker and gt; 45 pack years TECHNIQUE: Helically acquired images were obtained of the chest without intravenous contrast using low dose (LDCT) lung cancer screening protocol. This CT exam was performed using one or more of the following dose reduction techniques: automated exposure control, adjustment of the mA and/or kV according to patient size, and/or use of iterative reconstruction technique. This report was created using [employer] report generation technology. COMPARISON: 10/18/2020 FINDINGS: LUNGS AND PLEURAL SPACES: There is a stable noncalcified nodules in the anterior right middle lobe. There is an area of scar seen within the right middle lobe. There are minor emphysematous changes seen within the upper lobes. No pleural effusion or thickening. No pneumothorax. HEART: There are coronary artery calcifications present. There is a coronary artery stent in place. Heart size is normal. No pericardial effusion. MEDIASTINUM: There are scattered mediastinal lymph nodes which are stable in the largest in the pretracheal space measures 1.7 x 2.4 cm. Esophagus is unremarkable. No hiatal hernia. THYROID: Unremarkable. No thyroid lesions. BONES/JOINTS: Unremarkable. No suspicious lytic or blastic abnormality. VASCULATURE: Unremarkable. Thoracic aorta is non-dilated. LYMPH NODES: See above. TUBES, LINES AND DEVICES: A left-sided pacemaker. CT/Low Dose CT Lung Screening IMPRESSION: 1. Stable 4 mm nodule in the right middle lobe. There is minimal scarring with emphysematous change. There has been no significant change from reference exam. 2. Lung RADS category 2. Electronically Signed: Luis Templeton MD at 17:11 EDT ,
== END | disposition home or self-care (01) ==
LOC: CT 13:54
PROVIDERS: PCP Internal Medicine; Referring Provider Nurse Practitioner Acute Care; Visit Provider Nurse Practitioner Acute Care
DX: F17.210 Nicotine dependence, cigarettes, uncomplicated (principal)
CPT/HCPCS: 71271

== ENCOUNTER 2022-01-27 11:56 | Day surgery (SDC) | payer MEDICARE, OTHER, SELFPAY ==
[2022-01-27] VITALS (7 sets, daily range): BP systolic 101–142; BP diastolic 61–73; PULSE 57–63; RESP 16; TEMP 36.1–36.8; O2SAT 92–97; BMI 31.5
[2022-01-27] MEDS: Lactated Ringers 1,000 ML 15 ML IV (12:53)
--- NOTE | 2022-01-27 13:00 | PCM.HP.BLA ---
History and Physical Date of Admission: 01/27/22 HISTORY AND PHYSICAL ? Alistair Mahajan 1950 ? REFERRING PHYSICIAN: Lindsay Batista MD ? CHIEF COMPLAINT: Consult (Colonoscopy consult) ? HPI: The patient is a 71 year old male referred for endoscopy. Alistair notes a recent positive cologuard test. Patient denies any change in bowel habits, weight changes, blood in stools, black tarry stools or abdominal pain. Denies family history of colon issues.The patient notes no upper GI complaints. ? Alistair has undergone prior endoscopy and actually has had previous adenomatous colon polyps. Last colonoscopy 12/06/15 with removal of adenomatous polyps, five year repeat colonoscopy recommended. ? Patient has significant past medical history including s/p ICD placement, PAD, stroke, SAH, CAD, CHF, DM. Patient follows with Dr. Batista in primary care and [facility]. He is maintained on oral anticoagulation. ? Patient brings with him today cardiac clearance documentation from [facility], noting he was advised by PCP that this would be needed prior to endoscopy procedure. ? Patient denies chest pain, shortness of breath or recent hospitalizations. ? PAST MEDICAL HISTORY PAST MEDICAL HISTORY Diagnosis Date ? Acute combined systolic and diastolic congestive heart failure (HCC) 05/19/2017 ? Has ICD placed (10/01/17) ? Benign neoplasm of colon ? ? Diabetes (HCC) ? ? Peripheral arterial occlusive disease (HCC) 10/29/2017 ? Personal history of colonic polyps ? ? Personal history of unspecified urinary disorder ? ? PMH - PAST MEDICAL HISTORY OF ? ? kidney stones ? Skin cancer 2003 ? Surgeon in [place]. ? Stroke (HCC) ? ? Subarachnoid hemorrhage (HCC) 1998 ? brain bleed- stopped on own, no surg needed ? Unspecified essential hypertension ? ? ? PAST SURGICAL HISTORY PAST SURGICAL HISTORY Procedure Laterality Date ? COLONOSCOPY FLX DX W/COLLJ SPEC WHEN PFRMD ? 12/06/15 ? Colonoscopy ? COLONOSCOPY W/BIOPSY SINGLE/MULTIPLE ? 01/04/10 ? LAMINECTOMY W/O FFD 1/2 VERT SEG LUMBAR ? 05/28/2010 ? Laminectomy, lumbar ? LITHOTRIPSY PROC UNILATERAL ? 07/11/09 ? L kidney. See Dr. Prado OV. ? PAST SURGICAL HISTORY OF ? 10/01/2017 ? S/P ICD placement ? skin cancer ? ? ? removed off face ? ? ? CURRENT MEDICATIONS Current Outpatient Medications Medication Sig ? carvedilol (COREG) 25 mg tablet Take 1 tablet by mouth twice daily with meals. ? blood sugar diagnostic test strip Test blood sugar twice daily as directed, E11.65. Accu Check Guide ? Insulin [place], Disposable, (BD ULTRA-FINE DON PEN NEEDLE) 32 gauge x Use to inject insulin twice daily. ? lisinopril (ZESTRIL, PRINIVIL) 5 mg tablet Take 1 tablet by mouth once daily. (Alistair Wyman sent RX) ? furosemide (LASIX) 40 mg tablet Take 1 tablet by mouth once daily. ? levothyroxine (LEVOXYL) 25 mcg tablet Take 1 tablet by mouth once daily. Take on empty stomach. For Thyroid ? dulaglutide (TRULICITY) 3 mg/0.5 mL pen injector Inject 3 mg subcutaneously one time a week. Pt Assistance Med. ? insulin glargine (LANTUS SOLOSTAR, BASAGLAR KWIKPEN) 100 unit/mL (3 mL) Inject 40 Units subcutaneously daily at bedtime AND 44 Units every morning. PATIENT ASSISTANCE MED.. ? fluticasone (FLONASE) 50 mcg/actuation nasal spray Use 1 [place] in each nostril twice daily. Rinse mouth after use. ? glimepiride (AMARYL) 4 mg tablet Take 1 tablet by mouth twice daily with meals. ? loratadine (CLARITIN) 10 mg tablet Take 1 tablet by mouth once daily. ? clopidogrel (PLAVIX) 75 mg tablet Take 1 tablet by mouth once daily. ? azelastine (ASTELIN) 0.1% nasal spray Use 1 [place] in each nostril twice daily. ? atorvastatin (LIPITOR) 10 mg tablet Take 1 tablet by mouth daily at bedtime. For cholesterol ? amiodarone (CORDARONE) 200 mg tablet Take 0.5 tablets by mouth once daily. ? allopurinol (ZYLOPRIM) 100 mg tablet Take 1 tablet by mouth twice daily. For gout. ? empagliflozin (JARDIANCE) 25 mg tablet Take 1 tablet by mouth daily with breakfast. Patient Assistance Medication. ? predniSONE (DELTASONE) 20 mg tablet Take 1 tablet by mouth once daily. Take for 3 to 7 days as needed for gout attacks ? albuterol HFA (VENTOLIN HFA) 90 mcg/actuation inhaler Inhale 2 Puffs as instructed every 4 hours as needed for Wheezing/Shortness of Breath. ? Magnesium 250 mg tab Take 1 tablet by mouth twice daily. ? COMPOUNDED PRESCRIPTION O2 3L per NC ? aspirin, enteric coated (ASPIRIN, ENTERIC COATED) 81 mg EC tablet Take 1 tablet by mouth once daily. ? Lancets (ONE TOUCH ULTRASOFT LANCETS) lancets TEST BLOOD SUGAR ONCE DAILY AND NEEDED ? No current facility-administered medications for this visit. ? ? ALLERGIES: Bee Sting ? PERSONAL HISTORY: SOCIAL HISTORY Social History ? Tobacco Use ? Smoking status: Former ? ? Packs/day: 1.00 ? ? Years: 40.00 ? ? Pack years: 40.00 ? ? Types: Cigarettes ? ? Quit date: 04/09/2017 ? ? Years since quittin.7 ? Smokeless tobacco: Never ? Tobacco comments: ? ? Vaping Use ? Vaping Use: Never used Substance Use Topics ? Alcohol use: No ? ? Comment: infrequently ? Drug use: No ? ? FAMILY HISTORY: FAMILY HISTORY FAMILY HISTORY Problem Relation Age of Onset ? Heart Mother ? ? Heart Father ? ? Stroke Father ? ? Diabetes Sister ? ? Cancer Paternal Uncle ? ? Prostate. ? Cancer Paternal Aunt ? ? Lung cancer (smoker). ? Stroke Mother ? ? ? REVIEW OF SYMPTOMS: The review of systems data was entered by the nurse and reviewed by me ? Nursing Notes: Lula Rodrigez RN 01/08/2022 1:12 PM Signed REVIEW OF SYSTEMS: General: The patient denies fatigue, denies weight loss, denies weight gain, denies feeling hot, and denies feelings of cold. Eyes: The patient denies glaucoma, denies eye injury/surgery, wears glasses or contacts. Ear/Nose/Throat: The patient NOTES allergies, denies hayfever, denies ear infections, and denies bloody noses. Cardiovascular: The patient denies chest pain, NOTES heart disease, NOTES high blood pressure,NOTES cardiac stent, NOTES prior heart attack, NOTES irregular heart beat, denies high cholesterol, NOTES poor circulation, NOTES heart failure, other cardiac issues, denies claudication, denies cold feet, denies peripheral arterial stent. Respiratory: The patient denies tuberculosis, denies pneumonia, denies frequent cough, denies pulmonary embolism, NOTES shortness of breath, and denies coughing up blood. Gastrointestinal: The patient denies difficulty swallowing, denies acid reflux, denies ulcers, denies vomiting, denies jaundice/hepatitis, denies gallbladder problems, denies black or tarry stools, denies hemorrhoids, denies bleeding from rectum, denies diverticulitis, denies constipation, denies diarrhea, denies loss of stool control, and denies hernias. Kidney/Bladder: The patient NOTES kidney stones, denies urine infections, and denies bloody urine. Skin: The patient NOTES a history of skin cancer, denies bleeding/changing moles, and denies a history of skin rash. Neurologic: The patient denies a history of epilepsy/convulsions, denies headaches, denies head/spinal injuries, and denies stroke/TIA. Psychiatric: The patient denies psychiatric medications, denies depression, and denies voices, denies substance abuse. Endocrine: The patient denies thyroid disorders, NOTES diabetes, and denies hormonal problems. Hematologic: The patient denies a history of bruising, denies bleeding, and denies anemia, denies blood clots. Infections: The patient denies a history of measles and mumps, denies rheumatic fever, and denies sexually transmitted diseases. Musculoskeletal: The patient NOTES back pain/injury, denies back problems, denies sciatica, denies knee/foot trouble, denies arthritis, or NOTES gout. ? ? When was patient's last Mammogram screening? N/A ? Last Colonoscopy: 2015 ? Lula Rodrigez RN I have confirmed and edited as necessary, the PFSH and ROS obtained by others. Altagracia Leary PA-C ? PHYSICAL EXAMINATION: ? General: The patient is 71 year old male, well nourished, well hydrated in no acute distress. The patient is oriented to time, place, and person. ? VITALS: Blood pressure 112/60, pulse 89, temperature 36.6 ?C (97.8 ?F), height 177.8 cm (5' 10), weight 103.3 kg (227 lb 12.8 oz), SpO2 98 %. Body mass index is 32.69 kg/m?. ? HEENT: Normal cephalic, ataumatic, pupils are equally round, sclera are anicteric, mucous membranes are moist, oropharynx is clear. Neck has no masses, asymmetry or lymphadenopathy. ? Respiratory: Clear to auscultation and percussion. Normal respiratory excursion and pattern. ? Cardiac: Examination is regular rate and rhythm. Normal S1/S2 ? Abdominal exam: Soft, nontender, with no palpable masses. No hepatosplenomegaly. No palpable hernias. ? Extremities: no clubbing, cyanosis or edema. No adenopathy. ? LABORATORY VALUES: As Noted ? RADIOLOGIC STUDIES: As Noted ? ? Assessment IMPRESSION: positive cologuard. History of colon polyps ? PLAN: I have reviewed my findings with the surgeon. Will plan for lower endoscopy. We discussed the risks and benefits of the planned endoscopy. I have informed the patient that complications can occur including failure to complete the endoscopy and perforation. The patient had the opportunity to ask questions concerning the planned endoscopy. My staff has also explained the procedure to the patient in understandable terms and has given the patient printed material concerning the procedure. The patient freely consents to surgery. ? I plan to use Golytely bowel preparation, divided over 2 days ? Cardiac clearance has been received-see scanned note ? Patient to remain on his anticoagulation for procedure ? Patient instructed to contact PCP for instructions regarding diabetic medication, which may require adjustment during bowel preparation and/or day of procedure ? ? The patient has medical comorbidities for which we will plan for the procedure to be performed under Monitored Anesthetic Care. ? ? ? Diagnoses: (Z86.010) History of colonic polyps (primary encounter diagnosis) (R19.5) Positive colorectal cancer screening using Cologuard test (Z79.01) On continuous oral anticoagulation (Z95.0) Pacemaker (I11.0, I50.42) Hypertensive heart disease with chronic combined systolic and diastolic congestive heart failure (HCC) ? Consultation requested by Dr. Batista for an opinion regarding positive cologuard testing and need for colonoscopy. My final recommendations will be communicated back to the requesting physician by way of shared Medical record or letter to requesting physician via US mail. ? Altagracia Leary PA-C I have examined the patient and the H&P has been reviewed. There are no clinical changes since date of exam.
[2022-01-27 13:15] LABS: Bedside Glucose 81 mg/dL (74-106)
--- NOTE | 2022-01-27 13:15 | COLBX_PTH ---
PATIENT: SANTOS CAMARENA LOC: EN U#:[id number] AGE/SX: 71/M ROOM: RE01/27/[address]: Dr. Darci Brunson MD : 1950 BED: DIS: 01/27/2022 SPEC #: [id number] RECD: 01/27/22 14:22 STATUS: ED BENNETT #: [id number] FREDRICK: 01/27/22 13:[address]: Darci Brunson DEPT: SURGICAL PATHOLOGY RECD BY: Ericka Hart ENTERED: 01/28/22 09:30 SP TYPE: COLON BX OTHR DR: Dr. Lindsay Batista MD Tissues: Transverse colon Procedures: Surgery Specimen Level IV HEADER OPERATION: Colonoscopy (MAC), biopsy, polypectomy, hemostasis clip PRE-OP DIAGNOSIS: Positive Cologuard, history of colon polyps TISSUE SUBMITTED: Transverse polyps x2 MICROSCOPIC DIAGNOSIS Transverse colon polyp, biopsy: Fragments of tubular adenoma. AM:sanam 01/29/2022 MICROSCOPIC DESCRIPTION Slides are reviewed. GROSS DESCRIPTION Received in fixative is one container labeled with the patient's name and designated transverse polyp biopsy. The specimen consists of multiple irregular fragments of fagan soft tissue that in aggregate measure 1 x 0.5 x 0.1 cm. The specimen is totally submitted in one cassette. / SJ:sanam 01/28/2022 TC:5 CPT: 71072
--- NOTE | 2022-01-27 13:49 | OP.COLON_ITS ---
Patient Name: Alistair Mahajan Procedure Date: 01/27/2022 1:09 PM Date of : 1950 Age: 71 Procedure: Colonoscopy Indications: Positive Cologuard test Providers: Darci Brunson MD Referring MD: Lindsay Batista Patient Profile: This is a 71 year old male. Refer to note in patient chart for documentation of history and physical. Last Colonoscopy: several years ago. Complications: No immediate complications. Estimated blood loss: Minimal. Procedure: Pre-Anesthesia Assessment: - Prior to the procedure, a History and Physical was performed, and patient medications and allergies were reviewed. The patient's tolerance of previous anesthesia was also reviewed. The risks and benefits of the procedure and the sedation options and risks were discussed with the patient. All questions were answered, and informed consent was obtained. Prior Anticoagulants: The patient has taken Plavix (clopidogrel), last dose was day of procedure. ASA Grade Assessment: III - A patient with severe systemic disease. After reviewing the risks and benefits, the patient was deemed in satisfactory condition to undergo the procedure. After I obtained informed consent, the scope was passed under direct vision. Throughout the procedure, the patient's blood pressure, pulse, and oxygen saturations were monitored continuously. The colonoscope was introduced through the anus and advanced to the cecum, identified by appendiceal orifice and ileocecal valve. The colonoscopy was performed with difficulty due to inadequate bowel prep. Successful completion of the procedure was aided by lavage. The patient tolerated the procedure well. The quality of the bowel preparation was unsatisfactory. Scope In: 1:15:55 PM Scope Withdrawal Time 0 hours 20 minutes 24 seconds Scope Out: 1:40:49 PM Total Procedure Duration Time 0 hours 24 minutes 54 seconds Findings: The perianal and digital rectal examinations were normal. A small polyp was found in the transverse colon. The polyp was sessile. The polyp was removed with a hot snare. Resection and retrieval were complete. To prevent bleeding post-intervention, one hemostatic clip was successfully placed. There was no bleeding at the end of the procedure. A diminutive polyp was found in the transverse colon. The polyp was sessile. The polyp was removed with a jumbo cold forceps. Resection and retrieval were complete. The exam was otherwise without abnormality on direct and retroflexion views. Impression: - Preparation of the colon was unsatisfactory. - One small polyp in the transverse colon, removed with a hot snare. Resected and retrieved. Clip was placed. - One diminutive polyp in the transverse colon, removed with a jumbo cold forceps. Resected and retrieved. - The examination was otherwise normal on direct and retroflexion views. Recommendation: - Discharge patient to home. - Resume previous diet. - Continue present medications. - Await pathology results. - Repeat colonoscopy within 3 months because the bowel preparation was poor. - Return to physician fire control assistant in 1 week. Procedure Code(s): --- Professional --- 55171, Colonoscopy, flexible; with removal of tumor(s), polyp(s), or other lesion(s) by snare technique 39365, 59, Colonoscopy, flexible; with biopsy, single or multiple Diagnosis Code(s): --- Professional --- D12.3, Benign neoplasm of transverse colon (hepatic flexure or splenic flexure) R19.5, Other fecal abnormalities CPT copyright 2017 [employer]. All rights reserved. The codes documented in this report are preliminary and upon boilermaker central steam plant review may be revised to meet current compliance requirements. MD Darci Graves MD 01/27/2022 1:49:19 PM This report has been signed electronically. Number of Addenda: 0 Note Initiated On: 01/27/2022 1:09 PM
--- NOTE | 2022-01-27 13:49 | OP.CCLET_ITS ---
01/27/2022 Lindsay Batista [address] [place] [address] Re : Colonoscopy procedure for Alistair Mahajan Dear Dr. Batista This procedure was performed on Thursday, January 27, 2022. My impressions and recommendations are as follows: Impressions : - Preparation of the colon was unsatisfactory. - One small polyp in the transverse colon, removed with a hot snare. Resected and retrieved. Clip was placed. - One diminutive polyp in the transverse colon, removed with a jumbo cold forceps. Resected and retrieved. - The examination was otherwise normal on direct and retroflexion views. Recommendations : - Discharge patient to home. - Resume previous diet. - Continue present medications. - Await pathology results. - Repeat colonoscopy within 3 months because the bowel preparation was poor. - Return to physician assistant chief nursing officer in 1 week. My findings are described in the full procedure note, which is enclosed. If I can be of further assistance, please feel free to contact me at Doctor phone number(s): , Work: . Sincerely, MD Darci Graves MD 01/27/2022 1:49:19 PM This report has been signed electronically.
== END 2022-01-27 14:45 | disposition home or self-care (01) ==
LOC: EN 11:56 → AC 12:01
PROVIDERS: PCP Internal Medicine; Referring Provider Internal Medicine; Visit Provider Surgery
PROC: 0DJD8ZZ Inspection of Lower Intestinal Tract, Via Natural or Artificial Opening Endoscopic (ICD-10-PCS; CPT 45378; principal; 2022-01-27 13:10)
DX: D12.3 Benign neoplasm of transverse colon (principal); E11.51 Type 2 diabetes mellitus with diabetic peripheral angiopathy without gangrene; I11.0 Hypertensive heart disease with heart failure; I50.42 Chronic combined systolic (congestive) and diastolic (congestive) heart failure; I48.0 Paroxysmal atrial fibrillation; Z79.4 Long term (current) use of insulin; I25.5 Ischemic cardiomyopathy; I25.10 Atherosclerotic heart disease of native coronary artery without angina pectoris; G47.33 Obstructive sleep apnea (adult) (pediatric); E78.5 Hyperlipidemia, unspecified; Z79.899 Other long term (current) drug therapy; Z79.82 Long term (current) use of aspirin; Z79.02 Long term (current) use of antithrombotics/antiplatelets; Z86.010 Personal history of colon polyps; Z95.0 Presence of cardiac pacemaker; Z86.73 Personal history of transient ischemic attack (TIA), and cerebral infarction without residual deficits; Z87.891 Personal history of nicotine dependence; Z86.16 Personal history of COVID-19
CPT/HCPCS: 45380; 45385; 82962; 88305; J7120; J2405

== ENCOUNTER 2022-08-20 11:06 | Emergency (ER) | payer MEDICARE, OTHER, SELFPAY ==
[2022-08-20] VITALS (7 sets, daily range): BP systolic 95–148; BP diastolic 7–129; PULSE 60–99; RESP 16–27; TEMP 36.4; O2SAT 92–98; BMI 31.3
--- NOTE | 2022-08-20 11:09 | CT_ITS ---
STUDY: CT BRAIN WITHOUT CONTRAST REASON FOR EXAM: Male, 71 years old. Altered LOC RADIATION DOSAGE (If Supplied By Facility): CTDIvol = ( 44.99 ) mGy, DLP = ( 880.47 ) mGycm TECHNIQUE: Transaxial CT imaging of the brain was performed without administration of intravenous contrast material. Individualized dose optimization techniques were used for this CT. COMPARISON: Comparison is made with prior study dated January 24, 2021. FINDINGS: Normal soft tissue structures. Normal calvarium. There is mild cerebral atrophy with widening of the extra-axial spaces and ventricular dilatation. There are areas of decreased attenuation within the white matter tracts of the supratentorial brain, consistent with microvascular disease changes. Normal basal ganglia and thalami. Normal brainstem. Normal cerebellum. There is no intracranial hemorrhage. There are no findings of an acute ischemic infarction. Atherosclerotic calcification of the cavernous portion of the internal carotid artery. Normal visualized paranasal sinuses. CT/Brain/Head without Contrast IMPRESSION: Chronic involutional changes of the brain. Electronically Signed: Everette Medina MD at 12:06 EDT ,
--- NOTE | 2022-08-20 11:11 | EKG12_ITS ---
Test Reason : CP Blood Pressure : / mmHG Vent. Rate : 056 BPM Atrial Rate : 056 BPM P-R Int : 316 ms QRS Dur : 134 ms QT Int : 448 ms P-R-T Axes : 022 -25 -54 degrees QTc Int : 432 ms Sinus bradycardia with 1st degree A-V block Non-specific intra-ventricular conduction block Minimal voltage criteria for LVH, may be normal variant ( Wiley product ) Nonspecific T wave abnormality Abnormal ECG Confirmed by WM AUGUSTIN, ROSAMARIA ([id number]), editor & co founder JACK CHILDS ([id number]) on 08/22/2022 10:10:16 A M Referred By: Confirmed By:MILENA BURK MD
--- NOTE | 2022-08-20 11:13 | EX.ED.DYSGE1 ---
HPI History of Present Illness Chief Complaint: Alt LOC Informant: patient, spouse/S.O. and EMS Narrative Narrative: Patient last seen normal last night before he went to bed, took the dog out and came back in and saw him upon awakening appearing very lethargic and not feeling well, sweaty. Called EMS. Blood sugar in the 60s, and seems to be having short runs of ventricular tachycardia on the monitor. They attempted to place an IV but he was too diaphoretic and they were not able to get one so they try to give him some oral glucose, and transported him after transmitted an EKG which I reviewed, it was not a prehospital STEMI. EMS states the longest episode of V. tach that they witnessed was 7 beats. He has had no losses of consciousness per them during transport. The patient states that he feels fine. He appears to be very ill and I told him so, and asked him again if he felt poorly and he says no. He denies any chest pain or shortness of breath, however ROS/history is limited due to confusion. states he has had no cardiac medications changed since his last visit to the heart doctor in November last year, but he has not yet taken his amiodarone 100 mg that he takes once daily, today. No recent illnesses. He has a pacer defibrillator which has not fired according to the patient. [facility] Medical History Acute kidney injury Acute spontaneous subarachnoid intracranial hemorrhage Atherosclerotic heart disease of [place] coronary artery without angina pectoris CAD (coronary artery disease) Chronic respiratory failure with hypoxia Chronic systolic (congestive) heart failure Claudication Colon polyps Coronary artery disease Emphysema lung Essential hypertension Family history of cardiovascular disease History of atrial fibrillation History of basal cell carcinoma History of CHF (congestive heart failure) History of heart attack HLD (hyperlipidemia) Ischemic cardiomyopathy Lymphadenopathy Mediastinal lymphadenopathy Mixed obstructive and restrictive ventilatory defect Nicotine dependence Nicotine dependence, cigarettes, in remission Nocturnal hypoxemia On amiodarone therapy BIANCA (obstructive sleep apnea) Paroxysmal atrial fibrillation Peripheral arterial occlusive disease Pulmonary nodule seen on imaging study Restless legs syndrome (RLS) Secondary pulmonary arterial hypertension Sleep-disordered breathing Spinal stenosis Tobacco abuse Tobacco dependence in remission Type 2 diabetes mellitus without complication Uncontrolled type 2 diabetes mellitus, without long-term current use of insulin Home Medications hydrocodone-acetaminophen 5-325mg 5mg-325mg 1 tab PO Q6H PRN PRN Pain 3 days #10 tabs 10/25/17 [Rx Last Taken Unknown] loratadine 10 mg tablet 10 mg PO DAILY ALLERGIES 09/16/19 [History Last Taken 08/19/22] allopurinol 100 mg tablet 100 mg PO BID GOUT 12/21/19 [History Last Taken 08/19/22] empagliflozin 25 mg tablet (Jardiance) 25 mg PO DAILY DM 04/16/20 [History Last Taken 08/19/22] insulin glargine 100 unit/mL (3 mL) subcutaneous pen (Basaglar KwikPen U-100 Insulin) 44 unit subcut DAILY DM 11/23/20 [History Last Taken 08/20/22] magnesium 250 mg tablet 250 mg PO BID SUPPLEMENT 11/23/20 [History Last Taken 08/19/22] amiodarone 200 mg tablet 100 mg PO DAILY HEART 01/24/21 [History Last Taken 08/19/22] aspirin 81 mg tablet,delayed release 81 mg PO DAILY@0800 HEALTH 01/24/21 [History Last Taken 08/19/22] atorvastatin 10 mg tablet 10 mg PO QHS CHOLESTEROL 01/24/21 [History Last Taken 08/19/22] carvedilol 25 mg tablet 25 mg PO BID HEART 01/24/21 [History Last Taken 08/19/22] clopidogrel 75 mg tablet (Plavix) 75 mg PO DAILY BLOOD THINNER 01/24/21 [History Last Taken 08/19/22] glimepiride 4 mg tablet 4 mg PO BID DM 01/24/21 [History Last Taken 08/19/22] dulaglutide 3 mg/0.5 mL subcutaneous pen injector (Trulicity) 3 mg subcut MO DM 07/03/21 [History Last Taken 08/18/22] furosemide 40 mg tablet 40 mg PO DAILY FLUID 11/13/21 [History Last Taken 08/19/22] lisinopril 5 mg tablet 5 mg PO DAILY #90 tabs 11/13/21 [Rx Last Taken 08/19/22] prednisone 20 mg tablet 20 mg PO DAILY PRN Gout 11/13/21 [History Last Taken Unknown] levothyroxine 25 mcg tablet 25 mcg PO DAILY 01/21/22 [History Last Taken 08/19/22] albuterol sulfate 90 mcg/actuation aerosol inhaler 2 puff inhalation Q4H PRN shortness of breath or wheezing #1 device 02/10/22 [Rx Last Taken 08/19/22] azelastine 137 mcg (0.1 %) nasal spray aerosol 1 spray intranasal BID SINUS #30 mL 02/10/22 [Rx Last Taken 08/19/22] fluticasone propionate 50 mcg/actuation nasal spray,suspension (Allergy Relief (fluticasone)) 2 spray intranasal DAILY ALLERGIES #16 grams 02/10/22 [Rx Last Taken 08/18/22] alpha lipoic acid 100 mg capsule 100 mg PO BID NEUROPATHY 08/20/22 [History Last Taken 08/19/22] insulin glargine 100 unit/mL (3 mL) subcutaneous pen 40 unit subcut QHS DM 08/20/22 [History Last Taken 08/19/22] Allergy/AdvReac Type Severity Reaction Status Date / Time bee venom protein (honey bee) Allergy Anaphylaxis Verified 02/10/22 13:48 Family History (Reviewed 02/10/22 @ 14:02 by Minerva France SALES SERVICE PROFESSIONAL, SALES SERVICE PROFESSIONAL-C) Father Heart disease Myocardial infarction Enlarged heart Hypertension Mother CVA (cerebral vascular accident) Hypertension Brother Myocardial infarction One at 65, other brother still living, early SD at 60 Hypertension Sister Diabetes Hypertension Surgical History (Reviewed 02/10/22 @ 14:02 by Minerva France SALES SERVICE PROFESSIONAL, SALES SERVICE PROFESSIONAL-C) History of back surgery History of vasectomy Presence of implantable cardioverter-defibrillator (ICD) Presence of stent in coronary artery (~04/10/17) Social History household members: spouse Smoking Status: Former smoker quit date: 03/09/17 pack-years: 45 how long ago did patient quit smokin, smoked 1 ppd x 45 years. second hand exposure: No alcohol intake: never substance use type: does not use caffeine: Yes Type: coffee Number of servings: 5 what type of physical activity do you participate in: none seatbelt use: always do you feel safe at home: Yes ROS ROS ED Review of Systems ROS Unobtainable: due to encephalopathy and due to mental status EXAM Physical Exam Const Vital Signs: 08/20/22 11:07 08/20/22 11:21 08/20/22 11:47 Temperature 97.6 F L Temperature Source Temporal Pulse Rate 99 84 Respiratory Rate 27 H 20 H Blood Pressure 148/129 H 107/54 L Blood Pressure Mean 135 71 Blood Pressure Source Monitor Blood Pressure Position Semi-Fowlers Blood Pressure Location Left Arm Pulse Ox 98 93 Oxygen Delivery Method Room Air Nasal Cannula Nasal Cannula Oxygen Flow Rate (L/min) 3 08/20/22 12:10 08/20/22 12:06 08/20/22 13:00 Temperature Temperature Source Pulse Rate 76 60 76 Respiratory Rate 17 16 23 H Blood Pressure 104/7 L 116/52 L 95/63 Blood Pressure Mean 39 73 73 Blood Pressure Source Blood Pressure Position Blood Pressure Location Pulse Ox 92 92 95 Oxygen Delivery Method Nasal Cannula Nasal Cannula Nasal Cannula Oxygen Flow Rate (L/min) 3 3 08/20/22 14:00 Temperature Temperature Source Pulse Rate 95 Respiratory Rate 18 Blood Pressure 132/86 H Blood Pressure Mean 101 Blood Pressure Source Blood Pressure Position Blood Pressure Location Pulse Ox 92 Oxygen Delivery Method Nasal Cannula Oxygen Flow Rate (L/min) 3 Positive well nourished and well developed Constitutional Narrative: Ill-appearing, diaphoretic, lethargic General Appearance ED: well developed HEENT Reports moist mucous membranes normocephalic and atraumatic Eyes PERRL and EOMs intact bilaterally Neck full ROM and supple Resp normal respiratory effort and clear to auscultation bilaterally Cardio regular rate, regular rhythm and no murmurs Rate: other Other Details: Occasionally irregular, no tachycardia GI non-tender and non-distended Auscultation: normoactive bowel sounds Palpation: soft Back/Spine no CVA tenderness General Back: other FROM Extremity normal to inspection General Extremety ED: Negative for edema, pulses abnormal or tenderness General Extremity: Negative for edema or pulses abnormal Neuro CN's II-XII intact bilaterally and no sensory deficits noted Sensorium / Orientation: awake, alert and orientation impaired Motor Exam: general weakness Skin no rashes or lesions noted and no wounds MDM MDM MDM Narrative Medical decision making narrative: Upon checking his blood sugar upon EMS arrival it is in the 50s, they were unable to give him any IV glucose/dextrose so we gave him D10 IV since there is a D50 shortage still, and in addition gave him an amiodarone bolus 150 mg and put him on a 1 mg/min drip. Patient is better on reevaluation of back to normal baseline not diaphoretic stable vital signs. His work-up is unremarkable with regards to his labs except for a high hemoglobin, his troponin is 10 well within normal limits, chest x-ray 1 view my interpretation show chronic cardiomegaly, no acute abnormalities, I reviewed the radiologist's interpretation. I performed a CT of his head in order to rule out intracranial hemorrhage and other acute pathology causing his mental status changes, I reviewed those images and the radiologist interpretation which I agree with, negative for anything acute. Patient continued to have runs of PVCs here, it looks like slow V. tach on the monitor and EKG. I had his device queried, it saw no episodes and performed no ATP or shocks. I discussed all this with Dr. Sim, he reviewed the patient's records, and is in agreement with me that it seems unlikely that these runs of PVCs although technically qualify for ventricular tachycardia at times, do not seem to be acutely causing his mental status change since he is better now and still having all of it. They are asymptomatic. I did a repeat troponin, and went from 10 to 12 basically a delta that is well within normal limits and negative. Patient is doing well and wants to eat. He is a type II diabetic, he had not eaten anything this morning prior to having this hypoglycemic episode which may be related to that. We will let him be discharged to continue his amiodarone as prescribed right now since cardiology did not want to change it, but he was advised that he does not have to take it today since we gave him several hours worth of it in the IV and he can resume tomorrow. History & Record Review Discussion w/independent historian: Patient and Family Additional record(s) reviewed:: Prior outpatient record (echo 35% EF, cardiology clinic visit 11/2021) Lab Data Attestation: I reviewed the patient's lab results. Labs: Laboratory Results - last 24 hr 08/20/22 08/20/22 08/20/22 11:07 11:13 11:13 WBC 11.7 H RBC 6.25 H Hgb 18.5 H* Hct 56.6 H MCV 90.6 MCH 29.6 MCHC 32.7 RDW Std Deviation 52.4 H RDW Coeff of Dayne 16.8 H Plt Count 203 MPV 10.1 Immature Gran % (Auto) 0.300 Neut % (Auto) 59.0 Lymph % (Auto) 23.5 [place] % (Auto) 12.1 H Eos % (Auto) 4.1 Baso % (Auto) 1.0 Absolute Neuts (auto) 6.9 Absolute Lymphs (auto) 2.74 Nucleated RBC % 0 Diff Path Review May foll Sodium 142 Potassium 3.5 Chloride 108 H Carbon Dioxide 29.0 Anion Gap 5 BUN 24 H Creatinine 1.30 Estim Creat Clear Calc 55.51 Est GFR (MDRD) Af Amer 70 Est GFR (MDRD) Non-Af 58 L BUN/Creatinine Ratio 18.5 Glucose 54 L Calcium 9.3 Troponin I High Sens 10 POC Glucose 57 L 08/20/22 08/20/22 11:30 13:35 WBC RBC Hgb Hct MCV MCH MCHC RDW Std Deviation RDW Coeff of Dayne Plt Count MPV Immature Gran % (Auto) Neut % (Auto) Lymph % (Auto) [place] % (Auto) Eos % (Auto) Baso % (Auto) Absolute Neuts (auto) Absolute Lymphs (auto) Nucleated RBC % Diff Path Review Sodium Potassium Chloride Carbon Dioxide Anion Gap BUN Creatinine Estim Creat Clear Calc Est GFR (MDRD) Af Amer Est GFR (MDRD) Non-Af BUN/Creatinine Ratio Glucose Calcium Troponin I High Sens 12 POC Glucose 207 H Radiography Diagnostic Testing: Clinical Impression(s) from Imaging Studies Brain CT 08/20/22 11:09 IMPRESSION: Chronic involutional changes of the brain. Electronically Signed: Everette Medina MD at 12:06 EDT , Chest X-Ray 08/20/22 11:35 IMPRESSION: Borderline thyromegaly and mild CHF. Electronically Signed: Everette Medina MD at 12:14 EDT , Rhythm Strip Rhythm Strip: Sinus Rhythm Rate: 60 Ectopy: PVC(s) (In runs) EKG Initial EKG: Attestation: I personally reviewed and interpreted this EKG as follows: Interpretation: Sinus Rhythm and No Acute Injury Pattern Follow-up EKG: Attestation: I personally reviewed and interpreted this EKG as follows: Interpretation: Sinus Rhythm and No Acute Injury Pattern Comments: 3 separate runs of ventricular tachycardia, 3-4 beats in length each Critical Care Time Critical Care Time: Yes Critical care time (excluding procedures): 30-74 minutes (35 min), Including time spent:, Discussing w/Patient &/or Family/Retrofit Installer, Discussing w/Consultants, Arranging Admission or Transfer and Performing Direct Patient Care at Bedside Discharge Plan Triage Chief Complaint: Alt LOC ED Provider: Tejas Jernigan Dx/Rx/DC Orders Clinical Impression: Hypoglycemia associated with type 2 diabetes mellitus, Frequent PVCs Instructions: Hypoglycemia (Low Blood Sugar) Prescriptions: No Action allopurinol 100 mg tablet 100 mg PO BID Label Comments: will start after prednisone. magnesium 250 mg tablet 250 mg PO BID loratadine 10 mg tablet 10 mg PO DAILY Jardiance 25 mg tablet 25 mg PO DAILY Trulicity 3 mg/0.5 mL pen injector 3 mg subcut MO prednisone 20 mg tablet 20 mg PO DAILY PRN (Reason: Gout) lisinopril 5 mg tablet 5 mg PO DAILY Qty: 90 3RF albuterol sulfate 90 mcg/actuation HFA aerosol inhaler 2 puff Inhalation Q4H PRN (Reason: shortness of breath or wheezing) Qty: 1 3RF Rx Instructions: administer with spacer azelastine 137 mcg (0.1 %) aerosol,spray 1 spray INTRANASAL BID Qty: 30 11RF fluticasone propionate [Allergy Relief (fluticasone)] 50 mcg/actuation spray,suspension 2 spray INTRANASAL DAILY Qty: 16 11RF Rx Instructions: administer into each nostril hydrocodone-acetaminophen 1 TABLET tablet 1 tab PO Q6H PRN PRN (Reason: Pain) 3 Days Qty: 10 0RF Basaglar KwikPen U-100 Insulin 100 unit/mL (3 mL) insulin pen 44 unit SC DAILY Rx Instructions: 44 UNITS IN AM, 40 UNITS AT BEDTIME carvedilol 25 mg tablet 25 mg PO BID Rx Instructions: must administer with a meal/food atorvastatin 10 mg tablet 10 mg PO QHS amiodarone 200 mg tablet 100 mg PO DAILY clopidogrel [Plavix] 75 mg tablet 75 mg PO DAILY aspirin 81 MG tablet,delayed release (DR/EC) 81 mg PO DAILY@0800 glimepiride 4 mg tablet 4 mg PO BID levothyroxine 25 mcg tablet 25 mcg PO DAILY insulin glargine 100 unit/mL (3 mL) Insulin Pen 40 unit SUBCUT QHS Rx Instructions: 44 UNITS IN AM, 40 UNITS AT BEDTIME alpha lipoic acid 100 mg Capsule 100 mg PO BID furosemide 40 mg tablet 40 mg PO DAILY Primary Care Provider: Lindsay Batista Referrals: Lindsay Batista MD [Primary Care Provider] - Kim Sim MD [Med Staff - Active Staff] - 1-2 Weeks (Call for appointment to be seen within the next 10 days; ER physician discussed with Dr. Sim) Activity Restrictions/Additional Instructions: Continue taking your prescribed medications, the amiodarone you may resume tomorrow since you were already given it today 08/20 Disposition Disposition: Home, Self Care
--- NOTE | 2022-08-20 11:15 | EKG12_ITS ---
Test Reason : CP Blood Pressure : / mmHG Vent. Rate : 089 BPM Atrial Rate : 113 BPM P-R Int : 176 ms QRS Dur : 162 ms QT Int : 402 ms P-R-T Axes : 000 267 070 degrees QTc Int : 489 ms Sinus rhythm Multiple short runs of NSVT Abnormal ECG Confirmed by WM AUGUSTIN, ROSAMARIA ([id number]), social media editor JACK CHILDS ([id number]) on 08/22/2022 10:10:52 A M Referred By: Confirmed By:MILENA BURK MD
[2022-08-20 11:22] LABS: Absolute Lymphocyte Count 2.74 X10^3/uL (0.83-4.51); Absolute Neutrophil Count 6.9 X10^3/uL (2.0-7.7); Basophil# 0.12 X10^3/uL; Eosinophil# 0.48 X10^3/uL; Eosinophils% 4.1 % (0-5); Lymphocyte # 2.74 X10^3/ul (0.83-4.51); Lymphocyte % 23.5 % (19-41); Mean Corp Hgb Conc 32.7 g/dL (32-36); Mean Corpuscular Hgb 29.6 pg (27.0-32.0); Mean Corpuscular Volume 90.6 fL (80-94); Mean Platelet Vol. 10.1 fl (6.2-12.0); Monocyte# 1.41 X10^3/uL; Monocyte% 12.1 % (0-10); NRBC Flagged by Analyzer 0 % (0-5); Neutrophil # 6.89 X10^3/uL (2.7-7.7); Platelet Count 203 K/mm3 (150-450); RBC Distribution Width CV 16.8 % (11.6-14.6); RBC Distribution Width SD 52.4 fl (35.1-43.9); Red Blood Count 6.25 M/mm3 (4.6-6.2); White Blood Count 11.7 K/mm3 (4.4-11.0)
[2022-08-20 11:26] LABS: Hematocrit 56.6 % (40-54)
[2022-08-20 11:28] LABS: Hemoglobin 18.5 g/dL (13.0-16.5)
--- NOTE | 2022-08-20 11:35 | RAD_ITS ---
STUDY: X-RAY CHEST REASON FOR EXAM: Male, 71 years old. . Chest pain . Hypoglycemia and slurred speech. TECHNIQUE: Single AP portable view of the chest. COMPARISON: Comparison is made with prior study February 26, 2021. FINDINGS: EKG electrodes are seen. Increased interstitial markings suggestive of mild degree of CHF. Mild blunting of the right costophrenic angle. There is borderline cardiomegaly. A left-sided unipolar pacemaker is seen. Normal mediastinum and annalise. Normal visualized pulmonary arteries. Normal visualized aortic arch and descending thoracic aorta. There are diffuse degenerative changes of the visualized thoracic spine. Normal visualized ribs, clavicles, and shoulders. There is no demonstrated abnormality of the visualized soft tissue structures of the upper abdomen. RAD/Chest 1 View (Portable) IMPRESSION: Borderline thyromegaly and mild CHF. Electronically Signed: Everette Medina MD at 12:14 EDT ,
[2022-08-20 11:39] LABS: Anion Gap 5 (5-15); BUN 24 mg/dL (7-18); BUN/Creat Ratio 18.5 RATIO (10-20); Calcium,Total 9.3 mg/dL (8.5-10.1); Chloride 108 mmol/L (98-107); EST Glomerular Filtration Rate 58 mL/min (>60); Est Glom Filt Rate - Afr Amer 70 mL/min (>60); Estimated Creatinine Clearance 55.51 ml/min; Glucose 54 mg/dL (74-106); Potassium 3.5 mmol/L (3.5-5.1); Sodium Level 142 mmol/L (136-145); Troponin-I HS (w/2H Reflex) 10 pg/mL (3.0-78.0)
[2022-08-20 11:50] LABS: Bedside Glucose 207 mg/dL (74-106)
[2022-08-20 12:09] LABS: Bedside Glucose 57 mg/dL (74-106)
[2022-08-20 13:20] LABS: Reflex Troponin-HS? (from REC) Y
[2022-08-20] MEDS: Potassium Chloride Oral Tablet 20 MEQ PO (14:07)
[2022-08-20 14:08] LABS: Troponin-I HS 12 pg/mL (3.0-78.0)
[2022-08-20 14:36] LABS: Bedside Glucose 116 mg/dL (74-106)
[2022-08-21 13:33] LABS: Pathologist Review Reviewed
== END 2022-08-20 14:36 | disposition home or self-care (01) ==
PROVIDERS: Emergency Provider Emergency Medicine; PCP Internal Medicine; Visit Provider Emergency Medicine
DX: I49.3 Ventricular premature depolarization (principal); I11.0 Hypertensive heart disease with heart failure; I50.9 Heart failure, unspecified; E11.649 Type 2 diabetes mellitus with hypoglycemia without coma; Z79.4 Long term (current) use of insulin; Z87.891 Personal history of nicotine dependence; I25.10 Atherosclerotic heart disease of native coronary artery without angina pectoris; Z79.899 Other long term (current) drug therapy; Z79.82 Long term (current) use of aspirin; Z79.85 Long-term (current) use of injectable non-insulin antidiabetic drugs; E78.5 Hyperlipidemia, unspecified; Z95.810 Presence of automatic (implantable) cardiac defibrillator; Z95.5 Presence of coronary angioplasty implant and graft
CPT/HCPCS: 70450; 71045; 80048; 82962; 84484; 85025; 93005; 96365; 96366; 96368; 99285; A4216

== ENCOUNTER → 2022-09-16 | Outpatient (CLI) | payer MEDICARE, OTHER, SELFPAY ==
--- NOTE | 2022-09-16 17:13 | STRESSREP ---
Stress Test Report Pharmacologic myocardial perfusion stress test. 71-year-old man with a history of premature ventricular complexes and coronary artery disease Resting EKG demonstrates sinus rhythm with premature ventricular complexes with a rate of 66 bpm. Resting blood pressure is 130/60 mmHg. 0.4 mg of regadenoson was infused per usual protocol followed by rapid intravenous saline flush injection. Continuous EKG monitoring was performed. The maximum heart rate was 70 bpm which was 46% of max impacted heart rate the maximum workload was 1 metabolic equivalent. At rest there were no ST or T wave changes noted to suggest ischemia and at peak infusion nonspecific ST changes were noted which did not meet the criteria for ischemia. No clinical angina is noted. The final blood pressure was 118/64 mmHg. Myocardial perfusion protocol. 14.1 mCi of technetium 99m sestamibi was injected at rest. 0.4 mg of regadenoson was infused per usual protocol. At peak infusion 44.8 mCi of technetium 99m sestamibi was injected stress images were obtained stress and rest images were reconstructed and compared in the short axis vertical long and horizontal long axis. Gated images were also obtained. Perfusion SPECT analysis: Review of the stress images demonstrate normal uptake of tracer noted in all areas of the myocardium mild reduction of perfusion in the apex is noted. The resting images similar demonstrated normal uptake of tracer noted in all areas of the myocardium with mild reduction of perfusion in the apex. No areas of reversibility are noted to suggest ischemia and no previous infarct is noted. Gated SPECT analysis: The gated ejection fraction is 40%. Conclusion: Probably normal pharmacologic myocardial perfusion stress test. Reduced ejection fraction. Cardiomyopathy cannot be excluded
== END | disposition home or self-care (01) ==
LOC: CVS 07:10
PROVIDERS: PCP Internal Medicine; Referring Provider Physician Assistant Medical; Visit Provider Physician Assistant Medical
DX: I25.10 Atherosclerotic heart disease of native coronary artery without angina pectoris (principal)
CPT/HCPCS: 78452; 93017; A9500; A4216; J2785

== ENCOUNTER → 2022-10-13 | Outpatient (CLI) | payer MEDICARE, OTHER, SELFPAY ==
--- NOTE | 2022-10-13 13:57 | CT_ITS ---
STUDY: LOW DOSE CT LUNG CANCER SCREENING REASON FOR EXAM: Male, 72 years old. and gt;40 pack years. RADIATION DOSAGE (If Supplied By Facility): CTDIvol = ( 3.18 ) mGy, DLP = ( 110.40 ) mGycm TECHNIQUE: No contrast was administered. Low dose technique was utilized (average mAS-38 and kVp 120). 1.25 mm axial source images with a slice interval of 1.25-mm were reconstructed in lung windows. 2.5 mm axial source images with a slice interval of 2.5-mm were reconstructed in lung windows. 5.0 mm axial source images with a slice interval of 5.0-mm were reconstructed in soft tissue windows. COMPARISON: Comparison is made with prior study October 10, 2021. NODULES: 0 1.6 cm x 1.3 cm x 1 cm spiculated nodule in the peripheral lateral anterior aspect of the left lung apex. Emphysema: Hyperinflation. Emphysematous changes bilaterally. Endobronchial lesion: Unremarkable. Aorta: Atherosclerotic plaque formation. CORONARY ARTERIES: Coronary artery calcification coronary artery calcification. Heart: Unremarkable Pulmonary artery: Unremarkable Mediastinal nodes: Unremarkable Other chest and abdominal findings: CT/Low Dose CT Lung Screening IMPRESSION: Lung-RADS category 4B - Chest CT with or without contrast, PET/CT and/or tissue sampling can be obtained depending on the probability of malignancy and comorbidities. IMPORTANT NOTES FOR USE: ACR Lung-RADS Version 1.1 Assessment Categories Release Date: 2018 Category: Coded 0-4 bases on nodule(s) with highest degree of suspicion. Negative screen is defined as categories 1 and 2; a positive screen is defined as categories 3 and 4. Category 3 and 4A nodules that are unchanged on interval CT should be coded as category 2, and individuals returned to screening in 12 months. Category 4X: Category 3 or 4 nodules with additional imaging findings that increase the suspicion of lung cancer, such as spiculation, GGN that doubles in size in 1 year, enlarged lymph notes, etc. Category Modifiers: S (significant finding unrelated to lung cancer) Electronically Signed: Everette Medina MD at 14:17 EDT ,
== END | disposition home or self-care (01) ==
LOC: CT 13:56
PROVIDERS: PCP Internal Medicine; Referring Provider Nurse Practitioner Acute Care; Visit Provider Nurse Practitioner Acute Care
DX: F17.210 Nicotine dependence, cigarettes, uncomplicated (principal)
CPT/HCPCS: 71271

== ENCOUNTER → 2022-10-21 | Outpatient (CLI) | payer MEDICARE, OTHER, SELFPAY ==
[2022-10-21 11:24] LABS: Platelet Count 195 K/mm3 (150-450)
[2022-10-21 11:32] LABS: International Normalized Ratio 1.1; Prothrombin Time (Protime)PT. 13.9 SECONDS (11.7-14.9)
[2022-10-21 11:33] LABS: Partial Thromboplast Time 29.9 Seconds (24.1-36.2)
== END | disposition home or self-care (01) ==
PROVIDERS: PCP Internal Medicine; Referring Provider Nurse Practitioner Acute Care; Visit Provider Nurse Practitioner Acute Care
DX: I48.91 Unspecified atrial fibrillation (principal); R91.8 Other nonspecific abnormal finding of lung field
CPT/HCPCS: 36415; 85049; 85610; 85730

== ENCOUNTER 2022-11-11 08:30 | Outpatient (CLI) | payer MEDICARE, OTHER, SELFPAY ==
[2022-11-11] VITALS (11 sets, daily range): BP systolic 99–166; BP diastolic 55–96; PULSE 62–74; RESP 10–24; TEMP 36.3; O2SAT 90–94; BMI 30.8
--- NOTE | 2022-11-11 | ASPIGT_PTH ---
PATIENT: SANTOS CAMARENA LOC: CT U#:[id number] AGE/SX: 72/M ROOM: RE11/11/[address]: MARGIE Guillermo : 1950 BED: DIS: 11/11/2022 SPEC #: [id number] RECD: 11/11/22 11:43 STATUS: ED REQ #: [id number] FREDRICK: 11/11/22 00:[address]: Minerva France NP DEPT: SURGICAL PATHOLOGY RECD BY: Fernie Wan ENTERED: 11/11/22 11:43 SP TYPE: ASP RAD OTHR DR: MD Dr. Lindsay Fuentes MD John H Roof, NP-C Tissues: Lung, NOS Procedures: FNA Specimen Adequacy Special Stain Group II Surgery Specimen Level IV Imprint (control) HEADER OPERATION: CT-guided left lung mass PRE-OP DIAGNOSIS: Left upper lung mass TISSUE SUBMITTED: Left upper lung mass 20-gauge x6 MICROSCOPIC DIAGNOSIS Left upper lung mass, CT-guided core biopsy: Scant fragments of lung parenchymal tissue, negative for malignancy. COLLEEN:sanam 11/12/2022 COMMENT The specimen is evaluated at the time of biopsy by Dr. Mckay. Immediate Evaluation = Negative for malignant cells. Specimen also shows fragments of adipose tissue and skeletal muscle tissue. Correlation with clinical, radiologic findings and appropriate follow up are necessary. Case has been reviewed in consultation with Dr. Del Valle who concurs with the above diagnosis. IDC:AM MICROSCOPIC DESCRIPTION Slides are reviewed. GROSS DESCRIPTION Received in fixative is one container labeled with the patient's name and designated left upper lung. The specimen consists of multiple irregular fragments of light fagan soft tissue that in aggregate measure 0.4 x 0.2 x 0.1 cm. The specimen is totally submitted in one cassette. Five touch imprints are prepared at the time of core biopsy. / COLLEEN:sanam 11/11/2022 TC: 5 CPT: 73723, 90101
--- NOTE | 2022-11-11 08:44 | CT_ITS ---
PROCEDURE: CT GUIDED CORE NEEDLE BIOPSY OF A left upper lobe LUNG LESION INDICATION: Male, 72 years old. New [place] mass PHYSICIAN: Dr. Adam Rodriguez CONSENT: Written informed consent was obtained having explained the risks, benefits and alternatives in detail with the patient who accepted the risks and agreed to proceed. Laboratory review and clinical assessment was performed. CONSCIOUS SEDATION PROTOCOL: The Drugs used were: 2 mg Versed, IV., and 50 mcg Fentanyl, IV. The sedation time was: 33 minutes. Conscious sedation was started at 10:18 AM and terminated at 11:01 AM. The conscious sedation protocol was independently monitored. RADIATION DOSAGE (If Supplied By Facility): CTDIvol = ( 18.99 ) mGy, DLP = ( 1656.56 ) mGycm Individualized dose optimization techniques were used for this CT. TECHNIQUE: The patient was placed in the supine position. A noncontrast CT was performed to localize the lesion in the left upper lobe . The skin surface was prepped and draped in a sterile fashion. 1% lidocaine was used for local anesthesia. Using CT guidance, a 20-gauge coaxial biopsy device was advanced to the periphery of the lesion. A total of 6 core specimens were obtained. The specimens were placed in a formalin solution. A post procedure CT demonstrated no adverse sequelae or pneumothorax. The patient tolerated the procedure well without adverse event. A negative biopsy does not exclude malignancy. Further imaging or clinical followup based on patient condition and degree of clinical suspicion for malignancy. Suggest rebiopsy, if biopsy results do not match with clinical scenario. CT/Biopsy/Inj or Needle Placement IMPRESSION: 1. CT directed core needle biopsy of the left upper lobe nodule using CT image guidance with image documentation as described. Pathology results are pending. 2. Conscious Sedation protocol utilized with independent monitoring. Electronically Signed: Everette Medina MD at 11:22 EDT ,
[2022-11-11 08:52] LABS: Absolute Lymphocyte Count 2.51 X10^3/uL (0.83-4.51); Absolute Neutrophil Count 6.4 X10^3/uL (2.0-7.7); Eosinophil# 0.38 X10^3/uL; Eosinophils% 3.7 % (0-5); Hematocrit 53.5 % (40-54); Hemoglobin 17.4 g/dL (13.0-16.5); Lymphocyte # 2.51 X10^3/ul (0.83-4.51); Lymphocyte % 24.2 % (19-41); Mean Corp Hgb Conc 32.5 g/dL (32-36); Mean Corpuscular Hgb 29.5 pg (27.0-32.0); Mean Corpuscular Volume 90.8 fL (80-94); Mean Platelet Vol. 9.6 fl (6.2-12.0); Monocyte# 0.91 X10^3/uL; Monocyte% 8.8 % (0-10); NRBC Flagged by Analyzer 0 % (0-5); Neutrophil # 6.44 X10^3/uL (2.7-7.7); Platelet Count 182 K/mm3 (150-450); RBC Distribution Width CV 15.5 % (11.6-14.6); RBC Distribution Width SD 51.5 fl (35.1-43.9); Red Blood Count 5.89 M/mm3 (4.6-6.2); White Blood Count 10.4 K/mm3 (4.4-11.0)
[2022-11-11 08:59] LABS: International Normalized Ratio 1.1
[2022-11-11 09:00] LABS: Partial Thromboplast Time 27.6 Seconds (24.1-36.2)
[2022-11-11 09:29] LABS: AST(SGOT) 24 U/L (15-37); Alanine Aminotransfer ALT/SGPT 42 U/L (16-61); Albumin, Serum 3.7 g/dL (3.2-5.0); Alkaline Phosphatase 71 U/L (45-117); Bilirubin, Direct 0.14 mg/dL (0.00-0.30); Globulin 4.2 g/dL (2.2-4.2); Protein, Total 7.9 g/dL (6.4-8.2); T4 Free Direct 1.11 ng/dL (0.76-1.46); Thyroid Stim Hormone (TSH) 4.37 uIU/mL (0.358-3.74)
[2022-11-11] MEDS: 0.9% Saline Lock 10 ML Syringe IV (09:30)
[2022-11-11] MEDS: Midazolam 2 MG/2 ML Syringe IV (10:18)
[2022-11-11] MEDS: fentaNYL 100 MCG/2 ML Ampul IV (10:19)
[2022-11-11] MEDS: Lidocaine 2% (20 ml mdv) 20 ML Vial INFILT (10:25)
--- NOTE | 2022-11-11 11:13 | RAD_ITS ---
STUDY: X-RAY CHEST REASON FOR EXAM: Male, 72 years old. Immediately post lung biopsy TECHNIQUE: AP inspiration and expiration views. COMPARISON: Comparison is made with prior study dated August 20, 2022. FINDINGS: Immediate post left upper lobe biopsy radiographs were obtained. No evidence of pneumothorax. RAD/Chest Insp/Exp 2 View IMPRESSION: No evidence of pneumothorax on the immediate post left lung biopsy radiograph. Electronically Signed: Everette Medina MD at 12:20 EDT ,
--- NOTE | 2022-11-11 13:15 | RAD_ITS ---
STUDY: X-RAY CHEST REASON FOR EXAM: Male, 72 years old. 2 hr post lung biopsy -- 2 hours post lung biopsy TECHNIQUE: AP inspiration and expiration views. COMPARISON: Comparison is made with prior study done earlier today. FINDINGS: Tiny left apical pneumothorax. The patient is asymptomatic. RAD/Chest Insp/Exp 2 View IMPRESSION: Tiny left apical pneumothorax on the 2 hour post left lung biopsy radiographs. Electronically Signed: Everette Medina MD at 14:44 EDT ,
== END 2022-11-11 23:59 | disposition home or self-care (01) ==
PROVIDERS: Nurse Practitioner Family; Radiology Diagnostic Radiology; PCP Internal Medicine; Referring Provider Nurse Practitioner Acute Care; Visit Provider Nurse Practitioner Acute Care
DX: Z01.818 Encounter for other preprocedural examination (principal); I48.91 Unspecified atrial fibrillation; R91.8 Other nonspecific abnormal finding of lung field; E78.5 Hyperlipidemia, unspecified; Z79.899 Other long term (current) drug therapy
CPT/HCPCS: 32408; 71046; 77012; 80076; 84439; 84443; 85025; 85610; 85730; 88172; 88305; 88313; 99156; 99157; J7050; A4216

== ENCOUNTER → 2023-03-04 | Outpatient (CLI) | payer MEDICARE, OTHER, SELFPAY ==
--- NOTE | 2023-03-04 12:48 | CT_ITS ---
INDICATION: KANDY mass EXAMINATION: CT CHEST WITHOUT CONTRAST - CT Chest W/O Contrast Injection TECHNIQUE: Helically acquired images were obtained of the chest. A radiation dose optimization technique was used for this scan. IV Contrast dosage and agent: None. COMPARISON: 10/13/2022 CT chest FINDINGS: LUNGS, PLEURA AND LARGE AIRWAYS: There is demonstrated increased size of the left apical spiculated nodule now measuring 1.8 x 1.9 cm abutting the pleura and previously measured 1.6 x 1.3 cm on 10/13/2022 CT chest diffuse reticular chronic interstitial markings and peripheral COPD related changes are present within the upper lobes. No pneumothorax. THYROID: No thyroid lesions. HEART AND PERICARDIUM: Heart size is normal. No pericardial effusion. CORONARY ARTERIES: Coronary artery calcification is seen. VESSELS: Thoracic aorta is not dilated. MEDIASTINUM AND MIREYA: No mediastinal or hilar adenopathy. Esophagus is unremarkable. No hiatal hernia. UPPER ABDOMEN: No acute pathology. BONES: No suspicious lytic or blastic abnormality. CT/Chest without Contrast IMPRESSION: 1. Left apical increased size of spiculated nodule now measuring 1.8 x 1.9 cm and previously measured 1.6 x 1.3 cm on 10/13/2022 exam. Previous report of biopsy performed on 11/11/2022, clinically correlate. Findings are worrisome for increasing size of likely malignancy. Consider pulmonary consult for further assessment and evaluation. Electronically Signed: Cosme Viera DO at 13:18 EST ,
== END | disposition home or self-care (01) ==
PROVIDERS: PCP Internal Medicine; Referring Provider Nurse Practitioner Acute Care; Visit Provider Nurse Practitioner Acute Care
DX: R91.8 Other nonspecific abnormal finding of lung field (principal)
CPT/HCPCS: 71250

== ENCOUNTER → 2023-04-08 | Outpatient (CLI) | payer MEDICARE, OTHER, SELFPAY ==
[2023-04-08 11:08] LABS: Platelet Count 216 K/mm3 (150-450)
[2023-04-08 11:24] LABS: International Normalized Ratio 1.1; Prothrombin Time (Protime)PT. 14.5 SECONDS (11.7-14.9)
[2023-04-08 11:25] LABS: Partial Thromboplast Time 28.7 Seconds (24.1-36.2)
--- OUTSIDE RECORDS SUMMARY | 2023-04-08 12:16 | XMS RPT_ITS | CCD ---
Author Name Unknown Address [address] [place] [address] Organization [facility] Care Team Providers Care Heel Finisher Name Role Phone Iman Batista MD Primary Care Provider [facility], [place] Unavailable Iman Batista MD Primary Care Provider [facility], [place] Unavailable TALAMPAS, IMAN D Primary Care Unavailable TALAMPAS, IMAN D Attending Unavailable TALAMPAS, IMAN D Primary Care Unavailable TALAMPAS, IMAN D Referring Unavailable TALAMPAS, IMAN D Primary Care Unavailable TALAMPAS, IMAN D Primary Care Unavailable TALAMPAS, IMAN D Attending Unavailable COTTON, LILIANA Referring Unavailable TALAMPAS, IMAN D Primary Care Unavailable TALAMPAS, IMAN D Primary Care Unavailable TALAMPAS, IMAN D Primary Care Unavailable TALAMPAS, IMAN D Primary Care Unavailable TALAMPAS, IMAN D Referring Unavailable TALAMPAS, IMAN D Primary Care Unavailable TALAMPAS, IMAN D Attending Unavailable TALAMPAS, IMAN D Primary Care Unavailable TALAMPAS, IMAN D Referring Unavailable Allergies Allergy Classification Reported Allergen(s) Allergy Type Date of Onset Reaction(s) Facility (20 sources) Bee Sting; Translations: [BEE STING] Propensity to adverse reactions 02-28-2009 [facility] Work Phone: Medications Completed/Discontinued Medications Medication Drug Class(es) Dates Sig (Normalized) Sig (Original) [id number] 200 actuat albuterol 0.09 mg/actuat metered dose inhaler (20 sources) beta2-Adrenergic Agonist Start: 01-17-2019 take 2 puff(s) by inhalation every four hours as needed for wheezing albuterol HFA (VENTOLIN HFA) 90 mcg/actuation inhaler Indications: Acute asthmatic bronchitis Inhale 2 Puffs as instructed every 4 hours as needed for Wheezing/Shortnes s of Breath. 1 Inhaler 0 01/17/2019 Active Problems Active Problems Problem Classification Problem Date Documented Da te Episodic/Chronic Cardiac dysrhythmias (20 sources) Atrial fibrillation; Translations: [Unspecified atrial fibrillation] Onset: 05-19-2017 07-08-2018 Chronic Conduction disorders (1 source) Cardiac pacemaker in situ; Translations: [Presence of cardiac pacemaker] Chronic Congestive heart failure; nonhypertensive (20 sources) Chronic combined systolic and diastolic heart failure; Translations: [Chronic combined systolic (congestive) and diastolic (congestive) heart failure] Onset: 02-25-2018 02-25-2018 Chronic Coronary atherosclerosis and other heart disease (20 sources) Coronary atherosclerosis; Translations: [Atherosclerotic heart disease of [place] coronary artery without angina pectoris] Onset: 05-19-2017 05-19-2017 Chronic Diabetes mellitus with complications (20 sources) Type 2 diabetes mellitus with peripheral angiopathy; Translations: [Type 2 diabetes mellitus with diabetic peripheral angiopathy without gangrene] Onset: 04-11-2010 Chronic Diabetes mellitus without complication (2 sources) Type 2 diabetes mellitus without complication; Translations: [Type 2 diabetes mellitus without complications] Onset: 07-21-2022 Chronic Disorders of lipid metabolism (20 sources) Hyperlipidemia; Translations: [Hyperlipidemia, unspecified] Onset: 03-22-2010 03-22-2010 Chronic Essential hypertension (20 sources) Hypertensive disorder; Translations: [Essential (primary) hypertension] Onset: 03-09-2006 02-28-2009 Chronic Hypertension with complications and secondary hypertension (20 sources) Hypertensive heart disease with congestive heart failure; Translations: [Hypertensive heart disease with heart failure] Onset: 11-08-2020 11-08-2020 Chronic Open wounds of extremities (1 source) Laceration of upper limb; Translations: [Laceration without foreign body of right upper arm, initial encounter] Episodic Other aftercare (6 sources) Patient encounter status; Translations: [Other inspector structural bonding (current) drug therapy] Episodic Other aftercare (1 source) Drug therapy finding; Translations: [detention (current) use of anticoagulants] Episodic Other circulatory disease (20 sources) Peripheral arterial occlusive disease; Translations: [Disorder of arteries and arterioles, unspecified] Onset: 10-29-2017 10-29-2017 Chronic Other connective tissue disease (2 sources) H/O: gout; Translations: [Personal history of other diseases of the musculoskeletal system and connective tissue] Episodic Other gastrointestinal disorders (2 sources) Stool DNA-based colorectal cancer screening positive; Translations: [Other fecal abnormalities] Episodic Other nutritional; endocrine; and metabolic disorders (4 sources) Hyperuricemia; Translations: [Hyperuricemia without signs of inflammatory arthritis and tophaceous disease] Episodic Residual codes; unclassified (1 source) Tobacco user; Translations: [Tobacco use] Episodic Respiratory failure; insufficiency; arrest (adult) (20 sources) Dependence on supplemental oxygen; Translations: [Dependence on supplemental oxygen] Onset: 10-29-2017 10-29-2017 Chronic Thyroid disorders (3 sources) Hypothyroidism caused by drug; 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] Onset: 12-01-2022 11-16-2022 Chronic Past or Other Problems Problem Classification Problem Date Documented Date Episodic/Chronic Allergic reactions (20 sources) Solar degeneration; Translations: [Other skin changes due to chronic exposure to nonionizing radiation] Onset: 08-08-2011 08-08-2011 Episodic Calculus of urinary tract (20 sources) Renal colic; Translations: [Unspecified renal colic] Onset: 07-10-2009 07-10-2009 Episodic Immunizations and screening for infectious disease (1 source) Encounter for immunization; Translations: [Encounter for immunization] Onset: 12-01-2022 Episodic Lymphadenitis (20 sources) Mediastinal lymphadenopathy; Translations: [Localized enlarged lymph nodes] Onset: 05-19-2017 05-19-2017 Episodic Neoplasms of unspecified nature or uncertain behavior (20 sources) Neoplasm of uncertain behavior of skin; Translations: [Neoplasm of uncertain behavior of skin] Onset: 05-25-2013 05-25-2013 Episodic Other aftercare (3 sources) detention (current) use of insulin; Translations: [Controlled type 2 diabetes mellitus with diabetic peripheral angiopathy without gangrene, with long-term current use of insulin (HCC)] Onset: 07-21-2022 Episodic Other aftercare (1 source) Other usp (current) drug therapy; Translations: [Encounter for long-term current use of medication] Onset: 12-01-2022 Episodic Other and unspecified benign neoplasm (20 sources) Benign neoplasm of colon; Translations: [Benign neoplasm of colon, unspecified] Onset: 02-28-2009 02-28-2009 Episodic Other and unspecified benign neoplasm (20 sources) History of polyp of colon; Translations: [Personal history of colonic polyps] Onset: 10-19-2009 10-19-2009 Episodic Other and unspecified benign neoplasm (20 sources) Melanocytic nevus of trunk; Translations: [Melanocytic nevi of trunk] Onset: 08-08-2011 08-08-2011 Episodic Other connective tissue disease (1 source) Personal history of other diseases of the musculoskeletal system and connective tissue; Translations: [Personal history of gout] Onset: 12-01-2022 Episodic Other non-epithelial cancer of skin (20 sources) History of malignant neoplasm of skin; Translations: [Personal history of other malignant neoplasm of skin] Onset: 08-08-2011 04-14-2013 Episodic Other nutritional; endocrine; and metabolic disorders (1 source) Hyperuricemia without signs of inflammatory arthritis and tophaceous disease; Translations: [Hyperuricemia] Onset: 12-01-2022 Episodic Other screening for suspected conditions (not mental disorders or infectious disease) (2 sources) Raised TSH level; Translations: [Other specified abnormal findings of blood chemistry] Onset: 07-18-2022 Episodic Other skin disorders (20 sources) Actinic keratosis; Translations: [Actinic keratosis] Onset: 08-08-2011 08-08-2011 Episodic Other skin disorders (20 sources) Seborrheic keratosis; Translations: [Other seborrheic keratosis] Onset: 08-08-2011 08-08-2011 Episodic Other skin disorders (20 sources) Solar lentigo; Translations: [Other melanin hyperpigmentation] Onset: 08-08-2011 08-08-2011 Episodic Other skin disorders (20 sources) Asteatosis cutis; Translations: [Xerosis cutis] Onset: 08-08-2011 08-08-2011 Episodic Other skin disorders (20 sources) Inflamed seborrheic keratosis; Translations: [Inflamed seborrheic keratosis] Onset: 04-14-2013 04-14-2013 Episodic Otitis media and related conditions (3 sources) Dysfunction of right eustachian tube; Translations: [Other specified disorders of Eustachian tube, right ear] Onset: 12-01-2022 Episodic Screening and history of mental health and substance abuse codes (20 sources) Stopped smoking; Translations: [Personal history of nicotine dependence] Onset: 02-11-2017 06-10-2017 Episodic Spondylosis; intervertebral disc disorders; other back problems (20 sources) Spinal stenosis of lumbar region; Translations: [Spinal stenosis, lumbar region without neurogenic claudication] Onset: 05-16-2010 05-16-2010 Episodic Viral infection (20 sources) Verruca vulgaris; Translations: [Viral wart, unspecified] Onset: 04-14-2013 04-14-2013 Episodic Results Test Name Value Interpretation Reference Range Facil ity Vital Signs Date Time Vital Sign Value Performing Clinician Faci lity 12-01-2022 11:12-0400 Body weight 102.51 kg Iman Batista MD Work Phone: [facility] 12-01-2022 11:12-0400 Diastolic blood pressure 78 mm[Hg] Iman Batista MD Work Phone: [facility] 12-01-2022 11:12-0400 Heart rate 73 /min Iman Batista MD Work Phone: [facility] 12-01-2022 11:12-0400 Respiratory rate 22 /min Iman Batista MD Work Phone: [facility] 12-01-2022 11:12-0400 SaO2% (BldA) [Mass fraction] 90 % Iman Batista MD Work Phone: [facility] 12-01-2022 11:12-0400 Systolic blood pressure 136 mm[Hg] Iman Batista MD Work Phone: [facility] 07-21-2022 11:08-0400 Body temperature 97.81 [degF] Iman Batista MD Work Phone: [facility] 07-21-2022 11:08-0400 Body weight 103.87 kg Iman Batista MD Work Phone: [facility] 07-21-2022 11:08-0400 Diastolic blood pressure 68 mm[Hg] Iman Batista MD Work Phone: [facility] 07-21-2022 11:08-0400 Heart rate 67 /min Iman Batista MD Work Phone: [facility] 07-21-2022 11:08-0400 Respiratory rate 18 /min Iman Batista MD Work Phone: [facility] 07-21-2022 11:08-0400 SaO2% (BldA) [Mass fraction] 94 % Iman Batista MD Work Phone: [facility] 07-21-2022 11:08-0400 Systolic blood pressure 132 mm[Hg] Iman Batista MD Work Phone: [facility] 03-14-2022 11:07-0500 Body temperature 97.5 [degF] Iman Batista MD Work Phone: [facility] 03-14-2022 11:07-0500 Body weight 103.87 kg Iman Batista MD Work Phone: [facility] 03-14-2022 11:07-0500 Diastolic blood pressure 70 mm[Hg] Iman Batista MD Work Phone: [facility] 03-14-2022 11:07-0500 Heart rate 70 /min Iman Batista MD Work Phone: [facility] 03-14-2022 11:07-0500 Respiratory rate 18 /min Iman Batista MD Work Phone: [facility] 03-14-2022 11:07-0500 SaO2% (BldA) [Mass fraction] 97 % Iman Batista MD Work Phone: [facility] 03-14-2022 11:07-0500 Systolic blood pressure 118 mm[Hg] Iman Batista MD Work Phone: [facility] 01-08-2022 13:06-0400 Body height 177.8 cm Altagracia Leary PA-C Work Phone: [facility] 01-08-2022 13:06-0400 Body temperature 97.81 [degF] Altagracia [place] PA-C Work Phone: [facility] 01-08-2022 13:06-0400 Body weight 103.33 kg Altagracia Sapphire PA-C Work Phone: [facility] 01-08-2022 13:06-0400 Diastolic blood pressure 60 mm[Hg] Altagracia Sapphire PA-C Work Phone: [facility] 01-08-2022 13:06-0400 Heart rate 89 /min Altagracia Sapphire PA-C Work Phone: [facility] 01-08-2022 13:06-0400 SaO2% (BldA) [Mass fraction] 98 % Altagracia Sapphire PA-C Work Phone: [facility] 01-08-2022 13:06-0400 Systolic blood pressure 112 mm[Hg] Altagraciacole Gilbertf PA-C Work Phone: [facility] Encounters Encounter Date Encounter Type Care Provider Facility Start: 04-01-2023 End: 04-02-2023 ambulatory IMAN D TALAMPAS Facility:[facility] Start: 03-27-2023 End: 03-28-2023 ambulatory IMAN D TALAMPAS Facility:[facility] Start: 03-27-2023 End: 03-27-2023 ambulatory IMAN D TALAMPAS Facility:[facility] Start: 03-04-2023 End: 03-05-2023 ambulatory IMAN D TALAMPAS Facility:[facility] Start: 02-19-2023 E-mail encounter fro m caregiver Janice Whitego [facility] Work Phone: [facility] Start: 02-19-2023 Patient encounter procedure Janice Macario [facility] Work Phone: [facility] Procedures Date Procedure Procedure Detail Performing Clinician Start: 12-01-2022 INFLUENZA VACCINE, P RSV FREE, AGE 65+ YR, HIGH DOSE, QUADRIVALENT (FLUZONE HIGH-DOSE) Iman Batista MD Work Phone: Start: 01-27-2022 Colonoscopy Uyen Delgado [facility] Work Phone: Start: 03-11-2021 Adult depression screening assessment Uyen [facility] Work Phone: Start: 06-10-2017 History of placement of stent for coronary artery disease Status post coronary artery stent placement Uyen [facility] Work Phone: Start: 12-06-2015 Colonoscopy [facility] Work Phone: Plan of Treatment Date Care Activity Detail Author Start: 07-21-2032 Urine microalbumin profile [facility] Start: 01-27-2027 Colonoscopy COLONOSCOPY [facility] Start: 01-27-2027 COLORECTAL CANCER SCREENING COLORECTAL CANCER SCREENING [facility] Start: 01-27-2027 Screening for malign ant neoplasm of colon [facility] Start: 11-28-2024 COLOGUARD (FIT-DNA) COLOGUARD (FIT-D NA) [facility] Start: 11-28-2024 Screening for malign ant neoplasm of colon Cologuard (FIT-DNA) [facility] Start: 12-02-2023 Annual PCP Team Flour Tester ángela Disease Visit Annual PCP Team Chronic Disease Visit [facility] Start: 12-02-2023 Covid-19 Vaccine ( season) Covid-19 Vaccine ( season) [facility] Immunizations Immunization Date Immunization Notes Care Provider Harris steinberg 12-01-2022 influenza (HD-IIV4) vaccine, age 65+ yr, high dose, quadrivalent, PF (FLUZONE HIGH-DOSE) Iman Batista MD Work Phone: [facility] 07-21-2022 tetanus and diphther ia toxoids, adsorbed, preservative free, for adult use (5 Lf of tetanus toxoid and 2 Lf of diphtheria toxoid) [facility] Work Phone: [facility] 07-21-2022 TD(adult) unspecifie d formulation Iman Batista MD Work Phone: [facility] Work Phone: 11-22-2021 COVID-19 booster vaccine, age 12+ yr, bivalent ([facility]) Iman Batista MD Work Phone: [facility] 11-22-2021 influenza, high-dose , quadrivalent vaccine (FLUZONE HIGH DOSE QUADRIVALENT) Iman Batista MD Work Phone: [facility] 11-22-2021 influenza virus vacc ine, unspecified formulation Iman Batista MD Work Phone: [facility] 12-21-2020 influenza, seasonal, injectable, preservative free Mai Barbara PA-C Work Phone: [facility] 11-13-2020 influenza, high-dose , quadrivalent vaccine (FLUZONE HIGH DOSE QUADRIVALENT) [facility] Work Phone: [facility] 10-26-2020 COVID-19 vaccine (AIDA) Mai Barbara PA-C Work Phone: [facility] 12-21-2019 influenza, seasonal, injectable, preservative free Mai Barbara PA-C Work Phone: [facility] 12-14-2017 influenza, high dose seasonal, preservative-free [facility] Work Phone: [facility] 02-11-2017 pneumococcal polysaccharide vaccine, 23 valent [facility] Work Phone: [facility] Work Phone: 02-04-2017 influenza, injectabl e, quadrivalent, contains preservative [facility] Work Phone: [facility] Work Phone: 12-03-2016 influenza, seasonal, injectable Mai Barbara PA-C Work Phone: [facility] 01-21-2016 pneumococcal conjuga te vaccine, 13 valent [facility] Work Phone: [facility] 12-14-2015 influenza, high dose seasonal, preservative-free [facility] Work Phone: [facility] Work Phone: 12-15-2014 influenza, injectabl e, quadrivalent, contains preservative Keti [facility] Work Phone: [facility] 12-19-2013 influenza virus vacc ine, unspecified formulation Keti [facility] Work Phone: [facility] 01-05-2013 influenza virus vacc ine, unspecified formulation [facility] Work Phone: [facility] 12-24-2011 influenza virus vacc ine, unspecified formulation [facility] Work Phone: [facility] 11-24-2011 tetanus toxoid, redu zahra diphtheria toxoid, and acellular pertussis vaccine, adsorbed [facility] Work Phone: [facility] 11-24-2011 zoster vaccine, live [facility] Work Phone: [facility] 08-09-2010 pneumococcal polysaccharide vaccine, 23 valent [facility] Work Phone: [facility] Work Phone: 01-08-2010 influenza virus vacc ine, whole virus [facility] Work Phone: [facility] 02-17-2007 influenza, seasonal, injectable [facility] Work Phone: [facility] Work Phone: 02-29-2004 diphtheria and tetan us toxoids, adsorbed for pediatric use [facility] Work Phone: [facility] Work Phone: Payers Date Payer Category Payer Medicare MEDICARE MEDICAR E A AND B [id number] 2015-Present [phone] [place] [address] Medicare [id number] 2015 Medicare MEDICARE MEDICAR E A AND B [id number] 2015-Present [phone] [place] [address] Medicare [id number] 2015 Medicare [id number] 2015 Medicare [id number] 2015 Private Health Insurance [employer]ET[employer] A ETNA MEDICARE SUPPLEMENT [id number] 2015-Present [phone] [address] [address] [place] [address] Indemnity [id number] 2015 Private Health Insurance [employer]ET[employer] A ETNA MEDICARE SUPPLEMENT [id number] 2015-Present [phone] [address] [address] [place] [address] Indemnity [id number] Social History Date Type Detail Facility Start: 05-19-2017 End: 01-08-2022 Tobacco smoking status NHIS Ex-smoker [facility] Work Phone: End: 04-09-2017 History of tobacco use Current smoker [facility] Work Phone: End: 04-09-2017 History of tobacco use Cigarette Smoker [facility] Work Phone: Start: 05-19-2017 End: 07-21-2022 Cigarettes smoked current (pack per day) - Reported 1 [facility] Start: 05-19-2017 End: 01-08-2022 Tobacco use and exposure Smokeless tobacco non-user [facility] Work Phone: Start: 05-21-2021 End: 12-01-2022 Alcohol intake Current non-drinker of alcohol (finding) [facility] Start: 02-08-2019 End: 11-22-2021 History SDOH Alcohol Frequency 1 [facility] Start: 02-08-2019 History SDOH Alcohol Std Drinks 98 [facility] Start: 05-18-2019 History SDOH Social Connections Phone 4 [facility] Start: 02-08-2019 History SDOH Social Connections Get Together 2 [facility] Start: 02-08-2019 End: 11-22-2021 History SDOH Social Connections Living 3 [facility] Start: 05-18-2019 End: 11-22-2021 History SDOH Physical Activity DPW 0 [facility] Start: 02-08-2019 History SDOH Financial 5 [facility] Start: 02-08-2019 Education 17 [facility] Start: 05-19-2017 End: 01-08-2022 Tobacco Comment [facility] Start: 1950 Sex Assigned At Not on file [facility] Start: 11-12-2021 End: 02-03-2022 Exposure to SARS-CoV-2 (event) Not sure [facility] Start: 11-22-2021 End: 07-21-2022 Social connection and isolation panel [facility] In a typical week, h ow many times do you talk on the telephone with family, friends, or neighbors? Patient refused [facility] Are you now , , , , never or living with a partner? Refused [facility] Do you feel stress - tense, restless, nervous, or anxious, or unable to sleep at night because your mind is troubled all the time - these days [OSQ] Not at all [facility] (I/We) worried wheth er (my/our) food would run out before (I/we) got money to buy more. DK or Refused [facility] Medical Equipment Procedure Code Equipment Code Equipment Origin al Text Equipment Identifier Dates Graft Dura 2x2in [facility] - [id number] Start: 07-08-2010 Clinical Notes 05-19-2017 to 04-01-2023 Telephone Encounter - Avis Zepeda LPN - 02/12/2023 3:13 PM ESTTelephone Encounter - Avis Zepeda LPN - 02/12/2023 11:44 AM ESTTelephone Encounter - Sandra Nash LPN - 02/11/2023 3:14 PM EST Note Date & Type Note Facility 04-01-2023 Note HNO ID: [id number] Author: JANICE MACARIO RPh Service: ? Author Type: Pharmacist Type: Progress Notes Filed: 04/01/2023 15:48 Note Text: Primary Care Pharmacy Visit CC (Reason for Consult): Diabetes Goal: A1c < 8% Last Collaborating Provider Visit: 03/27/23 Santos Mahajan is a 72 year old male presenting for follow up visit telephone call. Patient consents to pharmacy collaborative practice agreement. Interim Events: 08/19: Last PharmD visit; Bgs well controlled so transferred back to PCP for DM mngt 11/01: glimepiride decreased for low BG 12/01: glimepiride stopped 03/27/23: guaifenesin started HPI: Overall feeling good. Energy level is normal. No frequent thirst or urination. Waking once nightly to urinate, sometimes doesn't need to take up at all. Got all meds through PAP. Diet wasn't great around February. Current DM Medications: Dulaglutide (Trulicity) 3mg weekly on Mondays Empagliflozin (Jardiance) 25mg daily Insulin glargine (Basaglar) 44 units QAM and 40 units QPM SMBGS (Fingersticks) FBGs in 120s Evenings ~270s-280s Gets nervous with Bgs if <100 mg/dL because of low BG event he had last summer Preventative Medications: On MICHELL/ARB: Yes On Statin: Yes ROS: Patient denies CP, SOB, MCCLAIN, blurred vision, dizziness or lightheadedness Patient denies symptoms of hypoglycemia (sweating, anxiety, palpitations, hunger, and tremor) Patient denies symptoms of hyperglycemia (polyuria, polydipsia, polyphagia) Patient denies potential medication adverse effects DIET/EXERCISE/SOCIAL Hx: Breakfast: bowl of Wheaties cereal; occasional egg; rarely pancakes or waffles Lunch: skips Dinner: eats around 4-5 PM; last night had pork chops with carrots and grapes Snacks: I eat snacks all day long - apples Beverages: water; coffee in AM; occasional Gatorade Zero Exercise: on oxygen, limits movement Tobacco: none MEDICATIONS: Pill bottles are not present. Adherence: denies missed doses. Pharmacy: [facility] [place] [address] [phone] - [phone] Rx coverage: Payor: MEDICARE / Plan: MEDICARE A AND B / Product Type: Medicare / Medications affordable? Yes (DM meds through PAP) Diabetes Supplies: Yes Organization system: ACTIVE PROBLEM LIST Hypertension Benign Neoplasm of Colon Renal Colic Personal History of Colonic Polyps Hyperlipidemia Controlled Type 2 Diabetes Mellitus With Diabetic Peripheral Angiopathy Without Gangrene, With Long-Term Current Use of Insulin (Hcc) Spinal Stenosis, Lumbar Region, Without Neurogenic Claudication Lumbar Canal Stenosis Actinic Keratoses: Premalignant AK's Other Seborrheic Keratosis Solar Lentigo Actinic Skin Damage H/O BCC Skin Cancers of R jawline face and R side nose: excised /2006 () Melanocytic Nevi of Trunk Xerosis Cutis Irritated//Inflamed Seborrheic Keratosis Viral Warts, Unspecified Neoplasm of Uncertain Behavior (NUB) of skin: R/O BCC at Right Side Neck BCC (basal cell carcinoma), neck Quit smoking--04/09/2017 Atrial Fibrillation (Hcc) Coronary Artery Disease Involving [place] Coronary Artery of [place] Heart Without Angina Pectoris Mediastinal Lymphadenopathy Status Post Coronary Artery Stent Placement Peripheral Arterial Occlusive Disease (Hcc) On Home Oxygen Therapy Chronic Combined Systolic and Diastolic Congestive Heart Failure (Hcc) Hypertensive Heart Disease With Chronic Combined Systolic and Diastolic Congestive Heart Failure (Hcc) PAST MEDICAL HISTORY Diagnosis Date Acute combined systolic and diastolic congestive heart failure (HCC) 05/19/2017 Has ICD placed (10/01/17) Benign neoplasm of colon Diabetes (HCC) Peripheral arterial occlusive disease (HCC) 10/29/2017 Personal history of colonic polyps Personal history of unspecified urinary disorder PMH - PAST MEDICAL HISTORY OF kidney stones Skin cancer 2003 Surgeon in [place]. Stroke (HCC) Subarachnoid hemorrhage (HCC) 1998 brain bleed- stopped on own, no surg needed Unspecified essential hypertension Past medical history reviewed. ALLERGIES Allergen Reactions Bee Sting Honey bee venom Medication List Medication Directions Comments Action/Plan albuterol HFA (VENTOLIN HFA) 90 mcg/actuation inhaler Inhale 2 Puffs as instructed every 4 hours as needed for Wheezing/Shortness of Breath. allopurinol (ZYLOPRIM) 100 mg tablet Take 1 tablet by mouth twice daily. For gout. amiodarone (CORDARONE) 200 mg tablet Take 0.5 tablets by mouth once daily. aspirin, enteric coated (ASPIRIN, ENTERIC COATED) 81 mg EC tablet Take 1 tablet by mouth once daily. atorvastatin (LIPITOR) 10 mg tablet Take 1 tablet by mouth daily at bedtime. For cholesterol azelastine (ASTELIN) 0.1% nasal spray Use 1 Lamar in each nostril twice daily. Discontinued: 03/27/2023 11:56 AM blood sugar diagnostic test strip Test blood sugar twice daily as directed, E11.65, (more content not included)... [facility] 02-12-2023 Miscellaneous Notes Rec'd fax from [facility] and rec'd approval from 03/09/23 to 03/08/2024. Called pt and he made copies he says. Nothing else is needed. Forms front and back faxed to number provided. Attempted to reach patient to inquire as to whether he is wanting the forms for his record after scanned into [employer]. Let phone ring at least 10 times with no answer. Will need to attempt to reach patient at a later time. Sandra Nash LPN Pt brought in pt assistance for [facility] for jardiance. This was completed and to pcp to review and sign. Then fax to number on the form. documented in this encounter [facility] 12-01-2022 Note HNO ID: [id number] Author: Iman Batista MD Service: ? Author Type: Physician Type: Progress Notes Filed: 01/04/2023 11:54 PM Note Text: This note was created using F[employer]cast[employer]. Subjective Santos Mahajan is a 72 year old male. Patient presents with: Follow Up SUBJECTIVE: Santos Mahajan is a 72 year old year old gentleman here today for follow up appointment for review of medical conditions. Sugars getting high. 150s in the AM. No longer having lows. Nothing under 70s. Lowest since stopped glimepiride was 120. Highest was 325 at night. Was after donut more than two hours. Noted that lung biopsy was negative for malignancy. Plans for follow up CT scans. See assessment and plan for other issues addressed. 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 Stroke (HCC) Subarachnoid hemorrhage (HCC) 1998 brain bleed- stopped on own, no surg needed Unspecified essential hypertension Current Outpatient Medications Medication Sig lisinopril (ZESTRIL) 5 mg tablet Take 1 tablet by mouth once daily. levothyroxine (LEVOXYL) 25 mcg tablet Take 1 tablet by mouth once daily. Take on empty stomach. For Thyroid glimepiride (AMARYL) 4 mg tablet Take 1 tablet by mouth daily with breakfast. Insulin Risingsun, Disposable, (BD ULTRA-FINE DON PEN NEEDLE) 32 gauge x /32 Use to inject insulin twice daily. furosemide (LASIX) 40 mg tablet Take 1 tablet by mouth once daily. amiodarone (CORDARONE) 200 mg tablet Take 0.5 tablets by mouth once daily. carvedilol (COREG) 25 mg tablet Take 1 tablet by mouth twice daily with meals. clopidogrel (PLAVIX) 75 mg tablet Take 1 tablet by mouth once daily. loratadine (CLARITIN) 10 mg tablet Take 1 tablet by mouth once daily. allopurinol (ZYLOPRIM) 100 mg tablet Take 1 tablet by mouth twice daily. For gout. atorvastatin (LIPITOR) 10 mg tablet Take 1 tablet by mouth daily at bedtime. For cholesterol blood sugar diagnostic test strip Test blood sugar twice daily as directed, E11.65, Z79.4 DM type 2 with hyperglycemia, on insulin. True Metrix (or other covered strips and meter per patient preference and insurance coverage dulaglutide (TRULICITY) 3 mg/0.5 mL pen injector Inject 3 mg subcutaneously one time a week. Pt Assistance Med. insulin glargine (LANTUS SOLOSTAR, BASAGLAR KWIKPEN) 100 unit/mL (3 mL) Inject 40 Units subcutaneously daily at bedtime AND 44 Units every morning. PATIENT ASSISTANCE MED.. fluticasone (FLONASE) 50 mcg/actuation nasal spray Use 1 Lamar in each nostril twice daily. Rinse mouth after use. azelastine (ASTELIN) 0.1% nasal spray Use 1 Lamar in each nostril twice daily. empagliflozin (JARDIANCE) 25 mg tablet Take 1 tablet by mouth daily with breakfast. Patient Assistance Medication. predniSONE (DELTASONE) 20 mg tablet Take 1 tablet by mouth once daily. Take for 3 to 7 days as needed for gout attacks albuterol HFA (VENTOLIN HFA) 90 mcg/actuation inhaler Inhale 2 Puffs as instructed every 4 hours as needed for Wheezing/Shortness of Breath. Magnesium 250 mg tab Take 1 tablet by mouth twice daily. COMPOUNDED PRESCRIPTION O2 3L per [place] aspirin, enteric coated (ASPIRIN, ENTERIC COATED) 81 mg EC tablet Take 1 tablet by mouth once daily. Lancets (ONE TOUCH ULTRASOFT LANCETS) lancets TEST BLOOD SUGAR ONCE DAILY AND NEEDED No current facility-administered medications for this visit. Review of Systems Objective BP 136/78 Pulse 73 Resp 22 Wt 102.5 kg (226 lb) SpO2 90% BMI 32.43 kg/m? Last 5 Encounter Wt Readings: Date: Wt: 12/01/2022 102.5 kg (226 lb) 07/21/2022 103.9 kg (229 lb) 03/14/2022 103.9 kg (229 lb) 02/03/2022 103 kg (227 lb) 01/08/2022 103.3 kg (227 lb 12.8 oz) No waist measurement recorded Estimated body mass index is 32.43 kg/m? as calculated from the following: Height as of 02/03/22: 177.8 cm (5' 10 ). Weight as of this encounter: 102.5 kg (226 lb). Last 5 Encounter BP Readings: Date: BP: 12/01/2022 136/78 07/21/2022 132/68 03/14/2022 118/70 02/03/2022 140/62 01/08/2022 112/60 Physical Exam Vitals reviewed. Constitutional: Appearance: Normal appearance. Eyes: Conjunctiva/sclera: Conjunctivae normal. Cardiovascular: Rate and Rhythm: Normal rate and regular rhythm. Heart sounds: Normal heart sounds. Pulmonary: Effort: Pulmonary effort is normal. Breath sounds: Normal breath sounds. Musculoskeletal: Right lower leg: No edema. Left lower leg: No edema. Skin: General: Skin is warm and dry. Neurological: General: No focal deficit present. Mental Status: He is alert and oriented t (more content not included)... [facility] 12-01-2022 History of Presen t illness Narrative This note was created using [employer]. Subjective Santos Mahajan is a 72 year old male. Patient presents with: Follow Up SUBJECTIVE: Santos Mahajan is a 72 year old year old gentleman here today for follow up appointment for review of medical conditions. Sugars getting high. 150s in the AM. No longer having lows. Nothing under 70s. Lowest since stopped glimepiride was 120. Highest was 325 at night. Was after donut more than two hours. Noted that lung biopsy was negative for malignancy. Plans for follow up CT scans. See assessment and plan for other issues addressed. 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 Stroke (HCC) Subarachnoid hemorrhage (HCC) 1998 brain bleed- stopped on own, no surg needed Unspecified essential hypertension Current Outpatient Medications Medication Sig lisinopril (ZESTRIL) 5 mg tablet Take 1 tablet by mouth once daily. levothyroxine (LEVOXYL) 25 mcg tablet Take 1 tablet by mouth once daily. Take on empty stomach. For Thyroid glimepiride (AMARYL) 4 mg tablet Take 1 tablet by mouth daily with breakfast. Insulin Risings[place], Disposable, (BD ULTRA-FINE DON PEN NEEDLE) 32 gauge x Use to inject insulin twice daily. furosemide (LASIX) 40 mg tablet Take 1 tablet by mouth once daily. amiodarone (CORDARONE) 200 mg tablet Take 0.5 tablets by mouth once daily. carvedilol (COREG) 25 mg tablet Take 1 tablet by mouth twice daily with meals. clopidogrel (PLAVIX) 75 mg tablet Take 1 tablet by mouth once daily. loratadine (CLARITIN) 10 mg tablet Take 1 tablet by mouth once daily. allopurinol (ZYLOPRIM) 100 mg tablet Take 1 tablet by mouth twice daily. For gout. atorvastatin (LIPITOR) 10 mg tablet Take 1 tablet by mouth daily at bedtime. For cholesterol blood sugar diagnostic test strip Test blood sugar twice daily as directed, E11.65, Z79.4 DM type 2 with hyperglycemia, on insulin. True Metrix (or other covered strips and meter per patient preference and insurance coverage dulaglutide (TRULICITY) 3 mg/0.5 mL pen injector Inject 3 mg subcutaneously one time a week. Pt Assistance Med. insulin glargine (LANTUS SOLOSTAR, BASAGLAR KWIKPEN) 100 unit/mL (3 mL) Inject 40 Units subcutaneously daily at bedtime AND 44 Units every morning. PATIENT ASSISTANCE MED.. fluticasone (FLONASE) 50 mcg/actuation nasal spray Use 1 Lamar in each nostril twice daily. Rinse mouth after use. azelastine (ASTELIN) 0.1% nasal spray Use 1 Lamar in each nostril twice daily. empagliflozin (JARDIANCE) 25 mg tablet Take 1 tablet by mouth daily with breakfast. Patient Assistance Medication. predniSONE (DELTASONE) 20 mg tablet Take 1 tablet by mouth once daily. Take for 3 to 7 days as needed for gout attacks albuterol HFA (VENTOLIN HFA) 90 mcg/actuation inhaler Inhale 2 Puffs as instructed every 4 hours as needed for Wheezing/Shortness of Breath. Magnesium 250 mg tab Take 1 tablet by mouth twice daily. COMPOUNDED PRESCRIPTION O2 3L per [place] aspirin, enteric coated (ASPIRIN, ENTERIC COATED) 81 mg EC tablet Take 1 tablet by mouth once daily. Lancets (ONE TOUCH ULTRASOFT LANCETS) lancets TEST BLOOD SUGAR ONCE DAILY AND NEEDED No current facility-administered medications for this visit. Review of Systems Objective BP 136/78 Pulse 73 Resp 22 Wt 102.5 kg (226 lb) SpO2 90% BMI 32.43 kg/m Last 5 Encounter Wt Readings: Date: Wt: 12/01/2022 102.5 kg (226 lb) 07/21/2022 103.9 kg (229 lb) 03/14/2022 103.9 kg (229 lb) 02/03/2022 103 kg (227 lb) 01/08/2022 103.3 kg (227 lb 12.8 oz) No waist measurement recorded Estimated body mass index is 32.43 kg/m as calculated from the following: Height as of 02/03/22: 177.8 cm (5' 10 ). Weight as of this encounter: 102.5 kg (226 lb). Last 5 Encounter BP Readings: Date: BP: 12/01/2022 136/78 07/21/2022 132/68 03/14/2022 118/70 02/03/2022 140/62 01/08/2022 112/60 Physical Exam Vitals reviewed. Constitutional: Appearance: Normal appearance. Eyes: Conjunctiva/sclera: Conjunctivae normal. Cardiovascular: Rate and Rhythm: Normal rate and regular rhythm. Heart sounds: Normal heart sounds. Pulmonary: Effort: Pulmonary effort is normal. Breath sounds: Normal breath sounds. Musculoskeletal: Right lower leg: No edema. Left lower leg: No edema. Skin: General: Skin is warm and dry. Neurological: General: No focal deficit present. Mental Status: He is alert and oriented to person, place, and time. Psychiatric: Mood and Affect: Mood normal. Behavior: Behavior normal. Thought Content: Thought content normal. Judgment: Judgment normal. Assessment and Plan Encounter Diagnosis ICD-10-CM 1. Controlled type 2 diabetes mellitus with diabetic peripheral angiopathy without gangrene, with long-term current use of insulin (HCC) E11.51 Insulin Risingsun, Disposable, (BD ULTRA-FINE DON PEN NEEDLE) 32 gauge x 5/32 Z79.4 Reviewed when sugars were running high.Continue efforts at improving glycemic control 2. Essential hypertension I10 carvedilol (COREG) 25 mg tablet 3. Coronary artery disease involving [place] coronary artery of [place] heart without angina pectoris I25.10 atorvastatin (LIPITOR) 10 mg tablet carvedilol (COREG) 25 mg tablet clopidogrel (PLAVIX) 75 mg tablet Continue follow up with cardiology 4. Hyperlipidemia, unspecified hyperlipidemia type E78.5 carvedilol (COREG) 25 mg tablet 5. Atrial fibrillation, unspecified type (HCC) I48.91 amiodarone (CORDARONE) 200 mg tablet 6. Eustachian tube dysfunction, right H69.91 loratadine (CLARITIN) 10 mg tablet 7. Hyperuricemia E79.0 allopurinol (ZYLOPRIM) 100 mg tablet 8. Personal history of gout Z87.39 allopurinol (ZYLOPRIM) 100 mg tablet 9. Type 2 diabetes mellitus with diabetic peripheral angiopathy without gangrene, with long-term current use of insulin (HCC) E11.51 blood sugar diagnostic test strip Z79.4 10. Chronic combined systolic and diastolic congestive heart failure (HCC) I50.42 furosemide (LASIX) 40 mg tablet Continue follow up with cardiology 11. 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 Encounter for immunization Z23 INFLUENZA VACCINE, PRSV FREE, AGE 65+ YR, HIGH DOSE, QUADRIVALENT (FLUZONE HIGH-DOSE) 13. Encounter for long-term current use of medication Z79.899 allopurinol (ZYLOPRIM) 100 mg tablet Above issues addressed with patient. Patient involved in shared decision making for management of medical issues. History and medications reviewed. Epic updated as needed Refills and/or prescriptions taken care of and meds adjusted as indicated after reviewed history, exam and labs. Health Maintenance reviewed. Updated record and/or ordered tests as recorded. Encouraged on efforts at healthy diet and regular exercise and adequate sleep. Needs to keep working on diet and exercise with lifestyle changes for effective weight loss as well as control of DM, and control of BP and lipids. I spent a total of 53 minutes on the date of the service which included [id number] patient care, completing clinical documentation, obtaining and/or reviewing separately obtained history, performing a medically appropriate examination, counseling and educating the patient/family/caregiver, and ordering medications, tests, or procedures. Iman Batista MD documented in this encounter [facility] 11-24-2022 Miscellaneous Notes Addended by: JONY OTERO on: 11/24/2022 12:17 PM Modules accepted: Orders Patient phones requesting refills as follows: Requested Prescriptions Pending Prescriptions Disp Refills lisinopril (ZESTRIL) 5 mg tablet Sig: Take 1 tablet by mouth once daily. (Santos Wyman sent RX) GUILLERMINA 07/21/22 NOV 12/01/22 Please review and advise. Loc Huerta LPN documented in this encounter [facility] 11-17-2022 Miscellaneous Notes Okayed Last office visit: 07/21/22 Next appointment scheduled: 12/01/22 Last labs: 11/11/22 last TSH noted in external lab Patient phones requesting refills as follows: Requested Prescriptions Pending Prescriptions Disp Refills levothyroxine (LEVOXYL) 25 mcg tablet 90 tablet 1 Sig: Take 1 tablet by mouth once daily. Take on empty stomach. For Thyroid Please review and advise. Luba Pfeiffer LPN documented in this encounter [facility] 08-20-2022 Miscellaneous Notes Care Transition Back to PCP Our mutual patient, Santos Mahajan, who was referred to primary care pharmacy services for Diabetes management, has achieved adequate control during their care with us. . We will not be scheduling further follow up with pharmacy at this time. They have been encouraged to follow up with you for ongoing management. As always, you may refer Santos Mahajan back to pharmacy for management in the future. Next PCP team appointment: 12/01/22 Thank you for utilizing primary care pharmacy services. Uyen Delgado, CurryD, BCACP Primary Care Clinical Pharmacist documented in this encounter [facility] 08-19-2022 Note HNO ID: [id number] Author: Uyen Delgado RPh Service: ? Author Type: Pharmacist Type: Progress Notes Filed: 08/19/2022 5:00 PM Note Text: Primary Care Pharmacy Visit CC (Reason for Consult): Diabetes Goal: HbA1c<8% Last Collaborating Physician Visit: 07/21/22 Santos Mahajan is a 71 year old male presenting for follow up visit by telephone. Patient consents to pharmacy collaborative practice agreement. . At last visit with pharmacy on 05/20/22 the following changes were made: none HPI: Spoke with patient and Feels very well overall Reports BG readings continue to be very good Diet and activity level stable Tries to limit carbohydrates GLYCEMIC CONTROL: Glucometer present at visit: No Hypoglycemia: denies SMBG's: Fasting readings range 90-120 mg/dL After meal readings range 160-200 mg/dL ROS: As above. Patient denies CP, SOB, MCCLAIN, blurred vision, dizziness or lightheadedness Patient denies nausea, vomiting, diarrhea, abdominal pain Patient denies symptoms of hypoglycemia (sweating, anxiety, palpitations, hunger, and tremor) Patient denies symptoms of hyperglycemia (polyuria, polydipsia, polyphagia) Patient denies potential medication adverse effects Past medical, family and social history reviewed and updated. MEDICATIONS: Adherence: denies missed doses ALLERGIES Allergen Reactions Bee Sting Honey bee venom Current Outpatient Medications Medication Sig Dispense Refill Insulin Risingsun, Disposable, (BD ULTRA-FINE DON PEN NEEDLE) 32 gauge x 5/32 Use to inject insulin twice daily. 200 Each 3 furosemide (LASIX) 40 mg tablet Take 1 tablet by mouth once daily. 90 tablet 3 glimepiride (AMARYL) 4 mg tablet Take 1 tablet by mouth twice daily with meals. 180 tablet 3 levothyroxine (LEVOXYL) 25 mcg tablet Take 1 tablet by mouth once daily. Take on empty stomach. For Thyroid 90 tablet 1 amiodarone (CORDARONE) 200 mg tablet Take 0.5 tablets by mouth once daily. 45 tablet 3 carvedilol (COREG) 25 mg tablet Take 1 tablet by mouth twice daily with meals. 180 tablet 3 clopidogrel (PLAVIX) 75 mg tablet Take 1 tablet by mouth once daily. 90 tablet 3 loratadine (CLARITIN) 10 mg tablet Take 1 tablet by mouth once daily. 90 tablet 3 allopurinol (ZYLOPRIM) 100 mg tablet Take 1 tablet by mouth twice daily. For gout. 180 tablet 3 atorvastatin (LIPITOR) 10 mg tablet Take 1 tablet by mouth daily at bedtime. For cholesterol 90 tablet 3 blood sugar diagnostic test strip Test blood sugar twice daily as directed, E11.65, Z79.4 DM type 2 with hyperglycemia, on insulin. True Metrix (or other covered strips and meter per patient preference and insurance coverage 200 Strip 3 lisinopril (ZESTRIL, PRINIVIL) 5 mg tablet Take 1 tablet by mouth once daily. (Santos Wyman sent RX) dulaglutide (TRULICITY) 3 mg/0.5 mL pen injector Inject 3 mg subcutaneously one time a week. Pt Assistance Med. 8 mL 2 insulin glargine (LANTUS SOLOSTAR, BASAGLAR KWIKPEN) 100 unit/mL (3 mL) Inject 40 Units subcutaneously daily at bedtime AND 44 Units every morning. PATIENT ASSISTANCE MED.. fluticasone (FLONASE) 50 mcg/actuation nasal spray Use 1 Lamar in each nostril twice daily. Rinse mouth after use. 3 Each 3 azelastine (ASTELIN) 0.1% nasal spray Use 1 Lamar in each nostril twice daily. 90 mL 3 empagliflozin (JARDIANCE) 25 mg tablet Take 1 tablet by mouth daily with breakfast. Patient Assistance Medication. 90 tablet 0 predniSONE (DELTASONE) 20 mg tablet Take 1 tablet by mouth once daily. Take for 3 to 7 days as needed for gout attacks 30 tablet 0 albuterol HFA (VENTOLIN HFA) 90 mcg/actuation inhaler Inhale 2 Puffs as instructed every 4 hours as needed for Wheezing/Shortness of Breath. 1 Inhaler 0 Magnesium 250 mg tab Take 1 tablet by mouth twice daily. COMPOUNDED PRESCRIPTION O2 3L per [place] aspirin, enteric coated (ASPIRIN, ENTERIC COATED) 81 mg EC tablet Take 1 tablet by mouth once daily. Lancets (ONE TOUCH ULTRASOFT LANCETS) lancets TEST BLOOD SUGAR ONCE DAILY AND NEEDED 50 Each 3 No current facility-administered medications for this visit. EXAM: Last 3 Encounter BP Readings: Date: BP: 07/21/2022 132/68 03/14/2022 118/70 02/03/2022 140/62 Wt: 103.9 kg (229 lb) BMI: 32.86 kg/(m2) LABS: reviewed Lab Results Component Value Date HBA1C 7.2 07/18/2022 HBA1C 7.2 02/17/2022 HBA1C 7.0 01/08/2022 HBA1C 6.7 04/30/2021 HBA1C 7.9 10/31/2020 HBA1C 7.5 06/20/2020 Glucose 118 07/18/2022 BUN 24 07/18/2022 Creatinine 1.22 07/18/2022 Sodium 136 07/18/2022 Potassium 4.2 07/18/2022 Chloride 101 07/18/2022 CO2 23 07/18/2022 T PROT 7.6 07/18/2022 ALB 4.4 07/18/2022 Calcium 8.8 07/18/2022 Alkaline Phosphatase 73 07/18/2022 Bilirubin, Total 0.6 07/18/2022 AST 30 07/18/2022 ALT 44 07/18/2022 Lab Results Component Value Date CHOL 122 02/17/2022 CHOL 145 10/31/2020 LDL 41 02/17/2022 LDL 40 10/31/2020 HDL 28 02/17/2022 HDL 30 10/31/2020 TG 267 02/17/2022 (more content not included)... [facility] 07-21-2022 Note HNO ID: [id number] Author: Iman Batista MD Service: ? Author Type: Physician Type: Progress Notes Filed: 08/24/2022 10:21 PM Note Text: This note was created using [employer]. Subjective Santos Mahajan is a 71 year old male. Patient presents with: F/U 4 month: Labs prior SUBJECTIVE: Santos Mahajan is a 71 year old year old gentleman here today for 4 month follow up appointment for review of medical conditions. Overall doing pretty good. Neuropathy in feet getting worse--swelling, goes up foot to leg, tingling. Toes discolored reddish. No pain in legs and feet with walking. Feet mor comfortable up than down. Noted laceration and due for tetanus shot. See assessment and plan. PAST MEDICAL HISTORY Diagnosis Date Acute combined systolic and diastolic congestive heart failure (HCC) 05/19/2017 Has ICD placed (10/01/17) Benign neoplasm of colon Diabetes (HCC) Peripheral arterial occlusive disease (HCC) 10/29/2017 Personal history of colonic polyps Personal history of unspecified urinary disorder PMH - PAST MEDICAL HISTORY OF kidney stones Skin cancer 2004 Surgeon in [place]. Stroke (HCC) Subarachnoid hemorrhage (HCC) 1998 brain bleed- stopped on own, no surg needed Unspecified essential hypertension Current Outpatient Medications Medication Sig furosemide (LASIX) 40 mg tablet Take 1 tablet by mouth once daily. glimepiride (AMARYL) 4 mg tablet Take 1 tablet by mouth twice daily with meals. levothyroxine (LEVOXYL) 25 mcg tablet Take 1 tablet by mouth once daily. Take on empty stomach. For Thyroid amiodarone (CORDARONE) 200 mg tablet Take 0.5 tablets by mouth once daily. carvedilol (COREG) 25 mg tablet Take 1 tablet by mouth twice daily with meals. clopidogrel (PLAVIX) 75 mg tablet Take 1 tablet by mouth once daily. loratadine (CLARITIN) 10 mg tablet Take 1 tablet by mouth once daily. allopurinol (ZYLOPRIM) 100 mg tablet Take 1 tablet by mouth twice daily. For gout. atorvastatin (LIPITOR) 10 mg tablet Take 1 tablet by mouth daily at bedtime. For cholesterol blood sugar diagnostic test strip Test blood sugar twice daily as directed, E11.65, Z79.4 DM type 2 with hyperglycemia, on insulin. True Metrix (or other covered strips and meter per patient preference and insurance coverage Insulin [place], Disposable, (BD ULTRA-FINE DON PEN NEEDLE) 32 gauge x 5/32 Use to inject insulin twice daily. lisinopril (ZESTRIL, PRINIVIL) 5 mg tablet Take 1 tablet by mouth once daily. (Santos Wyman sent RX) dulaglutide (TRULICITY) 3 mg/0.5 mL pen injector Inject 3 mg subcutaneously one time a week. Pt Assistance Med. insulin glargine (LANTUS SOLOSTAR, BASAGLAR KWIKPEN) 100 unit/mL (3 mL) Inject 40 Units subcutaneously daily at bedtime AND 44 Units every morning. PATIENT ASSISTANCE MED.. fluticasone (FLONASE) 50 mcg/actuation nasal spray Use 1 Lamar in each nostril twice daily. Rinse mouth after use. azelastine (ASTELIN) 0.1% nasal spray Use 1 Lamar in each nostril twice daily. empagliflozin (JARDIANCE) 25 mg tablet Take 1 tablet by mouth daily with breakfast. Patient Assistance Medication. predniSONE (DELTASONE) 20 mg tablet Take 1 tablet by mouth once daily. Take for 3 to 7 days as needed for gout attacks albuterol HFA (VENTOLIN HFA) 90 mcg/actuation inhaler Inhale 2 Puffs as instructed every 4 hours as needed for Wheezing/Shortness of Breath. Magnesium 250 mg tab Take 1 tablet by mouth twice daily. COMPOUNDED PRESCRIPTION O2 3L per [place] aspirin, enteric coated (ASPIRIN, ENTERIC COATED) 81 mg EC tablet Take 1 tablet by mouth once daily. Lancets (ONE TOUCH ULTRASOFT LANCETS) lancets TEST BLOOD SUGAR ONCE DAILY AND NEEDED No current facility-administered medications for this visit. Review of Systems Objective BP 132/68 Pulse 67 Temp 36.6 ?C (97.8 ?F) Resp 18 Wt 103.9 kg (229 lb) SpO2 94% BMI 32.86 kg/m? Last 5 Encounter Wt Readings: Date: Wt: 07/21/2022 103.9 kg (229 lb) 03/14/2022 103.9 kg (229 lb) 02/03/2022 103 kg (227 lb) 01/08/2022 103.3 kg (227 lb 12.8 oz) 11/22/2021 103 kg (227 lb) No waist measurement recorded Estimated body mass index is 32.86 kg/m? as calculated from the following: Height as of 02/03/22: 177.8 cm (5' 10 ). Weight as of this encounter: 103.9 kg (229 lb). Last 5 Encounter BP Readings: Date: BP: 07/21/2022 132/68 03/14/2022 118/70 02/03/2022 140/62 01/08/2022 112/60 11/22/2021 122/82 Physical Exam Vitals reviewed. Constitutional: Appearance: Normal appearance. Eyes: Conjunctiva/sclera: Conjunctivae normal. Cardiovascular: Rate and Rhythm: Normal rate and regular rhythm. Heart sounds: Normal heart sounds. Pulmonary: Effort: Pulmonary effort is normal. Breath sounds: Normal breath sounds. Skin: General: Skin is warm and dry. Neurological: General: No focal deficit present. Mental Status: He is alert and oriented to person, place, and time. Psychiatric: Mood and (more content not included)... [facility] 07-21-2022 Instructions Iman Batista MD - 07/21/2022 12:10 PM EDT Alpha lipoic acid 300 to 600 mg per day for peripheral neuropathy. Over the counter. Consider rechecking arterial studies. documented in this encounter [facility] 07-21-2022 History of Presen t illness Narrative This note was created using Farecastriter. Subjective Santos Mahajan is a 71 year old male. Patient presents with: F/U 4 month: Labs prior SUBJECTIVE: Santos Mahajna is a 71 year old year old gentleman here today for 4 month follow up appointment for review of medical conditions. Overall doing pretty good. Neuropathy in feet getting worse--swelling, goes up foot to leg, tingling. Toes discolored reddish. No pain in legs and feet with walking. Feet mor comfortable up than down. Noted laceration and due for tetanus shot. See assessment and plan. 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 Stroke (HCC) Subarachnoid hemorrhage (HCC) 1998 brain bleed- stopped on own, no surg needed Unspecified essential hypertension Current Outpatient Medications Medication Sig furosemide (LASIX) 40 mg tablet Take 1 tablet by mouth once daily. glimepiride (AMARYL) 4 mg tablet Take 1 tablet by mouth twice daily with meals. levothyroxine (LEVOXYL) 25 mcg tablet Take 1 tablet by mouth once daily. Take on empty stomach. For Thyroid amiodarone (CORDARONE) 200 mg tablet Take 0.5 tablets by mouth once daily. carvedilol (COREG) 25 mg tablet Take 1 tablet by mouth twice daily with meals. clopidogrel (PLAVIX) 75 mg tablet Take 1 tablet by mouth once daily. loratadine (CLARITIN) 10 mg tablet Take 1 tablet by mouth once daily. allopurinol (ZYLOPRIM) 100 mg tablet Take 1 tablet by mouth twice daily. For gout. atorvastatin (LIPITOR) 10 mg tablet Take 1 tablet by mouth daily at bedtime. For cholesterol blood sugar diagnostic test strip Test blood sugar twice daily as directed, E11.65, Z79.4 DM type 2 with hyperglycemia, on insulin. True Metrix (or other covered strips and meter per patient preference and insurance coverage Insulin [place], Disposable, (BD ULTRA-FINE DON PEN NEEDLE) 32 gauge x Use to inject insulin twice daily. lisinopril (ZESTRIL, PRINIVIL) 5 mg tablet Take 1 tablet by mouth once daily. (Santos Wyman sent RX) dulaglutide (TRULICITY) 3 mg/0.5 mL pen injector Inject 3 mg subcutaneously one time a week. Pt Assistance Med. insulin glargine (LANTUS SOLOSTAR, BASAGLAR KWIKPEN) 100 unit/mL (3 mL) Inject 40 Units subcutaneously daily at bedtime AND 44 Units every morning. PATIENT ASSISTANCE MED.. fluticasone (FLONASE) 50 mcg/actuation nasal spray Use 1 Lamar in each nostril twice daily. Rinse mouth after use. azelastine (ASTELIN) 0.1% nasal spray Use 1 Lamar in each nostril twice daily. empagliflozin (JARDIANCE) 25 mg tablet Take 1 tablet by mouth daily with breakfast. Patient Assistance Medication. predniSONE (DELTASONE) 20 mg tablet Take 1 tablet by mouth once daily. Take for 3 to 7 days as needed for gout attacks albuterol HFA (VENTOLIN HFA) 90 mcg/actuation inhaler Inhale 2 Puffs as instructed every 4 hours as needed for Wheezing/Shortness of Breath. Magnesium 250 mg tab Take 1 tablet by mouth twice daily. COMPOUNDED PRESCRIPTION O2 3L per [place] aspirin, enteric coated (ASPIRIN, ENTERIC COATED) 81 mg EC tablet Take 1 tablet by mouth once daily. Lancets (ONE TOUCH ULTRASOFT LANCETS) lancets TEST BLOOD SUGAR ONCE DAILY AND NEEDED No current facility-administered medications for this visit. Review of Systems Objective BP 132/68 Pulse 67 Temp 36.6 C (97.8 F) Resp 18 Wt 103.9 kg (229 lb) SpO2 94% BMI 32.86 kg/m Last 5 Encounter Wt Readings: Date: Wt: 07/21/2022 103.9 kg (229 lb) 03/14/2022 103.9 kg (229 lb) 02/03/2022 103 kg (227 lb) 01/08/2022 103.3 kg (227 lb 12.8 oz) 11/22/2021 103 kg (227 lb) No waist measurement recorded Estimated body mass index is 32.86 kg/m as calculated from the following: Height as of 02/03/22: 177.8 cm (5' 10 ). Weight as of this encounter: 103.9 kg (229 lb). Last 5 Encounter BP Readings: Date: BP: 07/21/2022 132/68 03/14/2022 118/70 02/03/2022 140/62 01/08/2022 112/60 11/22/2021 122/82 Physical Exam Vitals reviewed. Constitutional: Appearance: Normal appearance. Eyes: Conjunctiva/sclera: Conjunctivae normal. Cardiovascular: Rate and Rhythm: Normal rate and regular rhythm. Heart sounds: Normal heart sounds. Pulmonary: Effort: Pulmonary effort is normal. Breath sounds: Normal breath sounds. Skin: General: Skin is warm and dry. Neurological: General: No focal deficit present. Mental Status: He is alert and oriented to person, place, and time. Psychiatric: Mood and Affect: Mood normal. Behavior: Behavior normal. Thought Content: Thought content normal. Judgment: Judgment normal. Feet:Shoes and socks removed, No deformities, ulcers, calluses, normal distal pulses, and sensitive to 10 gm monofilament Component Latest Ref Rng & Units 01/08/2022 02/17/2022 07/18/2022 Protein, Total 6.3 - 8.0 g/dL 7.3 7.6 Albumin 3.9 - 4.9 g/dL 4.1 4.4 Calcium 8.5 - 10.2 mg/dL 8.8 8.8 Bilirubin, Total 0.2 - 1.3 mg/dL 0.5 0.6 Alkaline Phosphatase 38 - 113 U/L 72 73 AST 14 - 40 U/L 29 30 ALT 10 - 54 U/L 35 44 Glucose 74 - 99 mg/dL 121 (H) 118 (H) BUN 9 - 24 mg/dL 21 24 Creatinine 0.73 - 1.22 mg/dL 1.18 1.22 Sodium 136 - 144 mmol/L 138 136 Potassium 3.7 - 5.1 mmol/L 4.4 4.2 Chloride 97 - 105 mmol/L 100 101 CO2 22 - 30 mmol/L 23 23 Anion Gap 9 - 18 mmol/L 15 12 eGFR >=60 mL/min/1.73m 66 63 WBC 3.70 - 11.00 k/uL 9.38 10.66 RBC 4.20 - 6.00 m/uL 5.54 5.85 Hemoglobin 13.0 - 17.0 g/dL 16.6 17.4 (H) Hematocrit 39.0 - 51.0 % 49.8 52.0 (H) MCV 80.0 - 100.0 fL 89.9 88.9 MCH 26.0 - 34.0 pg 30.0 29.7 MCHC 30.5 - 36.0 g/dL 33.3 33.5 RDW-CV 11.5 - 15.0 % 15.6 (H) 16.1 (H) Platelet Count 150 - 400 k/uL 191 189 MPV 9.0 - 12.7 fL 9.6 9.6 Absolute nRBC <0.01 k/uL <0.01 <0.01 Cholesterol, Total <200 mg/dL 122 Triglyceride <150 mg/dL 267 (H) HDL Cholesterol >39 mg/dL 28 (L) Non HDL Cholesterol <130 mg/dL 94 Fasting Time hrs 16 VLDL Cholesterol <30 mg/dL 53 (H) TC:HDL Ratio <5.10 4.36 LDL Cholesterol <100 mg/dL 41 LDL:HDL Ratio <2.54 1.46 Creatinine, Ur Random (UCRR) 20.0 - 300.0 mg/dL 78.5 Albumin, Urine Random mg/L <12.0 Albumin/Creat Ratio <30 mg/g <15 Hemoglobin A1C 4.3 - 5.6 % 7.0 (H) 7.2 (H) 7.2 (H) Estimated Average Glucose mg/dL 154 160 160 TSH 0.270 - 4.200 mIU/L 3.690 3.440 3.560 Free T4 0.9 - 1.7 ng/dL 1.3 1.4 1.4 Free T3 2.3 - 4.1 pg/mL 3.1 2.4 Magnesium 1.7 - 2.3 mg/dL 2.3 Uric Acid 4.0 - 8.1 mg/dL 5.4 T3 79 - 165 ng/dL 85 Hemoglobin A1C (%) Date Value 07/18/2022 7.2 02/17/2022 7.2 01/08/2022 7.0 11/19/2021 7.1 04/30/2021 6.7 10/31/2020 7.9 06/20/2020 7.5 11/01/2019 10.2 10/08/2018 9.2 Assessment and Plan Encounter Diagnosis ICD-10-CM 1. Controlled type 2 diabetes mellitus with diabetic peripheral angiopathy without gangrene, with long-term current use of insulin (HCC) E11.51 Insulin [place], Disposable, (BD ULTRA-FINE DON PEN NEEDLE) 32 gauge x Z79.4 TD VACCINE, AGE 7+ YR, 5 LF TETANUS (TENIVAC) HGB A1C COMP METABOLIC PANEL LIPID PANEL BASIC 2. Chronic combined systolic and diastolic congestive heart failure (HCC) I50.42 3. Laceration of right upper extremity, initial encounter S41.111A 4 inches long. Healing well. Needs tetanus shot 4. Hyperuricemia E79.0 URIC ACID BLOOD 5. Encounter for immunization Z23 6. Encounter for long-term current use of medication Z79.899 HGB A1C COMP METABOLIC PANEL LIPID PANEL BASIC URIC ACID BLOOD Above issues addressed with patient. Patient involved in shared decision making for management of medical issues. History and medications reviewed. Epic updated as needed Refills and/or prescriptions taken care of and meds adjusted as indicated after reviewed history, exam and labs. Health Maintenance reviewed. Updated record and/or ordered tests as recorded. Encouraged on efforts at healthy diet and regular exercise and adequate sleep. Continue present meds.Continue present management.Further evaluation and treatment as indicated. Iman Batista MD documented in this encounter [facility] 06-13-2022 Miscellaneous Notes See phone encounter. documented in this encounter [facility] 06-10-2022 Miscellaneous Notes Was this form faxed to [facility] [address]? Is her copy to be picked up on the 2nd floor or in Med Recs? Sophia RICHARDSON [place], printed Patient requested a jury duty excuse in 3-24 [facility] message. reports patient was called to jury duty, but d/t heart condition and 24/7 oxygen, he is unable. Asking if pcp can fax signed letter to [employer], attn: Juliana Castro, jury commissioner. . Asking pcp to make copy of the letter for her to brick picker as well. Please phone her for brick picker @ [phone]. documented in this encounter [facility] 05-20-2022 Note HNO ID: [id number] Author: Uyen Delgado RPh Service: ? Author Type: Pharmacist Type: Progress Notes Filed: 06/03/2022 11:39 AM Note Text: Primary Care Pharmacy Visit CC (Reason for Consult): Diabetes Goal: HbA1c<8% Last Collaborating Physician/MEDIA RELATIONS SPECIALIST Visit: 03/14/22 Santos Mahajan is a 71 year old male presenting for follow up visit by telephone. Patient consents to pharmacy collaborative practice agreement. At last visit with pharmacy on 02/24/23 the following changes were made: no medication changes made. INTERIM HISTORY: Feels well overall Readings are stable No changes in diet or activity Reports BG reading at fasting in the low 100s In the evenings, some BG readings in the high 100s and low 200s Current DM Medications: Trulicity 3 mg once weekly Empagliflozin 25 mg daily Glimepiride 4 mg BID with meals Lantus 40 units in the morning and 44 units at bedtime Preventative Medications: On MICHELL/ARB: Yes On Statin: Yes ROS: Patient denies CP, SOB, MCCLAIN, blurred vision, dizziness or lightheadedness Patient denies nausea, vomiting, diarrhea, abdominal pain Patient denies symptoms of hypoglycemia (sweating, anxiety, palpitations, hunger, and tremor) Patient denies symptoms of hyperglycemia (polyuria, polydipsia, polyphagia) Patient denies potential medication adverse effects MEDICATIONS: Adherence: denies missed doses. Pharmacy: [facility] Rx coverage: Medicare Affordability: high deductible and brand name meds are expensive ACTIVE PROBLEM LIST Hypertension Benign Neoplasm of Colon Renal Colic Personal History of Colonic Polyps Hyperlipidemia Type 2 Diabetes Mellitus With Diabetic Peripheral Angiopathy Without Gangrene, Without Long-Term Current Use of Insulin (Hcc) Spinal Stenosis, Lumbar Region, Without Neurogenic Claudication Lumbar Canal Stenosis Actinic Keratoses: Premalignant AK's Other Seborrheic Keratosis Solar Lentigo Actinic Skin Damage H/O BCC Skin Cancers of R jawline face and R side nose: excised /2006 () Melanocytic Nevi of Trunk Xerosis Cutis Irritated//Inflamed Seborrheic Keratosis Viral Warts, Unspecified Neoplasm of Uncertain Behavior (NUB) of skin: R/O BCC at Right Side Neck BCC (basal cell carcinoma), neck Quit smoking--04/09/2017 Atrial Fibrillation (Hcc) Coronary Artery Disease Involving [place] Coronary Artery of [place] Heart Without Angina Pectoris Mediastinal Lymphadenopathy Status Post Coronary Artery Stent Placement Peripheral Arterial Occlusive Disease (Hcc) On Home Oxygen Therapy Chronic Combined Systolic and Diastolic Congestive Heart Failure (Hcc) Hypertensive Heart Disease With Chronic Combined Systolic and Diastolic Congestive Heart Failure (Hcc) PAST MEDICAL HISTORY Diagnosis Date Acute combined systolic and diastolic congestive heart failure (HCC) 05/19/2017 Has ICD placed (10/01/17) Benign neoplasm of colon Diabetes (HCC) Peripheral arterial occlusive disease (HCC) 10/29/2017 Personal history of colonic polyps Personal history of unspecified urinary disorder PMH - PAST MEDICAL HISTORY OF kidney stones Skin cancer 2003 Surgeon in [place]. Stroke (HCC) Subarachnoid hemorrhage (HCC) 1998 brain bleed- stopped on own, no surg needed Unspecified essential hypertension ALLERGIES Allergen Reactions Bee Sting Honey bee venom Current Outpatient Medications Medication Sig amiodarone (CORDARONE) 200 mg tablet Take 0.5 tablets by mouth once daily. carvedilol (COREG) 25 mg tablet Take 1 tablet by mouth twice daily with meals. clopidogrel (PLAVIX) 75 mg tablet Take 1 tablet by mouth once daily. loratadine (CLARITIN) 10 mg tablet Take 1 tablet by mouth once daily. allopurinol (ZYLOPRIM) 100 mg tablet Take 1 tablet by mouth twice daily. For gout. atorvastatin (LIPITOR) 10 mg tablet Take 1 tablet by mouth daily at bedtime. For cholesterol blood sugar diagnostic test strip Test blood sugar twice daily as directed, E11.65, Z79.4 DM type 2 with hyperglycemia, on insulin. True Metrix (or other covered strips and meter per patient preference and insurance coverage Insulin [place], Disposable, (BD ULTRA-FINE DON PEN NEEDLE) 32 gauge x Use to inject insulin twice daily. lisinopril (ZESTRIL, PRINIVIL) 5 mg tablet Take 1 tablet by mouth once daily. (Santos Wyman sent RX) furosemide (LASIX) 40 mg tablet Take 1 tablet by mouth once daily. levothyroxine (LEVOXYL) 25 mcg tablet Take 1 tablet by mouth once daily. Take on empty stomach. For Thyroid dulaglutide (TRULICITY) 3 mg/0.5 mL pen injector Inject 3 mg subcutaneously one time a week. Pt Assistance Med. insulin glargine (LANTUS SOLOSTAR, BASAGLAR KWIKPEN) 100 unit/mL (3 mL) Inject 40 Units subcutaneously daily at bedtime AND 44 Units every morning. PATIENT ASSISTANCE MED.. fluticasone (FLONASE) 50 mcg/actuation nasal spray Use 1 Lamar in each nostril twice daily. Rinse mouth after use. glimep (more content not included)... [facility] 05-20-2022 History of Presen t illness Narrative Primary Care Pharmacy Visit CC (Reason for Consult): Diabetes Goal: HbA1c<8% Last Collaborating Physician/MEDIA RELATIONS SPECIALIST Visit: 03/14/22 Santos Mahajan is a 71 year old male presenting for follow up visit by telephone. Patient consents to pharmacy collaborative practice agreement. At last visit with pharmacy on 02/24/23 the following changes were made: no medication changes made. INTERIM HISTORY: Feels well overall Readings are stable No changes in diet or activity Reports BG reading at fasting in the low 100s In the evenings, some BG readings in the high 100s and low 200s Current DM Medications: Trulicity 3 mg once weekly Empagliflozin 25 mg daily Glimepiride 4 mg BID with meals Lantus 40 units in the morning and 44 units at bedtime Preventative Medications: On MICHELL/ARB: Yes On Statin: Yes ROS: Patient denies CP, SOB, MCCLAIN, blurred vision, dizziness or lightheadedness Patient denies nausea, vomiting, diarrhea, abdominal pain Patient denies symptoms of hypoglycemia (sweating, anxiety, palpitations, hunger, and tremor) Patient denies symptoms of hyperglycemia (polyuria, polydipsia, polyphagia) Patient denies potential medication adverse effects MEDICATIONS: Adherence: denies missed doses. [facility] Rx coverage: Medicare Affordability: high deductible and brand name meds are expensive ACTIVE PROBLEM LIST Hypertension Benign Neoplasm of Colon Renal Colic Personal History of Colonic Polyps Hyperlipidemia Type 2 Diabetes Mellitus With Diabetic Peripheral Angiopathy Without Gangrene, Without Long-Term Current Use of Insulin (Hcc) Spinal Stenosis, Lumbar Region, Without Neurogenic Claudication Lumbar Canal Stenosis Actinic Keratoses: Premalignant AK's Other Seborrheic Keratosis Solar Lentigo Actinic Skin Damage H/O BCC Skin Cancers of R jawline face and R side nose: excised /2006 () Melanocytic Nevi of Trunk Xerosis Cutis Irritated//Inflamed Seborrheic Keratosis Viral Warts, Unspecified Neoplasm of Uncertain Behavior (NUB) of skin: R/O BCC at Right Side Neck BCC (basal cell carcinoma), neck Quit smoking--04/09/2017 Atrial Fibrillation (Hcc) Coronary Artery Disease Involving [place] Coronary Artery of [place] Heart Without Angina Pectoris Mediastinal Lymphadenopathy Status Post Coronary Artery Stent Placement Peripheral Arterial Occlusive Disease (Hcc) On Home Oxygen Therapy Chronic Combined Systolic and Diastolic Congestive Heart Failure (Hcc) Hypertensive Heart Disease With Chronic Combined Systolic and Diastolic Congestive Heart Failure (Hcc) PAST MEDICAL HISTORY Diagnosis Date Acute combined systolic and diastolic congestive heart failure (HCC) 05/19/2017 Has ICD placed (10/01/17) Benign neoplasm of colon Diabetes (HCC) Peripheral arterial occlusive disease (HCC) 10/29/2017 Personal history of colonic polyps Personal history of unspecified urinary disorder PMH - PAST MEDICAL HISTORY OF kidney stones Skin cancer 2003 Surgeon in [place]. Stroke (HCC) Subarachnoid hemorrhage (HCC) 1998 brain bleed- stopped on own, no surg needed Unspecified essential hypertension ALLERGIES Allergen Reactions Bee Sting Honey bee venom Current Outpatient Medications Medication Sig amiodarone (CORDARONE) 200 mg tablet Take 0.5 tablets by mouth once daily. carvedilol (COREG) 25 mg tablet Take 1 tablet by mouth twice daily with meals. clopidogrel (PLAVIX) 75 mg tablet Take 1 tablet by mouth once daily. loratadine (CLARITIN) 10 mg tablet Take 1 tablet by mouth once daily. allopurinol (ZYLOPRIM) 100 mg tablet Take 1 tablet by mouth twice daily. For gout. atorvastatin (LIPITOR) 10 mg tablet Take 1 tablet by mouth daily at bedtime. For cholesterol blood sugar diagnostic test strip Test blood sugar twice daily as directed, E11.65, Z79.4 DM type 2 with hyperglycemia, on insulin. True Metrix (or other covered strips and meter per patient preference and insurance coverage Insulin [place], Disposable, (BD ULTRA-FINE DON PEN NEEDLE) 32 gauge x 5/32 Use to inject insulin twice daily. lisinopril (ZESTRIL, PRINIVIL) 5 mg tablet Take 1 tablet by mouth once daily. (Santos Wyman sent RX) furosemide (LASIX) 40 mg tablet Take 1 tablet by mouth once daily. levothyroxine (LEVOXYL) 25 mcg tablet Take 1 tablet by mouth once daily. Take on empty stomach. For Thyroid dulaglutide (TRULICITY) 3 mg/0.5 mL pen injector Inject 3 mg subcutaneously one time a week. Pt Assistance Med. insulin glargine (LANTUS SOLOSTAR, BASAGLAR KWIKPEN) 100 unit/mL (3 mL) Inject 40 Units subcutaneously daily at bedtime AND 44 Units every morning. PATIENT ASSISTANCE MED.. fluticasone (FLONASE) 50 mcg/actuation nasal spray Use 1 Lamar in each nostril twice daily. Rinse mouth after use. glimepiride (AMARYL) 4 mg tablet Take 1 tablet by mouth twice daily with meals. azelastine (ASTELIN) 0.1% nasal spray Use 1 Lamar in each nostril twice daily. empagliflozin (JARDIANCE) 25 mg tablet Take 1 tablet by mouth daily with breakfast. Patient Assistance Medication. predniSONE (DELTASONE) 20 mg tablet Take 1 tablet by mouth once daily. Take for 3 to 7 days as needed for gout attacks albuterol HFA (VENTOLIN HFA) 90 mcg/actuation inhaler Inhale 2 Puffs as instructed every 4 hours as needed for Wheezing/Shortness of Breath. Magnesium 250 mg tab Take 1 tablet by mouth twice daily. COMPOUNDED PRESCRIPTION O2 3L per [place] aspirin, enteric coated (ASPIRIN, ENTERIC COATED) 81 mg EC tablet Take 1 tablet by mouth once daily. Lancets (ONE TOUCH ULTRASOFT LANCETS) lancets TEST BLOOD SUGAR ONCE DAILY AND NEEDED No current facility-administered medications for this visit. EXAM: Last 3 Encounter BP Readings: Date: BP: 03/14/2022 118/70 02/03/2022 140/62 01/08/2022 112/60 Wt: 103.9 kg (229 lb) BMI: 32.86 kg/(m^2) LABS: Lab Results Component Value Date HBA1C 7.2 02/17/2022 HBA1C 7.0 01/08/2022 HBA1C 7.1 11/19/2021 HBA1C 6.7 04/30/2021 HBA1C 7.9 10/31/2020 HBA1C 7.5 06/20/2020 CMP: Glucose 121 02/17/2022 BUN 21 02/17/2022 Creatinine 1.18 02/17/2022 Sodium 138 02/17/2022 Potassium 4.4 02/17/2022 Chloride 100 02/17/2022 CO2 23 02/17/2022 T PROT 7.3 02/17/2022 ALB 4.1 02/17/2022 Calcium 8.8 02/17/2022 Alkaline Phosphatase 72 02/17/2022 Bilirubin, Total 0.5 02/17/2022 AST 29 02/17/2022 ALT 35 02/17/2022 Serum creatinine: 1.18 mg/dL 02/17/22 1205 Estimated creatinine clearance: 69.4 mL/min No results found for: GFR eGFR- (no units) Date Value 04/30/2021 >60 Lab Results Component Value Date CHOL 122 02/17/2022 CHOL 145 10/31/2020 LDL 41 02/17/2022 LDL 40 10/31/2020 HDL 28 02/17/2022 HDL 30 10/31/2020 TG 267 02/17/2022 TG 375 10/31/2020 The ASCVD Risk score (Khadar PALACIOS, et al., 2019) failed to calculate for the following reasons: The valid total cholesterol range is 130 to 320 mg/dL Albumin/Creat Ratio (mg/g) Date Value 04/30/2021 Not calculated PHARMACOTHERAPY ASSESSMENT/PLAN: 1. Type 2 diabetes mellitus with diabetic peripheral angiopathy without gangrene, without long-term current use of insulin (HCC) - ICD9: 250.70, 443.81, ICD10: E11.51 Goal A1c <8%; (can consider A1c<7%) - at goal (last A1c 7.2%); SMBG readings mostly within goal range on current regimen. Today, will continue current regimen. Discussed limiting carbohydrate intake. Renal function and LFTs appropriate for continued use CONTINUE Trulicity 3 mg weekly, Empagliflozin 25 mg daily, Glimepiride 4 mg BID with meals, Lantus 40 units in the morning and 44 units at bedtime Follow up: Patient is scheduled to see PCP team on 07/21/22. Patient to follow up with pharmD on 08/19/22. Patient verbalized understanding of instructions. Uyen Delgado PharmD, FOSTERCP Primary Care Clinical Pharmacist The majority of the pharmacy visit (> 50%) was spent counseling and/or coordinating care for the patient. [Telephonic] time was 20 minutes. documented in this encounter [facility] 05-06-2022 Miscellaneous Notes See TE 03/24/22. Nerissa Love RN Reviewed application that was faxed on 02/14. Application is single sided and it appears everything was complete. PharmSarah did receive notification that patient signature, date, people in household, household income, and proof of income were not complete. Upon review, all of these sections are completed minus the proof of income which is not a requirement for [employer] applications. Application refaxed to [employer] today. Janice Macario PharmD, [facility] Primary Care Clinical Pharmacist Patient returned application to office and it was faxed 02/14. Application may have been double sided so need to refax and ensure full application was sent. Chart shows application was returned back to pharmacy office. Will coordinate to check application forms with local team. Uyen Delgado PharmD, FOSTERCP Primary Care Clinical Pharmacist Carlos with [employer] calls to report that they didn't receive the [employer] renewal application for 2022 with the prescription and medication list. Carlos requesting renewal application be faxed to [phone]. Nerissa Love RN documented in this encounter [facility] 03-24-2022 Miscellaneous Notes Rec'd fax from [employer]. T says pt has been approved from 03/24/22 to 03/08/2023 unless their circumstances change. Fax to MR for scanning. documented in this encounter [facility] 03-14-2022 History of Presen t illness Narrative This note was created using [employer]. Subjective Santos Mahajan is a 71 year old male. Patient presents with: Established Patient: 4 month follow up SUBJECTIVE: Santos Mahajan is a 71 year old year old gentleman here today for 4 month follow up appointment for review of medical conditions. Stable on current meds. Carvediolol needed changed to 180 pills to get BID . [employer] issue discussed. Janice took care of refaxing applications. PAST MEDICAL HISTORY Diagnosis Date Acute combined systolic and diastolic congestive heart failure (HCC) 05/19/2017 Has ICD placed (10/01/17) Benign neoplasm of colon Diabetes (HCC) Peripheral arterial occlusive disease (HCC) 10/29/2017 Personal history of colonic polyps Personal history of unspecified urinary disorder PMH - PAST MEDICAL HISTORY OF kidney stones Skin cancer 2004 Surgeon in [place]. Stroke (HCC) Subarachnoid hemorrhage (HCC) 1998 brain bleed- stopped on own, no surg needed Unspecified essential hypertension Current Outpatient Medications Medication Sig carvedilol (COREG) 25 mg tablet Take 1 tablet by mouth twice daily with meals. blood sugar diagnostic test strip Test blood sugar twice daily as directed, E11.65. Accu Check Guide Insulin Risingsun, Disposable, (BD ULTRA-FINE DON PEN NEEDLE) 32 gauge x 5/32 Use to inject insulin twice daily. lisinopril (ZESTRIL, PRINIVIL) 5 mg tablet Take 1 tablet by mouth once daily. (Santos Roof sent RX) furosemide (LASIX) 40 mg tablet Take 1 tablet by mouth once daily. levothyroxine (LEVOXYL) 25 mcg tablet Take 1 tablet by mouth once daily. Take on empty stomach. For Thyroid dulaglutide (TRULICITY) 3 mg/0.5 mL pen injector Inject 3 mg subcutaneously one time a week. Pt Assistance Med. insulin glargine (LANTUS SOLOSTAR, BASAGLAR KWIKPEN) 100 unit/mL (3 mL) Inject 40 Units subcutaneously daily at bedtime AND 44 Units every morning. PATIENT ASSISTANCE MED.. fluticasone (FLONASE) 50 mcg/actuation nasal spray Use 1 Lamar in each nostril twice daily. Rinse mouth after use. glimepiride (AMARYL) 4 mg tablet Take 1 tablet by mouth twice daily with meals. loratadine (CLARITIN) 10 mg tablet Take 1 tablet by mouth once daily. clopidogrel (PLAVIX) 75 mg tablet Take 1 tablet by mouth once daily. azelastine (ASTELIN) 0.1% nasal spray Use 1 Lamar in each nostril twice daily. atorvastatin (LIPITOR) 10 mg tablet Take 1 tablet by mouth daily at bedtime. For cholesterol amiodarone (CORDARONE) 200 mg tablet Take 0.5 tablets by mouth once daily. allopurinol (ZYLOPRIM) 100 mg tablet Take 1 tablet by mouth twice daily. For gout. empagliflozin (JARDIANCE) 25 mg tablet Take 1 tablet by mouth daily with breakfast. Patient Assistance Medication. predniSONE (DELTASONE) 20 mg tablet Take 1 tablet by mouth once daily. Take for 3 to 7 days as needed for gout attacks albuterol HFA (VENTOLIN HFA) 90 mcg/actuation inhaler Inhale 2 Puffs as instructed every 4 hours as needed for Wheezing/Shortness of Breath. Magnesium 250 mg tab Take 1 tablet by mouth twice daily. COMPOUNDED PRESCRIPTION O2 3L per [place] aspirin, enteric coated (ASPIRIN, ENTERIC COATED) 81 mg EC tablet Take 1 tablet by mouth once daily. Lancets (ONE TOUCH ULTRASOFT LANCETS) lancets TEST BLOOD SUGAR ONCE DAILY AND NEEDED No current facility-administered medications for this visit. Review of Systems Objective BP 118/70 Pulse 70 Temp 36.4 C (97.5 F) Resp 18 Wt 103.9 kg (229 lb) SpO2 97% BMI 32.86 kg/m Physical Exam Vitals reviewed. Constitutional: Appearance: Normal appearance. Eyes: Conjunctiva/sclera: Conjunctivae normal. Cardiovascular: Rate and Rhythm: Normal rate and regular rhythm. Heart sounds: Normal heart sounds. Pulmonary: Effort: Pulmonary effort is normal. Breath sounds: Normal breath sounds. Skin: General: Skin is warm and dry. Neurological: General: No focal deficit present. Mental Status: He is alert and oriented to person, place, and time. Psychiatric: Mood and Affect: Mood normal. Behavior: Behavior normal. Thought Content: Thought content normal. Judgment: Judgment normal. Component Latest Ref Rng & Units 01/08/2022 02/17/2022 Protein, Total 6.3 - 8.0 g/dL 7.3 Albumin 3.9 - 4.9 g/dL 4.1 Calcium 8.5 - 10.2 mg/dL 8.8 Bilirubin, Total 0.2 - 1.3 mg/dL 0.5 Alkaline Phosphatase 38 - 113 U/L 72 AST 14 - 40 U/L 29 ALT 10 - 54 U/L 35 Glucose 74 - 99 mg/dL 121 (H) BUN 9 - 24 mg/dL 21 Creatinine 0.73 - 1.22 mg/dL 1.18 Sodium 136 - 144 mmol/L 138 Potassium 3.7 - 5.1 mmol/L 4.4 Chloride 97 - 105 mmol/L 100 CO2 22 - 30 mmol/L 23 Anion Gap 9 - 18 mmol/L 15 eGFR >=60 mL/min/1.73m 66 WBC 3.70 - 11.00 k/uL 9.38 RBC 4.20 - 6.00 m/uL 5.54 Hemoglobin 13.0 - 17.0 g/dL 16.6 Hematocrit 39.0 - 51.0 % 49.8 MCV 80.0 - 100.0 fL 89.9 MCH 26.0 - 34.0 pg 30.0 MCHC 30.5 - 36.0 g/dL 33.3 RDW-CV 11.5 - 15.0 % 15.6 (H) Platelet Count 150 - 400 k/uL 191 MPV 9.0 - 12.7 fL 9.6 Absolute nRBC <0.01 k/uL <0.01 Cholesterol, Total <200 mg/dL 122 Triglyceride <150 mg/dL 267 (H) HDL Cholesterol >39 mg/dL 28 (L) Non HDL Cholesterol <130 mg/dL 94 Fasting Time hrs 16 VLDL Cholesterol <30 mg/dL 53 (H) TC:HDL Ratio <5.10 4.36 LDL Cholesterol <100 mg/dL 41 LDL:HDL Ratio <2.54 1.46 Hemoglobin A1C 4.3 - 5.6 % 7.0 (H) 7.2 (H) Estimated Average Glucose mg/dL 154 160 TSH 0.270 - 4.200 mIU/L 3.690 3.440 Free T4 0.9 - 1.7 ng/dL 1.3 1.4 Free T3 2.3 - 4.1 pg/mL 3.1 2.4 Magnesium 1.7 - 2.3 mg/dL 2.3 Uric Acid 4.0 - 8.1 mg/dL 5.4 Assessment and Plan Encounter Diagnosis ICD-10-CM 1. Type 2 diabetes mellitus with diabetic peripheral angiopathy without gangrene, with long-term current use of insulin ([facility]) E11.51 blood sugar diagnostic test strip Z79.4 2. Atrial fibrillation, unspecified type ([facility]) I48.91 amiodarone (CORDARONE) 200 mg tablet 3. Coronary artery disease involving [place] coronary artery of [place] heart without angina pectoris I25.10 carvedilol (COREG) 25 mg tablet clopidogrel (PLAVIX) 75 mg tablet atorvastatin (LIPITOR) 10 mg tablet 4. Essential hypertension I10 carvedilol (COREG) 25 mg tablet 5. Hyperlipidemia, unspecified hyperlipidemia type E78.5 carvedilol (COREG) 25 mg tablet 6. Eustachian tube dysfunction, right H69.81 loratadine (CLARITIN) 10 mg tablet 7. Hyperuricemia E79.0 allopurinol (ZYLOPRIM) 100 mg tablet 8. Personal history of gout Z87.39 allopurinol (ZYLOPRIM) 100 mg tablet 9. Encounter for long-term current use of medication Z79.899 allopurinol (ZYLOPRIM) 100 mg tablet Above issues addressed with patient. Patient involved in shared decision making for management of medical issues. History and medications reviewed. Epic updated as needed Refills and/or prescriptions taken care of and meds adjusted as indicated after reviewed history, exam and labs. Health Maintenance reviewed. Updated record and/or ordered tests as recorded. Encouraged on efforts at healthy diet and regular exercise and adequate sleep. Continue present meds.Further evaluation and treatment as indicated. Iman Batista MD documented in this encounter [facility] 02-24-2022 History of Presen t illness Narrative Primary Care Pharmacy Visit CC (Reason for Consult): Diabetes Goal: HbA1c<8% Last Collaborating Physician/MEDIA RELATIONS SPECIALIST Visit: 11/22/21 Santos Mahajan is a 71 year old male presenting for follow up visit by telephone. Patient consents to pharmacy collaborative practice agreement. At last visit with pharmacy on 01/07/22 the following changes were made: advised to complete blood work INTERIM HISTORY: Spoke with patient and Recently had colonoscopy but prep was not successful and will need to repeat it Reports readings are well stable Few elevated readings surrounding some high carb meals, feels otherwise readings are typically stable in the 130s at fasting Current DM Medications: Trulicity 3 mg once weekly Empagliflozin 25 mg daily Glimepiride 4 mg BID with meals Lantus 40 units in the morning and 44 units at bedtime Preventative Medications: On MICHELL/ARB: Yes On Statin: Yes GLYCEMIC CONTROL: Glucometer present at visit: No SMBG s: Hypoglycemia: denies ROS: Patient denies CP, SOB, MCCLAIN, blurred vision, dizziness or lightheadedness Patient denies nausea, vomiting, diarrhea, abdominal pain Patient denies symptoms of hypoglycemia (sweating, anxiety, palpitations, hunger, and tremor) Patient denies symptoms of hyperglycemia (polyuria, polydipsia, polyphagia) Patient denies potential medication adverse effects MEDICATIONS: Adherence: denies missed doses. Pharmacy: [facility] Rx coverage: Medicare Affordability: high deductible and brand name meds are expensive ACTIVE PROBLEM LIST Hypertension Benign Neoplasm of Colon Renal Colic Personal History of Colonic Polyps Hyperlipidemia Type 2 Diabetes Mellitus With Diabetic Peripheral Angiopathy Without Gangrene, Without Long-Term Current Use of Insulin (Hcc) Spinal Stenosis, Lumbar Region, Without Neurogenic Claudication Lumbar Canal Stenosis Actinic Keratoses: Premalignant AK's Other Seborrheic Keratosis Solar Lentigo Actinic Skin Damage H/O BCC Skin Cancers of R jawline face and R side nose: excised /2006 () Melanocytic Nevi of Trunk Xerosis Cutis Irritated//Inflamed Seborrheic Keratosis Viral Warts, Unspecified Neoplasm of Uncertain Behavior (NUB) of skin: R/O BCC at Right Side Neck BCC (basal cell carcinoma), neck Quit smoking--04/09/2017 Atrial Fibrillation (Hcc) Coronary Artery Disease Involving [place] Coronary Artery of [place] Heart Without Angina Pectoris Mediastinal Lymphadenopathy Status Post Coronary Artery Stent Placement Peripheral Arterial Occlusive Disease (Hcc) On Home Oxygen Therapy Chronic Combined Systolic and Diastolic Congestive Heart Failure (Hcc) Hypertensive Heart Disease With Chronic Combined Systolic and Diastolic Congestive Heart Failure (Hcc) PAST MEDICAL HISTORY Diagnosis Date Acute combined systolic and diastolic congestive heart failure (HCC) 05/19/2017 Has ICD placed (10/01/17) Benign neoplasm of colon Diabetes (HCC) Peripheral arterial occlusive disease (HCC) 10/29/2017 Personal history of colonic polyps Personal history of unspecified urinary disorder PMH - PAST MEDICAL HISTORY OF kidney stones Skin cancer 2003 Surgeon in [place]. Stroke (HCC) Subarachnoid hemorrhage (HCC) 1998 brain bleed- stopped on own, no surg needed Unspecified essential hypertension ALLERGIES Allergen Reactions Bee Sting Honey bee venom Current Outpatient Medications Medication Sig carvedilol (COREG) 25 mg tablet Take 1 tablet by mouth twice daily with meals. blood sugar diagnostic test strip Test blood sugar twice daily as directed, E11.65. Accu Check Guide Insulin Risingsun, Disposable, (BD ULTRA-FINE DON PEN NEEDLE) 32 gauge x Use to inject insulin twice daily. lisinopril (ZESTRIL, PRINIVIL) 5 mg tablet Take 1 tablet by mouth once daily. (Santos Wyman sent RX) furosemide (LASIX) 40 mg tablet Take 1 tablet by mouth once daily. levothyroxine (LEVOXYL) 25 mcg tablet Take 1 tablet by mouth once daily. Take on empty stomach. For Thyroid dulaglutide (TRULICITY) 3 mg/0.5 mL pen injector Inject 3 mg subcutaneously one time a week. Pt Assistance Med. insulin glargine (LANTUS SOLOSTAR, BASAGLMORENITA NIETO) 100 unit/mL (3 mL) Inject 40 Units subcutaneously daily at bedtime AND 44 Units every morning. PATIENT ASSISTANCE MED.. fluticasone (FLONASE) 50 mcg/actuation nasal spray Use 1 Lamar in each nostril twice daily. Rinse mouth after use. glimepiride (AMARYL) 4 mg tablet Take 1 tablet by mouth twice daily with meals. loratadine (CLARITIN) 10 mg tablet Take 1 tablet by mouth once daily. clopidogrel (PLAVIX) 75 mg tablet Take 1 tablet by mouth once daily. azelastine (ASTELIN) 0.1% nasal spray Use 1 Lamar in each nostril twice daily. atorvastatin (LIPITOR) 10 mg tablet Take 1 tablet by mouth daily at bedtime. For cholesterol amiodarone (CORDARONE) 200 mg tablet Take 0.5 tablets by mouth once daily. allopurinol (ZYLOPRIM) 100 mg tablet Take 1 tablet by mouth twice daily. For gout. empagliflozin (JARDIANCE) 25 mg tablet Take 1 tablet by mouth daily with breakfast. Patient Assistance Medication. predniSONE (DELTASONE) 20 mg tablet Take 1 tablet by mouth once daily. Take for 3 to 7 days as needed for gout attacks albuterol HFA (VENTOLIN HFA) 90 mcg/actuation inhaler Inhale 2 Puffs as instructed every 4 hours as needed for Wheezing/Shortness of Breath. Magnesium 250 mg tab Take 1 tablet by mouth twice daily. COMPOUNDED PRESCRIPTION O2 3L per [place] aspirin, enteric coated (ASPIRIN, ENTERIC COATED) 81 mg EC tablet Take 1 tablet by mouth once daily. Lancets (ONE TOUCH ULTRASOFT LANCETS) lancets TEST BLOOD SUGAR ONCE DAILY AND NEEDED No current facility-administered medications for this visit. EXAM: Last 3 Encounter BP Readings: Date: BP: 02/03/2022 140/62 01/08/2022 112/60 11/22/2021 122/82 Wt: 103 kg (227 lb) BMI: 32.57 kg/(m^2) LABS: Lab Results Component Value Date HBA1C 7.2 02/17/2022 HBA1C 7.0 01/08/2022 HBA1C 7.1 11/19/2021 HBA1C 6.7 04/30/2021 HBA1C 7.9 10/31/2020 HBA1C 7.5 06/20/2020 CMP: Glucose 121 02/17/2022 BUN 21 02/17/2022 Creatinine 1.18 02/17/2022 Sodium 138 02/17/2022 Potassium 4.4 02/17/2022 Chloride 100 02/17/2022 CO2 23 02/17/2022 T PROT 7.3 02/17/2022 ALB 4.1 02/17/2022 Calcium 8.8 02/17/2022 Alkaline Phosphatase 72 02/17/2022 Bilirubin, Total 0.5 02/17/2022 AST 29 02/17/2022 ALT 35 02/17/2022 Serum creatinine: 1.18 mg/dL 02/17/22 1205 Estimated creatinine clearance: 69 mL/min No results found for: GFR eGFR- (no units) Date Value 04/30/2021 >60 Lab Results Component Value Date CHOL 122 02/17/2022 CHOL 145 10/31/2020 LDL 41 02/17/2022 LDL 40 10/31/2020 HDL 28 02/17/2022 HDL 30 10/31/2020 TG 267 02/17/2022 TG 375 10/31/2020 The ASCVD Risk score (Khadar PALACIOS, et al., 2019) failed to calculate for the following reasons: The valid total cholesterol range is 130 to 320 mg/dL Albumin/Creat Ratio (mg/g) Date Value 04/30/2021 Not calculated PHARMACOTHERAPY ASSESSMENT/PLAN: 1. Type 2 diabetes mellitus with diabetic peripheral angiopathy without gangrene, without long-term current use of insulin (HCC) - ICD9: 250.70, 443.81, ICD10: E11.51 Goal A1c <8%; (can consider A1c<7%) - at goal (last A1c 7.2%); SMBG readings mostly within goal range on current regimen. Today, will continue current regimen. Discussed limiting carbohydrate intake. Renal function and LFTs appropriate for continued use CONTINUE Trulicity 3 mg weekly, Empagliflozin 25 mg daily, Glimepiride 4 mg BID with meals, Lantus 40 units in the morning and 44 units at bedtime Follow up: Patient is scheduled to see PCP team on 03/14/22. Patient to follow up with pharmD on 05/20/22. Patient verbalized understanding of instructions. Uyen Delgado PharmD, BCACP Primary Care Clinical Pharmacist The majority of the pharmacy visit (> 50%) was spent counseling and/or coordinating care for the patient. [Telephonic] time was 19 minutes. documented in this encounter [facility] 02-14-2022 Miscellaneous Notes Signed by PCP, faxed and placed in pharm office Rec'd from pt. To pcp to complete. PAP technicians completed application. Mailing application to patient to sign patient section. Once patient has signed, he will return application to PCP team for PCP signature and faxing to [facility]. Uyen Delgado PharmD, LORENZO Primary Care Clinical Pharmacist documented in this encounter [facility] 02-14-2022 Miscellaneous Notes Signed by PCP, faxed and placed in pharm office Rec'd from pt. To pcp to review PAP technicians completed application. Mailing application to patient to sign patient section. Once patient has signed, he will return application to PCP team for PCP signature and faxing to [facility]. Uyen Delgado PharmD, LORENZO Primary Care Clinical Pharmacist documented in this encounter [facility] 01-08-2022 History of Presen t illness Narrative HISTORY AND PHYSICAL Santos Mahajan 1950 REFERRING PHYSICIAN: Iman Batista MD CHIEF COMPLAINT: Consult (Colonoscopy consult) HPI: The patient is a 71 year old male referred for endoscopy. Santos notes a recent positive cologuard test. Patient denies any change in bowel habits, weight changes, blood in stools, black tarry stools or abdominal pain. Denies family history of colon issues.The patient notes no upper GI complaints. Santos has undergone prior endoscopy and actually has had previous adenomatous colon polyps. Last colonoscopy 12/06/15 with removal of adenomatous polyps, five year repeat colonoscopy recommended. Patient has significant past medical history including s/p ICD placement, PAD, stroke, SAH, CAD, CHF, DM. Patient follows with Dr. Batista in primary care and [facility]. He is maintained on oral anticoagulation. Patient brings with him today cardiac clearance documentation from [facility], noting he was advised by PCP that this would be needed prior to endoscopy procedure. Patient denies chest pain, shortness of breath or recent hospitalizations. 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 Stroke (HCC) Subarachnoid hemorrhage (HCC) 1998 brain bleed- stopped on own, no surg needed Unspecified essential hypertension PAST SURGICAL HISTORY Procedure Laterality Date COLONOSCOPY FLX DX W/COLLJ SPEC WHEN PFRMD 12/06/15 Colonoscopy COLONOSCOPY W/BIOPSY SINGLE/MULTIPLE 01/04/10 LAMINECTOMY W/O FFD / VERT SEG LUMBAR 05/28/2010 Laminectomy, lumbar LITHOTRIPSY PROC UNILATERAL 07/11/[address] Prado OV. PAST SURGICAL HISTORY OF 10/01/2017 S/P ICD placement skin cancer removed off face Current Outpatient Medications Medication Sig carvedilol (COREG) 25 mg tablet Take 1 tablet by mouth twice daily with meals. blood sugar diagnostic test strip Test blood sugar twice daily as directed, E11.65. Accu Check Guide Insulin Risingsun, Disposable, (BD ULTRA-FINE DON PEN NEEDLE) 32 gauge x Use to inject insulin twice daily. lisinopril (ZESTRIL, PRINIVIL) 5 mg tablet Take 1 tablet by mouth once daily. (Santos Zamzam sent RX) furosemide (LASIX) 40 mg tablet Take 1 tablet by mouth once daily. levothyroxine (LEVOXYL) 25 mcg tablet Take 1 tablet by mouth once daily. Take on empty stomach. For Thyroid dulaglutide (TRULICITY) 3 mg/0.5 mL pen injector Inject 3 mg subcutaneously one time a week. Pt Assistance Med. insulin glargine (LANTUS SOLOSTAR, BASAGLAR KWIKPEN) 100 unit/mL (3 mL) Inject 40 Units subcutaneously daily at bedtime AND 44 Units every morning. PATIENT ASSISTANCE MED.. fluticasone (FLONASE) 50 mcg/actuation nasal spray Use 1 Lamar in each nostril twice daily. Rinse mouth after use. glimepiride (AMARYL) 4 mg tablet Take 1 tablet by mouth twice daily with meals. loratadine (CLARITIN) 10 mg tablet Take 1 tablet by mouth once daily. clopidogrel (PLAVIX) 75 mg tablet Take 1 tablet by mouth once daily. azelastine (ASTELIN) 0.1% nasal spray Use 1 Lamar in each nostril twice daily. atorvastatin (LIPITOR) 10 mg tablet Take 1 tablet by mouth daily at bedtime. For cholesterol amiodarone (CORDARONE) 200 mg tablet Take 0.5 tablets by mouth once daily. allopurinol (ZYLOPRIM) 100 mg tablet Take 1 tablet by mouth twice daily. For gout. empagliflozin (JARDIANCE) 25 mg tablet Take 1 tablet by mouth daily with breakfast. Patient Assistance Medication. predniSONE (DELTASONE) 20 mg tablet Take 1 tablet by mouth once daily. Take for 3 to 7 days as needed for gout attacks albuterol HFA (VENTOLIN HFA) 90 mcg/actuation inhaler Inhale 2 Puffs as instructed every 4 hours as needed for Wheezing/Shortness of Breath. Magnesium 250 mg tab Take 1 tablet by mouth twice daily. COMPOUNDED PRESCRIPTION O2 3L per [place] aspirin, enteric coated (ASPIRIN, ENTERIC COATED) 81 mg EC tablet Take 1 tablet by mouth once daily. Lancets (ONE TOUCH ULTRASOFT LANCETS) lancets TEST BLOOD SUGAR ONCE DAILY AND NEEDED No current facility-administered medications for this visit. ALLERGIES: Bee Sting PERSONAL HISTORY: Social History Tobacco Use Smoking status: Former Packs/day: 1.00 Years: 40.00 Pack years: 40.00 Types: Cigarettes Quit date: 04/09/2017 Years since quittin.7 Smokeless tobacco: Never Tobacco comments: Vaping Use Vaping Use: Never used Substance Use Topics Alcohol use: No Comment: infrequently Drug use: No FAMILY HISTORY: FAMILY HISTORY Problem Relation Age of Onset Heart Mother Heart Father Stroke Father Diabetes Sister Cancer Paternal Uncle Prostate. Cancer Paternal Aunt Lung cancer (smoker). Stroke Mother REVIEW OF SYMPTOMS: The review of systems data was entered by the nurse and reviewed by nj Nursing Notes: Lula Rodrigez RN 01/08/2022 1:12 PM Signed REVIEW OF SYSTEMS: General: The patient denies fatigue, denies weight loss, denies weight gain, denies feeling hot, and denies feelings of cold. Eyes: The patient denies glaucoma, denies eye injury/surgery, wears glasses or contacts. Ear/Nose/Throat: The patient NOTES allergies, denies hayfever, denies ear infections, and denies bloody noses. Cardiovascular: The patient denies chest pain, NOTES heart disease, NOTES high blood pressure,NOTES cardiac stent, NOTES prior heart attack, NOTES irregular heart beat, denies high cholesterol, NOTES poor circulation, NOTES heart failure, other cardiac issues, denies claudication, denies cold feet, denies peripheral arterial stent. Respiratory: The patient denies tuberculosis, denies pneumonia, denies frequent cough, denies pulmonary embolism, NOTES shortness of breath, and denies coughing up blood. Gastrointestinal: The patient denies difficulty swallowing, denies acid reflux, denies ulcers, denies vomiting, denies jaundice/hepatitis, denies gallbladder problems, denies black or tarry stools, denies hemorrhoids, denies bleeding from rectum, denies diverticulitis, denies constipation, denies diarrhea, denies loss of stool control, and denies hernias. Kidney/Bladder: The patient NOTES kidney stones, denies urine infections, and denies bloody urine. Skin: The patient NOTES a history of skin cancer, denies bleeding/changing moles, and denies a history of skin rash. Neurologic: The patient denies a history of epilepsy/convulsions, denies headaches, denies head/spinal injuries, and denies stroke/TIA. Psychiatric: The patient denies psychiatric medications, denies depression, and denies voices, denies substance abuse. Endocrine: The patient denies thyroid disorders, NOTES diabetes, and denies hormonal problems. Hematologic: The patient denies a history of bruising, denies bleeding, and denies anemia, denies blood clots. Infections: The patient denies a history of measles and mumps, denies rheumatic fever, and denies sexually transmitted diseases. Musculoskeletal: The patient NOTES back pain/injury, denies back problems, denies sciatica, denies knee/foot trouble, denies arthritis, or NOTES gout. When was patient's last Mammogram screening? N/A Last Colonoscopy: 2015 Lula Rodrigez RN I have confirmed and edited as necessary, the PFSH and ROS obtained by others. Altagracia Leary PA-C PHYSICAL EXAMINATION: General: The patient is 71 year old male, well nourished, well hydrated in no acute distress. The patient is oriented to time, place, and person. VITALS: Blood pressure 112/60, pulse 89, temperature 36.6 C (97.8 F), height 177.8 cm (5' 10 ), weight 103.3 kg (227 lb 12.8 oz), SpO2 98 %. Body mass index is 32.69 kg/m . HEENT: Normal cephalic, ataumatic, pupils are equally round, sclera are anicteric, mucous membranes are moist, oropharynx is clear. Neck has no masses, asymmetry or lymphadenopathy. Respiratory: Clear to auscultation and percussion. Normal respiratory excursion and pattern. Cardiac: Examination is regular rate and rhythm. Normal S1/S2 Abdominal exam: Soft, nontender, with no palpable masses. No hepatosplenomegaly. No palpable hernias. Extremities: no clubbing, cyanosis or edema. No adenopathy. LABORATORY VALUES: As Noted RADIOLOGIC STUDIES: As Noted Assessment IMPRESSION: positive cologuard. History of colon polyps PLAN: I have reviewed my findings with the surgeon. Will plan for lower endoscopy. We discussed the risks and benefits of the planned endoscopy. I have informed the patient that complications can occur including failure to complete the endoscopy and perforation. The patient had the opportunity to ask questions concerning the planned endoscopy. My staff has also explained the procedure to the patient in understandable terms and has given the patient printed material concerning the procedure. The patient freely consents to surgery. I plan to use Golytely bowel preparation, divided over 2 days Cardiac clearance has been received-see scanned note Patient to remain on his anticoagulation for procedure Patient instructed to contact PCP for instructions regarding diabetic medication, which may require adjustment during bowel preparation and/or day of procedure The patient has medical comorbidities for which we will plan for the procedure to be performed under Monitored Anesthetic Care. Diagnoses: (Z86.010) History of colonic polyps (primary encounter diagnosis) (R19.5) Positive colorectal cancer screening using Cologuard test (Z79.01) On continuous oral anticoagulation (Z95.0) Pacemaker (I11.0, I50.42) Hypertensive heart disease with chronic combined systolic and diastolic congestive heart failure (HCC) Consultation requested by Dr. Batista for an opinion regarding positive cologuard testing and need for colonoscopy. My final recommendations will be communicated back to the requesting physician by way of shared Medical record or letter to requesting physician via US mail. Altagracia Leary PA-C documented in this encounter [facility] 01-08-2022 Nurse Note REVIEW OF SYSTEMS: General: The patient denies fatigue, denies weight loss, denies weight gain, denies feeling hot, and denies feelings of cold. Eyes: The patient denies glaucoma, denies eye injury/surgery, wears glasses or contacts. Ear/Nose/Throat: The patient NOTES allergies, denies hayfever, denies ear infections, and denies bloody noses. Cardiovascular: The patient denies chest pain, NOTES heart disease, NOTES high blood pressure,NOTES cardiac stent, NOTES prior heart attack, NOTES irregular heart beat, denies high cholesterol, NOTES poor circulation, NOTES heart failure, other cardiac issues, denies claudication, denies cold feet, denies peripheral arterial stent. Respiratory: The patient denies tuberculosis, denies pneumonia, denies frequent cough, denies pulmonary embolism, NOTES shortness of breath, and denies coughing up blood. Gastrointestinal: The patient denies difficulty swallowing, denies acid reflux, denies ulcers, denies vomiting, denies jaundice/hepatitis, denies gallbladder problems, denies black or tarry stools, denies hemorrhoids, denies bleeding from rectum, denies diverticulitis, denies constipation, denies diarrhea, denies loss of stool control, and denies hernias. Kidney/Bladder: The patient NOTES kidney stones, denies urine infections, and denies bloody urine. Skin: The patient NOTES a history of skin cancer, denies bleeding/changing moles, and denies a history of skin rash. Neurologic: The patient denies a history of epilepsy/convulsions, denies headaches, denies head/spinal injuries, and denies stroke/TIA. Psychiatric: The patient denies psychiatric medications, denies depression, and denies voices, denies substance abuse. Endocrine: The patient denies thyroid disorders, NOTES diabetes, and denies hormonal problems. Hematologic: The patient denies a history of bruising, denies bleeding, and denies anemia, denies blood clots. Infections: The patient denies a history of measles and mumps, denies rheumatic fever, and denies sexually transmitted diseases. Musculoskeletal: The patient NOTES back pain/injury, denies back problems, denies sciatica, denies knee/foot trouble, denies arthritis, or NOTES gout. When was patient's last Mammogram screening? N/A Last Colonoscopy: 2015 Lula Rodrigez RN documented in this encounter [facility] 01-07-2022 History of Presen t illness Narrative Primary Care Pharmacy Visit CC (Reason for Consult): DM Goal: A1c < 8% Last Collaborating Physician/MEDIA RELATIONS SPECIALIST Visit: 11/22/21 Santos Mahajan is a 71 year old male presenting for follow up visit by telephone. Patient consents to pharmacy collaborative practice agreement. At last visit with pharmacy on 10/01 the following changes were made: no medication changes. INTERIM HISTORY: Patient reports feeling well overall Will need to renew Iman cares (Basaglar/Trulicity) and seedtags (Jardiance) application for 2022 Monitors BG twice daily Reports blood sugar readings mostly good in am but higher in the evening Fasting typically under 130s Evening readings in the 160s range Higher readings typically related Current DM Medications: Trulicity 3 mg once weekly Empagliflozin 25 mg daily Glimepiride 4 mg BID with meals Lantus 40 units in the morning and 44 units at bedtime Preventative Medications: On MICHELL/ARB: Yes On Statin: Yes GLYCEMIC CONTROL: Glucometer present at visit: No SMBG s: No SMBG readings, Most fasting readings less than 130s, readings before dinner in the 160s range Hypoglycemia: denies ROS: Patient denies CP, SOB, MCCLAIN, blurred vision, dizziness or lightheadedness Patient denies nausea, vomiting, diarrhea, abdominal pain Patient denies symptoms of hypoglycemia (sweating, anxiety, palpitations, hunger, and tremor) Patient denies symptoms of hyperglycemia (polyuria, polydipsia, polyphagia) Patient denies potential medication adverse effects MEDICATIONS: Adherence: denies missed doses. [facility] coverage: Medicare Affordability: high deductible and brand name meds are expensive ACTIVE PROBLEM LIST Hypertension Benign Neoplasm of Colon Renal Colic Personal History of Colonic Polyps Hyperlipidemia Type 2 Diabetes Mellitus With Diabetic Peripheral Angiopathy Without Gangrene, Without Long-Term Current Use of Insulin (Hcc) Spinal Stenosis, Lumbar Region, Without Neurogenic Claudication Lumbar Canal Stenosis Actinic Keratoses: Premalignant AK's Other Seborrheic Keratosis Solar Lentigo Actinic Skin Damage H/O BCC Skin Cancers of R jawline face and R side nose: excised /2006 () Melanocytic Nevi of Trunk Xerosis Cutis Irritated//Inflamed Seborrheic Keratosis Viral Warts, Unspecified Neoplasm of Uncertain Behavior (NUB) of skin: R/O BCC at Right Side Neck BCC (basal cell carcinoma), neck Quit smoking--04/09/2017 Atrial Fibrillation (Hcc) Coronary Artery Disease Involving [place] Coronary Artery of [place] Heart Without Angina Pectoris Mediastinal Lymphadenopathy Status Post Coronary Artery Stent Placement Peripheral Arterial Occlusive Disease (Hcc) On Home Oxygen Therapy Chronic Combined Systolic and Diastolic Congestive Heart Failure (Hcc) Hypertensive Heart Disease With Chronic Combined Systolic and Diastolic Congestive Heart Failure (Hcc) PAST MEDICAL HISTORY Diagnosis Date Acute combined systolic and diastolic congestive heart failure (HCC) 05/19/2017 Has ICD placed (10/01/17) Benign neoplasm of colon Diabetes (HCC) Peripheral arterial occlusive disease (HCC) 10/29/2017 Personal history of colonic polyps Personal history of unspecified urinary disorder PMH - PAST MEDICAL HISTORY OF kidney stones Skin cancer 2003 Surgeon in [place]. Stroke (HCC) Subarachnoid hemorrhage (HCC) 1998 brain bleed- stopped on own, no surg needed Unspecified essential hypertension ALLERGIES Allergen Reactions Bee Sting Honey bee venom Current Outpatient Medications Medication Sig blood sugar diagnostic test strip Test blood sugar twice daily as directed, E11.65. Accu Check Guide Insulin Risingsun, Disposable, (BD ULTRA-FINE DON PEN NEEDLE) 32 gauge x Use to inject insulin twice daily. lisinopril (ZESTRIL, PRINIVIL) 5 mg tablet Take 1 tablet by mouth once daily. (Santos Wyman sent RX) furosemide (LASIX) 40 mg tablet Take 1 tablet by mouth once daily. levothyroxine (LEVOXYL) 25 mcg tablet Take 1 tablet by mouth once daily. Take on empty stomach. For Thyroid dulaglutide (TRULICITY) 3 mg/0.5 mL pen injector Inject 3 mg subcutaneously one time a week. Pt Assistance Med. insulin glargine (LANTUS SOLOSTAR, BASAGLAR KWIKPEN) 100 unit/mL (3 mL) Inject 40 Units subcutaneously daily at bedtime AND 44 Units every morning. PATIENT ASSISTANCE MED.. fluticasone (FLONASE) 50 mcg/actuation nasal spray Use 1 Lamar in each nostril twice daily. Rinse mouth after use. glimepiride (AMARYL) 4 mg tablet Take 1 tablet by mouth twice daily with meals. loratadine (CLARITIN) 10 mg tablet Take 1 tablet by mouth once daily. clopidogrel (PLAVIX) 75 mg tablet Take 1 tablet by mouth once daily. carvedilol (COREG) 25 mg tablet Take 1 tablet by mouth twice daily with meals. azelastine (ASTELIN) 0.1% nasal spray Use 1 Lamar in each nostril twice daily. atorvastatin (LIPITOR) 10 mg tablet Take 1 tablet by mouth daily at bedtime. For cholesterol amiodarone (CORDARONE) 200 mg tablet Take 0.5 tablets by mouth once daily. allopurinol (ZYLOPRIM) 100 mg tablet Take 1 tablet by mouth twice daily. For gout. empagliflozin (JARDIANCE) 25 mg tablet Take 1 tablet by mouth daily with breakfast. Patient Assistance Medication. predniSONE (DELTASONE) 20 mg tablet Take 1 tablet by mouth once daily. Take for 3 to 7 days as needed for gout attacks albuterol HFA (VENTOLIN HFA) 90 mcg/actuation inhaler Inhale 2 Puffs as instructed every 4 hours as needed for Wheezing/Shortness of Breath. Magnesium 250 mg tab Take 1 tablet by mouth twice daily. COMPOUNDED PRESCRIPTION O2 3L per NC aspirin, enteric coated (ASPIRIN, ENTERIC COATED) 81 mg EC tablet Take 1 tablet by mouth once daily. Lancets (ONE TOUCH ULTRASOFT LANCETS) lancets TEST BLOOD SUGAR ONCE DAILY AND NEEDED No current facility-administered medications for this visit. EXAM: Last 3 Encounter BP Readings: Date: BP: 11/22/2021 122/82 07/12/2021 90/62 03/11/2021 122/72 Wt: 103 kg (227 lb) BMI: 32.57 kg/(m^2) LABS: Lab Results Component Value Date HBA1C 7.1 11/19/2021 HBA1C 6.7 04/30/2021 HBA1C 7.9 10/31/2020 HBA1C 7.5 06/20/2020 CMP: Glucose 122 11/19/2021 BUN 19 11/19/2021 Creatinine 1.14 11/19/2021 Sodium 137 11/19/2021 Potassium 4.3 11/19/2021 Chloride 100 11/19/2021 CO2 22 11/19/2021 T PROT 7.9 11/19/2021 ALB 4.2 11/19/2021 Calcium 8.8 11/19/2021 Alkaline Phosphatase 79 11/19/2021 Bilirubin, Total 0.4 11/19/2021 AST 25 11/19/2021 ALT 32 11/19/2021 Creatinine clearance cannot be calculated (Unknown ideal weight.) No results found for: GFR eGFR- (no units) Date Value 04/30/2021 >60 Lab Results Component Value Date CHOL 113 11/19/2021 CHOL 145 10/31/2020 LDL 25 11/19/2021 LDL 40 10/31/2020 HDL 27 11/19/2021 HDL 30 10/31/2020 TG 306 11/19/2021 TG 375 10/31/2020 The ASCVD Risk score (Khadar PALACIOS, et al., 2019) failed to calculate for the following reasons: The valid total cholesterol range is 130 to 320 mg/dL Albumin/Creat Ratio (mg/g) Date Value 04/30/2021 Not calculated PHARMACOTHERAPY ASSESSMENT/PLAN: 1. Type 2 diabetes mellitus with diabetic peripheral angiopathy without gangrene, without long-term current use of insulin (HCC) - ICD9: 250.70, 443.81, ICD10: E11.51 Goal A1c <8%;- (can consider A1c<7%) at goal (last A1c 7.1%); SMBG readings mostly within goal range on current regimen. Today, will continue current regimen and recheck A1c in February. Will consider increased Trulicity 4.5 mg dose with next PAP renewal for improved weight loss potential and to lower insulin requirements. Renal function and LFTs appropriate for continued use CONTINUE Trulicity 3 mg weekly, Empagliflozin 25 mg daily, Glimepiride 4 mg BID with meals, Lantus 40 units in the morning and 44 units at bedtime Will initiate renewal of [facility] PCP and [facility] PAP - HGB A1C Follow up: Patient is scheduled to see PCP team on 03/14/22. Patient to follow up with pharmD on 02/24/22. Patient verbalized understanding of instructions. Uyen Delgado PharmD, BCACP Primary Care Clinical Pharmacist The majority of the pharmacy visit (> 50%) was spent counseling and/or coordinating care for the patient. [Telephonic] time was 20 minutes. documented in this encounter [facility] 12-25-2021 Miscellaneous Notes Filed consult. Would let General Surgery scheduling know patient has history of chronic CHF, stable on current meds. [facility] provider said he may proceed with evaluation of cologuard positive test with colonoscopy. See their recommendations. pt's my chart response. Please have Dr Batista arrange all necessary appointments and consults needed for colonoscopy Thank you. Santos Mahajan File GI or gen surg consult for pt. It appears he does not have a preference. Will file consult order. Verify: who does patient want to see for colonoscopy? records rec'd from Dr. Tao's office. It is in scanned documents regarding cardiac and colonoscopy. Please review. File consult for colonoscopy? My chart message to pt. ----- Message from Iman Batista MD sent at 12/08/2021 5:47 PM EDT ----- Noted positive test. Recommend colonoscopy if cleared by cardiology could do colonoscopy given CHF documented in this encounter [facility] 11-13-2021 Miscellaneous Notes Filed orders documented in this encounter [facility] 11-13-2021 Miscellaneous Notes Second mychart for lab orders, note to Lynne to file. documented in this encounter [facility] 10-01-2021 History of Presen t illness Narrative Primary Care Pharmacy Visit REASON FOR CONSULT: DM GOALS: A1c < 8% CONSULTING PROVIDER: Dr. Batista Date of Consult: 07/08/2019 Santos Mahajan is a 70 year old male presenting for follow up visit by telephone. Patient consents to pharmacy collaborative practice agreement. Last seen by PCP, Dr. Iman Batista MD on 07/12/21. At last PCP appt, med list updated to reflect cardiology dose change of lisinopril. INTERIM HISTORY: Reports feeling well overall No concerns, has adequate supply of all medications Denies missed doses Monitors BG mostly once daily Most fasting readings low 100s to 130, described occasional BG in high 100s following a night of high carb foods but states it only occurs on few occasions Denies any low BG Current DM Medications: Trulicity 3 mg once weekly Empagliflozin 25 mg daily Glimepiride 4 mg BID with meals Lantus 44 units in the morning and 44 units at bedtime Preventative Medications: On MICHELL/ARB: Yes On Statin: Yes GLYCEMIC CONTROL: Glucometer present at visit: No SMBG s: No SMBG readings, Most fasting readings low 100s to 130 Hypoglycemia: denies ROS: Patient denies CP, SOB, MCCLAIN, blurred vision, dizziness or lightheadedness Patient denies nausea, vomiting, diarrhea, abdominal pain Patient denies symptoms of hypoglycemia (sweating, anxiety, palpitations, hunger, and tremor) Patient denies symptoms of hyperglycemia (polyuria, polydipsia, polyphagia) Patient denies potential medication adverse effects MEDICATIONS: Adherence: denies missed doses. Pharmacy: [facility] Rx coverage: Medicare Affordability: high deductible and brand name meds are expensive ACTIVE PROBLEM LIST Hypertension Benign Neoplasm of Colon Renal Colic Personal History of Colonic Polyps Hyperlipidemia Type 2 Diabetes Mellitus With Diabetic Peripheral Angiopathy Without Gangrene, Without Long-Term Current Use of Insulin (Hcc) Spinal Stenosis, Lumbar Region, Without Neurogenic Claudication Lumbar Canal Stenosis Actinic Keratoses: Premalignant AK's Other Seborrheic Keratosis Solar Lentigo Actinic Skin Damage H/O BCC Skin Cancers of R jawline face and R side nose: excised /2006 () Melanocytic Nevi of Trunk Xerosis Cutis Irritated//Inflamed Seborrheic Keratosis Viral Warts, Unspecified Neoplasm of Uncertain Behavior (NUB) of skin: R/O BCC at Right Side Neck BCC (basal cell carcinoma), neck Quit smoking--04/09/2017 Atrial Fibrillation (Hcc) Coronary Artery Disease Involving [place] Coronary Artery of [place] Heart Without Angina Pectoris Mediastinal Lymphadenopathy Status Post Coronary Artery Stent Placement Peripheral Arterial Occlusive Disease (Hcc) On Home Oxygen Therapy Chronic Combined Systolic and Diastolic Congestive Heart Failure (Hcc) Hypertensive Heart Disease With Chronic Combined Systolic and Diastolic Congestive Heart Failure (Hcc) PAST MEDICAL HISTORY Diagnosis Date Acute combined systolic and diastolic congestive heart failure (HCC) 05/19/2017 Has ICD placed (10/01/17) Benign neoplasm of colon Diabetes (HCC) Peripheral arterial occlusive disease (HCC) 10/29/2017 Personal history of colonic polyps Personal history of unspecified urinary disorder PMH - PAST MEDICAL HISTORY OF kidney stones Skin cancer 2003 Surgeon in [place]. Stroke (HCC) Subarachnoid hemorrhage (HCC) 1998 brain bleed- stopped on own, no surg needed Unspecified essential hypertension ALLERGIES Allergen Reactions Bee Sting Honey bee venom Current Outpatient Medications Medication Sig lisinopril 2.5 mg tablet Take 2 tablets by mouth once daily. dulaglutide (TRULICITY) 3 mg/0.5 mL pen injector Inject 3 mg subcutaneously one time a week. Pt Assistance Med. insulin glargine (LANTUS SOLOSTAR, BASAGLAR KWIKPEN) 100 unit/mL (3 mL) Inject 40 Units subcutaneously daily at bedtime AND 44 Units every morning. PATIENT ASSISTANCE MED.. fluticasone (FLONASE) 50 mcg/actuation nasal spray Use 1 Lamar in each nostril twice daily. Rinse mouth after use. furosemide (LASIX) 40 mg tablet Take 0.5 tablets by mouth once daily. glimepiride (AMARYL) 4 mg tablet Take 1 tablet by mouth twice daily with meals. loratadine (CLARITIN) 10 mg tablet Take 1 tablet by mouth once daily. clopidogrel (PLAVIX) 75 mg tablet Take 1 tablet by mouth once daily. carvedilol (COREG) 25 mg tablet Take 1 tablet by mouth twice daily with meals. blood sugar diagnostic test strip Test blood sugar twice daily as directed, E11.65. Accu Check Guide azelastine (ASTELIN) 0.1% nasal spray Use 1 Lamar in each nostril twice daily. atorvastatin (LIPITOR) 10 mg tablet Take 1 tablet by mouth daily at bedtime. For cholesterol amiodarone (CORDARONE) 200 mg tablet Take 0.5 tablets by mouth once daily. allopurinol (ZYLOPRIM) 100 mg tablet Take 1 tablet by mouth twice daily. For gout. empagliflozin (JARDIANCE) 25 mg tablet Take 1 tablet by mouth daily with breakfast. Patient Assistance Medication. Insulin Risingsun, Disposable, (BD ULTRA-FINE DON PEN NEEDLE) 32 gauge x Use to inject insulin twice daily. predniSONE (DELTASONE) 20 mg tablet Take 1 tablet by mouth once daily. Take for 3 to 7 days as needed for gout attacks albuterol HFA (VENTOLIN HFA) 90 mcg/actuation inhaler Inhale 2 Puffs as instructed every 4 hours as needed for Wheezing/Shortness of Breath. Magnesium 250 mg tab Take 1 tablet by mouth twice daily. COMPOUNDED PRESCRIPTION O2 3L per [place] aspirin, enteric coated (ADULT LOW DOSE ASPIRIN) 81 mg EC tablet Take 1 tablet by mouth once daily. Lancets (ONE TOUCH ULTRASOFT LANCETS) lancets TEST BLOOD SUGAR ONCE DAILY AND NEEDED No current facility-administered medications for this visit. EXAM: Last 3 Encounter BP Readings: Date: BP: 07/12/2021 90/62 03/11/2021 122/72 11/13/2020 112/70 Wt: 102.1 kg (225 lb) BMI: 32.28 kg/(m^2) LABS: Lab Results Component Value Date HBA1C 6.7 04/30/2021 HBA1C 7.9 10/31/2020 HBA1C 7.5 06/20/2020 CMP: Glucose 94 04/30/2021 BUN 21 04/30/2021 Creatinine 1.13 04/30/2021 Sodium 135 04/30/2021 Potassium 4.5 04/30/2021 Chloride 98 04/30/2021 CO2 23 04/30/2021 T PROT 7.8 04/30/2021 ALB 4.2 04/30/2021 Calcium 8.8 04/30/2021 Alkaline Phosphatase 76 04/30/2021 Bilirubin, Total 0.6 04/30/2021 AST 21 04/30/2021 ALT 21 04/30/2021 EGFR: >60 mL/min/1.73m2 No results found for: B12 Lab Results Component Value Date CHOL 145 10/31/2020 LDL 40 10/31/2020 HDL 30 10/31/2020 TG 375 10/31/2020 The 10-year ASCVD risk score (Whitneytomás POTTS Jr., et al., 2013) is: 22.7% Values used to calculate the score: Age: 70 years Sex: Male Is Non- : No Diabetic: Yes Tobacco smoker: No Systolic Blood Pressure: 90 mmHg Is BP treated: Yes HDL Cholesterol: 30 mg/dL Total Cholesterol: 145 mg/dL Albumin/Creat Ratio (mg/g) Date Value 04/30/2021 Not calculated PHARMACOTHERAPY ASSESSMENT/PLAN: 1. Type 2 diabetes mellitus with diabetic peripheral angiopathy without gangrene, without long-term current use of insulin (HCC) - ICD9: 250.70, 443.81, ICD10: E11.51 Goal A1c <8%; at goal (last A1c 6.7%); SMBG readings within goal range on current regimen. Today, will continue current regimen. Will follow up in 3 months to assess BG and prepare for re-enrollment of patient assistance. Renal function and LFTs appropriate for continued use CONTINUE Trulicity 3 mg weekly, Empagliflozin 25 mg daily, Glimepiride 4 mg BID with meals, Lantus 44 units in the morning and 44 units at bedtime Follow up: Patient is scheduled to see PCP on 11/22/21. Patient to follow up with PharmD on 01/07/22. Patient verbalized understanding of instructions. Uyen Delgado PharmD, LORENZO Primary Care Clinical Pharmacist [facility] The majority of the pharmacy visit (> 50%) was spent counseling and/or coordinating care for the patient. [Telephonic] time was 15 minutes. documented in this encounter [facility] 09-13-2021 Miscellaneous Notes Provider covering different clinic on 09/17. Called and spoke with patient, rescheduled for 10/01/21. Uyen Delgado PharmD, LORENZO Primary Care Clinical Pharmacist [facility] documented in this encounter [facility] 06-25-2021 History of Presen t illness Narrative Primary Care Pharmacy Visit REASON FOR CONSULT: DM GOALS: A1c < 8% CONSULTING PROVIDER: Dr. Batista Date of Consult: 07/08/2019 Santos Mahajan is a 70 year old male presenting for follow up visit by telephone. Patient consents to pharmacy collaborative practice agreement. Last seen by PCP, Dr. Iman Batista MD on 03/11/21. At last PCP appt, insulin dose was decreased due to hypoglycemia and pt was instructed to resume DM follow up with pharmacy. At PharmD visit on 03/26, no medication changes made, patient was instructed to complete ordered lab work. At last PharmD visit on 05/21, Trulicity dose was increased. INTERIM HISTORY: Feeling well, no concerns Fasting BG mostly in 100-109 range. Lowest in 80s. No hypoglycemia BG in evening post prandial in 160s range Current DM Medications: Trulicity 3 mg weekly - (Taking two 1.5 mg pens weekly to deplete current supply) Empagliflozin 25 mg daily Glimepiride 4 mg BID with meals Lantus 44 units in the morning and 40 units at bedtime Current HTN Medications: Atorvastatin 10 mg daily Preventative Medications: On MICHELL/ARB: Yes On Statin: Yes GLYCEMIC CONTROL: Glucometer present at visit: N/a, phone visit SMBG s: No log to review, Reports Fasting BG mostly in 100-109 range. Lowest in 80s. Hypoglycemia: none ROS: Patient denies CP, SOB, MCCLAIN, blurred vision, dizziness or lightheadedness Patient denies nausea, vomiting, diarrhea, abdominal pain Patient denies symptoms of hypoglycemia (sweating, anxiety, palpitations, hunger, and tremor) Patient denies symptoms of hyperglycemia (polyuria, polydipsia, polyphagia) Patient denies potential medication adverse effects MEDICATIONS: Adherence: denies missed doses. Pharmacy: [facility] Rx coverage: Medicare Affordability: high deductible and brand name meds are expensive ACTIVE PROBLEM LIST Hypertension Benign Neoplasm of Colon Renal Colic Personal History of Colonic Polyps Hyperlipidemia Type 2 Diabetes Mellitus With Diabetic Peripheral Angiopathy Without Gangrene, Without Long-Term Current Use of Insulin (Hcc) Spinal Stenosis, Lumbar Region, Without Neurogenic Claudication Lumbar Canal Stenosis Actinic Keratoses: Premalignant AK's Other Seborrheic Keratosis Solar Lentigo Actinic Skin Damage H/O BCC Skin Cancers of R jawline face and R side nose: excised /2006 () Melanocytic Nevi of Trunk Xerosis Cutis Irritated//Inflamed Seborrheic Keratosis Viral Warts, Unspecified Neoplasm of Uncertain Behavior (NUB) of skin: R/O BCC at Right Side Neck BCC (basal cell carcinoma), neck Quit smoking--04/09/2017 Atrial Fibrillation (Hcc) Coronary Artery Disease Involving [place] Coronary Artery of [place] Heart Without Angina Pectoris Mediastinal Lymphadenopathy Status Post Coronary Artery Stent Placement Peripheral Arterial Occlusive Disease (Hcc) On Home Oxygen Therapy Chronic Combined Systolic and Diastolic Congestive Heart Failure (Hcc) Hypertensive Heart Disease With Chronic Combined Systolic and Diastolic Congestive Heart Failure (Hcc) PAST MEDICAL HISTORY Diagnosis Date Acute combined systolic and diastolic congestive heart failure (HCC) 05/19/2017 Has ICD placed (10/01/17) Benign neoplasm of colon Diabetes (HCC) Peripheral arterial occlusive disease (HCC) 10/29/2017 Personal history of colonic polyps Personal history of unspecified urinary disorder PMH - PAST MEDICAL HISTORY OF kidney stones Skin cancer 2003 Surgeon in [place]. Stroke (HCC) Subarachnoid hemorrhage (HCC) 1998 brain bleed- stopped on own, no surg needed Unspecified essential hypertension ALLERGIES Allergen Reactions Bee Sting Honey bee venom Current Outpatient Medications Medication Sig dulaglutide (TRULICITY) 1.5 mg/0.5 mL pen injector Inject 3 mg subcutaneously one time a week. Pt assistance medication insulin glargine (LANTUS SOLOSTAR, BASAGLAR KWIKPEN) 100 unit/mL (3 mL) Inject 40 Units subcutaneously daily at bedtime AND 44 Units every morning. PATIENT ASSISTANCE MED.. fluticasone (FLONASE) 50 mcg/actuation nasal spray Use 1 Lamar in each nostril twice daily. Rinse mouth after use. furosemide (LASIX) 40 mg tablet Take 0.5 tablets by mouth once daily. glimepiride (AMARYL) 4 mg tablet Take 1 tablet by mouth twice daily with meals. lisinopril 2.5 mg tablet Take 1 tablet by mouth once daily. loratadine (CLARITIN) 10 mg tablet Take 1 tablet by mouth once daily. clopidogrel (PLAVIX) 75 mg tablet Take 1 tablet by mouth once daily. carvedilol (COREG) 25 mg tablet Take 1 tablet by mouth twice daily with meals. blood sugar diagnostic test strip Test blood sugar twice daily as directed, E11.65. Accu Check Guide azelastine (ASTELIN) 0.1% nasal spray Use 1 Lamar in each nostril twice daily. atorvastatin (LIPITOR) 10 mg tablet Take 1 tablet by mouth daily at bedtime. For cholesterol amiodarone (CORDARONE) 200 mg tablet Take 0.5 tablets by mouth once daily. allopurinol (ZYLOPRIM) 100 mg tablet Take 1 tablet by mouth twice daily. For gout. empagliflozin (JARDIANCE) 25 mg tablet Take 1 tablet by mouth daily with breakfast. Patient Assistance Medication. Insulin [place], Disposable, (BD ULTRA-FINE DON PEN NEEDLE) 32 gauge x Use to inject insulin twice daily. predniSONE (DELTASONE) 20 mg tablet Take 1 tablet by mouth once daily. Take for 3 to 7 days as needed for gout attacks albuterol HFA (VENTOLIN HFA) 90 mcg/actuation inhaler Inhale 2 Puffs as instructed every 4 hours as needed for Wheezing/Shortness of Breath. Magnesium 250 mg tab Take 1 tablet by mouth twice daily. COMPOUNDED PRESCRIPTION O2 3L per [place] aspirin, enteric coated (ADULT LOW DOSE ASPIRIN) 81 mg EC tablet Take 1 tablet by mouth once daily. Lancets (ONE TOUCH ULTRASOFT LANCETS) lancets TEST BLOOD SUGAR ONCE DAILY AND NEEDED No current facility-administered medications for this visit. EXAM: Last 3 Encounter BP Readings: Date: BP: 03/11/2021 122/72 11/13/2020 112/70 07/10/2020 124/68 Wt: 97.1 kg (214 lb) BMI: 30.71 kg/(m^2) LABS: Lab Results Component Value Date HBA1C 6.7 04/30/2021 HBA1C 7.9 10/31/2020 HBA1C 7.5 06/20/2020 CMP: Glucose 94 04/30/2021 BUN 21 04/30/2021 Creatinine 1.13 04/30/2021 Sodium 135 04/30/2021 Potassium 4.5 04/30/2021 Chloride 98 04/30/2021 CO2 23 04/30/2021 T PROT 7.8 04/30/2021 ALB 4.2 04/30/2021 Calcium 8.8 04/30/2021 Alkaline Phosphatase 76 04/30/2021 Bilirubin, Total 0.6 04/30/2021 AST 21 04/30/2021 ALT 21 04/30/2021 EGFR: >60 mL/min/1.73m2 No results found for: B12 Lab Results Component Value Date CHOL 145 10/31/2020 LDL 40 10/31/2020 HDL 30 10/31/2020 TG 375 10/31/2020 The 10-year ASCVD risk score (Whitneytomás POTTS Jr., et al., 2013) is: 35.9% Values used to calculate the score: Age: 70 years Sex: Male Is Non- : No Diabetic: Yes Tobacco smoker: No Systolic Blood Pressure: 122 mmHg Is BP treated: Yes HDL Cholesterol: 30 mg/dL Total Cholesterol: 145 mg/dL Albumin/Creat Ratio (mg/g) Date Value 04/30/2021 Not calculated PHARMACOTHERAPY ASSESSMENT/PLAN: 1. Type 2 diabetes mellitus with diabetic peripheral angiopathy without gangrene, without long-term current use of insulin ([facility]) - ICD9: 250.70, 443.81, ICD10: E11.51 Goal A1c <8%; at goal (last A1c 6.7%); SMBG readings improved on current regimen. Today will continue current regimen. Renal function and LFTs appropriate for continued use CONTINUE Trulicity 3 mg weekly, Empagliflozin 25 mg daily, Glimepiride 4 mg BID with meals, Lantus 44 units in the morning and 40 units at bedtime - TRULICITY 3 MG/0.5 ML SUBCUTANEOUS PEN INJECTOR Follow up: Patient is scheduled to see PCP on 07/12/21. Patient to follow up with PharmD on 09/17/21. Patient verbalized understanding of instructions. Uyen Delgado PharmD, BCACP Primary Care Clinical Pharmacist [facility] The majority of the pharmacy visit (> 50%) was spent counseling and/or coordinating care for the patient. [Telephonic] time was 18 minutes. documented in this encounter [facility] documented as of this encounter (statuses as of 07/08/2021) [facility]03-13-2018 History of Past illness Narrative* Problem Noted Date Resolved Date Acute combined systolic and diastolic congestive heart failure 05/19/2017 02/25/2018 Overview: [facility] admission 04/2017 Echocardiogram was completed and showed severe global left ventricular systolic dysfunction with an estimated ejection fraction of 20% moderate eccentric mitral valve insufficiency, mild pulmonary hypertension with a PA systolic pressure estimated at 38 mmHg, possibly secondary to acute systolic congestive heart failure. 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 02/22/2019 FB bladder/urethra 07/20/2009 02/22/2019 Calculus of kidney 07/20/2009 02/22/2019 documented as of this encounter (statuses as of 09/13/2021) [facility]03-13-2018 History of Past illness Narrative* Problem Noted Date Resolved Date Acute combined systolic and diastolic congestive heart failure 05/19/2017 02/25/2018 Overview: [facility] admission 04/2017 Echocardiogram was completed and showed severe global left ventricular systolic dysfunction with an estimated ejection fraction of 20% moderate eccentric mitral valve insufficiency, mild pulmonary hypertension with a PA systolic pressure estimated at 38 mmHg, possibly secondary to acute systolic congestive heart failure. 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 02/22/2019 FB bladder/urethra 07/20/2009 02/22/2019 Calculus of kidney 07/20/2009 02/22/2019 documented as of this encounter (statuses as of 10/15/2021) [facility]13[facility]2018 History of Past illness Narrative* Problem Noted Date Resolved Date Acute combined systolic and diastolic congestive heart failure 05/19/2017 02/25/2018 Overview: [facility] admission 04/2017 Echocardiogram was completed and showed severe global left ventricular systolic dysfunction with an estimated ejection fraction of 20% moderate eccentric mitral valve insufficiency, mild pulmonary hypertension with a PA systolic pressure estimated at 38 mmHg, possibly secondary to acute systolic congestive heart failure. 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 02/22/2019 FB bladder/urethra 07/20/2009 02/22/2019 Calculus of kidney 07/20/2009 02/22/2019 documented as of this encounter (statuses as of 11/13/2021) [facility]13[facility]2018 History of Past illness Narrative* Problem Noted Date Resolved Date Acute combined systolic and diastolic congestive heart failure 05/19/2017 02/25/2018 Overview: [facility] admission 04/2017 Echocardiogram was completed and showed severe global left ventricular systolic dysfunction with an estimated ejection fraction of 20% moderate eccentric mitral valve insufficiency, mild pulmonary hypertension with a PA systolic pressure estimated at 38 mmHg, possibly secondary to acute systolic congestive heart failure. 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 02/22/2019 FB bladder/urethra 07/20/2009 02/22/2019 Calculus of kidney 07/20/2009 02/22/2019 documented as of this encounter (statuses as of 11/15/2021) [facility]2018 History of Past illness Narrative* Problem Noted Date Resolved Date Acute combined systolic and diastolic congestive heart failure 05/19/2017 02/25/2018 Overview: [facility] admission 04/2017 Echocardiogram was completed and showed severe global left ventricular systolic dysfunction with an estimated ejection fraction of 20% moderate eccentric mitral valve insufficiency, mild pulmonary hypertension with a PA systolic pressure estimated at 38 mmHg, possibly secondary to acute systolic congestive heart failure. 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 02/22/2019 FB bladder/urethra 07/20/2009 02/22/2019 Calculus of kidney 07/20/2009 02/22/2019 documented as of this encounter (statuses as of 12/25/2021) [facility] History of Past illness Narrative* Problem Noted Date Resolved Date Acute combined systolic and diastolic congestive heart failure 05/19/2017 02/25/2018 Overview: [facility] admission 04/2017 Echocardiogram was completed and showed severe global left ventricular systolic dysfunction with an estimated ejection fraction of 20% moderate eccentric mitral valve insufficiency, mild pulmonary hypertension with a PA systolic pressure estimated at 38 mmHg, possibly secondary to acute systolic congestive heart failure. 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 02/22/2019 FB bladder/urethra 07/20/2009 02/22/2019 Calculus of kidney 07/20/2009 02/22/2019 documented as of this encounter (statuses as of 01/07/2022) [facility] History of Past illness Narrative* Problem Noted Date Resolved Date Acute combined systolic and diastolic congestive heart failure 05/19/2017 02/25/2018 Overview: [facility] admission 04/2017 Echocardiogram was completed and showed severe global left ventricular systolic dysfunction with an estimated ejection fraction of 20% moderate eccentric mitral valve insufficiency, mild pulmonary hypertension with a PA systolic pressure estimated at 38 mmHg, possibly secondary to acute systolic congestive heart failure. 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 02/22/2019 FB bladder/urethra 07/20/2009 02/22/2019 Calculus of kidney 07/20/2009 02/22/2019 documented as of this encounter (statuses as of 01/08/2022) [facility] History of Past illness Narrative* Problem Noted Date Resolved Date Acute combined systolic and diastolic congestive heart failure 05/19/2017 02/25/2018 Overview: [facility] admission 04/2017 Echocardiogram was completed and showed severe global left ventricular systolic dysfunction with an estimated ejection fraction of 20% moderate eccentric mitral valve insufficiency, mild pulmonary hypertension with a PA systolic pressure estimated at 38 mmHg, possibly secondary to acute systolic congestive heart failure. 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 02/22/2019 FB bladder/urethra 07/20/2009 02/22/2019 Calculus of kidney 07/20/2009 02/22/2019 documented as of this encounter (statuses as of 02/14/2022) [facility] History of Past illness Narrative* Problem Noted Date Resolved Date Acute combined systolic and diastolic congestive heart failure 05/19/2017 02/25/2018 Overview: [facility] admission 04/2017 Echocardiogram was completed and showed severe global left ventricular systolic dysfunction with an estimated ejection fraction of 20% moderate eccentric mitral valve insufficiency, mild pulmonary hypertension with a PA systolic pressure estimated at 38 mmHg, possibly secondary to acute systolic congestive heart failure. 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 02/22/2019 FB bladder/urethra 07/20/2009 02/22/2019 Calculus of kidney 07/20/2009 02/22/2019 documented as of this encounter (statuses as of 02/26/2022) [facility] History of Past illness Narrative* Problem Noted Date Resolved Date Acute combined systolic and diastolic congestive heart failure 05/19/2017 02/25/2018 Overview: [facility] admission 04/2017 Echocardiogram was completed and showed severe global left ventricular systolic dysfunction with an estimated ejection fraction of 20% moderate eccentric mitral valve insufficiency, mild pulmonary hypertension with a PA systolic pressure estimated at 38 mmHg, possibly secondary to acute systolic congestive heart failure. 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 02/22/2019 FB bladder/urethra 07/20/2009 02/22/2019 Calculus of kidney 07/20/2009 02/22/2019 documented as of this encounter (statuses as of 03/24/2022) [facility] History of Past illness Narrative* Problem Noted Date Resolved Date Acute combined systolic and diastolic congestive heart failure 05/19/2017 02/25/2018 Overview: [facility] admission 04/2017 Echocardiogram was completed and showed severe global left ventricular systolic dysfunction with an estimated ejection fraction of 20% moderate eccentric mitral valve insufficiency, mild pulmonary hypertension with a PA systolic pressure estimated at 38 mmHg, possibly secondary to acute systolic congestive heart failure. 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 02/22/2019 FB bladder/urethra 07/20/2009 02/22/2019 Calculus of kidney 07/20/2009 02/22/2019 documented as of this encounter (statuses as of 03/24/2022) [facility] History of Past illness Narrative* Problem Noted Date Resolved Date Acute combined systolic and diastolic congestive heart failure 05/19/2017 02/25/2018 Overview: [facility] admission 04/2017 Echocardiogram was completed and showed severe global left ventricular systolic dysfunction with an estimated ejection fraction of 20% moderate eccentric mitral valve insufficiency, mild pulmonary hypertension with a PA systolic pressure estimated at 38 mmHg, possibly secondary to acute systolic congestive heart failure. 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 02/22/2019 FB bladder/urethra 07/20/2009 02/22/2019 Calculus of kidney 07/20/2009 02/22/2019 documented as of this encounter (statuses as of 04/09/2022) [facility] History of Past illness Narrative* Problem Noted Date Resolved Date Acute combined systolic and diastolic congestive heart failure 05/19/2017 02/25/2018 Overview: [facility] admission 04/2017 Echocardiogram was completed and showed severe global left ventricular systolic dysfunction with an estimated ejection fraction of 20% moderate eccentric mitral valve insufficiency, mild pulmonary hypertension with a PA systolic pressure estimated at 38 mmHg, possibly secondary to acute systolic congestive heart failure. 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 02/22/2019 FB bladder/urethra 07/20/2009 02/22/2019 Calculus of kidney 07/20/2009 02/22/2019 documented as of this encounter (statuses as of 05/06/2022) [facility] History of Past illness Narrative* Problem Noted Date Resolved Date Acute combined systolic and diastolic congestive heart failure 05/19/2017 02/25/2018 Overview: [facility] admission 04/2017 Echocardiogram was completed and showed severe global left ventricular systolic dysfunction with an estimated ejection fraction of 20% moderate eccentric mitral valve insufficiency, mild pulmonary hypertension with a PA systolic pressure estimated at 38 mmHg, possibly secondary to acute systolic congestive heart failure. 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 02/22/2019 FB bladder/urethra 07/20/2009 02/22/2019 Calculus of kidney 07/20/2009 02/22/2019 documented as of this encounter (statuses as of 06/03/2022) [facility] History of Past illness Narrative* Problem Noted Date Resolved Date Acute combined systolic and diastolic congestive heart failure 05/19/2017 02/25/2018 Overview: [facility] admission 04/2017 Echocardiogram was completed and showed severe global left ventricular systolic dysfunction with an estimated ejection fraction of 20% moderate eccentric mitral valve insufficiency, mild pulmonary hypertension with a PA systolic pressure estimated at 38 mmHg, possibly secondary to acute systolic congestive heart failure. 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 02/22/2019 FB bladder/urethra 07/20/2009 02/22/2019 Calculus of kidney 07/20/2009 02/22/2019 documented as of this encounter (statuses as of 06/10/2022) [facility] History of Past illness Narrative* Problem Noted Date Resolved Date Acute combined systolic and diastolic congestive heart failure 05/19/2017 02/25/2018 Overview: [facility] admission 04/2017 Echocardiogram was completed and showed severe global left ventricular systolic dysfunction with an estimated ejection fraction of 20% moderate eccentric mitral valve insufficiency, mild pulmonary hypertension with a PA systolic pressure estimated at 38 mmHg, possibly secondary to acute systolic congestive heart failure. 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 02/22/2019 FB bladder/urethra 07/20/2009 02/22/2019 Calculus of kidney 07/20/2009 02/22/2019 documented as of this encounter (statuses as of 06/13/2022) [facility] History of Past illness Narrative* Problem Noted Date Resolved Date Acute combined systolic and diastolic congestive heart failure 05/19/2017 02/25/2018 Overview: [facility] admission 04/2017 Echocardiogram was completed and showed severe global left ventricular systolic dysfunction with an estimated ejection fraction of 20% moderate eccentric mitral valve insufficiency, mild pulmonary hypertension with a PA systolic pressure estimated at 38 mmHg, possibly secondary to acute systolic congestive heart failure. 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 02/22/2019 FB bladder/urethra 07/20/2009 02/22/2019 Calculus of kidney 07/20/2009 02/22/2019 documented as of this encounter (statuses as of 08/21/2022) [facility] History of Past illness Narrative* Problem Noted Date Resolved Date Acute combined systolic and diastolic congestive heart failure 05/19/2017 02/25/2018 Overview: [facility] admission 04/2017 Echocardiogram was completed and showed severe global left ventricular systolic dysfunction with an estimated ejection fraction of 20% moderate eccentric mitral valve insufficiency, mild pulmonary hypertension with a PA systolic pressure estimated at 38 mmHg, possibly secondary to acute systolic congestive heart failure. 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 02/22/2019 FB bladder/urethra 07/20/2009 02/22/2019 Calculus of kidney 07/20/2009 02/22/2019 documented as of this encounter (statuses as of 08/25/2022) [facility] History of Past illness Narrative* Problem Noted Date Diagnosed Date Resolved Date Acute combined systolic and diastolic congestive heart failure 05/19/2017 02/25/2018 Overview: [facility] admission 04/2017 Echocardiogram was completed and showed severe global left ventricular systolic dysfunction with an estimated ejection fraction of 20% moderate eccentric mitral valve insufficiency, mild pulmonary hypertension with a PA systolic pressure estimated at 38 mmHg, possibly secondary to acute systolic congestive heart failure. 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 02/22/2019 FB bladder/urethra 07/20/2009 9 Calculus of kidney 07/20/2009 9 documented as of this encounter (statuses as of 11/18/2022) [facility] [facility] Narrative* Problem Noted Date Diagnosed Date Resolved Date Acute combined systolic and diastolic congestive heart failure 05/19/2017 02/25/2018 Overview: [facility] admission 04/2017 Echocardiogram was completed and showed severe global left ventricular systolic dysfunction with an estimated ejection fraction of 20% moderate eccentric mitral valve insufficiency, mild pulmonary hypertension with a PA systolic pressure estimated at 38 mmHg, possibly secondary to acute systolic congestive heart failure. 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 02/22/2019 FB bladder/urethra 07/20/2009 9 Calculus of kidney 07/20/2009 9 documented as of this encounter (statuses as of 11/24/2022) [facility]03[facility] History of Past illness Narrative* Problem Noted Date Diagnosed Date Resolved Date Acute combined systolic and diastolic congestive heart failure 05/19/2017 02/25/2018 Overview: [facility] admission 04/2017 Echocardiogram was completed and showed severe global left ventricular systolic dysfunction with an estimated ejection fraction of 20% moderate eccentric mitral valve insufficiency, mild pulmonary hypertension with a PA systolic pressure estimated at 38 mmHg, possibly secondary to acute systolic congestive heart failure. 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 02/22/2019 FB bladder/urethra 07/20/2009 9 Calculus of kidney 07/20/2009 9 documented as of this encounter (statuses as of 01/05/2023) [facility]03[facility] History of Past illness Narrative* Problem Noted Date Diagnosed Date Resolved Date Acute combined systolic and diastolic congestive heart failure 05/19/2017 02/25/2018 Overview: [facility] admission 04/2017 Echocardiogram was completed and showed severe global left ventricular systolic dysfunction with an estimated ejection fraction of 20% moderate eccentric mitral valve insufficiency, mild pulmonary hypertension with a PA systolic pressure estimated at 38 mmHg, possibly secondary to acute systolic congestive heart failure. 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 02/22/2019 FB bladder/urethra 07/20/2009 9 Calculus of kidney 07/20/2009 9 documented as of this encounter (statuses as of 02/12/2023) [facility]03[facility] History of Past illness Narrative* Problem Noted Date Diagnosed Date Resolved Date Acute combined systolic and diastolic congestive heart failure 05/19/2017 02/25/2018 Overview: [facility] admission 04/2017 Echocardiogram was completed and showed severe global left ventricular systolic dysfunction with an estimated ejection fraction of 20% moderate eccentric mitral valve insufficiency, mild pulmonary hypertension with a PA systolic pressure estimated at 38 mmHg, possibly secondary to acute systolic congestive heart failure. 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 02/22/2019 FB bladder/urethra 07/20/2009 9 Calculus of kidney 07/20/2009 9 documented as of this encounter (statuses as of 02/19/2023) [facility] note* Diagnosis Type 2 diabetes mellitus with diabetic peripheral angiopathy without gangrene, without long-term current use of insulin (HCC)- Primary [facility] Diagnosis Type 2 diabetes mellitus with diabetic peripheral angiopathy without gangrene, without long-term current use of insulin (HCC)- Primary [facility]* Diagnosis Essential hypertension- Primary Unspecified essential hypertension Elevated TSH Nonspecific abnormal results of thyroid function study Hyperuricemia Other abnormal blood chemistry Encounter for long-term current use of medication Type 2 diabetes mellitus without complication, with long-term current use of insulin (HCC) Hyperlipidemia, unspecified hyperlipidemia type [facility]* Diagnosis Positive colorectal cancer screening using Cologuard test- Primary [facility]* Diagnosis Type 2 diabetes mellitus with diabetic peripheral angiopathy without gangrene, without long-term current use of insulin (HCC)- Primary [facility]* Diagnosis History of colonic polyps- Primary Personal history of colonic polyps Positive colorectal cancer screening using Cologuard test On continuous oral anticoagulation Long-term (current) use of anticoagulants Pacemaker Cardiac pacemaker in situ Hypertensive heart disease with chronic combined systolic and diastolic congestive heart failure (HCC) documented [facility]* Diagnosis Tobacco abuse Tobacco use disorder [facility] Diagnosis Type 2 diabetes mellitus with diabetic peripheral angiopathy without gangrene, with long-term current use of insulin (HCC)- Primary Atrial fibrillation, unspecified type (HCC) Coronary artery disease involving [place] coronary artery of [place] heart without angina pectoris Essential hypertension Unspecified essential hypertension Hyperlipidemia, unspecified hyperlipidemia type Eustachian tube dysfunction, right Hyperuricemia Other abnormal blood chemistry Personal history of gout Personal history of other endocrine, metabolic, and immunity disorders Encounter for long-term current use of medication [facility]* Diagnosis Type 2 diabetes mellitus with diabetic peripheral angiopathy without gangrene, without long-term current use of insulin (HCC)- Primary [facility]* Diagnosis Controlled type 2 diabetes mellitus with diabetic peripheral angiopathy without gangrene, with long-term current use of insulin (HCC)- Primary Chronic combined systolic and diastolic congestive heart failure (HCC) Chronic combined systolic and diastolic heart failure Laceration of right upper extremity, initial encounter Hyperuricemia Other abnormal blood chemistry Encounter for immunization Need for other specified prophylactic vaccination against single bacterial disease Encounter for long-term current use of medication [facility]* Diagnosis Hypothyroidism due to medication [facility]* Diagnosis Coronary artery disease involving [place] coronary artery of [place] heart without angina pectoris Primary hypertension Unspecified essential hypertension [facility]* Diagnosis Controlled type 2 diabetes mellitus with diabetic peripheral angiopathy without gangrene, with long-term current use of insulin (HCC)- Primary Essential hypertension Unspecified essential hypertension Coronary artery disease involving [place] coronary artery of [place] heart without angina pectoris Hyperlipidemia, unspecified hyperlipidemia type Atrial fibrillation, unspecified type (HCC) Eustachian tube dysfunction, right Hyperuricemia Other abnormal blood chemistry Personal history of gout Personal history of other endocrine, metabolic, and immunity disorders Type 2 diabetes mellitus with diabetic peripheral angiopathy without gangrene, with long-term current use of insulin (HCC) Chronic combined systolic and diastolic congestive heart failure (HCC) Chronic combined systolic and diastolic heart failure Hypothyroidism due to medication Encounter for immunization Need for other specified prophylactic vaccination against single bacterial disease Encounter for long-term current use of medication documented in this encounter [facility] Advance Directives No Advanced Directives Records FoundDocuments on File Type Date 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 Advance Directive(s) 12/06/2015 10:17 AM Advance Directive(s) 12/04/2015 4:11 PM Reason for Referral Specialty Diagnoses / Procedures Referred By Caio conner Referred To Contact General Surgery Diagnoses Positive colorectal cancer screening using Cologuard test Procedures CONSULT TO GENERAL SURGERY OFFICE/OUTPATIENT [facility] 60-74 MINUTES Iman Batista MD [address] [place] [address] Referral ID Status Reason Start Date Expiration Date Visits Requested Visits Authorized [id number] Authorized PCP Requested Referral 2 12/25/2022 1 1 Summary Purpose Family History No Family History Records Found Additional Source Comments Source Comments (unrecognize d section and content) In the event this informatio n is protected by the Federal Confidentiality of Alcohol and Drug Abuse Patient Records regulations: The Federal rules restrict any use of the information to criminally investigate or prosecute any alcohol or drug abuse patient.[facility] event this information is protected by the Federal Confidentiality of Alcohol and Drug Abuse Patient Records regulations: The Federal rules restrict any use of the information to criminally investigate or prosecute any alcohol or drug abuse patient.[facility] the event this information is protected by the Federal Confidentiality of Alcohol and Drug Abuse Patient Records regulations: The Federal rules restrict any use of the information to criminally investigate or prosecute any alcohol or drug abuse patient.[facility] the event this information is protected by the Federal Confidentiality of Alcohol and Drug Abuse Patient Records regulations: The Federal rules restrict any use of the information to criminally investigate or prosecute any alcohol or drug abuse patient.[facility] the event this information is protected by the Federal Confidentiality of Alcohol and Drug Abuse Patient Records regulations: The Federal rules restrict any use of the information to criminally investigate or prosecute any alcohol or drug abuse patient.[facility] the event this information is protected by the Federal Confidentiality of Alcohol and Drug Abuse Patient Records regulations: The Federal rules restrict any use of the information to criminally investigate or prosecute any alcohol or drug abuse patient.[facility] the event this information is protected by the Federal Confidentiality of Alcohol and Drug Abuse Patient Records regulations: The Federal rules restrict any use of the information to criminally investigate or prosecute any alcohol or drug abuse patient.[facility] the event this information is protected by the Federal Confidentiality of Alcohol and Drug Abuse Patient Records regulations: The Federal rules restrict any use of the information to criminally investigate or prosecute any alcohol or drug abuse patient.[facility] the event this information is protected by the Federal Confidentiality of Alcohol and Drug Abuse Patient Records regulations: The Federal rules restrict any use of the information to criminally investigate or prosecute any alcohol or drug abuse patient.[facility] the event this information is protected by the Federal Confidentiality of Alcohol and Drug Abuse Patient Records regulations: The Federal rules restrict any use of the information to criminally investigate or prosecute any alcohol or drug abuse patient.[facility] the event this information is protected by the Federal Confidentiality of Alcohol and Drug Abuse Patient Records regulations: The Federal rules restrict any use of the information to criminally investigate or prosecute any alcohol or drug abuse patient.[facility] the event this information is protected by the Federal Confidentiality of Alcohol and Drug Abuse Patient Records regulations: The Federal rules restrict any use of the information to criminally investigate or prosecute any alcohol or drug abuse patient.[facility] the event this information is protected by the Federal Confidentiality of Alcohol and Drug Abuse Patient Records regulations: The Federal rules restrict any use of the information to criminally investigate or prosecute any alcohol or drug abuse patient.[facility] the event this information is protected by the Federal Confidentiality of Alcohol and Drug Abuse Patient Records regulations: The Federal rules restrict any use of the information to criminally investigate or prosecute any alcohol or drug abuse patient.[facility] the event this information is protected by the Federal Confidentiality of Alcohol and Drug Abuse Patient Records regulations: The Federal rules restrict any use of the information to criminally investigate or prosecute any alcohol or drug abuse patient.[facility] the event this information is protected by the Federal Confidentiality of Alcohol and Drug Abuse Patient Records regulations: The Federal rules restrict any use of the information to criminally investigate or prosecute any alcohol or drug abuse patient.[facility] the event this information is protected by the Federal Confidentiality of Alcohol and Drug Abuse Patient Records regulations: The Federal rules restrict any use of the information to criminally investigate or prosecute any alcohol or drug abuse patient.[facility] the event this information is protected by the Federal Confidentiality of Alcohol and Drug Abuse Patient Records regulations: The Federal rules restrict any use of the information to criminally investigate or prosecute any alcohol or drug abuse patient.[facility] the event this information is protected by the Federal Confidentiality of Alcohol and Drug Abuse Patient Records regulations: The Federal rules restrict any use of the information to criminally investigate or prosecute any alcohol or drug abuse patient.[facility] the event this information is protected by the Federal Confidentiality of Alcohol and Drug Abuse Patient Records regulations: The Federal rules restrict any use of the information to criminally investigate or prosecute any alcohol or drug abuse patient.[facility] the event this information is protected by the Federal Confidentiality of Alcohol and Drug Abuse Patient Records regulations: The Federal rules restrict any use of the information to criminally investigate or prosecute any alcohol or drug abuse patient.[facility] the event this information is protected by the Federal Confidentiality of Alcohol and Drug Abuse Patient Records regulations: The Federal rules restrict any use of the information to criminally investigate or prosecute any alcohol or drug abuse patient.[facility] the event this information is protected by the Federal Confidentiality of Alcohol and Drug Abuse Patient Records regulations: The Federal rules restrict any use of the information to criminally investigate or prosecute any alcohol or drug abuse patient.[facility] the event this information is protected by the Federal Confidentiality of Alcohol and Drug Abuse Patient Records regulations: The Federal rules restrict any use of the information to criminally investigate or prosecute any alcohol or drug abuse patient.[facility] the event this information is protected by the Federal Confidentiality of Alcohol and Drug Abuse Patient Records regulations: The Federal rules restrict any use of the information to criminally investigate or prosecute any alcohol or drug abuse patient.[facility] Reason for Visit (unrecogniz ed section and content) Reason Comments Appointment Rescheduled Reason Comments Results Reason Comments Diabetes Reason Comments Consult Colonoscopy consult Specialty Diagnoses / Procedures Referred By Contac t Referred To Contact General Surgery Diagnoses Positive colorectal cancer screening using Cologuard test Procedures CONSULT TO GENERAL SURGERY OFFICE/OUTPATIENT [facility] 60-74 MINUTES Iman Batista MD [address] [place] [address] Referral ID Status Reason Start Date Expiration Date V isits Requested Visits Authorized [id number] Closed PCP Requested Referral 12/25/2021 12/25/2022 1 1 Reason Comments Patient Assistance Bi Cares (Jardiance) Reason Comments Patient Assistance Iman Cares (Trulici ty, Basaglar) Reason Comments Forms Pt assistance from B I Reason Comments Established Patient 4 month follow up Reason Comments Forms Reason Comments Jury duty letter Reason Comments Transition Of Care Diabetes Care Reason Comments F/U 4 month Labs prior Reason Onset Date Comments Refill Request 11/16/2022 Reason Onset Date Comments Refill Request 11/23/2022 Refill Request 11/24/2022 Reason Comments Follow Up Reason Comments pt assistance forms from [facility] Teams (unrecognized sec tion and content) Heel Finisher Relationship Specialty Start Date End Date Iman Batista MD [address] [place] [address] PCP - General Internal Medicine 12/22/11 [facility] [address] [place] [address] Pharmacist Pharmacy 07/20/19 Heel Finisher Relationship Specialty Start Date End Date Iman Batista MD [address] [place] [address] PCP - General Internal Medicine 12/22/11 [facility] [address] [place] [address] Pharmacist Pharmacy 07/20/19 Heel Finisher Relationship Specialty Start Date End Date Iman Batista MD [address] [place] [address] PCP - General Internal Medicine 12/22/11 Uyen Delgado, [facility] [address] [place] [address] Pharmacist Pharmacy 07/20/19 Heel Finisher Relationship Specialty Start Date End Date Iman Batista MD [address] [place] [address] PCP - General Internal Medicine 12/22/11 Uyen Delgado, [facility] [address] [place] [address] Pharmacist Pharmacy 07/20/19 Heel Finisher Relationship Specialty Start Date End Date Iman Batista MD [address] [place] [address] PCP - General Internal Medicine 12/22/11 [facility], [facility] [address] [place] [address] Pharmacist Pharmacy 07/20/19 Heel Finisher Relationship Specialty Start Date End Date Iman Batista MD [address] [place] [address] PCP - General Internal Medicine 12/22/11 Jose MariaUyen, [facility] [address] [place] [address] Pharmacist Pharmacy 07/20/19 Heel Finisher Relationship Specialty Start Date End Date Iman Batista MD [address] [place] [address] PCP - General Internal Medicine 12/22/11 Jose MariaUyen, [facility] [address] [place] [address] Pharmacist Pharmacy 07/20/19 Heel Finisher Relationship Specialty Start Date End Date Iman Batista MD [address] [place] [address] PCP - General Internal Medicine 12/22/11 Jose MariaUyen, [facility] [address] [place] [address] Pharmacist Pharmacy 07/20/19 Heel Finisher Relationship Specialty Start Date End Date Iman Batista MD [address] [place] [address] PCP - General Internal Medicine 12/22/11 Jose MariaUyen, [facility] [address] [place] [address] Pharmacist Pharmacy 07/20/19 Heel Finisher Relationship Specialty Start Date End Date Iman Batista MD [address] [place] [address] PCP - General Internal Medicine 12/22/11 [facility] [address] [place] [address] Pharmacist Pharmacy 07/20/19 Heel Finisher Relationship Specialty Start Date End Date Iman Batista MD [address] [place] [address] PCP - General Internal Medicine 12/22/11 [facility] [address] [place] [address] Pharmacist Pharmacy 07/20/19 Heel Finisher Relationship Specialty Start Date End Date Iman Batista MD [address] [place] [address] PCP - General Internal Medicine 12/22/11 [facility] [address] [place] [address] Pharmacist Pharmacy 07/20/19 Heel Finisher Relationship Specialty Start Date End Date Iman Batista MD [address] [place] [address] PCP - General Internal Medicine 12/22/11 Heel Finisher Relationship Specialty Start Date End Date Iman Batista MD [address] [place] [address] PCP - General Internal Medicine 12/22/11 Uyen Delgado, [facility] [address] [place] [address] Pharmacist Pharmacy 07/20/19 08/18/22 Heel Finisher Relationship Specialty Start Date End Date Iman Batista MD [address] [place] [address] PCP - General Internal Medicine 12/22/11 Heel Finisher Relationship Specialty Start Date End Date Iman Batista MD [address] [facility], [place] [address] PCP - General Internal Medicine 12/22/11 Heel Finisher Relationship Specialty Start Date End Date Iman Batista MD [address] [facility], [place] [address] PCP - General Internal Medicine 12/22/11 Heel Finisher Relationship Specialty Start Date End Date Iman Batista MD [address] [facility], [place] [address] PCP - General Internal Medicine 12/22/11 Heel Finisher Relationship Specialty Start Date End Date Iman Batista MD [address] [facility], [place] [address] PCP - General Internal Medicine 12/22/11 (unrecognized sect ion and content) No Status Records Found INFORMATION SOURCE (unrecogn ized section and content) FOR RECORDS PERTAINING TO PATIENTS WHO ARE OR HAVE BEEN ENROLLED IN A CHEMICAL DEPENDENCY/SUBSTANCEABUSE PROGRAM, SOME INFORMATION MAY BE OMITTED. This clinical summary was aggregated from multiple sources. Caution should be exercised in using it in the provision of clinical care. This summary normalizes information from multiple sources, and as a consequence, information in this document may materially change the coding, format and clinical context of patient data. In addition, data may be omitted in some cases. CLINICAL DECISIONS SHOULD BE BASED ON THE PRIMARY CLINICAL RECORDS. [facility]. provides no warranty or guarantee of the accuracy or completeness of information in this document.
== END | disposition home or self-care (01) ==
LOC: PAVLAB 10:57
PROVIDERS: PCP Internal Medicine; Referring Provider Internal Medicine Critical Care Medicine; Visit Provider Internal Medicine Critical Care Medicine
DX: I48.0 Paroxysmal atrial fibrillation (principal); R91.1 Solitary pulmonary nodule; I25.10 Atherosclerotic heart disease of native coronary artery without angina pectoris
CPT/HCPCS: 36415; 85049; 85610; 85730

== ENCOUNTER → 2024-05-10 | Outpatient (CLI) | payer MEDICARE, OTHER, SELFPAY ==
[2024-05-10 13:45] VITALS: PULSE 63; PULSE 64; PULSE 74; PULSE 78; PULSE 79; PULSE 81; PULSE 82; PULSE 89; O2SAT 88; O2SAT 90; O2SAT 91; O2SAT 94; O2SAT 96; O2SAT 98
--- NOTE | 2024-05-10 14:09 | CPS ---
Pt. came to walk on 3 lpm pulse dose. Pt placed on room air upon arrival. Pt started walk on room air. Two minutes into walk pt was placed on 1 lpm pulse dose oxygen. Three minutes into walk pt was placed on 2 lpm pulse dose. Pt was increased to his 3 lpm pulse dose at minute four minutes into walk. Pt was able to complete walk on 3 lpm pulse dose.
--- NOTE | 2024-05-13 13:40 | WT_ITS ---
PSN 6 Minute Walk Test 6 Minute Walk Test 6 Minute Walk Test: 6 Minute Walk Test PSN:6-Minute Walk Test Start: 05/10/24 14:05 Freq: Status: Active Protocol: [id number].6MINW Document 05/10/24 13:45 AEH (Rec: 05/10/24 14:16 AEH [id number]) 6 Minute Walk Test Date Performed 05/10/24 Time Performed 13:45 Height 5 ft 11 in Weight: 212 lb Weight in Pounds 212.[address]: Assistive device None used: Pre-test Oxygen Delivery Room Air Method Pulse Ox (%) 98 Pulse Rate (60-100 74 beats/min) Dyspnea Tawnya Scale ( 0 0-10) Exertion Tawnya Scale 6 (6-20) 1st minute Oxygen Delivery Room Air Method Pulse Ox (%) 94 Pulse Rate (60-100 81 beats/min) 2nd minute Oxygen Delivery Room Air Method Pulse Ox (%) 88 Pulse Rate (60-100 89 beats/min) 3rd minute Oxygen Flow Rate (L/ 1 min) (L/min) Oxygen Delivery Nasal Cannula Method Pulse Ox (%) 88 Pulse Rate (60-100 64 beats/min) 4th minute Oxygen Flow Rate (L/ 2 min) (L/min) Oxygen Delivery Nasal Cannula Method Pulse Ox (%) 88 Pulse Rate (60-100 78 beats/min) 5th minute Oxygen Flow Rate (L/ 3 min) (L/min) Oxygen Delivery Nasal Cannula Method Pulse Ox (%) 90 Pulse Rate (60-100 82 beats/min) 6th minute Oxygen Flow Rate (L/ 3 min) (L/min) Oxygen Delivery Nasal Cannula Method Pulse Ox (%) 91 Pulse Rate (60-100 79 beats/min) Dyspnea Tawnya Scale ( 3 0-10) Exertion Tawnya Scale 13 (6-20) Reported Symptoms Increased Work of Breathing Post-test Oxygen Flow Rate (L/ 3 min) (L/min) Oxygen Delivery Nasal Cannula Method Pulse Ox (%) 96 Pulse Rate (60-100 63 beats/min) Full Laps Walked 10 Partial Lap, Number 0 of Tiles Walked Total Distance 590 Walked (ft) 05/10/24 14:09 Cardiopulmonary Services by Teresita Bridges Pt. came to walk on 3 lpm pulse dose. Pt placed on room air upon arrival. Pt started walk on room air. Two minutes into walk pt was placed on 1 lpm pulse dose oxygen. Three minutes into walk pt was placed on 2 lpm pulse dose. Pt was i ncreased to his 3 lpm pulse dose at minute four minutes into walk. Pt was able to complete walk on 3 lpm pulse dose. Initialized on 05/10/24 14:09 - END OF NOTE Interpretation Interpretation: The patient ambulated 590 feet over the course of 6 minutes beginning on room air without assistive devices. Pretesting oxygen saturation was noted to be 98% on room air. With ambulation, the patient desaturated on several occasions, requiring the initiation and subsequent escalation of supplemental oxygen to 3 L/min pulsed dose to maintain appropriate saturations. Recommendations Recommendations: 3 L/min of pulse dose supplemental oxygen should be utilized with exertion.
== END | disposition home or self-care (01) ==
LOC: PSN 13:38
PROVIDERS: PCP Internal Medicine; Referring Provider Internal Medicine Critical Care Medicine; Visit Provider Internal Medicine Critical Care Medicine
DX: F17.211 Nicotine dependence, cigarettes, in remission (principal)
CPT/HCPCS: 94618

== ENCOUNTER → 2024-05-16 | Outpatient (CLI) | payer MEDICARE, OTHER, SELFPAY | END | disposition home or self-care (01) | LOC: PSN 12:19 | PROVIDERS: PCP Internal Medicine; Referring Provider Internal Medicine Critical Care Medicine; Visit Provider Internal Medicine Critical Care Medicine | DX: F17.211 Nicotine dependence, cigarettes, in remission (principal) | CPT/HCPCS: 94060; 94726; 94729 ==

== ENCOUNTER 2025-02-23 09:51 | Inpatient (IN) | payer MEDICARE, OTHER, SELFPAY ==
[2025-02-23] VITALS (15 sets, daily range): BP systolic 112–130; BP diastolic 66–114; PULSE 77–90; RESP 12–28; TEMP 36.3–37.9; O2SAT 88–94; BMI 30.4; BMI 30.8
--- NOTE | 2025-02-23 10:16 | EKG12_ITS ---
Test Reason : SOB Blood Pressure : */* mmHG Vent. Rate : 78 BPM Atrial Rate : * BPM P-R Int : * ms QRS Dur : 130 ms QT Int : 488 ms P-R-T Axes : * -18 12 degrees QTcB Int : 556 ms Critical Test Result: Long QTc Normal sinus rhythm with 1st degree A-V block and PVC' s Non-specific intra-ventricular conduction block Abnormal ECG Confirmed by Gokul Hughes ([id number]), web content editor JACK CHILDS ([id number]) on 02/24/2025 10:32:35 AM Referred By: Confirmed By: Gokul Hughes
--- NOTE | 2025-02-23 10:20 | EX.ED.DYSGE1 ---
HPI History of Present Illness Chief Complaint: Shortness of Breath Narrative Narrative: Patient is a 74-year-old male past medical history of CHF, BIANCA on 4 L nasal cannula chronically, CAD, lung cancer paroxysmal atrial fibrillation who presented to the emergency department chief complaint of shortness of breath. He states that he has been having worsening shortness of breath with exertion. He denies any history of blood clots denies any recent travel history. Patient denies any sick contacts he states that he is coughing some sputum up but states that this is only slightly worse than his normal. [facility] Medical History Lung cancer Emphysema lung Colon polyps Spinal stenosis CAD (coronary artery disease) Lymphadenopathy Peripheral arterial occlusive disease History of CHF (congestive heart failure) History of heart attack History of atrial fibrillation History of basal cell carcinoma On amiodarone therapy Essential hypertension Pulmonary nodule seen on imaging study Nicotine dependence, cigarettes, in remission Uncontrolled type 2 diabetes mellitus, without long-term current use of insulin Restless legs syndrome (RLS) Claudication Chronic systolic (congestive) heart failure Secondary pulmonary arterial hypertension Nicotine dependence Type 2 diabetes mellitus without complication BIANCA (obstructive sleep apnea) Mixed obstructive and restrictive ventilatory defect Chronic respiratory failure with hypoxia Paroxysmal atrial fibrillation Ischemic cardiomyopathy Atherosclerotic heart disease of [place] coronary artery without angina pectoris Mediastinal lymphadenopathy Tobacco dependence in remission Nocturnal hypoxemia Sleep-disordered breathing Acute kidney injury Family history of cardiovascular disease Coronary artery disease Tobacco abuse Acute spontaneous subarachnoid intracranial hemorrhage HLD (hyperlipidemia) Home Medications ?Medication ?Instructions ?Recorded ?Last Taken ?Type loratadine 10 mg tablet 10 mg PO DAILY ALLERGIES 09/16/19 02/22/25 History allopurinol 100 mg tablet 100 mg PO BID GOUT 12/21/19 02/22/25 History empagliflozin 25 mg tablet 25 mg PO DAILY DM 04/16/20 02/22/25 History (Jardiance) amiodarone 200 mg tablet 100 mg PO DAILY HEART 01/24/21 02/22/25 History aspirin 81 mg tablet,delayed 81 mg PO DAILY@0800 HEALTH 01/24/21 02/22/25 History release atorvastatin 10 mg tablet 10 mg PO QHS CHOLESTEROL 01/24/21 02/22/25 History carvedilol 25 mg tablet 25 mg PO BID HEART 01/24/21 02/22/25 History furosemide 40 mg tablet 40 mg PO DAILY FLUID 11/13/21 02/22/25 History lisinopril 5 mg tablet 5 mg PO DAILY #90 tabs 11/13/21 02/22/25 Rx albuterol sulfate 90 mcg/actuation 2 puff inhalation Q4H PRN 02/10/22 08/19/22 Rx aerosol inhaler shortness of breath or wheezing #1 device fluticasone propionate 50 2 spray intranasal DAILY ALLERGIES 02/10/22 08/18/22 Rx mcg/actuation nasal #16 grams spray,suspension (Allergy Relief (fluticasone)) alpha lipoic acid 100 mg capsule 100 mg PO BID NEUROPATHY 08/20/22 02/22/25 History levothyroxine 25 mcg tablet 25 mcg PO DAILY 02/06/23 02/22/25 History blood sugar diagnostic (True #10 ea 04/08/23 Unknown History Metrix Glucose Test Strip) dulaglutide 4.5 mg/0.5 mL 4.5 mg subcut MO 11/10/23 02/20/25 History subcutaneous pen injector (Trulicity) insulin glargine 100 unit/mL (3 44 unit subcut BID DM 03/11/24 02/22/25 History mL) subcutaneous pen (Basaglar KwikPen U-100 Insulin) insulin lispro 100 unit/mL 12 unit subcut QDAY 03/11/24 02/22/25 History subcutaneous pen (Admelog SoloStar U-100 Insulin lispro) magnesium oxide 250 mg PO BID 03/11/24 02/22/25 History azelastine 137 mcg (0.1 %) nasal 1 spray intranasal BID PRN SINUS 09/27/24 Unknown History spray guaifenesin 1,200 mg tablet, 1,200 mg PO BID 09/27/24 02/22/25 History extended release 12 hr pen needle, diabetic 32 gauge x #1,200 ea 10/18/24 Unknown History insulin lispro 100 unit/mL 20 unit subcut QPM 02/23/25 02/22/25 History subcutaneous pen (Admelog SoloStar U-100 Insulin lispro) Allergy/AdvReac Type Severity Reaction Status Date / Time bee venom protein (honey bee) Allergy Anaphylaxis Verified 02/23/25 09:53 Family History Father Heart disease Myocardial infarction Enlarged heart Hypertension Mother CVA (cerebral vascular accident) Hypertension Brother Myocardial infarction One at 65, other brother still living, early MD at 60 Hypertension Sister Diabetes Hypertension Surgical History History of vasectomy Presence of implantable cardioverter-defibrillator (ICD) Presence of stent in coronary artery (~04/10/17) History of back surgery Social History household members: spouse Smoking Status: Former smoker quit date: 03/09/17 pack-years: 45 how long ago did patient quit smokin, smoked 1 ppd x 45 years. second hand exposure: No alcohol intake: never substance use type: does not use caffeine: Yes Type: coffee Number of servings: 5 what type of physical activity do you participate in: none seatbelt use: always do you feel safe at home: Yes ROS ROS ED ROS Narrative Constitutional: Complains of chills denies any headache, lightness, dizziness Eyes: Denies double vision Cardiovascular: Denies chest pain Respiratory: Complains of cough and shortness of breath as noted above Abdomen: Denies abdominal pain nausea vomit diarrhea : Denies urinary symptoms Neurological: Denies numbness, weakness, ting Musculoskeletal: Denies back pain Skin: Denies rashes or lesions EXAM Physical Exam Narrative Exam Narrative: General: Patient was lying in bed rest comfortably did not appear to be in acute distress Head: Atraumatic, normocephalic Eyes: PERRL bilaterally, EOMI bilaterally, no conjunctival injection noted Neck: Soft, supple, trachea midline Cardiovascular: Regular rate and rhythm Respiratory: Clear to auscultation bilaterally Abdomen: Soft, nontender to palpation Extremities: +5/5 strength noted in the bilateral upper and lower extremities, no pedal edema noted exam Neurological: Patient following commands knew that he was at [facility] the year is 2024 Skin: Warm, dry, intact no rashes or lesions noted Const Vital Signs: 02/23/25 09:51 02/23/25 09:51 02/23/25 10:13 Temperature 97.3 F L Temperature Source Temporal Pulse Rate 87 Respiratory Rate 14 Respiratory Effort Short of Breath Respiratory Depth Normal Respiratory Pattern Tachypnea Blood Pressure 113/66 Blood Pressure Mean 81 Pulse Ox 90 88 Oxygen Delivery Method Nasal Cannula Nasal Cannula Nasal Cannula Oxygen Flow Rate (L/min) 5 5 4 Fraction of Inspired Oxygen (FIO2) 02/23/25 10:19 02/23/25 11:00 02/23/25 11:59 Temperature 98 F 98 F Temperature Source Oral Oral Pulse Rate 88 85 Respiratory Rate 28 H 26 H Respiratory Effort Respiratory Depth Respiratory Pattern Blood Pressure 126/88 H 116/87 H Blood Pressure Mean 100 96 Pulse Ox 92 91 94 Oxygen Delivery Method Nasal Cannula Nasal Cannula Nasal Cannula Oxygen Flow Rate (L/min) 4 4 4 Fraction of Inspired Oxygen (FIO2) 02/23/25 12:00 02/23/25 13:00 02/23/25 13:11 Temperature 98 F 97.3 F L Temperature Source Oral Temporal Pulse Rate 90 85 86 Respiratory Rate 27 H 12 16 Respiratory Effort Respiratory Depth Respiratory Pattern Normal Blood Pressure 115/80 115/70 Blood Pressure Mean 91 85 Pulse Ox 92 92 Oxygen Delivery Method Nasal Cannula Nasal Cannula Oxygen Flow Rate (L/min) 4 Fraction of Inspired Oxygen (FIO2) 4 02/23/25 13:31 02/23/25 14:00 Temperature 97.3 F L 100.3 F H Temperature Source Oral Pulse Rate 85 77 Respiratory Rate 12 23 H Respiratory Effort Respiratory Depth Respiratory Pattern Blood Pressure 115/70 112/70 Blood Pressure Mean 85 84 Pulse Ox 92 90 Oxygen Delivery Method Nasal Cannula Oxygen Flow Rate (L/min) 4 Fraction of Inspired Oxygen (FIO2) MDM MDM MDM Narrative Medical decision making narrative: Patient is a 74-year-old male who presented to the emergency department the chief complaint of shortness of breath with exertion on the differential diagnose includes but not limited to ACS, pneumonia, pneumothorax, CHF exacerbation . Once workup is obtained reviewed he will be reevaluated. Patient will not be given 30 cc/kg bolus of IV fluids as concern for hypervolemic state therefore 1 L of IV fluids will be given this was ordered at 1016. Patient's echo from June 24, 2021 was reviewed which showed a ejection fraction of 35% and they were unable to assess diastolic dysfunction at that point time. Patient's CBC was significant for leukocytosis 13,000, Anushka 14.2, plate count 217. Patient already with 137, tach to one 4.1, creatinine elevated 1.55 indicating acute kidney injury, troponin was 20 with a delta troponin of 18 EKG was reviewed as well which showed atrial fibrillation with PVCs with a rate of 78 bpm. Patient's proBNP elevated 2150. Patient's chest x-ray reviewed as well which showed diffuse hazy interstitial opacities left greater than right stable lung mass noted. Patient ambulated here in the emergency department on his baseline home oxygen and desaturated to 82% and took roughly about 10 minutes to recover per nursing. At 12:00 PM patient remains normotensive with a reperfusion assessment performed therefore no vasopressors indicated Patient will be given 3 DuoNebs Solu-Medrol and will given IV antibiotics as well case will be discussed case with hospitalist for admission. Discussed case with hospitalist Dr. Hathaway who accept patient for admission. Patient notified is agreeable to plan all question concerns answered. Lab Data Labs: Laboratory Results - last 24 hr 02/23/25 02/23/25 10:22 11:52 WBC 13.8 H RBC 4.75 Hgb 14.2 Hct 43.8 MCV 92.2 MCH 29.9 MCHC 32.4 RDW Std Deviation 53.6 H RDW Coeff of Dayne 15.9 H Plt Count 217 MPV 8.9 Immature Gran % (Auto) 1.000 H Neut % (Auto) 78.1 H Lymph % (Auto) 6.6 L [place] % (Auto) 13.3 H Eos % (Auto) 0.4 Baso % (Auto) 0.6 Absolute Neuts (auto) 10.8 H Absolute Lymphs (auto) 0.91 Nucleated RBC % 0 Differential Comment COMMENT Sodium 137 Potassium 4.1 Chloride 101 Carbon Dioxide 22.8 Anion Gap 13 BUN 29 H Creatinine 1.55 H Estim Creat Clear Calc 50.16 Est GFR (MDRD) Non-Af 47 L BUN/Creatinine Ratio 18.6 Glucose 123 H Calcium 8.3 Troponin T High Sens 20 Troponin T Hi Sens 2 Hr 18 NT pro BNP II 2150 H Radiography Diagnostic Testing: Clinical Impression(s) from Imaging Studies Chest X-Ray 02/23/25 10:28 IMPRESSION: 1. Diffuse hazy interstitial opacities, left greater than right. This may be on a chronic basis. 2. Stable left lung mass. Reading Location: [id number] Discharge Plan Dx/Rx/DC Orders Clinical Impression: Acute on chronic hypoxic respiratory failure, COPD exacerbation, CHF exacerbation Disposition Disposition: Acute Care Hospital [facility]
--- NOTE | 2025-02-23 10:28 | RAD_ITS ---
PROCEDURE: CHEST PA AND LATERAL 02/23/2025 REASON FOR EXAM: CHEST PAIN TECHNIQUE: Procedure Code: RADCXR Modality: DX Procedure: CHEST PA AND LATERAL COMPARISON: 05/25/2023 FINDINGS: No significant cardiomegaly. Stable left upper lung mass. Right hilar structures are prominent. Hazy interstitial opacities bilaterally, left greater than right. Left chest wall pacer, distal lead overlies right heart. There is no pneumothorax. RAD/Chest PA and Lateral IMPRESSION: 1. Diffuse hazy interstitial opacities, left greater than right. This may be on a chronic basis. 2. Stable left lung mass. Reading Location: [id number]
[2025-02-23 10:35] LABS: Hematocrit 43.8 % (40-54); Hemoglobin 14.2 g/dL (13.0-16.5); Immature Granulocytes Count 0.140 X10^3/uL (0.0-0.0); Mean Corp Hgb Conc 32.4 g/dL (32-36); Mean Corpuscular Volume 92.2 fL (80-94); Mean Platelet Vol. 8.9 fl (6.2-12.0); NRBC Flagged by Analyzer 0 % (0-5); POSITIVE DIFFERENTIAL YES; Platelet Count 217 K/mm3 (150-450); RBC Distribution Width CV 15.9 % (11.6-14.6); RBC Distribution Width SD 53.6 fl (35.1-43.9); Red Blood Count 4.75 M/mm3 (4.6-6.2); White Blood Count 13.8 K/mm3 (4.4-11.0)
[2025-02-23 10:39] LABS: Differential Indicated SCAN CRITERIA MET
[2025-02-23 11:21] LABS: Anion Gap 13 (5-15); BUN 29 mg/dL (4-19); BUN/Creat Ratio 18.6 RATIO (10-20); Calcium,Total 8.3 mg/dL (7.6-11.0); Carbon Dioxide 22.8 mmol/L (21.0-32.0); Chloride 101 mmol/L (98-108); Estimated Creatinine Clearance 50.16 ml/min (50-250); Glucose 123 mg/dL (70-99); Potassium 4.1 mmol/L (3.3-5.1); Pro- Brain NATRIURETIC PEPTIDE 2150 pg/mL (<=900); Troponin T High Sensitivity 20 ng/L (<=22)
[2025-02-23] MEDS: 0.9% Normal Saline (1000mL) 1,000 ML 999 ML IV (11:24)
[2025-02-23 12:21] LABS: Troponin T High Sens 2 HR 18 ng/L (<=22)
--- NOTE | 2025-02-23 13:17 | PCM.HP.STD ---
HPI - General General Date of Admission: 02/23/25 Date of Service: 02/23/25 Chief Complaint: Shortness of breath HPI Narrative SANTOS CAMARENA, is a 74 M who presented to [facility] ED on 02/23/2025 with shortness of breath. Medical history significant for chronic respiratory failure on 4 L at baseline, non-small cell lung cancer s/p radiation therapy, HFrEF, CAD with stenting and paroxysmal A-fib. He lives at home with his and has fairly good functional status at baseline. His was recently sick with an upper respiratory infection. Patient then began to have similar symptoms about 2 days ago and has had increasing shortness of breath with this. In the ED he had a low-grade fever and was satting in the low 90s on 4 L at rest but then dropped to the mid to low 80s on exertion. He otherwise was normotensive and in normal sinus rhythm. Labs notable for WBC count 13, BNP 2150, Pro-Bert 0.24. CTA chest showed no PE, did show an irregular 3.1 cm x 3 cm mass in the peripheral aspect of the left lung apex with evidence of surrounding bronchiectasis most likely representing postradiation fibrosis; enlarged bilateral hilar lymph nodes as well as subcarinal lymph nodes were also noted. Given his acute hypoxia in setting of his chronic respiratory failure, hospitalist was contacted for admission. I saw the patient at bedside in the ED, was present. Patient was sitting back fairly comfortably in bed, conversing normally, in no acute distress. He had multiple episodes of dry cough during our encounter. He was given 2 breathing treatments in the ED and reports mild improvement in symptoms with this. Currently denies any fevers or chills. No other acute concerns currently. Will be admitted for further management. REPLACED BY [facility] Medical History Lung cancer Emphysema lung Colon polyps Spinal stenosis CAD (coronary artery disease) Lymphadenopathy Peripheral arterial occlusive disease History of CHF (congestive heart failure) History of heart attack History of atrial fibrillation History of basal cell carcinoma On amiodarone therapy Essential hypertension Pulmonary nodule seen on imaging study Nicotine dependence, cigarettes, in remission Uncontrolled type 2 diabetes mellitus, without long-term current use of insulin Restless legs syndrome (RLS) Claudication Chronic systolic (congestive) heart failure Secondary pulmonary arterial hypertension Nicotine dependence Type 2 diabetes mellitus without complication BIANCA (obstructive sleep apnea) Mixed obstructive and restrictive ventilatory defect Chronic respiratory failure with hypoxia Paroxysmal atrial fibrillation Ischemic cardiomyopathy Atherosclerotic heart disease of [place] coronary artery without angina pectoris Mediastinal lymphadenopathy Tobacco dependence in remission Nocturnal hypoxemia Sleep-disordered breathing Acute kidney injury Family history of cardiovascular disease Coronary artery disease Tobacco abuse Acute spontaneous subarachnoid intracranial hemorrhage HLD (hyperlipidemia) Home Medications ?Medication ?Instructions ?Recorded ?Last Taken ?Type loratadine 10 mg tablet 10 mg PO DAILY ALLERGIES 09/16/19 02/22/25 History allopurinol 100 mg tablet 100 mg PO BID GOUT 12/21/19 02/22/25 History empagliflozin 25 mg tablet 25 mg PO DAILY DM 04/16/20 02/22/25 History (Jardiance) amiodarone 200 mg tablet 100 mg PO DAILY HEART 01/24/21 02/22/25 History aspirin 81 mg tablet,delayed 81 mg PO DAILY@0800 HEALTH 01/24/21 02/22/25 History release atorvastatin 10 mg tablet 10 mg PO QHS CHOLESTEROL 01/24/21 02/22/25 History carvedilol 25 mg tablet 25 mg PO BID HEART 01/24/21 02/22/25 History furosemide 40 mg tablet 40 mg PO DAILY FLUID 11/13/21 02/22/25 History lisinopril 5 mg tablet 5 mg PO DAILY #90 tabs 11/13/21 02/22/25 Rx albuterol sulfate 90 mcg/actuation 2 puff inhalation Q4H PRN 02/10/22 08/19/22 Rx aerosol inhaler shortness of breath or wheezing #1 device fluticasone propionate 50 2 spray intranasal DAILY ALLERGIES 02/10/22 08/18/22 Rx mcg/actuation nasal #16 grams spray,suspension (Allergy Relief (fluticasone)) alpha lipoic acid 100 mg capsule 100 mg PO BID NEUROPATHY 08/20/22 02/22/25 History levothyroxine 25 mcg tablet 25 mcg PO DAILY 02/06/23 02/22/25 History blood sugar diagnostic (True #10 ea 04/08/23 Unknown History Metrix Glucose Test Strip) dulaglutide 4.5 mg/0.5 mL 4.5 mg subcut MO 11/10/23 02/20/25 History subcutaneous pen injector (Trulicity) insulin glargine 100 unit/mL (3 44 unit subcut BID DM 03/11/24 02/22/25 History mL) subcutaneous pen (Basaglar KwikPen U-100 Insulin) insulin lispro 100 unit/mL 12 unit subcut QDAY 03/11/24 02/22/25 History subcutaneous pen (Admelog SoloStar U-100 Insulin lispro) magnesium oxide 250 mg PO BID 03/11/24 02/22/25 History azelastine 137 mcg (0.1 %) nasal 1 spray intranasal BID PRN SINUS 09/27/24 Unknown History spray guaifenesin 1,200 mg tablet, 1,200 mg PO BID 09/27/24 02/22/25 History extended release 12 hr pen needle, diabetic 32 gauge x #1,200 ea 10/18/24 Unknown History insulin lispro 100 unit/mL 20 unit subcut QPM 02/23/25 02/22/25 History subcutaneous pen (Admelog SoloStar U-100 Insulin lispro) Allergy/AdvReac Type Severity Reaction Status Date / Time bee venom protein (honey bee) Allergy Anaphylaxis Verified 02/23/25 09:53 Family History Father Heart disease Myocardial infarction Enlarged heart Hypertension Mother CVA (cerebral vascular accident) Hypertension Brother Myocardial infarction One at 65, other brother still living, early [place] at 60 Hypertension Sister Diabetes Hypertension Surgical History History of vasectomy Presence of implantable cardioverter-defibrillator (ICD) Presence of stent in coronary artery (~04/10/17) History of back surgery Social History household members: spouse Smoking Status: Former smoker quit date: 03/09/17 pack-years: 45 how long ago did patient quit smokin, smoked 1 ppd x 45 years. second hand exposure: No alcohol intake: never substance use type: does not use caffeine: Yes Type: coffee Number of servings: 5 what type of physical activity do you participate in: none seatbelt use: always do you feel safe at home: Yes ROS Constitutional Constitutional: Reports fatigue and malaise; Denies chills, fever(s) or weakness Eyes Eyes: Denies change in vision ENT HEENT: Reports nasal congestion, nasal discharge and sore throat Cardiovascular Cardiovascular: Denies chest pain, dyspnea on exertion, edema, lightheadedness, orthopnea or palpitations Respiratory/Chest Respiratory/Chest: Reports cough and shortness of breath at rest; Denies productive cough or wheezing Gastrointestinal Gastrointestinal: Denies abdominal pain Musculoskeletal Musculoskeletal: Denies arthralgias or myalgias Neurologic Neurologic: Denies dizziness, focal weakness or headache(s) Patient's Goals Of Care . What matters most to you about your health?: Feeling well and good quality of life What would you like to achieve or improve as a result of your hospital stay?: Return to baseline health Vital Signs Vital Signs Vital Signs: 02/23/25 09:51 02/23/25 09:51 02/23/25 10:13 Temperature 97.3 F L Temperature Source Temporal Pulse Rate 87 Respiratory Rate 14 Respiratory Effort Short of Breath Respiratory Depth Normal Respiratory Pattern Tachypnea Blood Pressure 113/66 Blood Pressure Mean 81 Pulse Ox 90 88 Oxygen Delivery Method Nasal Cannula Nasal Cannula Nasal Cannula Oxygen Flow Rate (L/min) 5 5 4 02/23/25 10:19 02/23/25 11:00 02/23/25 11:59 Temperature 98 F 98 F Temperature Source Oral Oral Pulse Rate 88 85 Respiratory Rate 28 H 26 H Respiratory Effort Respiratory Depth Respiratory Pattern Blood Pressure 126/88 H 116/87 H Blood Pressure Mean 100 96 Pulse Ox 92 91 94 Oxygen Delivery Method Nasal Cannula Nasal Cannula Nasal Cannula Oxygen Flow Rate (L/min) 4 4 4 02/23/25 12:00 Temperature 98 F Temperature Source Oral Pulse Rate 90 Respiratory Rate 27 H Respiratory Effort Respiratory Depth Respiratory Pattern Blood Pressure 115/80 Blood Pressure Mean 91 Pulse Ox 92 Oxygen Delivery Method Nasal Cannula Oxygen Flow Rate (L/min) 4 Weight Weight: 99.1 kg Body Mass Index (BMI) 30.4 Physical Exam Const alert, oriented x3 and no apparent distress Constitutional Narrative: Pleasant elderly male, class I obesity, mildly fatigued appearing, otherwise sitting back comfortably in bed, conversing normally, in no acute distress. General Appearance: cooperative and comfortable HEENT normocephalic, head/scalp atraumatic, hearing grossly normal bilaterally, nasal mucous membranes and turbinates normal and moist oral mucous membranes Eyes PERRL, EOMs intact bilaterally and conjunctivae normal Neck full ROM Chest inspection of chest normal Resp normal respiratory effort and no use of accessory muscles Resp Narrative: Breathing comfortably on 4 L nasal cannula at rest. Very mild end expiratory wheezes noted bilaterally. Otherwise mildly diminished breath sounds bilaterally throughout with no crackles noted. Cardio regular rate, regular rhythm, no murmurs and peripheral pulses 2+ throughout GI normal to inspection, nondistended, normoactive bowel sounds, soft to palpation, non-tender and non-distended Back/Spine normal ROM Extremity normal to inspection, full ROM and no pedal edema Skin no rashes or lesions noted Psych mental status grossly normal Results Lab / Micro Data 02/23/25 10:22 02/23/25 10:22 Labs: Laboratory Results - last 24 hr 02/23/25 10:22: WBC 13.8 H, RBC 4.75, Hgb 14.2, Hct 43.8, MCV 92.2, MCH 29.9, MCHC 32.4, RDW Std Deviation 53.6 H, RDW Coeff of Dayne 15.9 H, Plt Count 217, MPV 8.9, Immature Gran % (Auto) 1.000 H, Neut % (Auto) 78.1 H, Lymph % (Auto) 6.6 L, [place] % (Auto) 13.3 H, Eos % (Auto) 0.4, Baso % (Auto) 0.6, Absolute Neuts (auto) 10.8 H, Absolute Lymphs (auto) 0.91, Nucleated RBC % 0, Differential Comment COMMENT, Sodium 137, Potassium 4.1, Chloride 101, Carbon Dioxide 22.8, Anion Gap 13, BUN 29 H, Creatinine 1.55 H, Estim Creat Clear Calc 50.16, Est GFR (MDRD) Non-Af 47 L, BUN/Creatinine Ratio 18.6, Glucose 123 H, Calcium 8.3, Troponin T High Sens 20, NT pro BNP II 2150 H 02/23/25 11:52: Troponin T Hi Sens 2 Hr 18 Imaging Radiology Impression Chest X-Ray 02/23/25 10:28 IMPRESSION: 1. Diffuse hazy interstitial opacities, left greater than right. This may be on a chronic basis. 2. Stable left lung mass. Reading Location: [facility] Assessment & Plan Assessment/Plan (1) COPD exacerbation: (2) Hypoxia: PLAN: Plan Patient is a 74-year-old male who presented to [facility] ED on 02/23/2025 with shortness of breath. 1. Acute hypoxia in setting of chronic hypoxic respiratory failure with acute COPD exacerbation suspected secondary to community-acquired pneumonia ? Admit under inpatient status to PCU. Follows with [place] pulmonology. On 4 L continuously at home. Dropped to the low 80s on exertion on home 4 L in the ED. CTA chest with no PE, did show lung cancer with surrounding postradiation fibrosis as below, no other acute findings. Presentation seems most consistent with a viral pneumonia but cannot rule out a bacterial pneumonia. COVID/flu/RSV negative. Respiratory PCR panel pending. Sputum culture ordered. Procalcitonin mildly elevated at 0.24. Will treat empirically with IV ceftriaxone and azithromycin. Will also treat with scheduled DuoNebs and a 5-day burst of oral steroids. Wean supplemental oxygen as able. 2. Non-small cell lung cancer ? Follows with [facility] oncology. Completed radiation therapy in June and July 2023. CTA chest on admit showed an irregular 3.1 cm x 3 cm mass in the peripheral aspect of the left lung apex with postradiation fibrosis and enlarged bilateral hilar lymph nodes as well as subcarinal lymph nodes. Unable to review most recent imaging but per patient, oncology has told him his imaging has been essentially stable since completion of radiation therapy. No inpatient needs, continue close outpatient follow-up. Chronic medical conditions: ? Chronic HFrEF with ischemic cardiomyopathy s/p ICD placement, paroxysmal A-fib, history of CAD with stenting, hypertension, hyperlipidemia: Follows with [place] cardiology. Last echo in 2021 with EF 35% that was stable from previous. BNP mildly elevated at 2150 on admit, but patient was otherwise dry appearing on exam; suspect this is due to CKD stage IIIa as below as well as mild increase in pulmonary hypertension in setting of upper respiratory infection. In normal sinus rhythm on admit. Will continue home aspirin, statin, Coreg, and amiodarone. Will hold home Lasix and lisinopril for now and restart when able. ? Type 2 diabetes mellitus: Glucose 123 on admit. Last A1c is from 2018, repeat A1c ordered. Will treat with reduced dosing of Lantus 30 units twice daily and Humalog 8 units with meals plus sliding scale insulin, adjust as needed. ? CKD stage IIIa: Creatinine 1.55 on admit, stable at baseline. Follow-up a.m. BMP and monitor urine output. ? BIANCA: Continue home PAP therapy. ? Hypothyroidism: Continue home Synthroid. ? History of gout: Continue home allopurinol. DVT prophylaxis: Lovenox CODE STATUS: Full code, verified Expected disposition: Home, 2 to 3 days Total clinical time spent by myself addressing the patient's medical issues, reviewing all the data, and collaborating with patient's care team: 79 minutes. Charges/Coding Visit Charges Inpatient E&M: 92521 Init Hosp L3
--- NOTE | 2025-02-23 13:18 | CT_ITS ---
PROCEDURE: CTA CHEST W/WO CONTRAST 02/23/2025 REASON FOR EXAM: SOB Shortness of breath and chest congestion. History of lung cancer. Emphysema TECHNIQUE: Procedure Code: [id number] Modality: CT Procedure: CTA CHEST W/WO CONTRAST Multiplanar Sagittal and Coronal images were obtained. CONTRAST: Isovue 370 VOLUME: 100 mL One or more dose reduction techniques were used (e.g., Automated exposure control, adjustment of the mA and/or kV according to patient size, use of iterative reconstruction technique). RADIATION DOSE SUMMARY: CTDlvol: 17.16 mGy DLP: 571.39 mGycm COMPARISON: Prior study dated March 04, 2023. FINDINGS: Hardware: A left-sided port a catheter is seen with the tip in the superior vena cava. Lymph nodes: There are enlarged bilateral hilar lymph nodes more prominent on the right side. Subcarinal lymph nodes. Heart: Coronary artery calcification. Thoracic Aorta: No thoracic aortic aneurysm or dissection. Pulmonary Vessels: No evidence of pulmonary embolism. Lungs and Airways: Irregular 3.1 cm x 3 cm mass in the peripheral aspect of the left lung apex. This has increased in size as compared to prior study. A satellite nodular density is seen anterior in the left lung apex measuring 1.3 cm. There is evidence surrounding bronchiectasis most likely representing post radiation fibrosis. There is also evidence of scarring with bronchiectasis in the superior segment of the right lower lobe as well as in the posterior aspect of the right upper lobe. Scarring is also seen with subpleural blebs at the lung bases slightly worse on the left side. Pleura: No pleural effusion is seen. Upper Abdomen: Unremarkable. Bones: Bone windows are unremarkable. CT/CTA Chest W/WO Contrast IMPRESSION: No evidence of pulmonary embolism. Findings of scarring as described. Enlargement of the irregular mass in the left lung apex. Enlarged bilateral hilar lymph nodes as well as subcarinal lymph nodes. Reading Location: [id number]
[2025-02-23] MEDS: Azithromycin 500 MG in 0.9% Normal Saline (250mL Bag) 250 ML 250 MG IV (14:01)
[2025-02-23 14:57] LABS: Procalcitonin 0.24 ng/mL (<=0.10)
[2025-02-23 16:47] LABS: Troponin T High Sens 4 HR 17 ng/L (<=22)
[2025-02-23] MEDS: Insulin Glargine-YFGN 100 UNIT/ML Pen 30 UNIT SC (21:34)
[2025-02-23] MEDS: Magnesium Chloride 64 MG Delay Rel.Tablet 128 MG PO (21:34)
[2025-02-24] VITALS (9 sets, daily range): BP systolic 124–145; BP diastolic 64–82; PULSE 44–74; RESP 16–18; TEMP 36.7–36.8; O2SAT 91–95
[2025-02-24 07:07] LABS: Hematocrit 44.2 % (40-54); Hemoglobin 13.9 g/dL (13.0-16.5); Mean Corp Hgb Conc 31.4 g/dL (32-36); Mean Corpuscular Volume 93.2 fL (80-94); Mean Platelet Vol. 9.4 fl (6.2-12.0); Platelet Count 253 K/mm3 (150-450); RBC Distribution Width CV 15.9 % (11.6-14.6); RBC Distribution Width SD 55.0 fl (35.1-43.9); Red Blood Count 4.74 M/mm3 (4.6-6.2); White Blood Count 9.6 K/mm3 (4.4-11.0)
[2025-02-24 07:36] LABS: Anion Gap 15 (5-15); BUN 42 mg/dL (4-19); BUN/Creat Ratio 26.8 RATIO (10-20); Calcium,Total 8.4 mg/dL (7.6-11.0); Carbon Dioxide 22.1 mmol/L (21.0-32.0); Chloride 101 mmol/L (98-108); Estimated Creatinine Clearance 49.47 ml/min (50-250); Glucose 256 mg/dL (70-99); Potassium 4.3 mmol/L (3.3-5.1)
[2025-02-24] MEDS: Magnesium Chloride 64 MG Delay Rel.Tablet 128 MG PO ×2 (09:06→21:40)
[2025-02-24] MEDS: Aspirin E.C. 81 MG Tablet PO (09:06)
[2025-02-24] MEDS: Fluticasone 0.05% 1 SPRAY NASAL.SRY 2 SPRAY NASAL (09:07)
[2025-02-24] MEDS: Insulin Glargine-YFGN 100 UNIT/ML Pen 30 UNIT SC (09:08)
[2025-02-24] MEDS: Azithromycin 500 MG in 0.9% Normal Saline (250mL Bag) 250 ML 250 MG IV (09:41)
--- NOTE | 2025-02-24 10:37 | CASEMGMT ---
MI DE LEON Assessment: Face to Face with pt for initial transition planning/care coordination assessment. MI DE LENO introduced self and role at [facility], pt voices understanding and consents to assessment. Pt is A&O x4 and answers all questions appropriately at this time. Pt sitting up in bed with oxygen on in no distress. Care providers, pharmacy, and demographics verified/updated. Admitting Dx:acute on chronic resp failure Strata: 2 PCP:Lynne Specialists:Nancy, [facility] onc; Kavitha Kapoor pulm; Saul cardio [facility]acy[facility] Insurance:[employer] Sr Supp Prescription Benefit: yes LNOK:Coni Shipman, Living Arrangements: Pt lives with in a split level home with entering through garage to 5 steps to lower level then 7 steps to another level. Pt reports he does not use the uppermost level of the home. Pt reports he is I in ADL/IADLs but peforms most IADLs. Pt denies concerns at home. Transportation: Pt drives self and denies concerns with transportation. DME:O2 through [employer], CPAP, w/c, walker, port conc in room for homegoing, pox HHC/SNF:Denies hx of Pt states no concerns with going home at time of dc. 6 cl=22, therapy is ordered. Pt states his strength is well and he has no issues with going home at time of dc. Pt states no further concerns/needs. CM to follow. Advised pt to ask CM if any further question/concerns/needs arise, voices understanding. Pt Goal:Home Plan:Home, follow for increase in oxygen rx. DC readiness intervention for possible increase in oxygen rx.
--- NOTE | 2025-02-24 11:09 | PCM.PN.HOSP ---
Reason for Visit Chief Complaint: Shortness of breath Subjective Subjective Saw patient at bedside this morning. Patient was sitting back comfortably in bed, breathing comfortably on 4 L nasal cannula at rest, in no acute distress. He notes that his shortness of breath and URI symptoms are improving from yesterday. Does report intermittent sputum production with coughing. No other new concerns this morning. Objective Data Objective Data Vital Signs: Vital Signs Temp Pulse Resp BP Pulse Ox O2 Del Method O2 Flow Rate 98.2 F 70 18 145/82 H 91 Nasal Cannula 4 02/24/25 09:00 02/24/25 09:00 02/24/25 09:00 02/24/25 09:00 02/24/25 09:00 02/24/25 09:00 02/24/25 09:00 FiO2 4 02/23/25 13:00 Oxygen Flow Rate (L/min) 4 Oxygen Delivery Method Nasal Cannula Weight: 100.2 kg Body Mass Index (BMI) 30.8 Intake & Output: Intake and Output for Last 24 Hours 02/22/25 02/23/25 02/24/25 23:59 23:59 23:59 Intake Total 1300 / 1300 350 / 350 Balance 1300 / 1300 350 / 350 Lab / Micro Data 02/24/25 06:24 02/24/25 06:24 Labs: Laboratory Results - last 24 hr 02/23/25 10:22: Sodium 137, Potassium 4.1, Chloride 101, Carbon Dioxide 22.8, Anion Gap 13, BUN 29 H, Creatinine 1.55 H, Estim Creat Clear Calc 50.16, Est GFR (MDRD) Non-Af 47 L, BUN/Creatinine Ratio 18.6, Glucose 123 H, Hemoglobin A1c 7.4 H, Calcium 8.3, Troponin T High Sens 20, NT pro BNP II 2150 H, Procalcitonin 0.24 H 02/23/25 11:52: Troponin T Hi Sens 2 Hr 18 02/23/25 15:21: POC Glucose 141 H 02/23/25 16:05: Troponin T Hi Sens 4Hr 17 02/23/25 17:46: POC Glucose 148 H 02/23/25 21:32: POC Glucose 357 H 02/24/25 06:24: WBC 9.6, RBC 4.74, Hgb 13.9, Hct 44.2, MCV 93.2, MCH 29.3, MCHC 31.4 L, RDW Std Deviation 55.0 H, RDW Coeff of Dayne 15.9 H, Plt Count 253, MPV 9.4, Sodium 138, Potassium 4.3, Chloride 101, Carbon Dioxide 22.1, Anion Gap 15, BUN 42 H, Creatinine 1.58 H, Estim Creat Clear Calc 49.47 L, Est GFR (MDRD) Non-Af 46 L, BUN/Creatinine Ratio 26.8 H, Glucose 256 H, Calcium 8.4 02/24/25 08:39: POC Glucose 248 H Micro: Microbiology 02/23/25 17:50 Mucosa - Nasopharyngeal Respiratory Panel (PCR) - Final 02/23/25 13:22 Mucosa - Nose SARS-CoV-2, Influenza & RSV (PCR) - Final Radiography Diagnostic Testing: Radiology Impression Chest CTA 02/23/25 13:18 IMPRESSION: No evidence of pulmonary embolism. Findings of scarring as described. Enlargement of the irregular mass in the left lung apex. Enlarged bilateral hilar lymph nodes as well as subcarinal lymph nodes. Reading Location: [id number] Patient's Goals Of Care - F/U Goals Reviewed Goals of care reviewed with patient: NA-No significant change in clinical Status /major procedure scheduled Physical Exam Const alert, oriented x3 and no apparent distress Constitutional Narrative: Pleasant elderly male, class I obesity, energy level improving, otherwise sitting back comfortably in bed, conversing normally, in no acute distress. General Appearance: cooperative and comfortable HEENT normocephalic, head/scalp atraumatic, hearing grossly normal bilaterally, nasal mucous membranes and turbinates normal and moist oral mucous membranes Eyes PERRL, EOMs intact bilaterally and conjunctivae normal Neck full ROM Chest inspection of chest normal Resp normal respiratory effort and no use of accessory muscles Resp Narrative: Breathing comfortably on 4 L nasal cannula at rest. Mildly diminished breath sounds bilaterally but no wheezing noted, improving. No crackles noted. Cardio regular rate, regular rhythm, no murmurs and peripheral pulses 2+ throughout GI normal to inspection, nondistended, normoactive bowel sounds, soft to palpation, non-tender and non-distended Back/Spine normal ROM Extremity normal to inspection, full ROM and no pedal edema Skin no rashes or lesions noted Psych mental status grossly normal Assessment & Plan Assessment/Plan (1) COPD exacerbation: (2) Hypoxia: PLAN: Plan Patient is a 74-year-old male who presented to [facility] ED on 02/23/2025 with shortness of breath. 1. Acute hypoxia in setting of chronic hypoxic respiratory failure with acute COPD exacerbation suspected secondary to community-acquired pneumonia ? Follows with [place] pulmonology. On 4 L continuously at home. Dropped to the low 80s on exertion on home 4 L on admit. CTA chest with no PE, did show lung cancer with surrounding postradiation fibrosis as below, no other acute findings. Presentation seems most consistent with a community-acquired pneumonia. COVID/flu/RSV and respiratory PCR panel negative. Sputum culture pending. Procalcitonin mildly elevated at 0.24. Will continue treatment with IV antibiotics, scheduled DuoNebs and p.o. steroids. Wean supplemental oxygen as able. Will plan to do O2 ambulatory testing tomorrow in preparation for possible discharge home. 2. Non-small cell lung cancer ? Follows with [facility] oncology. Completed radiation therapy in June and July 2023. CTA chest on admit showed an irregular 3.1 cm x 3 cm mass in the peripheral aspect of the left lung apex with postradiation fibrosis and enlarged bilateral hilar lymph nodes as well as subcarinal lymph nodes. Unable to review most recent imaging but per patient, oncology has told him his imaging has been essentially stable since completion of radiation therapy. No inpatient needs, continue close outpatient follow-up. Chronic medical conditions: ? Chronic HFrEF with ischemic cardiomyopathy s/p ICD placement, paroxysmal A-fib, history of CAD with stenting, hypertension, hyperlipidemia: Follows with [facility] cardiology. Last echo in 2021 with EF 35% that was stable from previous. BNP mildly elevated at 2150 on admit, but patient was otherwise dry appearing on exam; suspect this is due to CKD stage IIIa as below as well as mild increase in pulmonary hypertension in setting of upper respiratory infection. In normal sinus rhythm on admit. Will continue home aspirin, statin, Coreg, and amiodarone. Okay to resume home Lasix and lisinopril on 02/24. ? Type 2 diabetes mellitus: Glucose 123 on admit. A1c 7.4%. Continue treatment with reduced dosing of Lantus 35 units twice daily and Humalog 12 units with meals plus sliding scale insulin, adjust as needed. ? CKD stage IIIa: Creatinine 1.55 on admit, stable at baseline. Follow-up a.m. BMP and monitor urine output. ? BIANCA: Continue home PAP therapy. ? Hypothyroidism: Continue home Synthroid. ? History of gout: Continue home allopurinol. DVT prophylaxis: Lovenox CODE STATUS: Full code, verified Expected disposition: Home, 1 to 2 days Total clinical time spent by myself addressing the patient's medical issues, reviewing all the data, and collaborating with patient's care team: 39 minutes. Charges/Coding Visit Charges Inpatient E&M: 18762 Subs Hosp L2
[2025-02-24] MEDS: Insulin Glargine-YFGN 100 UNIT/ML Pen 35 UNIT SC (21:38)
[2025-02-25] VITALS (7 sets, daily range): BP systolic 116–131; BP diastolic 69–88; PULSE 65–72; RESP 16–18; TEMP 36.7–36.8; O2SAT 90–95
[2025-02-25 09:13] LABS: Hematocrit 45.4 % (40-54); Hemoglobin 14.5 g/dL (13.0-16.5); Mean Corp Hgb Conc 31.9 g/dL (32-36); Mean Corpuscular Volume 93.2 fL (80-94); Mean Platelet Vol. 9.3 fl (6.2-12.0); Platelet Count 288 K/mm3 (150-450); RBC Distribution Width CV 16.0 % (11.6-14.6); RBC Distribution Width SD 54.4 fl (35.1-43.9); Red Blood Count 4.87 M/mm3 (4.6-6.2); White Blood Count 14.9 K/mm3 (4.4-11.0)
[2025-02-25 09:31] LABS: Anion Gap 13 (5-15); BUN 52 mg/dL (4-19); BUN/Creat Ratio 37.1 RATIO (10-20); Calcium,Total 8.5 mg/dL (7.6-11.0); Carbon Dioxide 21.4 mmol/L (21.0-32.0); Chloride 106 mmol/L (98-108); Estimated Creatinine Clearance 56.23 ml/min (50-250); Glucose 218 mg/dL (70-99); Potassium 4.6 mmol/L (3.3-5.1)
[2025-02-25] MEDS: Insulin Glargine-YFGN 100 UNIT/ML Pen 35 UNIT SC (09:35)
[2025-02-25] MEDS: Magnesium Chloride 64 MG Delay Rel.Tablet 128 MG PO (09:39)
[2025-02-25] MEDS: Aspirin E.C. 81 MG Tablet PO (09:40)
[2025-02-25] MEDS: Fluticasone 0.05% 1 SPRAY NASAL.SRY 2 SPRAY NASAL (09:41)
[2025-02-25] MEDS: Azithromycin 500 MG in 0.9% Normal Saline (250mL Bag) 250 ML 250 MG IV (10:19)
--- NOTE | 2025-02-25 12:24 | PCM.DC.SUM ---
Providers Date of Admission: 02/23/25 Date of Discharge: 02/25/25 Primary Care Physician: Dr. Lindsay Batista MD Reason For Visit: ACUTE ON CHRONIC RESP FAILURE Diagnosis Discharge Diagnosis (1) COPD exacerbation: Status: Chronic Code(s): J44.1 - Chronic obstructive pulmonary disease with (acute) exacerbation (2) Hypoxia: Status: Acute Code(s): R09.02 - Hypoxemia Medications at Discharge Home Medications loratadine 10 mg tablet 10 mg PO DAILY ALLERGIES 09/16/19 allopurinol 100 mg tablet 100 mg PO BID GOUT 12/21/19 empagliflozin 25 mg tablet (Jardiance) 25 mg PO DAILY DM 04/16/20 amiodarone 200 mg tablet 100 mg PO DAILY HEART 01/24/21 aspirin 81 mg tablet,delayed release 81 mg PO DAILY@0800 HEALTH 01/24/21 atorvastatin 10 mg tablet 10 mg PO QHS CHOLESTEROL 01/24/21 carvedilol 25 mg tablet 25 mg PO BID HEART 01/24/21 furosemide 40 mg tablet 40 mg PO DAILY FLUID 11/13/21 lisinopril 5 mg tablet 5 mg PO DAILY #90 tabs 11/13/21 albuterol sulfate 90 mcg/actuation aerosol inhaler 2 puff inhalation Q4H PRN shortness of breath or wheezing #1 device 02/10/22 fluticasone propionate 50 mcg/actuation nasal spray,suspension (Allergy Relief (fluticasone)) 2 spray intranasal DAILY ALLERGIES #16 grams 02/10/22 alpha lipoic acid 100 mg capsule 100 mg PO BID NEUROPATHY 08/20/22 levothyroxine 25 mcg tablet 25 mcg PO DAILY 02/06/23 blood sugar diagnostic (True Metrix Glucose Test Strip) #10 ea 04/08/23 dulaglutide 4.5 mg/0.5 mL subcutaneous pen injector (Trulicity) 4.5 mg subcut MO 11/10/23 insulin glargine 100 unit/mL (3 mL) subcutaneous pen (Basaglar KwikPen U-100 Insulin) 44 unit subcut BID DM 03/11/24 insulin lispro 100 unit/mL subcutaneous pen (Admelog SoloStar U-100 Insulin lispro) 12 unit subcut QDAY 03/11/24 magnesium oxide 250 mg PO BID 03/11/24 azelastine 137 mcg (0.1 %) nasal spray 1 spray intranasal BID PRN SINUS 09/27/24 guaifenesin 1,200 mg tablet, extended release 12 hr 1,200 mg PO BID 09/27/24 pen needle, diabetic 32 gauge x 5/32 #1,200 ea 10/18/24 insulin lispro 100 unit/mL subcutaneous pen (Admelog SoloStar U-100 Insulin lispro) 20 unit subcut QPM 02/23/25 OXYGEN - Supplemental ([facility] INFORMATIONAL USE ONLY) hypoxia 02/24/25 amoxicillin 875 mg-potassium clavulanate 125 mg tablet 1 tab PO BID 3 days #6 tabs 02/25/25 prednisone 10 mg tablet See Taper PO DAILY #20 tabs 02/25/25 Hospital Course Operations None Procedures EKG and - (Chest x-ray, CTA chest) Summary of Care Provided Minutes Spent on Discharge: 38 Hospital Course: Patient is a 74-year-old male who presented to [facility] ED on 02/23/2025 with shortness of breath. Hospital course as noted below. Patient discharged home in stable condition on 02/25. 1. Acute hypoxia in setting of chronic hypoxic respiratory failure with acute COPD exacerbation suspected secondary to community-acquired pneumonia, improving ? Follows with [place] pulmonology. On 3 L at rest and 5 L with exertion at home. Dropped to the low 80s on exertion on home 5 L on admit. CTA chest with no PE, did show lung cancer with surrounding postradiation fibrosis as below, no other acute findings. Presentation seems most consistent with a community-acquired pneumonia and mild COPD exacerbation. COVID/flu/RSV and respiratory PCR panel negative. Not able to produce sputum culture. Procalcitonin mildly elevated at 0.24. Treated with IV antibiotics, scheduled DuoNebs and p.o. steroids during hospitalization with improvement. Completed O2 testing on day of discharge and patient stable on home amount of oxygen. Discharged on Augmentin to complete 5-day course of antibiotics total as well as a short prednisone taper. Continue home inhalers on discharge. Recommend outpatient follow-up with pulmonology in the next few weeks. 2. Non-small cell lung cancer ? Follows with [facility] oncology. Completed radiation therapy in June and July 2023. CTA chest on admit showed an irregular 3.1 cm x 3 cm mass in the peripheral aspect of the left lung apex with postradiation fibrosis and enlarged bilateral hilar lymph nodes as well as subcarinal lymph nodes. Unable to review most recent imaging but per patient, oncology has told him his imaging has been essentially stable since completion of radiation therapy. No inpatient needs, continue close outpatient follow-up. Chronic medical conditions: ? Chronic HFrEF with ischemic cardiomyopathy s/p ICD placement, paroxysmal A-fib, history of CAD with stenting, hypertension, hyperlipidemia: Follows with [place] cardiology. Last echo in 2021 with EF 35% that was stable from previous. BNP mildly elevated at 2150 on admit, but patient was otherwise dry appearing on exam; suspect this is due to CKD stage IIIa as below as well as mild increase in pulmonary hypertension in setting of upper respiratory infection. In normal sinus rhythm on admit. Will continue home aspirin, statin, Coreg, and amiodarone. Okay to resume home Lasix and lisinopril on 02/24. Continue all home medications on discharge. ? Type 2 diabetes mellitus: Glucose 123 on admit. A1c 7.4%. Continue treatment with reduced dosing of Lantus 35 units twice daily and Humalog 12 units with meals plus sliding scale insulin, adjust as needed. ? CKD stage IIIa: Creatinine 1.3-1.5 during hospitalization, stable at baseline. ? BIANCA: Continue home PAP therapy. ? Hypothyroidism: Continue home Synthroid. ? History of gout: Continue home allopurinol. Total clinical time spent by myself addressing the patient's medical issues, reviewing all the data, and collaborating with patient's care team: 38 minutes. Physical Exam Const alert, oriented x3 and no apparent distress Constitutional Narrative: Pleasant elderly male, class I obesity, energy level improving, otherwise sitting back comfortably in bed, conversing normally, in no acute distress. General Appearance: cooperative and comfortable HEENT normocephalic, head/scalp atraumatic, hearing grossly normal bilaterally, nasal mucous membranes and turbinates normal and moist oral mucous membranes Eyes PERRL, EOMs intact bilaterally and conjunctivae normal Neck full ROM Chest inspection of chest normal Resp normal respiratory effort and no use of accessory muscles Resp Narrative: Breathing comfortably on 3 L nasal cannula at rest. Mildly diminished breath sounds bilaterally but no wheezing noted, improving. No crackles noted. Cardio regular rate, regular rhythm, no murmurs and peripheral pulses 2+ throughout GI normal to inspection, nondistended, normoactive bowel sounds, soft to palpation, non-tender and non-distended Back/Spine normal ROM Extremity normal to inspection, full ROM and no pedal edema Skin no rashes or lesions noted Psych mental status grossly normal Weight / BMI Weight Weight: 100.2 kg Body Mass Index (BMI) 30.8 ABG / Lab / Microbiology Data 02/25/25 08:53 02/25/25 08:53 Laboratory: Laboratory Results - last 24 hr 02/24/25 16:47: POC Glucose 353 H 02/24/25 21:35: POC Glucose 328 H 02/25/25 07:51: POC Glucose 210 H 02/25/25 08:53: WBC 14.9 H, RBC 4.87, Hgb 14.5, Hct 45.4, MCV 93.2, MCH 29.8, MCHC 31.9 L, RDW Std Deviation 54.4 H, RDW Coeff of Dayne 16.0 H, Plt Count 288, MPV 9.3, Sodium 141, Potassium 4.6, Chloride 106, Carbon Dioxide 21.4, Anion Gap 13, BUN 52 H, Creatinine 1.39 H, Estim Creat Clear Calc 56.23, Est GFR (MDRD) Non-Af 53 L, BUN/Creatinine Ratio 37.1 H, Glucose 218 H, Calcium 8.5 02/25/25 11:31: POC Glucose 240 H Microbiology: Microbiology 02/23/25 17:50 Mucosa - Nasopharyngeal Respiratory Panel (PCR) - Final 02/23/25 13:22 Mucosa - Nose SARS-CoV-2, Influenza & RSV (PCR) - Final D/C Instructions DC O2, CPAP, BIPAP Needs Home O2 Discharge instructions: No Patient's Goals Of Care - F/U Goals Reviewed Goals of care reviewed with patient: NA-No significant change in clinical Status /major procedure scheduled Meaningful Use Info Meaningful Use Meaningful Use Diagnoses (Choose all that apply): None applicable Discharge Plan Admission Admit Date/Time: 02/23/25 13:18 Primary Reason for Your Visit: Shortness of breath Attending Provider: Brayan Hathaway Primary Care Provider: Lindsay Batista Instructions Additional Instructions / Restrictions: ? Take antibiotic below twice daily for 3 more days to complete 5-day course of antibiotics total. ? Complete short prednisone taper below for COPD exacerbation. ? Call the pulmonology office to schedule a follow-up appointment in the next month or so. Discharge Orders/Prescriptions Prescriptions: New prednisone 10 mg tablet See Taper PO DAILY Qty: 20 0RF Taper: Prednisone Taper 40 mg WITH BREAKFAST for 2 Days and 0 Hour 30 mg WITH BREAKFAST for 2 Days and 0 Hour 20 mg WITH BREAKFAST for 2 Days and 0 Hour 10 mg WITH BREAKFAST for 2 Days and 0 Hour amoxicillin-pot clavulanate 875-125 mg tablet 1 tab PO BID 3 Days Qty: 6 0RF Continued allopurinol 100 mg tablet 100 mg PO BID Patient Comments: will start after prednisone. loratadine 10 mg tablet 10 mg PO DAILY Jardiance 25 mg tablet 25 mg PO DAILY lisinopril 5 mg tablet 5 mg PO DAILY Qty: 90 3RF albuterol sulfate 90 mcg/actuation HFA aerosol inhaler 2 puff Inhalation Q4H PRN (Reason: shortness of breath or wheezing) Qty: 1 3RF Rx Instructions: administer with spacer fluticasone propionate [Allergy Relief (fluticasone)] 50 mcg/actuation spray,suspension 2 spray INTRANASAL DAILY Qty: 16 11RF Rx Instructions: administer into each nostril (DME) True Metrix Glucose Test Strip Strip See Rx Instructions .ROUTE .MEDSUPPLY Qty: 10 Patient Comments: TEST BLOOD SUGAR TWICE DAILY DIRECTED Rx Instructions: As directed magnesium oxide 250 mg magnesium tablet 250 mg PO BID insulin lispro [Admelog SoloStar U-100 Insulin] 100 unit/mL insulin pen 12 unit subcut QDAY Rx Instructions: am guaifenesin 1,200 mg tablet extended release 12hr 1,200 mg PO BID azelastine 137 mcg (0.1 %) spray,non-aerosol 1 spray INTRANASAL BID PRN (Reason: SINUS) Trulicity 4.5 mg/0.5 mL pen injector 4.5 mg subcut MO (DME) pen needle, diabetic 32 gauge x 5/32 needle See Rx Instructions .ROUTE TID Qty: 1200 Rx Instructions: As directed insulin glargine [Basaglar KwikPen U-100 Insulin] 100 unit/mL (3 mL) insulin pen 44 unit SC BID carvedilol 25 mg tablet 25 mg PO BID Rx Instructions: must administer with a meal/food atorvastatin 10 mg tablet 10 mg PO QHS amiodarone 200 mg tablet 100 mg PO DAILY aspirin 81 MG tablet,delayed release (DR/EC) 81 mg PO DAILY@0800 levothyroxine 25 mcg tablet 25 mcg PO DAILY Rx Instructions: 50 mcg on Mondays alpha lipoic acid 100 mg Capsule 100 mg PO BID insulin lispro [Admelog SoloStar U-100 Insulin] 100 unit/mL insulin pen 20 unit subcut QPM OXYGEN - Supplemental ([facility] INFORMATIONAL USE ONLY) Patient Comments: pt states he uses 4L @ home and gets O2 through [facility] furosemide 40 mg tablet 40 mg PO DAILY Referrals / Follow Up: Olvin Kapoor DO [Med Staff - Active Staff, Pulmonary Medicine] Lindsay Batista MD [Primary Care Provider, Internal Medicine] Disposition Disposition (needs filled in before D/C Order can be placed): Home, Self Care Charges/Coding Visit Charges Inpatient E&M: 22757 Disch Hosp >30min
== END 2025-02-25 14:20 | disposition home or self-care (01) | DRG 193 ==
LOC: ED 14:15 → PCU 15:49
PROVIDERS: Admitting Provider Hospitalist; Emergency Provider Emergency Medicine; PCP Internal Medicine; Visit Provider Hospitalist
DX: J18.9 Pneumonia, unspecified organism (principal); J96.21 Acute and chronic respiratory failure with hypoxia; I50.22 Chronic systolic (congestive) heart failure; J44.1 Chronic obstructive pulmonary disease with (acute) exacerbation; I13.0 Hypertensive heart and chronic kidney disease with heart failure and stage 1 through stage 4 chronic kidney disease, or unspecified chronic kidney disease; J44.0 Chronic obstructive pulmonary disease with (acute) lower respiratory infection; Z99.81 Dependence on supplemental oxygen; N18.31 Chronic kidney disease, stage 3a; E11.22 Type 2 diabetes mellitus with diabetic chronic kidney disease; E03.9 Hypothyroidism, unspecified; I48.0 Paroxysmal atrial fibrillation; I25.10 Atherosclerotic heart disease of native coronary artery without angina pectoris; G47.33 Obstructive sleep apnea (adult) (pediatric); E78.5 Hyperlipidemia, unspecified; I25.2 Old myocardial infarction; Z79.4 Long term (current) use of insulin; M10.9 Gout, unspecified; Z95.5 Presence of coronary angioplasty implant and graft; Z87.891 Personal history of nicotine dependence; Z79.890 Hormone replacement therapy; Z79.899 Other long term (current) drug therapy; Z79.84 Long term (current) use of oral hypoglycemic drugs; Z92.3 Personal history of irradiation; Z85.828 Personal history of other malignant neoplasm of skin; Z79.82 Long term (current) use of aspirin; Z79.51 Long term (current) use of inhaled steroids; Z79.85 Long-term (current) use of injectable non-insulin antidiabetic drugs; Z95.810 Presence of automatic (implantable) cardiac defibrillator; Z98.52 Vasectomy status; Z85.118 Personal history of other malignant neoplasm of bronchus and lung
CPT/HCPCS: 36415; 71046; 71275; 80048; 82962; 83036; 83880; 84145; 84484; 85025; 85027; 87631; 87633; 93005; 94640; 94668; 97161; 99285; Q9967; A4216